=== PATIENT | male | born 1945 | race Caucasian/White ===

== ENCOUNTER → 2018-06-27 08:41 | Outpatient (CLI) | payer MEDICARE, OTHER, SELFPAY ==
--- NOTE | 2018-06-27 | DI.MRI.S_ITS ---
PROCEDURE: MR SHOULDER RT WO CON INDICATIONS: DYSFUNCTION OF RIGHT ROTATOR CUFF TECHNIQUE: Noncontrast oblique coronal T2 fast spin echo with fat saturation, oblique sagittal T1 spin echo and T2 fast spin echo with fat saturation, axial T1 spin echo and T2 fast spin echo with fat saturation through the shoulder. COMPARISON: [facility], MR, SHOULDER WITHOUT CONTRAST, 12/24/2016, 8:39. FINDINGS: Image quality: Excellent. Rotator cuff: There is a full-thickness rupture of the distal supraspinatus at its insertion on greater tuberosity of humeral head with approximately 1.0 cm medial retraction of torn tendon fibers to the level of the acromion. Tendinosis and low to moderate grade articular surface partial thickness tear involving distal infraspinatus is seen. Distal subscapularis tendinosis is also noted. Sagittal images demonstrate moderate supraspinatus muscle atrophy. Bones and bursae: No bone marrow contusions or fractures. 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 Small to moderate amount of glenohumeral joint fluid and subacromial subdeltoid bursal fluid is seen. No gross loose body. Capsule and soft tissues: In the absence of intra-articular contrast, there is suggestion of focal superior anterior labral tear at approximately 1:00 position. Degenerative changes in the inferior labrum is seen with suggestion of anterior inferior labral tear at 4 to 6:00 position. The long head of the biceps tendon demonstrates normal location and morphology. The rotator interval appears normal, without fibrosis. The coracohumeral ligament is normal in thickness. IMPRESSION: 1. Full-thickness rupture of the distal supraspinatus at its insertion on the right head with 1.4 cm medial retraction of torn tendon fibers. Tendinosis and low-grade articular surface partial-thickness tear involving distal infraspinatus. Distal subscapularis tendinosis. Moderate supraspinatus muscle atrophy. 2. Suggestion of focal superior anterior labral tear at 2:00 position an anterior inferior labral tear 4 to 6:00 position. 3. Osteoarthritic changes in glenohumeral joint and acromioclavicular joint. No fracture or dislocation. Small amount of joint fluid. Dictated by: Luis A Cormier M.D. on 06/27/2018 at 12:44 Approved by: Luis A Cormier M.D. on 06/27/2018 at 13:09
== END ==
PROVIDERS: Family Provider Family Medicine; PCP Family Medicine; Visit Provider Orthopaedic Surgery
DX: M75.101 Unspecified rotator cuff tear or rupture of right shoulder, not specified as traumatic (principal); M19.011 Primary osteoarthritis, right shoulder
CPT/HCPCS: 73221

== ENCOUNTER → 2018-07-08 14:00 | Outpatient (CLI) | payer MEDICARE, OTHER, SELFPAY | PROVIDERS: Family Provider Family Medicine; PCP Family Medicine | DX: Z23 Encounter for immunization (principal) | CPT/HCPCS: 90471; 90662 ==

== ENCOUNTER 2019-03-09 09:22 | Emergency (ER) | payer MEDICARE, OTHER, SELFPAY ==
[2019-03-09 09:30] VITALS: BP 145/70; PULSE 59; RESP 16; TEMP 36.4; O2SAT 98; BMI 32.5
--- NOTE | 2019-03-09 09:38 | ED.LOWEXIN ---
HPI - Extremity Injury (Lower) General Chief Complaint: Extremity Injury, Lower Stated Complaint: states possible pulled hamstring left leg Time Seen by Provider: 03/09/19 09:36 Source: patient and family () Mode of arrival: ambulatory Limitations: no limitations History of Present Illness HPI Narrative: This is a 73-year-old male comes to the emergency department with complaint of left thigh pain. Patient states that he thinks he may have torn his hamstring. Patient was walking down [place] when he sort of missed a step and tripped on a rock. He states that he has pain in the posterior thigh. It is worse with ambulation and weight-bearing. Patient states that he does not have any weakness that he appreciates but he does not normally have full range of motion secondary to chronic osteoarthritic changes. Patient states that he has had any numbness or tingling. He does have pain kind of in the hip and knee but he states this is pretty normal for him. Patient denies any bruising. Eyes not noticed any swelling. He states certain motions such as twisting are more painful than others. It felt better if it is elevated a slightly flexed position. Pain sort of radiates from the mid thigh up towards the buttock. Patient has had multiple orthopedic surgeries with his knees and shoulders. He normally sees Dr. Damon. He takes medication for blood pressure and cholesterol. Related Data Home Medications Medication Instructions Recorded Confirmed ASPIRIN (Aspirin EC) 81 mg PO QDAY #0 09/03/11 03/09/19 HYDROCHLOROTHIAZIDE (#HCTZ) 25 mg PO QDAY #0 09/03/11 03/09/19 lisinopril [Zestril] 10 mg PO QDAY #0 09/03/11 03/09/19 simvastatin 20 mg PO HS #0 09/03/11 03/09/19 Allergies Allergy/AdvReac Type Severity Reaction Status Date / Time Sulfa (Sulfonamide Allergy Severe ANAPHYLAXIS Verified 03/09/19 09:30 Antibiotics) [SULFA (SULFONAMIDE ANTIBIOTICS)] Review of Systems Review of Systems ROS Unobtainable: All systems reviewed & are unremarkable except as noted in HPI and below Constitutional Denies weakness Musculoskeletal Reports as per HPI, Reports abnormal gait, Reports myalgias (posterior left thigh), Denies deformity, Reports arthralgias (chronic per patient), Reports limited range of motion, Denies muscle weakness, Denies numbness and Denies tingling Integumentary/Breasts Denies erythema, Denies unusual bruising and Denies wounds Neurologic Reports abnormal gait, Denies focal weakness, Denies numbness, Denies sensory deficit, Denies tingling and Denies weakness [facility] Medical History (Updated 03/09/19 @ 10:00 by Amy Pardo DO) Dyslipidemia (Chronic) Hypertension (Chronic) Social History (Updated 03/09/19 @ 09:54 by Amy Pardo DO) marital status: occupational status: employed additional social history: 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 Exam Narrative Exam Narrative: GENERAL: Alert and oriented x three, well-nourished well-appearing male in no acute distress. HEENT: Head normocephalic, atraumatic, EOMI, face symmetric, moist mucous membranes NECK: Supple, full range of motion CARDIOVASCULAR: Regular rate and rhythm without murmurs, rubs or gallops. RESPIRATORY: Breath sounds equal bilaterally, no wheezes rales or rhonchi. ABDOMEN: Soft, nontender. Normoactive bowel sounds all 4 quadrants. No guarding or rebound, rigidity, no mass EXTREMITIES: Normal range of motion, no clubbing or edema. Neurovascularly intact, 2+ dorsalis pedis and tibialis on the left leg. Patient has full range of motion active and passively. He has no bony tenderness except for very mild at the left trochanter. Patient has some mild tenderness on the posterior thigh with palpation. He does not have any bruising or swelling. Patient's strength is 5/5 in his lower extremity as well as with dorsiflexion and plantar flexion. Gait not tested. NEUROLOGICAL: Cranial nerves II through XII grossly intact. Moving all extremities SKIN: Warm, dry, no petechiae, no rashes or lesions. Initial Vital Signs Initial Vital Signs: Vital Signs Temperature 97.6 F 03/09/19 09:30 Pulse Rate 59 L 03/09/19 09:30 Respiratory Rate 16 03/09/19 09:30 Blood Pressure 145/70 H 03/09/19 09:30 Pulse Oximetry 98 03/09/19 09:30 Course Orders Ordered: ED Orders 03/09/19 09:50 XR hip w pel if done LT 2V Stat Vital Signs - 8 hr 03/09/19 09:30 Temperature 97.6 F Pulse Rate 59 L Respiratory Rate 16 Blood Pressure 145/70 H Pulse Oximetry 98 MDM - Extremity Injury (Lower) Imaging Data L hip xray: Attestation: I personally reviewed and interpreted this imaging study as follows: Radiologist's impression: [address] [address] XRay Report Signed Patient: Leslie Bello VMR#: [id number] : 4Acct:[id number] Age/Sex: 73 / MDate of Service: 03/09/19 Loc: ED Accession Number: [id number] Procedure: XR hip w pel if done LT 2V Ordering Provider: Amy Pardo D.O. PROCEDURE: XR HIP W PEL IF DONE LT 2V INDICATIONS: left hip/thigh pain, posterior thigh, TECHNIQUE: AP pelvis with lateral view(s) of the left hip(s). COMPARISON: None. FINDINGS: Bones: No acute fractures or dislocations. Remote likely avulsion fracture fragments can be seen on the left inferiorly from a presumed ischial tuberosity avulsion. Pelvic ring appears intact. No suspicious bony lesions. There is moderate to severe superior joint space narrowing seen of both hips, with associated remodeling changes with subchondral sclerosis and osteophyte formation. Age-appropriate lower lumbar spine degenerative changes are noted. Soft tissues: The visualized bowel gas pattern is normal. No suspicious soft tissue calcifications. Bilateral pelvic lymph node dissection clips can be seen. 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 If there is point tenderness (or other clinical suspicion for a fracture not seen on these images) then a dedicated CT could be considered for further evaluation, as clinically appropriate. Dictated by: Eduardo Sahni M.D. on 03/09/2019 at 9:03 Approved by: Eduardo Sahni M.D. on 03/09/2019 at 9:05 [facility] Narrative Medical decision making narrative: Patient has very mild tenderness over the left hip but does have some rotational discomfort by history so x-ray was ordered. Patient's x-ray shows avulsion fracture fragments on the left inferiorly from a presumed ischial tuberosity avulsion, likely remote and when I review the myself they do not appear to be acute but more likely remote. Discussed with patient he did have a significant hamstring injury but he could remember if it was the right or left side is was about 30 years ago. We discussed that I suspect that this is his old injury showing on the x-ray but we can't know 100% for sure. Patient states it is not nearly as painful as that time. Suspect patient does have a hamstring tear or strain. Patient well as with Dr. Damon for Ortho and was asked to follow up with him. He has a walker at home which I asked him to continue to use. Plan for RICE, follow up with orthodic surgery and toe touch weightbearing. Geovany wrap placed by nursing Discharge Plan Departure Patient Disposition: Home Clinical Impression: Left hamstring injury Qualifiers: Encounter type: initial encounter Qualified Code(s): S76.302A - Unspecified injury of muscle, fascia and tendon of the posterior muscle group at thigh level, left thigh, initial encounter Discharge Date/Time: 03/09/19 11:00 Interventions: ED Discharge Assessment Last Done: 03/09/19 11:00 Instructions: DI for Hamstring Strain Activity Restrictions/Additional Instructions: Follow-up with Orthopedic surgery in the next 7-10 days. Call for an appointment tomorrow morning. You may continue ibuprofen up to 600 mg every 6 hours as needed and or Tylenol up to a 1000 mg every 8 hours as needed for pain. Wear a compression or Geovany bandage on the area as tolerated. You may use ice and/or heat to the affected area. Continue to use a walker, and toe-touch weight-bearing until cleared by Orthopedic surgery or if your symptoms completely resolved. Avoid activities that may strain or stress your hamstring including running, jumping, ect. Return to the emergency department for new fevers, new weakness in your lower extremity, new swelling, redness, rapidly worsening pain, new bruising or other skin color changes. New chest pain or shortness of breath or other new or concerning symptoms. Prescriptions: No Action simvastatin 20 MG tablet 20 mg PO HS Qty: 0 RF: 0 HYDROCHLOROTHIAZIDE (#HCTZ) 25 mg PO QDAY Qty: 0 RF: 0 ASPIRIN (Aspirin EC) 81 mg PO QDAY Qty: 0 RF: 0 lisinopril [Zestril] 10 MG tablet 10 mg PO QDAY Qty: 0 RF: 0 Referrals: Alex Oneill MD [Primary Care Provider] - Topher Damon MD [Physician] -
--- NOTE | 2019-03-09 09:50 | DI.RAD.S_ITS ---
PROCEDURE: XR HIP W PEL IF DONE LT 2V INDICATIONS: left hip/thigh pain, posterior thigh, TECHNIQUE: AP pelvis with lateral view(s) of the left hip(s). COMPARISON: None. FINDINGS: Bones: No acute fractures or dislocations. Remote likely avulsion fracture fragments can be seen on the left inferiorly from a presumed ischial tuberosity avulsion. Pelvic ring appears intact. No suspicious bony lesions. There is moderate to severe superior joint space narrowing seen of both hips, with associated remodeling changes with subchondral sclerosis and osteophyte formation. Age-appropriate lower lumbar spine degenerative changes are noted. Soft tissues: The visualized bowel gas pattern is normal. No suspicious soft tissue calcifications. Bilateral pelvic lymph node dissection clips can be seen. 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 If there is point tenderness (or other clinical suspicion for a fracture not seen on these images) then a dedicated CT could be considered for further evaluation, as clinically appropriate. Dictated by: Eduardo Sahni M.D. on 03/09/2019 at 9:03 Approved by: Eduardo Sahni M.D. on 03/09/2019 at 9:05
--- NOTE | 2019-03-09 10:00 | ED_ITS ---
HPI - Extremity Injury (Lower) General Chief Complaint: Extremity Injury, Lower Stated Complaint: states possible pulled hamstring left leg Time Seen by Provider: 03/09/19 09:36 Source: patient and family () Mode of arrival: ambulatory Limitations: no limitations History of Present Illness HPI Narrative: This is a 73-year-old male comes to the emergency department with complaint of left thigh pain. Patient states that he thinks he may have torn his hamstring. Patient was walking [place] a [place] when he sort of missed a step and tripped on a rock. He states that he has pain in the posterior thigh. It is worse with ambulation and weight-bearing. Patient states that he does not have any weakness that he appreciates but he does not normally have full range of motion secondary to chronic osteoarthritic changes. Patient states that he has had any numbness or tingling. He does have pain kind of in the hip and knee but he states this is pretty normal for him. Patient denies any bruising. Eyes not noticed any swelling. He states certain motions such as twisting are more painful than others. It felt better if it is elevated a slightly flexed position. Pain sort of radiates from the mid thigh up towards the buttock. Patient has had multiple orthopedic surgeries with his knees and shoulders. He normally sees Dr. Damon. He takes medication for blood pressure and cholesterol. Related Data Home Medications Medication Instructions Recorded Confirmed ASPIRIN (Aspirin EC) 81 mg PO QDAY #0 09/03/11 03/09/19 HYDROCHLOROTHIAZIDE (#HCTZ) 25 mg PO QDAY #0 09/03/11 03/09/19 lisinopril [Zestril] 10 mg PO QDAY #0 09/03/11 03/09/19 simvastatin 20 mg PO HS #0 09/03/11 03/09/19 Allergies Allergy/AdvReac Type Severity Reaction Status Date / Time Sulfa (Sulfonamide Allergy Severe ANAPHYLAXIS Verified 03/09/19 09:30 Antibiotics) [SULFA (SULFONAMIDE ANTIBIOTICS)] Review of Systems Review of Systems ROS Unobtainable: All systems reviewed & are unremarkable except as noted in HPI and below Constitutional Denies weakness Musculoskeletal Reports as per HPI, Reports abnormal gait, Reports myalgias (posterior left thigh), Denies deformity, Reports arthralgias (chronic per patient), Reports limited range of motion, Denies muscle weakness, Denies numbness and Denies tingling Integumentary/Breasts Denies erythema, Denies unusual bruising and Denies wounds Neurologic Reports abnormal gait, Denies focal weakness, Denies numbness, Denies sensory deficit, Denies tingling and Denies weakness [facility] Medical History (Updated 03/09/19 @ 10:00 by Amy Pardo DO) Dyslipidemia (Chronic) Hypertension (Chronic) Social History (Updated 03/09/19 @ 09:54 by Amy Pardo DO) marital status: occupational status: employed additional social history: 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 Exam Narrative Exam Narrative: GENERAL: Alert and oriented x three, well-nourished well- appearing male in no acute distress. HEENT: Head normocephalic, atraumatic, EOMI, face symmetric, moist mucous membranes NECK: Supple, full range of motion CARDIOVASCULAR: Regular rate and rhythm without murmurs, rubs or gallops. RESPIRATORY: Breath sounds equal bilaterally, no wheezes rales or rhonchi. ABDOMEN: Soft, nontender. Normoactive bowel sounds all 4 quadrants. No guarding or rebound, rigidity, no mass EXTREMITIES: Normal range of motion, no clubbing or edema. Neurovascularly intact, 2+ dorsalis pedis and tibialis on the left leg. Patient has full range of motion active and passively. He has no bony tenderness except for very mild at the left trochanter. Patient has some mild tenderness on the posterior thigh with palpation. He does not have any bruising or swelling. Patient's strength is 5/5 in his lower extremity as well as with dorsiflexion and plantar flexion. Gait not tested. NEUROLOGICAL: Cranial nerves II through XII grossly intact. Moving all extremities SKIN: Warm, dry, no petechiae, no rashes or lesions. Initial Vital Signs Initial Vital Signs: Vital Signs Temperature 97.6 F 03/09/19 09:30 Pulse Rate 59 L 03/09/19 09:30 Respiratory Rate 16 03/09/19 09:30 Blood Pressure 145/70 H 03/09/19 09:30 Pulse Oximetry 98 03/09/19 09:30 Course Orders Ordered: ED Orders 03/09/19 09:50 XR hip w pel if done LT 2V Stat Vital Signs - 8 hr 03/09/19 09:30 Temperature 97.6 F Pulse Rate 59 L Respiratory Rate 16 Blood Pressure 145/70 H Pulse Oximetry 98 MDM - Extremity Injury (Lower) Imaging Data L hip xray: Attestation: I personally reviewed and interpreted this imaging study as follows: Radiologist's impression: [address] [address] XRay Report Signed Patient: Leslie Bello VMR#: [id number] : 4Acct:[id number] Age/Sex: 73 / MDate of Service: 03/09/19 Loc: ED Accession Number: [id number] Procedure: XR hip w pel if done LT 2V Ordering Provider: Amy Pardo D.O. PROCEDURE: XR HIP W PEL IF DONE LT 2V INDICATIONS: left hip/thigh pain, posterior thigh, TECHNIQUE: AP pelvis with lateral view(s) of the left hip(s). COMPARISON: None. FINDINGS: Bones: No acute fractures or dislocations. Remote likely avulsion fracture fragments can be seen on the left inferiorly from a presumed ischial tuberosity avulsion. Pelvic ring appears intact. No suspicious bony lesions. There is moderate to severe superior joint space narrowing seen of both hips, with associated remodeling changes with subchondral sclerosis and osteophyte formation. Age-appropriate lower lumbar spine degenerative changes are noted. Soft tissues: The visualized bowel gas pattern is normal. No suspicious soft tissue calcifications. Bilateral pelvic lymph node dissection clips can be seen. 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 If there is point tenderness (or other clinical suspicion for a fracture not seen on these images) then a dedicated CT could be considered for further evaluation, as clinically appropriate. Dictated by: Eduardo Sahni M.D. on 03/09/2019 at 9:03 Approved by: Eduardo Sahni M.D. on 03/09/2019 at 9:05 [facility] Narrative Medical decision making narrative: Patient has very mild tenderness over the left hip but does have some rotational discomfort by history so x-ray was ordered. Patient's x-ray shows avulsion fracture fragments on the left inferiorly from a presumed ischial tuberosity avulsion, likely remote and when I review the myself they do not appear to be acute but more likely remote. Discussed with patient he did have a significant hamstring injury but he could remember if it was the right or left side is was about 30 years ago. We discussed that I suspect that this is his old injury showing on the x-ray but we can't know 100% for sure. Patient states it is not nearly as painful as that time. Suspect patient does have a hamstring tear or strain. Patient well as with Dr. Damon for Ortho and was asked to follow up with him. He has a walker at home which I asked him to continue to use. Plan for RICE, follow up with orthodic surgery and toe touch weightbearing. Geovany wrap placed by nursing Discharge Plan Departure Patient Disposition: Home Clinical Impression: Left hamstring injury Qualifiers: Encounter type: initial encounter Qualified Code(s): S76.302A - Unspecified injury of muscle, fascia and tendon of the posterior muscle group at thigh level, left thigh, initial encounter Discharge Date/Time: 03/09/19 11:00 Interventions: ED Discharge Assessment Last Done: 03/09/19 11:00 Instructions: DI for Hamstring Strain Activity Restrictions/Additional Instructions: Follow-up with Orthopedic surgery in the next 7-10 days. Call for an appointment tomorrow morning. You may continue ibuprofen up to 600 mg every 6 hours as needed and or Tylenol up to a 1000 mg every 8 hours as needed for pain. Wear a compression or Geovany bandage on the area as tolerated. You may use ice and/or heat to the affected area. Continue to use a walker, and toe-touch weight-bearing until cleared by Orthopedic surgery or if your symptoms completely resolved. Avoid activities that may strain or stress your hamstring including running, jumping, ect. Return to the emergency department for new fevers, new weakness in your lower extremity, new swelling, redness, rapidly worsening pain, new bruising or other skin color changes. New chest pain or shortness of breath or other new or concerning symptoms. Prescriptions: No Action simvastatin 20 MG tablet 20 mg PO HS Qty: 0 RF: 0 HYDROCHLOROTHIAZIDE (#HCTZ) 25 mg PO QDAY Qty: 0 RF: 0 ASPIRIN (Aspirin EC) 81 mg PO QDAY Qty: 0 RF: 0 lisinopril [Zestril] 10 MG tablet 10 mg PO QDAY Qty: 0 RF: 0 Referrals: Alex Oneill MD [Primary Care Provider] - Topher Damon MD [Physician] -
[2019-03-09 10:30] VITALS: BP 135/78; PULSE 56; RESP 16; O2SAT 96
== END 2019-03-09 11:00 | disposition home or self-care (01) ==
PROVIDERS: Emergency Provider Emergency Medicine; Family Provider Family Medicine; PCP Family Medicine
DX: S76.302A Unspecified injury of muscle, fascia and tendon of the posterior muscle group at thigh level, left thigh, initial encounter (principal)
CPT/HCPCS: 73502; 99283

== ENCOUNTER 2019-04-22 09:00 | Outpatient (RCR) | payer MEDICARE, OTHER, SELFPAY ==
--- NOTE | 2019-03-19 11:23 | PT.OIE ---
Current Diagnoses Strain of muscle, fascia and tendon of the posterior muscle group at thigh level, left thigh, initial encounter (03/19/19) Past Medical History (Last Updated 03/09/19 @ 09:53 by Amy Pardo DO) Dyslipidemia (Chronic) Hypertension (Chronic) Provider Visit Care Team Role Provider Type Alex Oneill MD Family Provider Physician Primary Care Provider Specialty: Family Practice Address: [address] [place] [address], [id number] Email: Alyson King MD Attending Provider Physician Specialty: Orthopedic Surgery Address: [address] [place] [address], [id number] Email: [email or web address] [facility] Initial Evaluation PT-OP-A Visit Information Start: 03/19/19 09:55 Freq: Status: Active Protocol: Document 03/19/19 10:30 AMB (Rec: 03/19/19 10:33 AMB [id number]) Out-Patient Physical Therapy Visit Information Visit Information Visit Type Initial Evaluation Visit Start Time 10:30 Visit Stop Time 11:15 Total Visit Minutes 45 Visit Number 1 PT-OP-B Current Condition Start: 03/19/19 09:55 Freq: Status: Active Protocol: Document 03/19/19 10:30 AMB (Rec: 03/20/19 09:26 AMB [email or web address]) Current Condition History of Current Condition Onset Date 03/08/19 Current Complaints L hamstring strain History of Current Condition Berry reports he was doing yardwork on a hill and fell. 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 At the time at the ER the bruising had not come up to the surface yet, but now it has. Pt reports bruising at posterior thigh and groin. He is ambulating with crutches in the community and a walker at night. He notes that he has pain with any turning or twisting motions. Pt lives in a home with stairs, he lives on the main level and has been using two rails and step to gait. Prior Treatments and Tests X-ray, noel wrap and ice at ER Treatment Goals Patient/Caregiver Goals Get back to walking without an AD or pain over uneven terrain for 2 miles as he was doing previously Personal Factors Other Personal Factors That May Effect Prior meniscal debridement Therapy/Recovery bilaterally x2, TIA 30 years ago, hypertension, prior prostate cancer PT-OP-C Subjective Start: 03/19/19 09:55 Freq: Status: Active Protocol: Document 03/19/19 10:30 AMB (Rec: 03/20/19 09:26 AMB [email or web address]) OP-PT Pain Assessment Location Left Thigh Pain Location Details groin/ posterior thigh Intensity 7 Scale Used Numeric (1 - 10) PT-OP-G Mobility & Gait Start: 03/19/19 09:55 Freq: Status: Active Protocol: Document 03/19/19 10:30 AMB (Rec: 03/20/19 09:26 AMB [email or web address]) OP Gait Assessment Comments Gait Comments Ambulates with a stiff leg with crutches. Tries to avoid twising/ turning motions due to pain. PT-OP-J Posture/Palpation/Skin Start: 03/19/19 09:55 Freq: Status: Active Protocol: Document 03/19/19 10:30 AMB (Rec: 03/20/19 09:26 AMB [email or web address]) Posture Evaluation Comments Posture Comments Flat lumbar spine, forward head Palpation Assessment Location One Palpation Location L thigh Palpation Details Edema and bruising present at posterior thigh and groin. Edema at L ankle/foot, tender to palpation but no pain with ROM with OP. Most tenderness just distal to ischial tuberosity and at adductors. PT-OP-K Range of Motion Start: 03/19/19 09:55 Freq: Status: Active Protocol: Document 03/19/19 10:30 AMB (Rec: 03/20/19 09:26 AMB [email or web address]) Hip Goniometric Range of Motion Hip Measured in Degrees Right Passive Straight Leg Raise 90 Internal Rotation 10 Left Passive Straight Leg Raise 65 Internal Rotation 10 Knee Goniometric Range of Motion Knee Measured in Degrees Right Flexion Passive (degrees) 115 Left Flexion Passive (degrees) 110 PT-OP-M Strength Start: 03/19/19 09:55 Freq: Status: Active Protocol: Document 03/19/19 10:30 AMB (Rec: 03/20/19 09:26 AMB [email or web address]) Hip Strength Hip Manual Muscle Testing Right Flexion (L2) 5 Normal Extension (S1) 4+ Good+ Abduction 4+ Good+ Adduction 4+ Good+ Left Flexion (L2) 4+ Good+ Extension (S1) 4- Good- Abduction 4+ Good+ Adduction 3+ Fair+ Knee Strength Knee Manual Muscle Testing Right Flexion (S2) 4+ Good+ Extension (L3) 5 Normal Left Flexion (S2) 2 Poor Extension (L3) 5 Normal PT-OP-Q Treatments Start: 03/21/19 11:01 Freq: Status: Active Protocol: Document 03/19/19 10:30 AMB (Rec: 03/21/19 11:21 AMB [email or web address]) Therapeutic Exercises Supine Exercises 1 Supine Exercise Name hamstring stretch Reps/Minutes 20x2 Comments gentle Sitting Exercises 1 Sitting Exercise Name ball squeeze Reps/Minutes 5x5 Standing Exercises 2 Standing Exercise Name heel raises Comments double leg 1 Standing Exercise Name hamstring curls Reps/Minutes 10 PT-OP-T Assessment and Plan Start: 03/19/19 09:55 Freq: Status: Active Protocol: Document 03/19/19 10:30 AMB (Rec: 03/21/19 11:21 AMB [email or web address]) Physical Therapy Assessment Rehab Potential Rehabilitation Potential Excellent Evaluation Complexity Number of Personal Factors/Comorbidities 1-2 Number of Body Systems Impaired 4 or More Clinical Presentation at Evaluation Stable Impairments Impairments Balance Functional Mobility Gait Pain ROM Strength Goals Three Impairment gait Short Term Goal (STG) Berry will ambulate without an assistive device over smooth surfaces without antalgic gait for 5 minutes. STG Duration 4 weeks Cotton Opener Goal (LTG) Berry will walk without an assistive device over uneven terrain for 5 minutes with 3/ 10 pain or less. LTG Duration 8 weeks Two Impairment strength Short Term Goal (STG) Berry will be independent with a HEP for LE strengthening. STG Duration 4 weeks Half-Way Goal (LTG) Luke will show improved LE strength by performing a partial squat to lift 10# from the floor without an increase in pain. LTG Duration 8 weeks One Impairment ROM Short Term Goal (STG) Berry will improve his straight leg raise to 90 degrees bilaterally. STG Duration 4 weeks Assessment Summary Assessment Berry attends physical therapy with significant bruising and swelling s/p hamstring and likely adductor strain during a fall down a hill. He will benefit from PT to at first help him manage his swelling and pain, and then progress his strength, balance, and ability to tolerate multiplanar movements to return to his prior level of function of walking over uneven terrain for multiple miles without pain. Physical Therapy Plan Frequency and Duration Frequency of Treatment 2x/Week Duration of Treatment 8 weeks Plan of Care Start Date 03/19/19 Plan of Care End Date 05/14/19 Therapeutic Interventions Therapeutic Interventions Aquatic Therapy Balance Training Gait Training Home Exercise Program Manual Therapy Neuromuscular Re-education Self-Care/Home Management Soft Tissue Mobilization Therapeutic Activities Therapeutic Exercises Modalities Cold Pack/Ice Massage Electric Stimulation Hot Packs Ultrasound Next Visit Focus/Plan Next Note Type Treatment Note Next Visit Plan Manage swelling/ pain. Advance LE strengthening HEP as tolerated, avoiding lateral / twisting movements until pt can better tolerate.
--- NOTE | 2019-03-19 11:24 | PT.OPPOC ---
Current Diagnoses Strain of muscle, fascia and tendon of the posterior muscle group at thigh level, left thigh, initial encounter (03/19/19) Provider Visit Care Team Role Provider Type Alex Oneill MD Family Provider Physician Primary Care Provider Specialty: Family Practice Address: [address] [place] [address], [id number] Email: Alyson King MD Attending Provider Physician Specialty: Orthopedic Surgery Address: [address] [place] [address], [phone] Email: [email or web address] Plan Of Care PT-OP-T Assessment and Plan Start: 03/19/19 09:55 Freq: Status: Active Protocol: Document 03/19/19 10:30 AMB (Rec: 03/21/19 11:21 AMB [email or web address]) Physical Therapy Assessment Rehab Potential Rehabilitation Potential Excellent Evaluation Complexity Number of Personal Factors/Comorbidities 1-2 Number of Body Systems Impaired 4 or More Clinical Presentation at Evaluation Stable Impairments Impairments Balance Functional Mobility Gait Pain ROM Strength Goals Three Impairment gait Short Term Goal (STG) Berry will ambulate without an assistive device over smooth surfaces without antalgic gait for 5 minutes. STG Duration 4 weeks Concrete Sculptor Goal (LTG) Berry will walk without an assistive device over uneven terrain for 5 minutes with 3/ 10 pain or less. LTG Duration 8 weeks Two Impairment strength Short Term Goal (STG) Berry will be independent with a HEP for LE strengthening. STG Duration 4 weeks Concrete Sculptor Goal (LTG) Luke will show improved LE strength by performing a partial squat to lift 10# from the floor without an increase in pain. LTG Duration 8 weeks One Impairment ROM Short Term Goal (STG) Berry will improve his straight leg raise to 90 degrees bilaterally. STG Duration 4 weeks Assessment Summary Assessment Berry attends physical therapy with significant bruising and swelling s/p hamstring and likely adductor strain during a fall down a hill. He will benefit from PT to at first help him manage his swelling and pain, and then progress his strength, balance, and ability to tolerate multiplanar movements to return to his prior level of function of walking over uneven terrain for multiple miles without pain. Physical Therapy Plan Frequency and Duration Frequency of Treatment 2x/Week Duration of Treatment 8 weeks Plan of Care Start Date 03/19/19 Plan of Care End Date 05/14/19 Therapeutic Interventions Therapeutic Interventions Aquatic Therapy Balance Training Gait Training Home Exercise Program Manual Therapy Neuromuscular Re-education Self-Care/Home Management Soft Tissue Mobilization Therapeutic Activities Therapeutic Exercises Modalities Cold Pack/Ice Massage Electric Stimulation Hot Packs Ultrasound Next Visit Focus/Plan Next Note Type Treatment Note Next Visit Plan Manage swelling/ pain. Advance LE strengthening HEP as tolerated, avoiding lateral / twisting movements until pt can better tolerate. Plan of Care Dates Plan of Care Start Date 03/19/19 Plan of Care End Date 05/14/19 Please Sign and Return: I have reviewed this Plan of Care and certify that the skilled therapy services above are required to meet the patient?s needs. Physician Signature Date Printed Name and Credentials Clinical Instructor Signature Printed Name and Credentials
--- NOTE | 2019-03-24 11:48 | PT.OTN ---
Current Diagnoses Strain of muscle, fascia and tendon of the posterior muscle group at thigh level, left thigh, initial encounter (03/24/19) Physical Therapy Treatment Note PT-OP-A Visit Information Start: 03/19/19 09:55 Freq: Status: Active Protocol: Document 03/24/19 07:30 AMB (Rec: 03/24/19 07:41 AMB [id number]) Out-Patient Physical Therapy Visit Information Visit Information Visit Type Treatment Note Visit Start Time 07:30 Visit Stop Time 08:15 Total Visit Minutes 45 Visit Number 2 PT-OP-B Current Condition Start: 03/19/19 09:55 Freq: Status: Active Protocol: Document 03/19/19 10:30 AMB (Rec: 03/20/19 09:26 AMB [email or web address]) Current Condition History of Current Condition Onset Date 03/08/19 Current Complaints L hamstring strain History of Current Condition Berry reports he was doing yardwork on a hill and fell. 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 At the time at the ER the bruising had not come up to the surface yet, but now it has. Pt reports bruising at posterior thigh and groin. He is ambulating with crutches in the community and a walker at night. He notes that he has pain with any turning or twisting motions. Pt lives in a home with stairs, he lives on the main level and has been using two rails and step to gait. Prior Treatments and Tests X-ray, noel wrap and ice at ER Treatment Goals Patient/Caregiver Goals Get back to walking without an AD or pain over uneven terrain for 2 miles as he was doing previously Personal Factors Other Personal Factors That May Effect Prior meniscal debridement Therapy/Recovery bilaterally x2, TIA 30 years ago, hypertension, prior prostate cancer PT-OP-C Subjective Start: 03/19/19 09:55 Freq: Status: Active Protocol: Document 03/24/19 07:30 AMB (Rec: 03/24/19 07:41 AMB [id number]) OP-PT Subjective Patient Comments Patient Comments Pt is doing better, still has difficulty with turning direction, using the cane now. PT-OP-G Mobility & Gait Start: 03/19/19 09:55 Freq: Status: Active Protocol: Document 03/19/19 10:30 AMB (Rec: 03/20/19 09:26 AMB [email or web address]) OP Gait Assessment Comments Gait Comments Ambulates with a stiff leg with crutches. Tries to avoid twising/ turning motions due to pain. PT-OP-J Posture/Palpation/Skin Start: 03/19/19 09:55 Freq: Status: Active Protocol: Document 03/19/19 10:30 AMB (Rec: 03/20/19 09:26 AMB [email or web address]) Posture Evaluation Comments Posture Comments Flat lumbar spine, forward head Palpation Assessment Location One Palpation Location L thigh Palpation Details Edema and bruising present at posterior thigh and groin. Edema at L ankle/foot, tender to palpation but no pain with ROM with OP. Most tenderness just distal to ischial tuberosity and at adductors. PT-OP-K Range of Motion Start: 03/19/19 09:55 Freq: Status: Active Protocol: Document 03/19/19 10:30 AMB (Rec: 03/20/19 09:26 AMB [email or web address]) Hip Goniometric Range of Motion Hip Measured in Degrees Right Passive Straight Leg Raise 90 Internal Rotation 10 Left Passive Straight Leg Raise 65 Internal Rotation 10 Knee Goniometric Range of Motion Knee Measured in Degrees Right Flexion Passive (degrees) 115 Left Flexion Passive (degrees) 110 PT-OP-M Strength Start: 03/19/19 09:55 Freq: Status: Active Protocol: Document 03/19/19 10:30 AMB (Rec: 03/20/19 09:26 AMB [email or web address]) Hip Strength Hip Manual Muscle Testing Right Flexion (L2) 5 Normal Extension (S1) 4+ Good+ Abduction 4+ Good+ Adduction 4+ Good+ Left Flexion (L2) 4+ Good+ Extension (S1) 4- Good- Abduction 4+ Good+ Adduction 3+ Fair+ Knee Strength Knee Manual Muscle Testing Right Flexion (S2) 4+ Good+ Extension (L3) 5 Normal Left Flexion (S2) 2 Poor Extension (L3) 5 Normal PT-OP-Q Treatments Start: 03/21/19 11:01 Freq: Status: Active Protocol: Document 03/24/19 11:40 AMB (Rec: 03/24/19 11:46 AMB [email or web address]) Cardio Equipment Recumbent Elliptical (Biodex) Duration (Minutes) 5 Resistance 4 Therapeutic Exercises Supine Exercises 2 Supine Exercise Name SLR Reps/Minutes 10 Comments abduction and flexion 3 Supine Exercise Name bridges Reps/Minutes 2x10 Comments with ball between knees 1 Supine Exercise Name hamstring stretch Reps/Minutes 20x2 Comments gentle Standing Exercises 6 Standing Exercise Name monster walk Resistance none Comments next to rail 5 Standing Exercise Name mini squat Reps/Minutes 10 4 Standing Exercise Name calf stretch Reps/Minutes 30x2 Comments on PEPE 3 Standing Exercise Name mini single leg lift Reps/Minutes 5 Manual Therapy Treatment Soft Tissue Mobilization 1 Body Location hamstring/ groin Mobilization Type Instrument Assisted Comments with roller Neuro Re-Education Treatment Balance Activities 1 Details blue foam Comments NBOS EO/EC PT-OP-R Modalities Start: 03/24/19 11:39 Freq: Status: Active Protocol: Document 03/24/19 11:40 AMB (Rec: 03/24/19 11:46 AMB [email or web address]) Hot Pack/Cold Pack Treatment Cold Pack Location Posterior thigh/ groin Patient Position Hooklying Treatment Duration (minutes) 10 PT-OP-T Assessment and Plan Start: 03/19/19 09:55 Freq: Status: Active Protocol: Document 03/24/19 07:30 AMB (Rec: 03/24/19 09:52 AMB [id number]) Physical Therapy Assessment Assessment Summary Assessment Berry tolerated progression of exercises well, can progress HEP next visit if doing well. Physical Therapy Plan Next Visit Focus/Plan Next Note Type Treatment Note Next Visit Plan Manage swelling/ pain. Advance LE strengthening HEP as tolerated, avoiding lateral / twisting movements until pt can better tolerate.
--- NOTE | 2019-03-26 13:38 | PT.OTN ---
Current Diagnoses Strain of muscle, fascia and tendon of the posterior muscle group at thigh level, left thigh, initial encounter (03/26/19) Physical Therapy Treatment Note PT-OP-A Visit Information Start: 03/19/19 09:55 Freq: Status: Active Protocol: Document 03/26/19 10:30 AMB (Rec: 03/26/19 13:37 AMB [email or web address]) Out-Patient Physical Therapy Visit Information Visit Information Visit Type Treatment Note Visit Start Time 10:30 Visit Stop Time 11:15 Total Visit Minutes 45 Visit Number 3 PT-OP-B Current Condition Start: 03/19/19 09:55 Freq: Status: Active Protocol: Document 03/19/19 10:30 AMB (Rec: 03/20/19 09:26 AMB [email or web address]) Current Condition History of Current Condition Onset Date 03/08/19 Current Complaints L hamstring strain History of Current Condition Berry reports he was doing yardwork on a hill and fell. 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 At the time at the ER the bruising had not come up to the surface yet, but now it has. Pt reports bruising at posterior thigh and groin. He is ambulating with crutches in the community and a walker at night. He notes that he has pain with any turning or twisting motions. Pt lives in a home with stairs, he lives on the main level and has been using two rails and step to gait. Prior Treatments and Tests X-ray, noel wrap and ice at ER Treatment Goals Patient/Caregiver Goals Get back to walking without an AD or pain over uneven terrain for 2 miles as he was doing previously Personal Factors Other Personal Factors That May Effect Prior meniscal debridement Therapy/Recovery bilaterally x2, TIA 30 years ago, hypertension, prior prostate cancer PT-OP-C Subjective Start: 03/19/19 09:55 Freq: Status: Active Protocol: Document 03/26/19 10:30 AMB (Rec: 03/26/19 13:37 AMB [email or web address]) OP-PT Subjective Patient Comments Patient Comments Pt arrives without SPC, but states it is in his car, because he cannot walk quickly yet. PT-OP-G Mobility & Gait Start: 03/19/19 09:55 Freq: Status: Active Protocol: Document 03/19/19 10:30 AMB (Rec: 03/20/19 09:26 AMB [email or web address]) OP Gait Assessment Comments Gait Comments Ambulates with a stiff leg with crutches. Tries to avoid twising/ turning motions due to pain. PT-OP-J Posture/Palpation/Skin Start: 03/19/19 09:55 Freq: Status: Active Protocol: Document 03/19/19 10:30 AMB (Rec: 03/20/19 09:26 AMB [email or web address]) Posture Evaluation Comments Posture Comments Flat lumbar spine, forward head Palpation Assessment Location One Palpation Location L thigh Palpation Details Edema and bruising present at posterior thigh and groin. Edema at L ankle/foot, tender to palpation but no pain with ROM with OP. Most tenderness just distal to ischial tuberosity and at adductors. PT-OP-K Range of Motion Start: 03/19/19 09:55 Freq: Status: Active Protocol: Document 03/19/19 10:30 AMB (Rec: 03/20/19 09:26 AMB [email or web address]) Hip Goniometric Range of Motion Hip Measured in Degrees Right Passive Straight Leg Raise 90 Internal Rotation 10 Left Passive Straight Leg Raise 65 Internal Rotation 10 Knee Goniometric Range of Motion Knee Measured in Degrees Right Flexion Passive (degrees) 115 Left Flexion Passive (degrees) 110 PT-OP-M Strength Start: 03/19/19 09:55 Freq: Status: Active Protocol: Document 03/19/19 10:30 AMB (Rec: 03/20/19 09:26 AMB [email or web address]) Hip Strength Hip Manual Muscle Testing Right Flexion (L2) 5 Normal Extension (S1) 4+ Good+ Abduction 4+ Good+ Adduction 4+ Good+ Left Flexion (L2) 4+ Good+ Extension (S1) 4- Good- Abduction 4+ Good+ Adduction 3+ Fair+ Knee Strength Knee Manual Muscle Testing Right Flexion (S2) 4+ Good+ Extension (L3) 5 Normal Left Flexion (S2) 2 Poor Extension (L3) 5 Normal PT-OP-Q Treatments Start: 03/21/19 11:01 Freq: Status: Active Protocol: Document 03/26/19 10:30 AMB (Rec: 03/26/19 13:37 AMB [email or web address]) Therapeutic Exercises Supine Exercises 3 Supine Exercise Name bridges Reps/Minutes 2x10 Comments vc lift vertebrae one at a time begin with tailbone 1 Supine Exercise Name hamstring stretch Reps/Minutes 20x2 Comments gentle Standing Exercises 8 Standing Exercise Name lateral stepping Resistance teal t band Reps/Minutes 10x4 7 Standing Exercise Name mini lunges- forward and lateral Reps/Minutes 10 ea 5 Standing Exercise Name mini squat Reps/Minutes 10 4 Standing Exercise Name calf stretch Reps/Minutes 30x2 Comments on PEPE 3 Standing Exercise Name mini single leg lift Reps/Minutes 5 Comments with UE support Neuro Re-Education Treatment Balance Activities 2 Details single leg stance star tap Reps/Duration 10 Comments anterior, diagonal medial, needed UE support PT-OP-R Modalities Start: 03/24/19 11:39 Freq: Status: Active Protocol: Document 03/26/19 10:30 AMB (Rec: 03/26/19 13:37 AMB [email or web address]) Hot Pack/Cold Pack Treatment Cold Pack Location Posterior thigh/ groin Patient Position Hooklying Treatment Duration (minutes) 10 PT-OP-T Assessment and Plan Start: 03/19/19 09:55 Freq: Status: Active Protocol: Document 03/26/19 10:30 AMB (Rec: 03/26/19 13:37 AMB [email or web address]) Physical Therapy Assessment Assessment Summary Assessment Provided written HEP today, as original HEP is too easy now. Encouraged to progress as tolerated without pushing into a lot of pain over the next 2 weeks. Offered waitlist, but pt feels HEP will be ok. Physical Therapy Plan Next Visit Focus/Plan Next Note Type Treatment Note Next Visit Plan Advance HEP with LE strengthening, balance, working on lateral movements, hamstring as tolerated.
--- NOTE | 2019-04-13 09:45 | PT.OTN ---
Current Diagnoses Strain of muscle, fascia and tendon of the posterior muscle group at thigh level, left thigh, initial encounter (04/13/19) Physical Therapy Treatment Note PT-OP-A Visit Information Start: 03/19/19 09:55 Freq: Status: Active Protocol: Document 04/13/19 08:50 SAK (Rec: 04/13/19 09:45 SAK [id number]) Out-Patient Physical Therapy Visit Information Visit Information Visit Type Treatment Note Visit Start Time 08:50 Visit Stop Time 09:40 Total Visit Minutes 50 Visit Number 3 PT-OP-B Current Condition Start: 03/19/19 09:55 Freq: Status: Active Protocol: Document 03/19/19 10:30 AMB (Rec: 03/20/19 09:26 AMB [email or web address]) Current Condition History of Current Condition Onset Date 03/08/19 Current Complaints L hamstring strain History of Current Condition Berry reports he was doing yardwork on a hill and fell. 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 At the time at the ER the bruising had not come up to the surface yet, but now it has. Pt reports bruising at posterior thigh and groin. He is ambulating with crutches in the community and a walker at night. He notes that he has pain with any turning or twisting motions. Pt lives in a home with stairs, he lives on the main level and has been using two rails and step to gait. Prior Treatments and Tests X-ray, noel wrap and ice at ER Treatment Goals Patient/Caregiver Goals Get back to walking without an AD or pain over uneven terrain for 2 miles as he was doing previously Personal Factors Other Personal Factors That May Effect Prior meniscal debridement Therapy/Recovery bilaterally x2, TIA 30 years ago, hypertension, prior prostate cancer PT-OP-C Subjective Start: 03/19/19 09:55 Freq: Status: Active Protocol: Document 04/13/19 08:50 SAK (Rec: 04/13/19 09:45 SAK [id number]) OP-PT Subjective Patient Comments Patient Comments improving hamstring pain, still painful with any twisting or faster walking. PT-OP-G Mobility & Gait Start: 03/19/19 09:55 Freq: Status: Active Protocol: Document 03/19/19 10:30 AMB (Rec: 03/20/19 09:26 AMB [email or web address]) OP Gait Assessment Comments Gait Comments Ambulates with a stiff leg with crutches. Tries to avoid twising/ turning motions due to pain. PT-OP-J Posture/Palpation/Skin Start: 03/19/19 09:55 Freq: Status: Active Protocol: Document 03/19/19 10:30 AMB (Rec: 03/20/19 09:26 AMB [email or web address]) Posture Evaluation Comments Posture Comments Flat lumbar spine, forward head Palpation Assessment Location One Palpation Location L thigh Palpation Details Edema and bruising present at posterior thigh and groin. Edema at L ankle/foot, tender to palpation but no pain with ROM with OP. Most tenderness just distal to ischial tuberosity and at adductors. PT-OP-K Range of Motion Start: 03/19/19 09:55 Freq: Status: Active Protocol: Document 03/19/19 10:30 AMB (Rec: 03/20/19 09:26 AMB [email or web address]) Hip Goniometric Range of Motion Hip Right Passive Straight Leg Raise 90 Internal Rotation 10 Left Passive Straight Leg Raise 65 Internal Rotation 10 Knee Goniometric Range of Motion Knee Right Flexion Passive (degrees) 115 Left Flexion Passive (degrees) 110 PT-OP-M Strength Start: 03/19/19 09:55 Freq: Status: Active Protocol: Document 03/19/19 10:30 AMB (Rec: 03/20/19 09:26 AMB [email or web address]) Hip Strength Hip Manual Muscle Testing Right Flexion (L2) 5 Normal Extension (S1) 4+ Good+ Abduction 4+ Good+ Adduction 4+ Good+ Left Flexion (L2) 4+ Good+ Extension (S1) 4- Good- Abduction 4+ Good+ Adduction 3+ Fair+ Knee Strength Knee Manual Muscle Testing Right Flexion (S2) 4+ Good+ Extension (L3) 5 Normal Left Flexion (S2) 2 Poor Extension (L3) 5 Normal PT-OP-Q Treatments Start: 03/21/19 11:01 Freq: Status: Active Protocol: Document 04/13/19 08:50 SAK (Rec: 04/13/19 09:45 SAK [id number]) Cardio Equipment Recumbent Bicycle Duration (Minutes) 8 Resistance 4 Seat Position 10 Gym Equipment Shuttle Balance chains red Details balance and wt shift Reps/Duration 10 min Comments WBOS, staggered, side/side Therapeutic Exercises Supine Exercises 1 Supine Exercise Name hamstring stretch Reps/Minutes 20x2 Comments gentle Standing Exercises Hamstring stretch Reps/Minutes 2x30 4 Standing Exercise Name calf stretch Reps/Minutes 30x2 Comments on PEPE 1 Standing Exercise Name hamstring curls Resistance 2# left, 4# right Reps/Minutes 10 Neuro Re-Education Treatment Balance Activities 2 Details single leg stance star tap Reps/Duration 10 Comments anterior, diagonal medial, needed UE support Self-Care/Home Management Treatment Education Other Education updated HEP, instructed in use of tennis ball for self- massage PT-OP-R Modalities Start: 03/24/19 11:39 Freq: Status: Active Protocol: Document 04/13/19 08:50 SAK (Rec: 04/13/19 09:45 SAK [id number]) Hot Pack/Cold Pack Treatment Cold Pack Location Posterior thigh/ groin Patient Position Hooklying Treatment Duration (minutes) 10 PT-OP-T Assessment and Plan Start: 03/19/19 09:55 Freq: Status: Active Protocol: Document 04/13/19 08:50 SAK (Rec: 04/13/19 09:45 SAK [id number]) Physical Therapy Assessment Goals Three Impairment gait Short Term Goal (STG) Berry will ambulate without an assistive device over smooth surfaces without antalgic gait for 5 minutes. STG Duration 4 weeks Senior Designer/Art Director Goal (LTG) Berry will walk without an assistive device over uneven terrain for 5 minutes with 3/ 10 pain or less. LTG Duration 8 weeks Two Impairment strength Short Term Goal (STG) Berry will be independent with a HEP for LE strengthening. STG Duration 4 weeks Senior Care Goal (LTG) Luke will show improved LE strength by performing a partial squat to lift 10# from the floor without an increase in pain. LTG Duration 8 weeks One Impairment ROM Short Term Goal (STG) Berry will improve his straight leg raise to 90 degrees bilaterally. STG Duration 4 weeks Assessment Summary Assessment Tolerated progression of exercises well. Less weight for hamstring curl left to attain full ROM vs right. Has ankle weights at home. Physical Therapy Plan Frequency and Duration Frequency of Treatment 2x/Week Duration of Treatment 8 weeks Plan of Care Start Date 03/19/19 Plan of Care End Date 05/14/19 Therapeutic Interventions Therapeutic Interventions Aquatic Therapy Balance Training Gait Training Home Exercise Program Manual Therapy Neuromuscular Re-education Self-Care/Home Management Soft Tissue Mobilization Therapeutic Activities Therapeutic Exercises Modalities Cold Pack/Ice Massage Electric Stimulation Hot Packs Ultrasound Next Visit Focus/Plan Next Note Type Treatment Note Next Visit Plan Further advancement of HEP as tolerated with dynamic, functional movements. Add KEHINDE grace.
--- NOTE | 2019-04-15 15:46 | PT.OTN ---
Current Diagnoses Strain of muscle, fascia and tendon of the posterior muscle group at thigh level, left thigh, initial encounter (04/15/19) Physical Therapy Treatment Note PT-OP-A Visit Information Start: 03/19/19 09:55 Freq: Status: Active Protocol: Document 04/15/19 13:45 AMB (Rec: 04/15/19 13:52 AMB [id number]) Out-Patient Physical Therapy Visit Information Visit Information Visit Type Treatment Note Visit Start Time 08:50 Visit Stop Time 09:40 Total Visit Minutes 50 Visit Number 5 PT-OP-B Current Condition Start: 03/19/19 09:55 Freq: Status: Active Protocol: Document 03/19/19 10:30 AMB (Rec: 03/20/19 09:26 AMB [email or web address]) Current Condition History of Current Condition Onset Date 03/08/19 Current Complaints L hamstring strain History of Current Condition Berry reports he was doing yardwork on a hill and fell. 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 At the time at the ER the bruising had not come up to the surface yet, but now it has. Pt reports bruising at posterior thigh and groin. He is ambulating with crutches in the community and a walker at night. He notes that he has pain with any turning or twisting motions. Pt lives in a home with stairs, he lives on the main level and has been using two rails and step to gait. Prior Treatments and Tests X-ray, noel wrap and ice at ER Treatment Goals Patient/Caregiver Goals Get back to walking without an AD or pain over uneven terrain for 2 miles as he was doing previously Personal Factors Other Personal Factors That May Effect Prior meniscal debridement Therapy/Recovery bilaterally x2, TIA 30 years ago, hypertension, prior prostate cancer PT-OP-C Subjective Start: 03/19/19 09:55 Freq: Status: Active Protocol: Document 04/15/19 13:45 AMB (Rec: 04/15/19 13:52 AMB [id number]) OP-PT Subjective Patient Comments Patient Comments Pt is doing well, although notices his leg tightens up when he walks for awhile. PT-OP-G Mobility & Gait Start: 03/19/19 09:55 Freq: Status: Active Protocol: Document 03/19/19 10:30 AMB (Rec: 03/20/19 09:26 AMB [email or web address]) OP Gait Assessment Comments Gait Comments Ambulates with a stiff leg with crutches. Tries to avoid twising/ turning motions due to pain. PT-OP-J Posture/Palpation/Skin Start: 03/19/19 09:55 Freq: Status: Active Protocol: Document 03/19/19 10:30 AMB (Rec: 03/20/19 09:26 AMB [email or web address]) Posture Evaluation Comments Posture Comments Flat lumbar spine, forward head Palpation Assessment Location One Palpation Location L thigh Palpation Details Edema and bruising present at posterior thigh and groin. Edema at L ankle/foot, tender to palpation but no pain with ROM with OP. Most tenderness just distal to ischial tuberosity and at adductors. PT-OP-K Range of Motion Start: 03/19/19 09:55 Freq: Status: Active Protocol: Document 03/19/19 10:30 AMB (Rec: 03/20/19 09:26 AMB [email or web address]) Hip Goniometric Range of Motion Hip Right Passive Straight Leg Raise 90 Internal Rotation 10 Left Passive Straight Leg Raise 65 Internal Rotation 10 Knee Goniometric Range of Motion Knee Right Flexion Passive (degrees) 115 Left Flexion Passive (degrees) 110 PT-OP-M Strength Start: 03/19/19 09:55 Freq: Status: Active Protocol: Document 03/19/19 10:30 AMB (Rec: 03/20/19 09:26 AMB [email or web address]) Hip Strength Hip Manual Muscle Testing Right Flexion (L2) 5 Normal Extension (S1) 4+ Good+ Abduction 4+ Good+ Adduction 4+ Good+ Left Flexion (L2) 4+ Good+ Extension (S1) 4- Good- Abduction 4+ Good+ Adduction 3+ Fair+ Knee Strength Knee Manual Muscle Testing Right Flexion (S2) 4+ Good+ Extension (L3) 5 Normal Left Flexion (S2) 2 Poor Extension (L3) 5 Normal PT-OP-Q Treatments Start: 03/21/19 11:01 Freq: Status: Active Protocol: Document 04/15/19 13:45 AMB (Rec: 04/15/19 13:55 AMB [id number]) Cardio Equipment Recumbent Elliptical (Biodex) Duration (Minutes) 5 Resistance 4 Recumbent Bicycle Duration (Minutes) 8 Resistance 4 Seat Position 10 Gym Equipment Shuttle Balance chains red Details balance and wt shift Reps/Duration 10 min Comments WBOS, staggered, side/side Therapeutic Exercises Supine Exercises 1 Supine Exercise Name hamstring stretch Reps/Minutes 20x2 Comments gentle Standing Exercises 8 Standing Exercise Name lateral stepping Resistance teal t band Reps/Minutes 10x4 7 Standing Exercise Name mini lunges- forward and lateral Reps/Minutes 10 ea 5 Standing Exercise Name mini squat Reps/Minutes 10 4 Standing Exercise Name calf stretch Reps/Minutes 30x2 Comments on PEPE 3 Standing Exercise Name mini single leg lift Reps/Minutes 10 Comments with UE support 2 Standing Exercise Name heel raises Comments double leg 1 Standing Exercise Name hamstring curls Resistance 2# left, 4# right Reps/Minutes 10 Manual Therapy Treatment Other Other Manual Treatments contract relax hamstring Neuro Re-Education Treatment Balance Activities 2 Details single leg stance star tap Reps/Duration 10 Comments anterior, diagonal medial, needed UE support PT-OP-R Modalities Start: 03/24/19 11:39 Freq: Status: Active Protocol: Document 04/15/19 13:45 AMB (Rec: 04/15/19 15:41 AMB [email or web address]) Hot Pack/Cold Pack Treatment Cold Pack Location posterior thigh Patient Position Hooklying Treatment Duration (minutes) 5 PT-OP-T Assessment and Plan Start: 03/19/19 09:55 Freq: Status: Active Protocol: Document 04/15/19 13:45 AMB (Rec: 04/15/19 15:41 AMB [email or web address]) Physical Therapy Assessment Assessment Summary Assessment Berry tolerated single leg lifts with UE support well, continues to fatigue with multiple reps and then get tighter. Physical Therapy Plan Next Visit Focus/Plan Next Note Type Treatment Note Next Visit Plan Further advancement of HEP as tolerated with dynamic, functional movements. Add KEHINDE grace.
--- NOTE | 2019-04-20 11:59 | PT.OTN ---
Current Diagnoses Strain of muscle, fascia and tendon of the posterior muscle group at thigh level, left thigh, initial encounter (04/20/19) Physical Therapy Treatment Note PT-OP-A Visit Information Start: 03/19/19 09:55 Freq: Status: Active Protocol: Document 04/20/19 09:00 AMB (Rec: 04/20/19 11:59 AMB [email or web address]) Out-Patient Physical Therapy Visit Information Visit Information Visit Type Treatment Note Visit Start Time 08:50 Visit Stop Time 09:40 Total Visit Minutes 50 Visit Number 6 PT-OP-B Current Condition Start: 03/19/19 09:55 Freq: Status: Active Protocol: Document 03/19/19 10:30 AMB (Rec: 03/20/19 09:26 AMB [email or web address]) Current Condition History of Current Condition Onset Date 03/08/19 Current Complaints L hamstring strain History of Current Condition Berry reports he was doing yardwork on a hill and fell. 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 At the time at the ER the bruising had not come up to the surface yet, but now it has. Pt reports bruising at posterior thigh and groin. He is ambulating with crutches in the community and a walker at night. He notes that he has pain with any turning or twisting motions. Pt lives in a home with stairs, he lives on the main level and has been using two rails and step to gait. Prior Treatments and Tests X-ray, noel wrap and ice at ER Treatment Goals Patient/Caregiver Goals Get back to walking without an AD or pain over uneven terrain for 2 miles as he was doing previously Personal Factors Other Personal Factors That May Effect Prior meniscal debridement Therapy/Recovery bilaterally x2, TIA 30 years ago, hypertension, prior prostate cancer PT-OP-C Subjective Start: 03/19/19 09:55 Freq: Status: Active Protocol: Document 04/20/19 09:00 AMB (Rec: 04/20/19 11:59 AMB [email or web address]) OP-PT Subjective Patient Comments Patient Comments Pt tried to walk on [employer] yesterday, it went well until the end when his L calf really bothered him. PT-OP-G Mobility & Gait Start: 03/19/19 09:55 Freq: Status: Active Protocol: Document 03/19/19 10:30 AMB (Rec: 03/20/19 09:26 AMB [email or web address]) OP Gait Assessment Comments Gait Comments Ambulates with a stiff leg with crutches. Tries to avoid twising/ turning motions due to pain. PT-OP-J Posture/Palpation/Skin Start: 03/19/19 09:55 Freq: Status: Active Protocol: Document 03/19/19 10:30 AMB (Rec: 03/20/19 09:26 AMB [email or web address]) Posture Evaluation Comments Posture Comments Flat lumbar spine, forward head Palpation Assessment Location One Palpation Location L thigh Palpation Details Edema and bruising present at posterior thigh and groin. Edema at L ankle/foot, tender to palpation but no pain with ROM with OP. Most tenderness just distal to ischial tuberosity and at adductors. PT-OP-K Range of Motion Start: 03/19/19 09:55 Freq: Status: Active Protocol: Document 03/19/19 10:30 AMB (Rec: 03/20/19 09:26 AMB [email or web address]) Hip Goniometric Range of Motion Hip Right Passive Straight Leg Raise 90 Internal Rotation 10 Left Passive Straight Leg Raise 65 Internal Rotation 10 Knee Goniometric Range of Motion Knee Right Flexion Passive (degrees) 115 Left Flexion Passive (degrees) 110 PT-OP-M Strength Start: 03/19/19 09:55 Freq: Status: Active Protocol: Document 03/19/19 10:30 AMB (Rec: 03/20/19 09:26 AMB [email or web address]) Hip Strength Hip Manual Muscle Testing Right Flexion (L2) 5 Normal Extension (S1) 4+ Good+ Abduction 4+ Good+ Adduction 4+ Good+ Left Flexion (L2) 4+ Good+ Extension (S1) 4- Good- Abduction 4+ Good+ Adduction 3+ Fair+ Knee Strength Knee Manual Muscle Testing Right Flexion (S2) 4+ Good+ Extension (L3) 5 Normal Left Flexion (S2) 2 Poor Extension (L3) 5 Normal PT-OP-Q Treatments Start: 03/21/19 11:01 Freq: Status: Active Protocol: Document 04/20/19 09:00 AMB (Rec: 04/20/19 11:59 AMB [email or web address]) Therapeutic Exercises Supine Exercises 4 Supine Exercise Name plantarflexion against manual resistance Reps/Minutes 2x10 1 Supine Exercise Name hamstring stretch Reps/Minutes 20x2 Comments gentle Standing Exercises 4 Standing Exercise Name calf stretch Reps/Minutes 30x2 Comments on PEPE Manual Therapy Treatment Manual Techniques 1 Type soft tissue posterior chain L LE Body Position Supine PT-OP-R Modalities Start: 03/24/19 11:39 Freq: Status: Active Protocol: Document 04/20/19 09:00 AMB (Rec: 04/20/19 11:59 AMB [email or web address]) Ultrasound Therapy Treatment Left Ankle Treatment Duration (minutes) 5 Patient Position Supine Coupling Medium Ultrasound Gel Frequency Setting (mHz) 1 Intensity Setting (w/cm2) 1.5 Comments achilles PT-OP-T Assessment and Plan Start: 03/19/19 09:55 Freq: Status: Active Protocol: Document 04/20/19 09:00 AMB (Rec: 04/20/19 11:59 AMB [email or web address]) Physical Therapy Assessment Assessment Summary Assessment Pt was walking better after manual and exercise today, was limping at beginning of session. Physical Therapy Plan Next Visit Focus/Plan Next Note Type Treatment Note Next Visit Plan Further advancement of HEP as tolerated with dynamic, functional movements. Add KEHINDE grace.
--- NOTE | 2019-04-22 12:00 | PT.OTN ---
Current Diagnoses Strain of muscle, fascia and tendon of the posterior muscle group at thigh level, left thigh, initial encounter (04/22/19) Physical Therapy Treatment Note PT-OP-A Visit Information Start: 03/19/19 09:55 Freq: Status: Active Protocol: Document 04/22/19 09:00 AMB (Rec: 04/22/19 09:06 AMB [id number]) Out-Patient Physical Therapy Visit Information Visit Information Visit Type Treatment Note Visit Start Time 09:00 Visit Stop Time 09:45 Total Visit Minutes 50 Visit Number 7 PT-OP-B Current Condition Start: 03/19/19 09:55 Freq: Status: Active Protocol: Document 03/19/19 10:30 AMB (Rec: 03/20/19 09:26 AMB [email or web address]) Current Condition History of Current Condition Onset Date 03/08/19 Current Complaints L hamstring strain History of Current Condition Berry reports he was doing yardwork on a hill and fell. 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 At the time at the ER the bruising had not come up to the surface yet, but now it has. Pt reports bruising at posterior thigh and groin. He is ambulating with crutches in the community and a walker at night. He notes that he has pain with any turning or twisting motions. Pt lives in a home with stairs, he lives on the main level and has been using two rails and step to gait. Prior Treatments and Tests X-ray, noel wrap and ice at ER Treatment Goals Patient/Caregiver Goals Get back to walking without an AD or pain over uneven terrain for 2 miles as he was doing previously Personal Factors Other Personal Factors That May Effect Prior meniscal debridement Therapy/Recovery bilaterally x2, TIA 30 years ago, hypertension, prior prostate cancer PT-OP-C Subjective Start: 03/19/19 09:55 Freq: Status: Active Protocol: Document 04/22/19 09:00 AMB (Rec: 04/22/19 09:06 AMB [id number]) OP-PT Subjective Patient Comments Patient Comments No more limping, but is getting an MRI of the achilles next week. PT-OP-G Mobility & Gait Start: 03/19/19 09:55 Freq: Status: Active Protocol: Document 03/19/19 10:30 AMB (Rec: 03/20/19 09:26 AMB [email or web address]) OP Gait Assessment Comments Gait Comments Ambulates with a stiff leg with crutches. Tries to avoid twising/ turning motions due to pain. PT-OP-J Posture/Palpation/Skin Start: 03/19/19 09:55 Freq: Status: Active Protocol: Document 03/19/19 10:30 AMB (Rec: 03/20/19 09:26 AMB [email or web address]) Posture Evaluation Comments Posture Comments Flat lumbar spine, forward head Palpation Assessment Location One Palpation Location L thigh Palpation Details Edema and bruising present at posterior thigh and groin. Edema at L ankle/foot, tender to palpation but no pain with ROM with OP. Most tenderness just distal to ischial tuberosity and at adductors. PT-OP-K Range of Motion Start: 03/19/19 09:55 Freq: Status: Active Protocol: Document 03/19/19 10:30 AMB (Rec: 03/20/19 09:26 AMB [email or web address]) Hip Goniometric Range of Motion Hip Right Passive Straight Leg Raise 90 Internal Rotation 10 Left Passive Straight Leg Raise 65 Internal Rotation 10 Knee Goniometric Range of Motion Knee Right Flexion Passive (degrees) 115 Left Flexion Passive (degrees) 110 PT-OP-M Strength Start: 03/19/19 09:55 Freq: Status: Active Protocol: Document 03/19/19 10:30 AMB (Rec: 03/20/19 09:26 AMB [email or web address]) Hip Strength Hip Manual Muscle Testing Right Flexion (L2) 5 Normal Extension (S1) 4+ Good+ Abduction 4+ Good+ Adduction 4+ Good+ Left Flexion (L2) 4+ Good+ Extension (S1) 4- Good- Abduction 4+ Good+ Adduction 3+ Fair+ Knee Strength Knee Manual Muscle Testing Right Flexion (S2) 4+ Good+ Extension (L3) 5 Normal Left Flexion (S2) 2 Poor Extension (L3) 5 Normal PT-OP-Q Treatments Start: 03/21/19 11:01 Freq: Status: Active Protocol: Document 04/22/19 09:00 AMB (Rec: 04/28/19 07:53 AMB [email or web address]) Cardio Equipment Recumbent Elliptical (Biodex) Duration (Minutes) 5 Resistance 4 Therapeutic Exercises Supine Exercises 4 Supine Exercise Name plantarflexion against manual resistance Reps/Minutes 2x10 1 Supine Exercise Name hamstring stretch Reps/Minutes 20x2 Comments gentle Standing Exercises 7 Standing Exercise Name mini lunges- forward and lateral Reps/Minutes 10 ea 4 Standing Exercise Name calf stretch Reps/Minutes 30x2 Comments on PEPE 3 Standing Exercise Name mini single leg lift Reps/Minutes 10 Comments with UE support Neuro Re-Education Treatment Balance Activities 2 Details single leg stance star tap Reps/Duration 10 Comments anterior, diagonal medial, needed UE support PT-OP-R Modalities Start: 03/24/19 11:39 Freq: Status: Active Protocol: Document 04/20/19 09:00 AMB (Rec: 04/20/19 11:59 AMB [email or web address]) Ultrasound Therapy Treatment Left Ankle Treatment Duration (minutes) 5 Patient Position Supine Coupling Medium Ultrasound Gel Frequency Setting (mHz) 1 Intensity Setting (w/cm2) 1.5 Comments achilles PT-OP-T Assessment and Plan Start: 03/19/19 09:55 Freq: Status: Active Protocol: Document 04/22/19 09:00 AMB (Rec: 04/28/19 07:51 AMB [email or web address]) Physical Therapy Assessment Goals Three Impairment gait Short Term Goal (STG) Berry will ambulate without an assistive device over smooth surfaces without antalgic gait for 5 minutes. STG Duration MET Advertising Production Manager Goal (LTG) Berry will walk without an assistive device over uneven terrain for 5 minutes with 3/ 10 pain or less. LTG Duration PROGRESS MADE Two Impairment strength Short Term Goal (STG) Berry will be independent with a HEP for LE strengthening. STG Duration MET Advertising Production Manager Goal (LTG) Berry will show improved LE strength by performing a partial squat to lift 10# from the floor without an increase in pain. LTG Duration MET One Impairment ROM Short Term Goal (STG) Berry will improve his straight leg raise to 90 degrees bilaterally. STG Duration MET Assessment Summary Assessment Berry no longer feels that his hamstring is restricting his walking, but does feel restricted by his achilles. He is able to tolerate his HEP and should be able to continue independently at this time. Physical Therapy Plan Discharge Physical Therapy Discharge Reasons Goals Met Discharge Comments pt feels that his hamstring is well rehabed and is following up with his physician regarding his achilles
== END 2019-05-08 14:27 | disposition home or self-care (01) ==
LOC: PHYS 09:00
PROVIDERS: Family Provider Family Medicine; PCP Family Medicine; Visit Provider Orthopaedic Surgery
DX: S76.312A Strain of muscle, fascia and tendon of the posterior muscle group at thigh level, left thigh, initial encounter (principal)
CPT/HCPCS: 97010; 97035; 97110; 97112; 97140; 97161; 97535

== ENCOUNTER → 2019-04-25 13:36 | Outpatient (CLI) | payer MEDICARE, OTHER, SELFPAY ==
--- NOTE | 2019-04-25 | DI.MRI.S_ITS ---
PROCEDURE: MR ANKLE LT WO CON INDICATIONS: Strain of left Achilles tendon, initial encounter TECHNIQUE: Noncontrast sagittal T1 spin echo and T2 fast spin echo with fat saturation, axial proton density fast spin echo and T2 fast spin echo with fat saturation, coronal T1 spin echo and T2 fast spin echo with fat saturation through the ankle/hindfoot. COMPARISON: None. FINDINGS: Image quality: Excellent. Bones and joints: Mild soft tissue swelling around ankle joint is seen. No bone marrow contusions or fractures. Mild osteoarthritic changes throughout mid foot and hindfoot joints are seen with joint space narrowing and subchondral sclerosis. No hindfoot coalitions. No osteochondral injuries of the talar dome. Small amount of fluid is seen within subtalar joint space. No gross intra-articular loose body. Medial structures: The posterior tibialis, flexor digitorum longus, and flexor hallucis longus tendons are intact. The posterior tibial neurovascular bundle appears normal within the tarsal tunnel, without extrinsic mass effect. The deep layer (anterior and posterior tibiotalar ligaments) and superficial layer (tibionavicular, tibiospring, and tibiocalcaneal ligaments) of the deltoid ligament appear normal. The spring ligament components (superomedial calcaneonavicular, medioplantar oblique calcaneonavicular, and inferoplantar longitudinal ligaments) are intact. Lateral structures: The anterior talofibular, calcaneofibular, and posterior talofibular ligaments appear intact. More superiorly, the anterior and posterior tibiofibular ligaments appear intact, as is the intermalleolar ligament. The tibiofibular syndesmosis is normal in width at 2 mm or less. The peroneus longus and brevis tendons demonstrate normal location and morphology. Adjacent bony peroneal tubercle and retrotrochlear prominence are normal in size. The sinus tarsi demonstrates normal fatty signal, without edema, fibrosis, or cyst formation. Visualized sinus tarsi components (cervical ligament, interosseous talocalcaneal ligament, roots of the inferior extensor retinaculum) appear normal. The calcaneonavicular and calcaneocuboid components of the bifurcate ligament appear intact. The dorsal calcaneocuboid ligament appears intact. Anterior structures: The tibialis anterior, extensor hallucis longus, and extensor digitorum longus tendons appear intact. The dorsal talonavicular ligament appears intact. Posterior and plantar structures: Markedly thickened Achilles tendon approximately 8.5 cm from its insertion on the posterior calcaneus with internal heterogeneous fluid signal and surrounding soft tissue edema concerning for moderate grade intrasubstance partial thickness tear. No full-thickness Achilles tendon rupture. Medial and lateral bands of the plantar fascia are of normal thickness. No abductor digiti quinti muscle atrophy to suggest Love neuropathy. IMPRESSION: 1. Tendinosis and moderate intrasubstance partial-thickness tear involving mid to distal Achilles tendon as above. No full thickness Achilles tendon rupture. 2. Rest of the ankle tendons and ligaments are grossly intact. 3. No ankle fracture or dislocation. Mild ankle soft tissue swelling. Mild midfoot and hindfoot joint osteoarthritis. Dictated by: Luis A Cormier M.D. on 04/27/2019 at 10:23 Approved by: Luis A Cormier M.D. on 04/27/2019 at 10:31
== END ==
PROVIDERS: Family Provider Family Medicine; PCP Family Medicine; Visit Provider Orthopaedic Surgery
DX: S86.012A Strain of left Achilles tendon, initial encounter (principal); M19.072 Primary osteoarthritis, left ankle and foot; M79.89 Other specified soft tissue disorders
CPT/HCPCS: 73721

== ENCOUNTER → 2019-07-16 10:50 | Outpatient (CLI) | payer MEDICARE, OTHER, SELFPAY | PROVIDERS: PCP Family Medicine | DX: Z23 Encounter for immunization (principal) | CPT/HCPCS: 90471; 90662 ==

== ENCOUNTER → 2019-09-15 09:08 | Outpatient (CLI) | payer MEDICARE, OTHER, SELFPAY ==
[2019-09-15 10:40] LABS: Prostate Specific Antigen < 0.064 ng/mL (0.10-4.00)
== END ==
PROVIDERS: Family Provider Family Medicine; PCP Family Medicine; Visit Provider Urology
DX: C61 Malignant neoplasm of prostate (principal)
CPT/HCPCS: 36415; 84153

== ENCOUNTER → 2020-04-30 08:10 | Outpatient (CLI) | payer MEDICARE, OTHER, SELFPAY ==
--- NOTE | 2020-04-30 | DI.MRI.S_ITS ---
PROCEDURE: MR PELVIS WO CON INDICATIONS: LOW BACK PAIN TECHNIQUE: Noncontrast axial and coronal T1 spin echo and STIR through the lumbosacral plexus region. Optional contrast may be given, followed by axial and coronal T1 spin echo with fat saturation through the sacral plexus. COMPARISON: None. FINDINGS: Image quality: Excellent. Lumbosacral plexus: Superior to the piriformis muscles, the pre-plexal structures appear normal, including the lumbosacral trunk and S1 root. Just anterior to the piriformis muscles, the sacral plexus proper demonstrates normal morphology (lumbosacral trunk, S1 to S3 nerve roots). Inferior to the piriformis muscles, the sciatic nerves appear normal. Soft tissues: The piriformis muscles appear symmetric in size. No presacral masses. Rectum appears normal in caliber and wall thickness. No pathologic free pelvic fluid. No visualized adenopathy by size criteria. Note is made of asymmetric right greater than left synovial inflammation and adjacent edema involving the upper-outer acetabular margin, consistent with asymmetric mild osteoarthritis or focal synovitis in of those areas. Bones: Marrow is normal in overall signal. IMPRESSION: No trauma is found, there is no mass or inflammation impinging on the course of the lumbosacral plexus bilaterally. Note is made of asymmetric focal edema at the upper-outer capsular border of each hip, right greater than left, consistent with focal asymmetric osteoarthritis or synovitis as the underlying cause. No joint effusion or intra-articular loose body is found. No sign of avascular necrosis is present. Dictated by: Des Funes M.D. on 05/02/2020 at 10:15 Approved by: Des Funes M.D. on 05/02/2020 at 10:20
--- NOTE | 2020-04-30 | DI.MRI.S_ITS ---
PROCEDURE: MR LUMBAR SPINE WO CON INDICATIONS: LOW BACK PAIN TECHNIQUE: Noncontrast sagittal T1 spin echo and T2 fast echo, sagittal STIR, axial T1 and T2 fast spin echo through the lumbar spine. In cases with scoliosis, additional coronal T2 fast spin echo may be performed. COMPARISON: None. FINDINGS: Image quality: Excellent. Alignment and Curvature: There is normal bony alignment. Bone Marrow: Marrow is of normal overall signal. No acute vertebral body compression fractures. Spinal Cord: Conus medullaris terminates at the L1 level. Visualized cord demonstrates normal signal and size. Paraspinous Soft Tissues: No paravertebral masses. L1-L2: Mild degenerative disc height reduction and a slight posterior disc bulge is present with no significant spinal or foraminal stenosis and with only mild right slightly greater than left facet osteoarthritis. L2-L3: Mild degenerative disc height reduction and desiccation, mild bilateral facet osteoarthritis without significant spinal or foraminal stenosis. There is a slight posterior disc bulge. L3-L4: Moderate degenerative disc disease with disc height reduction, disc desiccation, a mild broad-based transverse disc bulge, and bilateral moderate facet osteoarthritis greater on the right than the left with resultant moderately severe right and [id number] left foraminal stenosis with potential for asymmetric impingement on the course of the L3 nerve roots, right greater than left. L4-L5: The degenerative disc disease at this level is moderate in severity without a significant posterior disc bulge but facet osteoarthritis is severe in this allows anterolisthesis of L4 on L5, grade 1, to combine with facet hyperostosis and ligamentum flavum hypertrophy to produce concentric moderately severe spinal stenosis, left greater than right, with foraminal stenosis also greater on the left than the right. Nerve roots are crowded within the thecal sac at this level significantly. L5-S1: Mild degenerative disc disease, mild to moderate facet osteoarthritis without spinal or foraminal stenosis. IMPRESSION: Moderately severe to severe degenerative disc disease and facet osteoarthritis over the lower half of the LS spine, and relatively mild degenerative changes more superiorly. As discussed there is both symmetric and asymmetric impingement on the spinal canal and neural foramen, with maximal impingement noted at the L4-L5 level. A disc herniation is not found, no definite acute disease identified. No compression fracture found. Dictated by: Des Funes M.D. on 05/02/2020 at 11:46 Approved by: Des Funes M.D. on 05/02/2020 at 11:52
== END ==
PROVIDERS: Family Provider Family Medicine; PCP Family Medicine; Referring Provider Family Medicine; Visit Provider Family Medicine
DX: M54.5 Low back pain (principal); M25.551 Pain in right hip; M25.552 Pain in left hip; M51.36 Other intervertebral disc degeneration, lumbar region; M51.37 Other intervertebral disc degeneration, lumbosacral region; M47.816 Spondylosis without myelopathy or radiculopathy, lumbar region; M47.817 Spondylosis without myelopathy or radiculopathy, lumbosacral region
CPT/HCPCS: 72148; 72195

== ENCOUNTER → 2020-07-26 07:43 | Outpatient (CLI) | payer MEDICARE, OTHER, SELFPAY | PROVIDERS: Family Provider Family Medicine; PCP Family Medicine; Referring Provider Internal Medicine; Visit Provider Internal Medicine | DX: Z23 Encounter for immunization (principal) | CPT/HCPCS: 90471; 90662 ==

== ENCOUNTER → 2020-10-10 09:40 | Outpatient (CLI) | payer MEDICARE, OTHER, SELFPAY ==
[2020-10-10 11:30] LABS: Prostate Specific Antigen < 0.064 ng/mL (0.10-4.00)
== END ==
PROVIDERS: Referring Provider Specialist; Visit Provider Specialist
DX: R97.20 Elevated prostate specific antigen [PSA] (principal); N39.3 Stress incontinence (female) (male); Z85.46 Personal history of malignant neoplasm of prostate; Z80.42 Family history of malignant neoplasm of prostate
CPT/HCPCS: 36415; 81002; 84153; 99214

== ENCOUNTER → 2021-07-27 16:18 | Outpatient (CLI) | payer MEDICARE, OTHER, SELFPAY | PROVIDERS: Referring Provider Internal Medicine; Visit Provider Internal Medicine | DX: Z23 Encounter for immunization (principal) | CPT/HCPCS: 90471; 90662 ==

== ENCOUNTER → 2021-10-17 12:31 | Outpatient (CLI) | payer MEDICARE, OTHER, SELFPAY ==
[2021-10-17 13:59] LABS: Prostate Specific Antigen Scrn < 0.064 ng/mL (0.1-4.0)
== END ==
PROVIDERS: PCP Family Medicine; Referring Provider Specialist; Visit Provider Specialist
DX: R97.20 Elevated prostate specific antigen [PSA] (principal)
CPT/HCPCS: 36415; 84153; G0103

== ENCOUNTER → 2022-03-16 09:40 | Outpatient (CLI) | payer MEDICARE, OTHER, SELFPAY | PROVIDERS: PCP Family Medicine; Referring Provider Orthopaedic Surgery Orthopaedic Surgery of the Spine; Visit Provider Orthopaedic Surgery Orthopaedic Surgery of the Spine | DX: Z01.818 Encounter for other preprocedural examination (principal) | CPT/HCPCS: 93005 ==

== ENCOUNTER → 2022-03-20 10:11 | Outpatient (CLI) | payer MEDICARE, OTHER, SELFPAY ==
[2022-03-20 12:25] LABS: COVID19 -Nasal RAPID Negative (Negative)
== END ==
PROVIDERS: PCP Family Medicine; Referring Provider Orthopaedic Surgery Orthopaedic Surgery of the Spine; Visit Provider Orthopaedic Surgery Orthopaedic Surgery of the Spine
DX: Z20.822 Contact with and (suspected) exposure to COVID-19 (principal); Z20.828 Contact with and (suspected) exposure to other viral communicable diseases
CPT/HCPCS: 87635; C9803

== ENCOUNTER 2022-03-21 06:09 | Inpatient (IN) | payer MEDICARE, OTHER, SELFPAY ==
[2022-03-20 09:24] VITALS: BMI 33.7
[2022-03-21] VITALS (14 sets, daily range): BP systolic 119–174; BP diastolic 59–89; PULSE 59–681; RESP 10–19; TEMP 35.7–36.9; O2SAT 94–99; BMI 33.7
--- NOTE | 2022-03-21 | DI.RAD.S_ITS ---
PROCEDURE: XR LUMBAR SPINE 2-3V INDICATIONS: L4-5 TLIF TECHNIQUE: 2 intraoperative views of the lumbar spine were acquired. COMPARISON: [facility], [place], XR LUMBAR SPINE 2 OR 3 VIEWS, 03/06/2022, 8:48. FINDINGS: Pedicle screw fixation with intervertebral body spacer at L4-L5. Screws project in the expected location. IMPRESSION: Intraoperative guidance provided. Dictated by: Shiv Osborn M.D. on 03/21/2022 at 11:04 Approved by: Shiv Osborn M.D. on 03/21/2022 at 11:05
[2022-03-21] MEDS: LACTATED RINGERS 1,000 ML 42 ML IV ×2 (07:08→11:00)
--- NOTE | 2022-03-21 07:41 | PM.PREOP ---
Pre-operative Note COVID-19 COVID-19 status: Negative Result date/Date tested (Pos, Neg/Pending): 03/20/22 Criteria for continued procedure: Expected advancement of disease process, Possibility delay results in more complex future surgery or treatment, Increased loss of function, Continuing or worsening of significant or severe pain, Deterioration of the patient's condition or overall health and Delay expected to result in less-positive ultimate med/surg outcome Interval Note History & Physical reviewed/Exam performed by Physician: Yes Changes to H&P: No
[2022-03-21] MEDS: CEFAZOLIN 2 GM/20 ML SYRINGE IV ×3 (07:59→23:18)
--- NOTE | 2022-03-21 08:37 | SUR.OPER ---
Prone on padded OR bed, head in foam head support, gel chest rolls, gel pad under knees, pillow under lower legs, toes free of pressure, arms secured on padded arm boards at <90 degrees abduction. Safety belt/tape at thigh.
[2022-03-21] MEDS: BUPIVACAINE 0.25% (PF) 30 ML, EPINEPHrine 0.3 MG INJ (09:08)
[2022-03-21] MEDS: BUPIVACAINE LIPOSOME 266 MG/20 ML VIAL INJ (10:43)
--- NOTE | 2022-03-21 10:57 | PM.OP.1 ---
Operative Date/Time/Diagnoses Date of procedure: 03/21/22 Time of procedure: 07:45 Pre-op diagnosis: 1. L4-5 spinal stenosis with neurogenic claudication 2. L4-5 spondylolisthesis Post-op diagnosis: same Procedure & Clinicians Procedure: 1. L4-5 Postero-lateral and posterior interbody fusion 2. L4-5 interbody cage placement. 3. L4-5 decompressive laminectomy with bilateral facetecomies 4. L4-5 Posterior non-segmental instrumentation 5. [place] of bone marrow from iliac crest 6. Utilization of microsurgical technique and operating microscope Same procedure as scheduled: Yes Indications: Patient has been having chronic back pain and worsening lumbar radiculopathy. Patient failed multiple conservative management with worsening pain weakness and numbness in her lower extremity. Patient has been having difficulty performing activity of daily living. After discussing risks benefits of treatment options, patient elected proceed with surgery. Surgeon: Mickie Quiles Residential Door Unit Installer: Ming Berry Click Yes if Unassisted: No Anesthesia Type: General Operative Notes Closure Type: primary Specimen(s): none sent Prosthetic devices, grafts, tissues, transplants, or devices: Globus Revolve screws, Rise cage Estimated Blood Loss (mL): 100 Blood products transfused: none Procedure in detail: Patient was seen in the preoperative area. Risks and benefits of the surgery was discussed with the patient. Informed consent was obtained from the patient and placed in the chart. Surgical site was marked. Patient was taken to the operative room. General anesthesia was administered. Prophylactic antibiotic was given to the patient less than 30 min before the incision was made. Patient was placed into a prone position on the Marco table. Patient's back was then prepped and draped in the sterile fashion. Time-out was performed at this time. Using AP and lateral C-arm imaging the interval between L4-5 was identified and marked on patient's back. A 2 inch incision 2 in from midline was made on the left side first. The fascia was incised in line with skin incision. Globus MARS retractors was placed inside the incision and docked onto the L4 lamina. Using microsurgical technique and operating microscope, a L4 laminectomy and L4-5 facetectomy was performed using a Kerrison rongeur. Patient was found to have skin the skin amount of ligamentum flavum hypertrophy which contributed to the severe central stenosis as well as lateral recess stenosis which was fully resected and decompressed after the laminectomy and facetectomy was completed. The decompression rendered L4-5 level grossly unstable and requires a fusion procedure at the same time. The disc space at L4-5 was identified. And a total diskectomy was performed at L4-5 level. The endplates were decorticated using a rasp and shaver. The total diskectomy and decortication was performed at L4-5 level in order to to accomplish a L4-5 fusion. The local bone from the laminectomy and facetectomy was saved for local bone grafting. After the total diskectomy and decortication was completed, Trifecta bone graft material was combined with local bone that was harvested earlier. At this time, a separate skin is incision was made over the iliac crest. A Jamshidi needle was inserted into the iliac crest through a separate skin incision. 5 cc of bone marrow aspiration was obtained through the separate skin incision using a Jamshidi needle from the iliac crest. The bone marrow aspiration was combined with local bone and the Trifecta bone grafting material. The bone grafting material was placed into the L4-5 interbody space along with a expandable cage. The cage was expanded to its maximum height using the torque limiting screwdriver. At this time a mirror image incision was made on the right side. The fascia was incised in line with the skin incision. Globus MARS retractor was inserted and docked onto the L4-5 posterolateral gutter. Using the power drill, posterior-lateral decortication was performed at L4-5 level until bleeding cortical bone was identified. The remaining bone grafting material was placed into the L4-5 posterior lateral gutter he order to accomplish posterolateral fusion at the L4-5 level. Using the double C-arm technique, pedicle screws were placed into the L4-5 pedicles bilaterally. This was done by placing the Jamshidi needle into the pedicles, then placing the guidewires over the Jamshidi needle, and finally placing the cannulated screws over the guidewires bilaterally. After the pedicle screws were placed, 2 titanium rods was locked into the heads of the pedicle screws using locking caps and torque limiting screwdriver. After all the hardware was placed, and confirmed with AP and lateral C-arm imaging, the wound was then irrigated with sterile normal saline and packed with Ray-Robert gauze for 3 min to accomplish hemostasis. After the gauze was removed the deep fascia was closed with #1 Vicryl suture. The subcutaneous layer was closed with 2-0 Vicryl. The skin was closed with skin shawn. Patient tolerated the procedure well. There were no complications. Complications: none Post-operative Condition: stable Disposition: PACU Plan for aftercare: admit to inpatient hospital
--- NOTE | 2022-03-21 11:11 | SUR.PHASEI ---
Acetaminophen IV ordered entered per Dr Diaz
[2022-03-21] MEDS: ACETAMINOPHEN IV 1,000 MG/100 ML VIAL 400 MG IV (11:18)
[2022-03-21] MEDS: OXYCODONE IR 5 MG TABLET PO (11:39)
--- NOTE | 2022-03-21 12:10 | SUR.PHASEI ---
Patient transferred to room 220 in bed by this Rn with 1 belongings bag and CPAP mask in bag. Pt awake alert. SBAR report to Karlie RN at bedside. VSS. Dressing CDI. Bed locked in low position. Call light in reach.
--- NOTE | 2022-03-21 12:19 | PC.NURSE ---
Addendum entered by Karlie Browne R.N. 03/21/22 14:11: Patient requested one oxycodone at pain 5/10. He is visiting with his at rest his pain level is 5 but if he moves around pain level is a 9. He is supine and resting comfortably. Original Note: Assess- Patient arrived to room around 1205. He has a dressing to his L4-L5 area that is cdi. Patient is alert and oriented x3. He was medicated with an oxycodone and iv tylenol down in recovery. He states that his pain is around a 5/6. Patient is sensitive to some narcotics but states that he takes oxycodone well. He has feeling to both of his feet and cms wnl. He denies any numbness or tingling at this time. Resting comfortably. IVF will be Normal Saline at 100cc/hr.
[2022-03-21] MEDS: SODIUM CHLORIDE 0.9% 1,000 ML 100 ML IV ×2 (13:03→22:16)
--- NOTE | 2022-03-21 14:00 | PT.IPTN ---
Current Diagnoses Spondylolisthesis, lumbar region (03/21/22) Spinal stenosis, lumbar region with neurogenic claudication (03/21/22) Surgery Performed Operation Date: 03/21/22 07:45 Actual Procedures p L4-5 TLIF - Mickie Quiles MD Physical Therapy Treatment Note M3 PT-IP Subjective Start: 03/21/22 14:54 Freq: NEEDED Status: Active Protocol: Document 03/21/22 14:00 AB (Rec: 03/21/22 14:57 AB [id number]) Subjective Physical Therapy Visit Type Type Administrative Note Notes Reviewed EMR and checked on pt . pt refused PT. stated that he cannot move due to the pain . pt provided home set up and PLOF info. will checked on pt tomorrow.
[2022-03-21] MEDS: OXYCODONE IR 5 MG TABLET 10 MG PO ×2 (14:18→20:56)
[2022-03-21] MEDS: ACETAMINOPHEN 325 MG TABLET 650 MG PO (15:41)
[2022-03-21] MEDS: DOCUSATE 100 MG CAPSULE PO (20:55)
[2022-03-21] MEDS: ATORVASTATIN 20 MG TABLET 10 MG PO (20:55)
[2022-03-21] MEDS: SENNOSIDES 8.6 MG TABLET 17.2 MG PO (20:55)
[2022-03-22 00:02] VITALS: BP 97/47; PULSE 73; RESP 16; TEMP 36.8; O2SAT 96
--- NOTE | 2022-03-22 03:39 | PC.NURSE ---
Shift Note: Patient was alert and orientedx4, with post op dressing at the lower back, clean, dry and intact. CMS intact. Lower extremities pulses are palpable with good capillary refill. Patient complained of low back pain, due pain meds given. Vital signs are stable and within acceptable limits. Patient was able to turn on sides with minimal assistance. Safety precautions maintained, call del cid within reach.
[2022-03-22 03:44] VITALS: BP 120/61; PULSE 63; RESP 16; TEMP 36.8; O2SAT 94
[2022-03-22 05:41] LABS: Hematocrit 37.9 % (41-53); Hemoglobin 12.8 g/dL (13.5-17.5)
[2022-03-22 08:25] VITALS: BP 123/65; PULSE 63; RESP 18; TEMP 37.1; O2SAT 95
[2022-03-22] MEDS: ACETAMINOPHEN 325 MG TABLET 650 MG PO (08:53)
[2022-03-22 08:54] VITALS: BP 120/61
[2022-03-22] MEDS: lisinopriL 10 MG TABLET PO (08:54)
[2022-03-22] MEDS: DOCUSATE 100 MG CAPSULE PO (08:55)
[2022-03-22] MEDS: hydroCHLOROthiazide 25 MG TABLET PO (08:55)
--- NOTE | 2022-03-22 09:05 | OT.IP.EVAL ---
Current Diagnoses Spondylolisthesis, lumbar region (03/21/22) Spinal stenosis, lumbar region with neurogenic claudication (03/21/22) Surgery Performed Operation Date: 03/21/22 07:45 Actual Procedures p L4-5 TLIF - Mickie Quiles MD Past Medical History (Last Reviewed 03/22/22 @ 10:56 by Marlene Martin PA-C) Arthritis BCC (basal cell carcinoma) Diverticular disease Dyslipidemia Eczema Hearing impaired History of migraine headaches Hypercholesterolemia Hypertension Kidney stones FRANCISCO on CPAP Pre-diabetes Prostate cancer (2009) Pyelonephritis SCC (squamous cell carcinoma) Skin cancer Spinal stenosis of lumbar region ELIANA (stress urinary incontinence), male TGA (transient global amnesia) (1999) TIA (transient ischemic attack) (1990) TMJ (temporomandibular joint disorder) Surgical History (Last Reviewed 03/22/22 @ 10:56 by Marlene Martin PA-C) History of surgical removal of pilonidal cyst Hx of arthroscopy of left knee Hx of arthroscopy of right knee Hx of bilateral cataract extraction Hx of prostatectomy (~2009) Hx of repair of left rotator cuff Hx of tonsillectomy Occupational Therapy Inpatient Evaluation/Re-Eval M1 PT/OT-IP Prior Functional Status Start: 03/21/22 14:54 Freq: NEEDED Status: Active Protocol: Document 03/22/22 12:02 [facility] (Rec: 03/22/22 12:20 [facility] [id number]) Medical Review Prior Functional Status Medical History Reviewed Yes Communication able to make needs known Mobility and Gait pt stated that he is modified independent with all mobilities and ambulation without AD but occasionally uses a SPC depending on pain; uses a SPC for outdoor mobility but ~ 3 weeks due to back pain but prior to that, no AD Activities of Daily Living and IADL's Pt states had increased back pain during ADl needs. Social History Household Members spouse Living Arrangements House Number of Floors (Floors) Two Floors Number of Stairs To Enter/Railing? pt can stay on main level of the house 14 steps B rails down to office level Home Environment High Toilet,Walk in Shower Home Equipment Front Wheel Walker,Straight Cane,Shower Seat without Backrest,Hand Held Shower M2 OT-IP Current Condition Start: 03/22/22 12:02 Freq: Status: Active Protocol: Document 03/22/22 12:02 [facility] (Rec: 03/22/22 12:20 [facility] [id number]) Occupational Therapy Current Condition Current Condition Evaluation Date 03/22/22 Treatment Diagnosis S/P L4-5 TLIF Diagnosis Onset Date 03/21/22 Post Operative Precautions Lumbar Precautions Log Roll,No Twisting,Limit Bending,Lifting Restriction of 10 lbs,Gait Belt above Incisional Area M3 OT- IP Subjective and Pain Start: 03/22/22 12:02 Freq: Status: Active Protocol: Document 03/22/22 12:02 [facility] (Rec: 03/22/22 12:20 [facility] [id number]) OT- Subjective Occupational Therapy Visit Type Type Initial Evaluation Visit Start Time 09:05 Visit Stop Time 09:48 Total Visit Minutes 43 Occupational Therapy Visit Comments Patient Comments Pt agreed to get up. Pt's present at the end of the session. Patient/Caregiver Goals TO go home. OT Pain Assessment Pain When Pain Assessed At Rest Pain Present Pain Present Pain Reported Location Lower Back Intensity 1 Scale Used Numeric (0 - 10) M4 OT- IP ADL's Start: 03/22/22 12:02 Freq: Status: Active Protocol: Document 03/22/22 12:02 [facility] (Rec: 03/22/22 12:20 [facility] [id number]) OT [id number] General Evaluation Self-Feeding Ability Independent OT ADL-Grooming General Evaluation Grooming Ability Standby Assistance Areas Needing Assistance Retrieving/Set-up of Grooming Items Comments OT Grooming Comments Set-up while standing at the sink with FWW. OT ADL-Oral Care General Eval Oral Care Ability Independent Comments Oral Care Comments Initial vc to hinge at his hips to spit or spit in to cup to best follow his back precautions. OT ADL-Dressing Comments OT Dressing Comments Able to show pt LB dressing equipment and able to try , but states that his will just assist him for his needs. OT ADL-Toileting General Evaluation Toileting Ability Standby Assistance Comments OT Toileting Comments Pt able to use the toilet with SBA, pt has a bidet at home. OT ADL-Bathing Comments OT Bathing Comments Pt may benefit from a higher shower chair at home. M5 OT- IP IADL's Start: 03/22/22 12:02 Freq: Status: Active Protocol: Document 03/22/22 12:02 [facility] (Rec: 03/22/22 12:20 [facility] [id number]) OT-Instrumental Activities of Daily Living Home Safety Awareness Ability to Problem Solve Emergency Able to Problem Solve Situations Home Safety Comments Pt needing safety cues for hand placement and FWW use. M6 OT- IP Functional Cognition Start: 03/22/22 12:02 Freq: Status: Active Protocol: Document 03/22/22 12:02 [facility] (Rec: 03/22/22 12:20 [facility] [id number]) Cognitive Factors Limiting Selfcare Function Cognitive Ability Level of Alertness Alert Patient Orientation Name,Age,Birthday,Month,Date, Year,Day of Week,Place, Situation Attention Span Ability Capable of Focused Attention, Capable of Sustained Attention Ability to Follow Commands Able to Follow One Step Commands Safety Awareness Underestimates Need for Assistance Cognitive Comments Cognitive Assessment Comments Pt needing cues to keep the FWW close to him and to follow his back precautions for his needs. OT- Vision and Hearing OT- Hearing Assessment OT- Hearing Assessment WFL M7 OT- IP Mobility and Balance Start: 03/22/22 12:02 Freq: Status: Active Protocol: Document 03/22/22 12:02 [facility] (Rec: 03/22/22 12:20 [facility] [id number]) OT- Bed Mobility Assessment Supine to Sit Supine to Sit Assist Standby Assistance OT-Transfer Assessment Sit to and From Stand Sit to and from Stand Contact Guard Assistance Transfers Transfer Ability Standby Assistance,Contact Guard Assistance Technique Transfer Destination Bed,Chair,Toilet Transfer Technique Stand Step Pivot Devices Transfer Assistive Devices Gait Belt,Front Wheeled Walker Comments Mobility Comments CGA to stand and able to use the FWW in the room with CGA/ SBA. BP supine 121/60, sitting 113/56, 110/56, and standing 89/52 and back to sitting 111/ 58. Pt states felt a little woozy while standing, nursing notified. OT- Balance Assessment Sitting Balance and Reactions Static Sitting Balance Ability Good Dynamic Sitting Balance Ability Good Standing Balance and Reactions Static Standing Balance Ability Fair M8 OT- IP Objective Assessments Start: 03/22/22 12:02 Freq: Status: Active Protocol: Document 03/22/22 12:02 [facility] (Rec: 03/22/22 12:20 [facility] [id number]) OT-Muscle Tone Assessment Muscle Tone WNL Yes M9 OT- IP Assessment and Plan Start: 03/22/22 12:02 Freq: Status: Active Protocol: Document 03/22/22 12:02 [facility] (Rec: 03/22/22 12:20 [facility] [id number]) OT Summary Assessment and Plan Potential Rehabilitation Potential Good Analytic Complexity at Evaluation Low Summary OT Impairments Pain,Balance,Functional Mobility,Dressing,Toileting, Bathing,Toilet Transfers, Shower Transfers Progress Towards Goals Progressing Toward Goals Assessment Summary Pt low complexity and main barriers are pt to slow down and incorporate his back precautions . Pt has a supportive to be able to assist him when here goes home . Pt would benefit from a BSC , and LB dressing equipment for home use. Goals Grooming Goal Independent Dressing Goal Independent Toileting Goal Independent Bathing Goal Independent Toilet Transfer Goal Independent Shower Transfer Goal Independent Days to Meet Goals 7 Frequency of Treatment Frequency Of Treatment Once a Day Treatment Plan OT Treatment Plan ADL Training,Functional Mobility,Patient/Family Education,Discharge Planning Other Treatment Recommendations and Next shower if still here Treatment Focus Discharge Recommendations OT Discharge Recommendations Home with 06/05 Assist Available Transportation Needs at Discharge Private Vehicle
--- NOTE | 2022-03-22 10:30 | PT.IIE ---
Current Diagnoses Spondylolisthesis, lumbar region (03/21/22) Spinal stenosis, lumbar region with neurogenic claudication (03/21/22) Surgery Performed Operation Date: 03/21/22 07:45 Actual Procedures p L4-5 TLIF - Mickie Quiles MD Surgical History (Last Reviewed 03/22/22 @ 10:56 by Marlene Martin PA-C) History of surgical removal of pilonidal cyst Hx of arthroscopy of left knee Hx of arthroscopy of right knee Hx of bilateral cataract extraction Hx of prostatectomy (~2009) Hx of repair of left rotator cuff Hx of tonsillectomy Medical History (Last Reviewed 03/22/22 @ 10:56 by Marlene Martin PA-C) Arthritis BCC (basal cell carcinoma) Diverticular disease Dyslipidemia Eczema Hearing impaired History of migraine headaches Hypercholesterolemia Hypertension Kidney stones FRANCISCO on CPAP Pre-diabetes Prostate cancer (2009) Pyelonephritis SCC (squamous cell carcinoma) Skin cancer Spinal stenosis of lumbar region ELIANA (stress urinary incontinence), male TGA (transient global amnesia) (1999) TIA (transient ischemic attack) (1990) TMJ (temporomandibular joint disorder) Physical Therapy Inpatient Evaluation/Re-Eval M1 PT/OT-IP Prior Functional Status Start: 03/21/22 14:54 Freq: NEEDED Status: Discharge Protocol: Document 03/22/22 12:02 [facility] (Rec: 03/22/22 12:20 [facility] [id number]) Medical Review Prior Functional Status Medical History Reviewed Yes Communication able to make needs known Mobility and Gait pt stated that he is modified independent with all mobilities and ambulation without AD but occasionally uses a SPC depending on pain; uses a SPC for outdoor mobility but ~ 3 weeks due to back pain but prior to that, no AD Activities of Daily Living and IADL's Pt states had increased back pain during ADl needs. Social History Household Members spouse Living Arrangements House Number of Floors (Floors) Two Floors Number of Stairs To Enter/Railing? pt can stay on main level of the house 14 steps B rails down to office level Home Environment High Toilet,Walk in Shower Home Equipment Front Wheel Walker,Straight Cane,Shower Seat without Backrest,Hand Held Shower M2 PT-IP Current Condition Start: 03/21/22 14:54 Freq: NEEDED Status: Discharge Protocol: Document 03/22/22 10:30 [facility] (Rec: 03/22/22 13:56 [facility] [id number]) Physical Therapy Current Condition Current Condition Evaluation Date 03/22/22 Treatment Diagnosis s/p L4-5 TLIF; difficulty in walking Onset Date 03/21/22 M3 PT-IP Subjective Start: 03/21/22 14:54 Freq: NEEDED Status: Discharge Protocol: Document 03/22/22 10:30 [facility] (Rec: 03/22/22 13:56 AB [id number]) Subjective Physical Therapy Visit Type Type Initial Evaluation Visit Start Time 10:30 Visit Stop Time 11:20 Total Visit Minutes 50 Number of [place] FORMER Visits 0 Physical Therapy Visit Comments Patient Comments agreed to do PT Therapy Pain Assessment Pain When Pain Assessed At Rest Pain Present Pain Present Pain Reported Location Lower Back Intensity 3 Scale Used Numeric (0 - 10) Pain Management Techniques Apply Cold,Distraction, Modification of Treatment,Re- positioning,Timing of Activity with Medications M4 PT-IP Mobility and Gait Start: 03/21/22 14:54 Freq: NEEDED Status: Discharge Protocol: Document 03/22/22 10:30 [facility] (Rec: 03/22/22 13:56 AB [id number]) PT-Bed Mobility Assessment Rolling Level of Assist Standby Assistance Supine to Sit Supine to Sit Standby Assistance Sit to Supine Sit to Supine Standby Assistance PT-Transfer Assessment Sit to and From Stand Sit to and from Stand Standby Assistance,1 Person Assistance Equipment Transfer Assistive Device Gait Belt,Front Wheeled Walker Orthotic/Prosthetic Devices or Brace: No Transfers Transfer Destination Bed,Chair Transfer Technique ambualted Transfer Ability Level of Assist Standby Assistance,Contact Guard Assistance,1 Person Assistance,Use of Upper Extremities Comments Mobility Comments pt sitting on the chair and agreeable to do PT. reviewed back precautions with pt. completed sit to stand SBA. ambulated in room using FWW ~ 30 ft. sat on EOB and completed log roll bed mobility SBA. caregiver training conducted. educated spouse on how to use safety belt and how to assist pt. spouse was able to put safety belt on . assisted pt with sit to stand and ambulation towards the stair using fWW CGA. completed up/down steps using B rail and spouse assist pt. educated pt on techniques and on how spouse will assist pt. spouse was able to assist pt safely. pt ambulated back to his room using FWW ~ 200 ft SBA to CGA. sat back on chair. positioned on chair. call light and table placed within reach. Gait Assessment Gait Gait Assistance Required: Standby Assistance,Contact Guard Assist Distance (Feet) 200 Able to Maintain Weight Bearing Status Yes During Gait Assistive Devices Assistive Device Gait Belt,Front Wheeled Walker Orthotic/Prosthetic Devices or Brace: No Gait Deviations General Gait Pattern Decreased Stride Length, Decreased Feet Clearance Factors Limiting Gait Function Factors Limiting Gait Function Decreased Activity Tolerance, Decreased Sensation,Decreased Strength,Limited Range of Motion,Pain,Poor Balance,Poor Safety Awareness Stair Climbing Assessment Evaluation Level of Assist On Stairs Contact Guard Assistance,1 Person Assistance Devices Stair Climbing Assistive Devices Left Railing,Right Railing Technique/Endurance Stair Climbing Direction Ascend and Descend Stair Climbing Technique Step to Step Number of Steps Climbed 3 Query Text: Stair Climbing Set # Repetitions (reps) 2 PT-Balance Assessment Sitting Balance and Reactions Static Sitting Balance Ability Good Dynamic Sitting Balance Ability Good Standing Balance and Reactions Static Standing Balance Ability Fair Dynamic Standing Balance Ability Fair Device Used FWW M5 PT-IP Objective Assessments Start: 03/21/22 14:54 Freq: NEEDED Status: Discharge Protocol: Document 03/22/22 10:30 [facility] (Rec: 03/22/22 13:56 AB [id number]) Orientation Orientation/Cognition Level of Alertness Alert Orientation Name,Place,Situation Language Function Ability No Deficits Noted Safety Awareness Decreased Safety Awareness Memory Description No Deficits Noted Gross Range of Motion Lower Extremity ROM Assessment Within Functional Limits Strength Lower Extremity Strength Assessment Right Impaired Hip 4/5 Knee 4-/5 Coordination Assessment Gross Coordination Gross Coordination WNL Sensation Assessment Sensation Gross Sensation Left LE Impaired Sensation Description Numbness Comments Sensation Comments chronic L big toe numbness Muscle Tone Muscle Tone WNL Yes M6 PT-IP Treatment Start: 03/21/22 14:54 Freq: NEEDED Status: Discharge Protocol: Document 03/22/22 10:30 [facility] (Rec: 03/22/22 13:56 AB [id number]) Physical Therapy Treatment Education Education Provided Precautions,Weight Bearing Status,Post-Op Packet,Safety M7 PT-IP Assessment and Plan Start: 03/21/22 14:54 Freq: NEEDED Status: Discharge Protocol: Document 03/22/22 10:30 [facility] (Rec: 03/22/22 13:56 AB [id number]) PT Summary Assessment and Plan Potential Rehabilitation Potential Good Status of Condition at Evaluation Stable Summary Impairments Pain,ROM,Strength,Balance, Coordination,Sensation,Tone, Cognition,Bed Mobility, Transfers,Gait,Activity Tolerance Assessment Summary pt requiring SBA to CGA with mobility using fWW. caregiver training conducted and spouse was able to assist pt safely. pt may go home when medically stable. Goals Bed Mobility Goal Independent Transfer Goal Independent,Front Wheeled Walker Gait Goal Independent,Front Wheel Walker Gait Distance 300 Other Goals up/down 14 steps B rail mod I Days to Meet Goals 5 Frequency of Treatment Frequency Of Treatment Twice a Day Treatment Plan Physical Therapy Treatment Plan Bed Mobility Training,Transfer Training,Gait Training, Therapeutic Exercise,Balance Retraining,Post Op Education, Discharge Planning,Hot or Cold Pack,Neuromuscular Re-ed, Coordination Retraining,Manual Therapy Precautions Lumbar Precautions Log Roll,No Twisting,Limit Bending,Lifting Restriction of 10 lbs,Gait Belt above Incisional Area Recommendations To Nursing Amount of Assist Needed 1 Person Assist Discharge Recommendations PT Discharge Recommendations Home with Assistance Transportation Needs at Discharge Private Vehicle
--- NOTE | 2022-03-22 10:53 | P.DS_ITS ---
History of Present Illness History of Present Illness Date Patient Seen: 03/22/22 Time Patient Seen: 10:54 Chief complaint: OPB Narrative: Patient is complaining of [id number] low back pain this morning. He has taken Tylenol and just a few oxycodone. He has not worked with physical therapy yet. He notes he has left foot numbness at baseline. Overall he is feeling well like to be discharged home. Discharge Providers Provider Date of admission: 03/21/22 06:09 Discharge Date: 03/22/22 Primary care physician: Chon Albrecht MD Consults: 03/21/22 07:17 Consult to Respiratory Therapy Evaluate & Treat Comment: Physician Instructions: Evaluate and treat 03/21/22 11:52 Consult to Occupational Therapy Evaluate & Treat Comment: Physician Instructions: Evaluate and treat Consult to Physical Therapy Evaluate & Treat Comment: Physician Instructions: Evaluate and Treat Discharge provider: Marlene Martin PA-C Summary Hospital Course Discharge Diagnosis: 1. L4-5 spinal stenosis with neurogenic claudication 2. L4-5 spondylolisthesis Hospital Course: Operative Date/Time/Diagnoses Date of procedure: 03/21/22 Time of procedure: 07:45 Procedure & Clinicians Procedure: 1. L4-5 Postero-lateral and posterior interbody fusion 2. L4-5 interbody cage placement. 3. L4-5 decompressive laminectomy with bilateral facetecomies 4. L4-5 Posterior non-segmental instrumentation 5. [place] of bone marrow from iliac crest 6. Utilization of microsurgical technique and operating microscope Same procedure as scheduled: Yes Indications: Patient has been having chronic back pain and worsening lumbar radiculopathy. Patient failed multiple conservative management with worsening pain weakness and numbness in her lower extremity.? Patient has been having difficulty performing activity of daily living.? After discussing risks benefits of treatment options, patient elected proceed with surgery. Surgeon: Mickie Quiles Contact Center Associate: Ming Berry Click Yes if Unassisted: No Anesthesia Type: General Operative Notes Closure Type: primary Specimen(s): none sent Prosthetic devices, grafts, tissues, transplants, or devices: Globus Revolve screws, Rise cage Estimated Blood Loss (mL): 100 Blood products transfused: none Status at Discharge Cognitive/behavioral status at discharge: at baseline, oriented Functional status at discharge: uses cane/walker Overall status at discharge: patient is progressing back to baseline Exam Vital Signs (past 8 hours): - 03/22/22 03:44 03/22/22 08:54 03/22/22 08:25 Temperature 98.3 F 98.7 F Pulse Rate 63 63 Respiratory Rate 16 18 Blood Pressure 120/61 120/61 123/65 Pulse Oximetry 94 95 Oxygen Flow Rate 0 0 Oxygen Delivery Method Room Air Oxygen Flow Rate 0 Narrative Exam Narrative: Pleasant 76-year-old male, resting comfortably in bed, no acute distress. Dressing demonstrates serosanguineous drainage on the right lateral incision, no surrounding erythema or induration. Bilateral lower extremity: Motor functions are grossly intact, sensation is grossly intact to light touch, calves are soft and nontender to palpation. Objective Labs Result Diagrams: 03/22/22 04:45 Labs: Laboratory Results - last 24 hr 03/22/22 04:45 Hgb 12.8 L Hct 37.9 L PFSH Medical History Arthritis BCC (basal cell carcinoma) Diverticular disease Dyslipidemia Eczema Hearing impaired History of migraine headaches Hypercholesterolemia Hypertension Kidney stones FRANCISCO on CPAP Pre-diabetes Prostate cancer (2009) Pyelonephritis SCC (squamous cell carcinoma) Skin cancer Spinal stenosis of lumbar region ELIANA (stress urinary incontinence), male TGA (transient global amnesia) (1999) TIA (transient ischemic attack) (1990) TMJ (temporomandibular joint disorder) Surgical History History of surgical removal of pilonidal cyst Hx of arthroscopy of left knee Hx of arthroscopy of right knee Hx of bilateral cataract extraction Hx of prostatectomy (~2009) Hx of repair of left rotator cuff Hx of tonsillectomy Family History Father Cancer Hyperlipidemia Kidney stones Hearing impaired Brother Cancer Migraines Mother Aneurysm Hypertension Social History marital status: number of children: 6 household members: spouse occupational status: previously employed Smoking Status: Former smoker alcohol intake: current caffeine: No additional social history: 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 Discharge Assessment & Plan Assessment and Plan Assessment: -stable status post L4-5 TLIF Plan of Treatment: -mobilize with PT. Weightbearing as tolerated with front wheel walker. Limit bending, lifting, twisting x6 weeks -continue with multimodal pain management. The patient is adverse to narcotics because his brother from a narcotic overdose. He will try Tylenol and ice and occasional oxycodone as needed. -dressing change prior to discharge -DC home once cleared by PT Discharge Plan Discharge Plan Patient Disposition: Home Discharge orders & Medications Prescriptions: New acetaminophen 500 mg capsule 500 mg PO Q4H MDD Max 3000 mg per day PRN (Reason: Pain, Mild (1-3)) Qty: 90 0RF docusate sodium 100 mg Capsule 100 mg PO BID PRN (Reason: Constipation from narcotic pain meds) Qty: 14 0RF oxycodone 5 mg Tablet See Rx Instructions .ROUTE .COMPLEX PRN (Reason: Pain, Severe (7-10)) Qty: 10 0RF Rx Instructions: Take 1-2 tablets by mouth every 4 hours as needed for moderate to severe postop pain Continued simvastatin 20 MG tablet 20 mg PO HS Qty: 0 hydrochlorothiazide 25 mg Tablet 25 mg PO DAILY Qty: 0 aspirin [Aspirin Low Dose] 81 mg Tablet,Delayed Release (Dr/Ec) 81 mg PO DAILY Qty: 0 lisinopril [Zestril] 10 MG tablet 10 mg PO QDAY Qty: 0 One-A-Day Men's 50 Plus 400-20-370 mcg tablet 1 tab PO DAILY Rx Instructions: give with meal/snack cholecalciferol (vitamin D3) 25 mcg (1,000 unit) capsule 25 mcg PO DAILY omega-3 fatty acids [Fish Oil Concentrate] 1,000 mg capsule 2,000 mg PO DAILY Follow up/Referrals: Chon Albrecht MD [Primary Care Provider] - Mickie Quiles MD [Physician] - (10-14 days for a postop visit) Diet/Activity/Treatments Diet: Diet as Tolerated Other treatments: Medications: -OTC Tylenol 500 mg 1 tablet every 4 hours as needed for pain/fever. Max 6 tablets per day. -Oxycodone 5 mg take 1-2 tablets every 4 hours as needed for moderate-severe pain (narcotic pain medication). -As needed medications: -Ducolax and /or MiraLax as needed for constipation from narcotic pain medications. -Pepcid AC as needed for stomach upset. Dressing/Wound care: -Keep dressing in place until postoperative follow-up office visit. -Okay to shower. Keep wound out of direct water stream. Can use PressNSeal plastic wrap to protect from shower stream. No soaking or submerging until all the scabs fall off (approximately 6 weeks). -Please call the office if dressing becomes wet, soiled, or saturated. Activities: -Limit bending, lifting, twisting x6 weeks. No deep bending (more than 90 degrees) or twisting at the waist. No lifting > 20 pounds. -Walk frequently. -Weight-bearing as tolerated. Use front wheeled walker, and progress to cane when safe. -Continue with home exercises as directed by your physical therapist. -Ice your incision as needed for pain/inflammation/swelling. Protect your skin with a folded pillowcase. -Incentive Spirometer (breathing device from hospital): 5-10xs every hour while awake for the first 1-2 weeks. Follow-up: -Follow-up with your surgeon or PA in the office in 10-14 days after surgery. -Follow-up with your surgeon 6 weeks postoperatively. Call the office if you have chest pain, shortness of breath, significant swelling that will not resolve with elevating, fever over 101?, significantly w orsening pain. [facility]: [phone] Skin/Wound/Dressing Care Report to your healthcare provider any signs of infection, such as:: chills, fever, night sweats, unusual drainage and unusual redness Visit Report/Discharge Packet Instructions: DI for Prescription Opioid Use, DI for Transforaminal Lumbar Interbody Fusion Stand Alone Forms: Surgery Discharge Discharge Data Primary Care Provider: Chon Albrecht VTE Deep Vein Thrombosis/Pulmonary Embolism Present on Admission: No
--- NOTE | 2022-03-22 12:02 | PC.NURSE ---
Addendum entered by Beatrice Colon R.N. 03/22/22 13:28: Escorted by staff via w/c to waiting vehicle D/C in stable post op course, Original Note: Pt cleared by PT Discharge orders received from provider. HL D/C intact. Home instructions given w/ understanding. Pt ready nfor D/C after lunch. Call light w/in reach.
--- NOTE | 2022-03-22 15:52 | CM.IDA ---
Initial DCP Assessment Note Pt is a 76 yo male, resident of [place], now POD#1 from L4-[address] Quiles PCP: Dr Albrecht Payer: [facility] Reviewed chart, pt discussed in multidisciplinary rounds this morning. Therapy has cleared pt for return home w/family to assist and pt has planned for home, DC order from Ortho has already been initiated this morning. No needs identified today from DC planning team before patient discharged to the care of his . SAIGE Serrano
== END 2022-03-22 13:29 | disposition home or self-care (01) | DRG 455 ==
LOC: OR 06:11 → AC 06:11
PROVIDERS: Admitting Provider Orthopaedic Surgery Orthopaedic Surgery of the Spine; PCP Family Medicine; Referring Provider Orthopaedic Surgery Orthopaedic Surgery of the Spine; Visit Provider Orthopaedic Surgery Orthopaedic Surgery of the Spine
PROC: 0SG00AJ Fusion of Lumbar Vertebral Joint with Interbody Fusion Device, Posterior Approach, Anterior Column, Open Approach (ICD-10-PCS; principal; 2022-03-21 07:45)
DX: M48.062 Spinal stenosis, lumbar region with neurogenic claudication (principal); M43.16 Spondylolisthesis, lumbar region; M46.06 Spinal enthesopathy, lumbar region; E78.00 Pure hypercholesterolemia, unspecified; I10 Essential (primary) hypertension; Z20.822 Contact with and (suspected) exposure to COVID-19; Z87.891 Personal history of nicotine dependence
CPT/HCPCS: 36415; 72100; 76000; 85014; 85018; 87635; 97161; 97165; 97530; 97535; C9803; C1713; C1831; C9290; J0131; J0171; J0690; J1170; J2250; J2704; J3010

== ENCOUNTER 2022-05-14 10:34 | Emergency (ER) | payer MEDICARE, OTHER, SELFPAY ==
[2022-03-21 11:48] VITALS: BMI 33.7
[2022-05-14] VITALS (10 sets, daily range): BP systolic 146–167; BP diastolic 68–74; PULSE 60–66; RESP 12–29; TEMP 36.7; O2SAT 96–99; BMI 35.1
--- NOTE | 2022-05-14 13:31 | ED_ITS ---
HPI - Dizziness General Chief Complaint: Dizziness Stated Complaint: Vertigo x7 days, vomiting today Time Seen by Provider: 05/14/22 13:25 Mode of arrival: Family Vehicle History of Present Illness HPI Narrative: Patient is a 76-year-old male with chronic back pain post L4-L5 spinal stenosis and spondylolisthesis on 03/21/2022, hypertension presenting today with ongoing dizziness. He states that ever since he had surgery he has had more dizziness. It is worse with movement. He has been able to function throughout the day he has been participating in physical therapy. However today he got really dizzy and threw up prompting his ED visit. He denies any chest pain or shortness of breath. He has no numbness tingling or weakness in fact he says there has been improvement of numbness since the surgery. He took some of his 's vertigo medicine. He has a very remote history of vertigo. Was exacerbated with scuba diving so he no longer to scuba dives. Related Data Home Medications Medication Instructions Recorded Confirmed aspirin 81 mg tablet,delayed 81 mg PO DAILY ##0 09/03/11 03/21/22 release (Sadia Low Dose Aspirin) hydrochlorothiazide 25 mg tablet 25 mg PO DAILY ##0 09/03/11 03/21/22 lisinopril 10 mg tablet (Zestril) 10 mg PO QDAY ##0 09/03/11 03/21/22 simvastatin 20 mg tablet 20 mg PO HS ##0 09/03/11 03/21/22 cholecalciferol (vitamin D3) 25 25 mcg PO DAILY 10/06/20 03/21/22 mcg (1,000 unit) capsule arfrtuhgfort-tct-mhrmk acid-vit 1 tab PO DAILY 10/06/20 03/21/22 K-lycop 400 mcg-20 mcg-370 mcg tablet (One-A-Day Men's 50 Plus) omega-3 fatty acids 1,000 mg 2,000 mg PO DAILY 10/06/20 03/21/22 capsule (Fish Oil Concentrate) Previous Rx's Medication Instructions Recorded acetaminophen 500 mg capsule 500 mg PO Q4H PRN Pain, Mild (1-3) 03/22/22 #90 caps docusate sodium 100 mg capsule 100 mg PO BID PRN Constipation 03/22/22 from narcotic pain meds #14 caps oxycodone 5 mg tablet See Rx Instructions .Route 03/22/22 .COMPLEX PRN Pain, Severe (7-10) #10 tabs meclizine 25 mg tablet 25 mg PO TID PRN dizziness #10 tabs 05/14/22 ondansetron 4 mg disintegrating 4 mg PO Q8H PRN nausea and 05/14/22 tablet vomiting #10 tabs Allergies Allergy/AdvReac Type Severity Reaction Status Date / Time Sulfa (Sulfonamide Allergy Severe ANAPHYLAXIS Verified 03/21/22 07:17 Antibiotics) [SULFA (SULFONAMIDE ANTIBIOTICS)] latex Allergy Mild Rash Verified 03/21/22 07:17 Review of Systems Review of Systems Narrative: GENERAL: Denies chills, fatigue, malaise, fever, sweats, travel HEENT: Denies sinus pain, ear pain, sore throat, difficulty swallowing, neck pain RESPIRATORY: Denies dyspnea, cough, wheezing, hemoptysis, sputum. CARDIOVASCULAR: Denies chest pain, palpitations, orthopnea, edema GASTROINTESTINAL: Denies nausea, vomiting, abdominal pain, diarrhea, constipation, melena. : Denies dysuria, frequency, incontinence, hematuria, urinary retention, flank pain. MUSCULOSKELETAL: Denies weakness, joint pain, or bony pain SKIN: No rash, no erythema, no pruritus NEUROLOGIC: See HPI PSYCHIATRIC: No concerning psychosocial issues. 12 point review of systems is negative except for those stated above and HPI Patient History Medical History Arthritis BCC (basal cell carcinoma) Diverticular disease Dyslipidemia Eczema Hearing impaired History of migraine headaches Hypercholesterolemia Hypertension Kidney stones FRANCISCO on CPAP Pre-diabetes Prostate cancer (2009) Pyelonephritis SCC (squamous cell carcinoma) Skin cancer Spinal stenosis of lumbar region ELIANA (stress urinary incontinence), male TGA (transient global amnesia) (1999) TIA (transient ischemic attack) (1990) TMJ (temporomandibular joint disorder) Surgical History History of surgical removal of pilonidal cyst Hx of arthroscopy of left knee Hx of arthroscopy of right knee Hx of bilateral cataract extraction Hx of prostatectomy (~2009) Hx of repair of left rotator cuff Hx of tonsillectomy Family History Father Cancer Hyperlipidemia Kidney stones Hearing impaired Brother Cancer Migraines Mother Aneurysm Hypertension Social History marital status: number of children: 6 household members: spouse occupational status: previously employed Smoking Status: Former smoker alcohol intake: current caffeine: No additional social history: 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 Smoking Status: Former smoker alcohol intake frequency: a few times a month Substance Use Type: does not use Exam Initial Vital Signs Initial Vital Signs: Vital Signs Temperature 98.0 F 05/14/22 10:50 Pulse Rate 60 05/14/22 10:50 Respiratory Rate 12 05/14/22 10:50 Blood Pressure 153/72 H 05/14/22 10:50 Pulse Oximetry 96 05/14/22 10:50 Oxygen Delivery Method 05/14/22 10:50 GENERAL: Alert pleasant 76-year-old male and in no acute distress. HEENT: Head atraumatic,EOMI, pupils reactive, face symmetric, moist mucous membranes CARDIOVASCULAR: Regular rate and rhythm without murmurs, rubs or gallops. RESPIRATORY: Breath sounds equal bilaterally, no wheezes rales or rhonchi. ABDOMEN: Soft, nontender. Normoactive bowel sounds all 4 quadrants. No guarding or rebound. EXTREMITIES: Normal range of motion, no clubbing or edema. Neurovascularly intact NEUROLOGICAL: Alert and oriented x4.Normal gait and speech. Cranial nerves II through XII grossly intact. Good qmpsdb-ex-mals, good hxhx-ah-vtbj, strength equal bilaterally, no dysarthria or aphasia, sensation in tact to soft touch bilaterally, no visual changes, no facial droop SKIN: Warm, dry, no laceration, no petechiae, no rashes or lesions. Scores NIH Stroke Scale Level of Conciousness: Alert, keenly responsive Ask month/age: Answers both questions correctly. Open/close eyes, close hand: Performs both tasks correctly Best gaze horizontal: Normal Visual crespo: No visual loss Facial palsy: Normal symetrical movement Left arm drift: No drift for full 10 sec Right arm drift: No drift for full 10 sec Left leg drift: No drift for full 5 sec Right leg drift: No drift for full 5 sec Limb ataxia: Absent Sensory on face/arms/legs: Normal, no sensory loss Best language: No aphasia, normal Dysarthria: Normal Extinction or inattention: No abnormality Total NIH Stroke scale score: 0 Course Orders Ordered: ED Orders 05/14/22 13:32 CT angio head and neck Stat EKG-12 Lead Stat 05/14/22 13:50 Complete Blood Count AUTO DIFF Stat Comprehensive Metabolic Panel Stat Lipase Stat Troponin & CK Cardiac Panel Stat Discontinued Medications Meclizine HCl (Meclizine Hcl 12.5 Mg Tablet) 25 mg PO NOW ONE Stop: 05/14/22 13:35 Last Admin: 05/14/22 13:59 Dose: 25 mg Documented By: MERRY Vital Signs Vital signs: Vital Signs - 8 hr 05/14/22 10:50 05/14/22 12:20 05/14/22 11:56 Temperature 98.0 F Pulse Rate 60 61 62 Respiratory Rate 12 18 13 Blood Pressure 153/72 H 149/72 H Pulse Oximetry 96 99 97 Oxygen Delivery Method Room Air Room Air 05/14/22 12:00 05/14/22 12:30 05/14/22 13:00 Temperature Pulse Rate 61 61 62 Respiratory Rate 14 16 Blood Pressure Pulse Oximetry 96 97 98 Oxygen Delivery Method 05/14/22 13:30 05/14/22 14:00 05/14/22 14:03 Temperature Pulse Rate 65 66 Respiratory Rate 29 H 24 Blood Pressure 146/68 H Pulse Oximetry Oxygen Delivery Method 05/14/22 14:03 05/14/22 15:51 Temperature Pulse Rate 64 64 Respiratory Rate 29 H Blood Pressure 167/74 H Pulse Oximetry 97 97 Oxygen Delivery Method Room Air MDM - Dizziness Lab Data Result diagrams: 05/14/22 13:50 05/14/22 13:50 Labs: Lab Results 05/14/22 05/14/22 Range/Units 13:50 13:50 WBC 6.3 (4.5-11.0) X10^3/uL RBC 4.61 (4.5-5.9) X10^6/uL Hgb 14.7 (13.5-17.5) g/dL Hct 42.3 (41-53) % MCV 91.8 (80-100) fL MCH 31.8 (26-34) PG MCHC 34.6 (30-36) % RDW 13.6 (11.6-14.8) % Plt Count 162 (150-400) X10^3/uL Neut % (Auto) 82.1 H (50-75) % Lymph % (Auto) 11.5 L (25-40) % [place] % (Auto) 5.2 (3-14) % Eos % (Auto) 0.5 L (2-4) % Baso % (Auto) 0.7 (0-2) % Neut # (Auto) 5100 (7383-7966) /uL Lymph # (Auto) 700 L (9908-7746) /uL [place] # (Auto) 300 (0-900) /uL Eos # (Auto) 0 (0-450) /uL Baso # (Auto) 0 (0-100) /uL Sodium 138 (137-145) mmol/L Potassium 4.0 (3.4-5.1) mmol/L Chloride 102 (98-107) mmol/L Carbon Dioxide 30 (22-32) mmol/L BUN 14 (9-20) mg/dL Creatinine 0.78 (0.66-1.25) mg/dL Estimated GFR > 60 (>60) mL/min BUN/Creatinine Ratio 17.9 (6-22) Glucose 114 H (80-110) mg/dL Calcium 9.2 (8.4-10.2) mg/dL Total Bilirubin 0.4 (0.2-1.3) mg/dL AST 31 (17-59) IU/L ALT 27 (<50) IU/L Alkaline Phosphatase 82 (38-126) U/L Total Creatine Kinase 57 (55-170) U/L CK-MB (CK-2) TNP CK-MB (CK-2) Rel Index TNP Troponin I < 0.012 (0.01-0.034) ng/mL Total Protein 7.6 (6.3-8.2) g/dL Albumin 4.5 (3.5-5.0) g/dL Globulin 3.1 (1.7-4.1) g/dL Albumin/Globulin Ratio 1.5 (1.0-2.8) Lipase 63 (23-300) U/L Imaging Data CTA - brain/neck: Radiologist's Impression: [address] [address] [address] Scan Report Signed Patient: Leslie Bello V MR#: [id number] : 1945 Acct:[id number] Age/Sex: 76 / M Date of Service: 05/14/22 Loc: ED Accession Number: [id number] ?? Procedure: CT angio head and neck Ordering Provider: January Hollingsworth D.O. PROCEDURE:? CT ANGIO HEAD AND NECK ? INDICATIONS:? dizzy for weeks ? TECHNIQUE:? Pre-contrast 4.5 mm thick sections acquired from the foramen magnum to the vertex.? After the administration of intravenous contrast, 1 mm thick sections acquired from the aortic arch through the [place] of [place].? Post-contrast 4.5 mm thick sections then re- acquired from the foramen magnum to the vertex.? 3-dimensional rdcmvbg-zghoncdrw-iufvghfijv (MIP) and/or volume rendering reformats were acquired of the central intracranial vasculature and neck separately. For radiation dose reduction, the following was used:? automated exposure control, adjustment of mA and/or kV according to patient size.? ? COMPARISON:? None. ? FINDINGS:? Image quality:? Excellent.? ? BRAIN:? CSF spaces:? Ventricles are normal in size and shape.? Basal cisterns are patent.? No extra-axial fluid collections.? ? Brain:? No midline shift.? No intracranial bleeds or masses.? Roy-white matter interface appears intact.? ? Skull and face:? Calvarium and facial bones appear intact, without suspicious lesions.? Orbits appear normal.? ? Sinuses:? Sinuses and mastoids are clear.? ? HEAD CT ANGIOGRAPHY:? Anterior circulation:? Intracranial internal carotid arteries are normal in size and flow.? The flow within the paired anterior cerebral arteries is normal and symmetric.? The flow within the middle cerebral arteries is normal and symmetric.? The anterior communicating artery is seen.? No aneurysms are seen.? ? Posterior circulation:? Visualized portions of the vertebral arteries demon strate normal caliber, and join to form a normal appearing basilar artery.? Flow within the posterior cerebral arteries is normal and symmetric.? No aneurysms are seen.? ? NECK CT ANGIOGRAPHY:? Carotid system:? The great vessels demonstrate a conventional anatomy as they arise from the aortic arch.? The origins of the common carotid arteries appear patent.? The common carotid arteries demonstrate normal caliber and courses.? The bifurcation regions are both widely patent.? The internal carotid arteries demonstrate normal calibers and courses.? ? Posterior circulation:? The origins of the vertebral arteries both appear widely patent.? The more superior extracranial portions of both vertebral arteries also demonstrate normal courses and calibers.? They join to form a normal appearing basilar artery.? ? Soft tissues:? Visualized neck soft tissues demonstrate no suspicious abnormalities.? ? Bones:? No suspicious bony lesions.? Visualized cervical spine appears normally aligned.? Cervical spine degenerative changes are seen, which are worst inferiorly. ? ? IMPRESSION:? No significant intracranial arterial abnormality is seen.? ? Within the arteries of the neck, no hemodynamically significant stenosis can be seen. ? ? No acute intracranial hemorrhage is seen.? ? No acute intracranial process is seen.? ? Cervical spine degenerative changes noted. ? ? ? Any quantitative measurements of stenosis were performed using NASCET criteria.? ? ? Dictated by: Eduardo Sahni M.D. on 05/14/2022 at 15:05 ? ? ECG Data Interpretation: Normal sinus rhythm rate 66 computer reads accelerated junctional rhythm however once artifact is removed does appear to be sinus similar to previous EKG MDM Narrative Medical decision making narrative: Patient has no focal deficits he has remote history of vertigo. Symptoms are definitely position all. CT angio and blood work were overall negative. I suspect that this is again vertigo for him I do not suspect posterior stroke at this time. Patient received meclizine here in the ED and overall feels a little bit better. Will give him a new prescription of meclizine and close outpatient follow-up. Discharge Plan Departure Patient Disposition: Home Clinical Impression: Vertigo Instructions: DI for Vertigo Activity Restrictions/Additional Instructions: *You have been diagnosed with vertigo *What to do: At this time blood work and scan are overall reassuring. Likely vertigo. May need to see ENT if symptoms are worsening or persistent *Continue to take medications as directed Meclizine 25 mg every 8 hours if needed for vertigo Zofran 4 mg every 8 hours if needed for nausea vomiting *Follow up with your primary care provider in 2-3 days or call [phone] *Return to ER if you should have persistent dizziness persistent vomiting numbness tingling weakness inability to walk or any new, worsening or concerning symptoms Prescriptions: New meclizine 25 mg tablet 25 mg PO TID PRN (Reason: dizziness) Qty: 10 0RF ondansetron 4 mg tablet,disintegrating 4 mg PO Q8H PRN (Reason: nausea and vomiting) Qty: 10 0RF No Action simvastatin 20 MG tablet 20 mg PO HS Qty: 0 hydrochlorothiazide 25 mg Tablet 25 mg PO DAILY Qty: 0 aspirin [Sadia Low Dose Aspirin] 81 mg Tablet,Delayed Release (Dr/Ec) 81 mg PO DAILY Qty: 0 lisinopril [Zestril] 10 MG tablet 10 mg PO QDAY Qty: 0 One-A-Day Men's 50 Plus 400-20-370 mcg tablet 1 tab PO DAILY Rx Instructions: give with meal/snack cholecalciferol (vitamin D3) 25 mcg (1,000 unit) capsule 25 mcg PO DAILY omega-3 fatty acids [Fish Oil Concentrate] 1,000 mg capsule 2,000 mg PO DAILY acetaminophen 500 mg capsule 500 mg PO Q4H MDD Max 3000 mg per day PRN (Reason: Pain, Mild (1-3)) Qty: 90 0RF docusate sodium 100 mg Capsule 100 mg PO BID PRN (Reason: Constipation from narcotic pain meds) Qty: 14 0RF oxycodone 5 mg Tablet See Rx Instructions .ROUTE .COMPLEX PRN (Reason: Pain, Severe (7-10)) Qty: 10 0RF Rx Instructions: Take 1-2 tablets by mouth every 4 hours as needed for moderate to severe postop pain Referrals: Chon Albrecht MD [Primary Care Provider] - Visit Report Forms: Patient Portal/API
--- NOTE | 2022-05-14 13:32 | DI.CT.S_ITS ---
PROCEDURE: CT ANGIO HEAD AND NECK INDICATIONS: dizzy for weeks TECHNIQUE: Pre-contrast 4.5 mm thick sections acquired from the foramen magnum to the vertex. After the administration of intravenous contrast, 1 mm thick sections acquired from the aortic arch through the [place] of [place]. Post-contrast 4.5 mm thick sections then re-acquired from the foramen magnum to the vertex. 3-dimensional gtaiqma-mxcsfoqnf-bbqfkpyfuo (MIP) and/or volume rendering reformats were acquired of the central intracranial vasculature and neck separately. For radiation dose reduction, the following was used: automated exposure control, adjustment of mA and/or kV according to patient size. COMPARISON: None. FINDINGS: Image quality: Excellent. BRAIN: CSF spaces: Ventricles are normal in size and shape. Basal cisterns are patent. No extra-axial fluid collections. Brain: No midline shift. No intracranial bleeds or masses. Roy-white matter interface appears intact. Skull and face: Calvarium and facial bones appear intact, without suspicious lesions. Orbits appear normal. Sinuses: Sinuses and mastoids are clear. HEAD CT ANGIOGRAPHY: Anterior circulation: Intracranial internal carotid arteries are normal in size and flow. The flow within the paired anterior cerebral arteries is normal and symmetric. The flow within the middle cerebral arteries is normal and symmetric. The anterior communicating artery is seen. No aneurysms are seen. Posterior circulation: Visualized portions of the vertebral arteries demonstrate normal caliber, and join to form a normal appearing basilar artery. Flow within the posterior cerebral arteries is normal and symmetric. No aneurysms are seen. NECK CT ANGIOGRAPHY: Carotid system: The great vessels demonstrate a conventional anatomy as they arise from the aortic arch. The origins of the common carotid arteries appear patent. The common carotid arteries demonstrate normal caliber and courses. The bifurcation regions are both widely patent. The internal carotid arteries demonstrate normal calibers and courses. Posterior circulation: The origins of the vertebral arteries both appear widely patent. The more superior extracranial portions of both vertebral arteries also demonstrate normal courses and calibers. They join to form a normal appearing basilar artery. Soft tissues: Visualized neck soft tissues demonstrate no suspicious abnormalities. Bones: No suspicious bony lesions. Visualized cervical spine appears normally aligned. Cervical spine degenerative changes are seen, which are worst inferiorly. IMPRESSION: No significant intracranial arterial abnormality is seen. Within the arteries of the neck, no hemodynamically significant stenosis can be seen. No acute intracranial hemorrhage is seen. No acute intracranial process is seen. Cervical spine degenerative changes noted. Any quantitative measurements of stenosis were performed using NASCET criteria. Dictated by: Eduardo Sahni M.D. on 05/14/2022 at 15:05 Approved by: Eduardo Sahni M.D. on 05/14/2022 at 15:06
[2022-05-14] MEDS: MECLIZINE HCL 12.5 MG TABLET 25 MG PO (13:59)
[2022-05-14 14:04] LABS: Add Manual Diff / Slide Review NO; Basophils Absolute Auto 0 /uL (0-100); Basophils Percent Auto 0.7 % (0-2); Eosinophils Absolute Auto 0 /uL (0-450); Eosinophils Percent Auto 0.5 % (2-4); Hematocrit 42.3 % (41-53); Hemoglobin 14.7 g/dL (13.5-17.5); Lymphocytes Absolute Auto 700 /uL (1100-4500); Lymphocytes Percent Auto 11.5 % (25-40); Mean Corpuscular HGB Conc 34.6 % (30-36); Mean Corpuscular Hemoglobin 31.8 PG (26-34); Mean Corpuscular Volume 91.8 fL (80-100); Monocytes Absolute Auto 300 /uL (0-900); Monocytes Percent Auto 5.2 % (3-14); Neutrophils Absolute Auto 5100 /uL (1500-7000); Neutrophils Percent Auto 82.1 % (50-75); Platelet Count 162 X10^3/uL (150-400); Red Blood Cell Count 4.61 X10^6/uL (4.5-5.9); Red Cell Distribution Width 13.6 % (11.6-14.8); White Blood Cell Count 6.3 X10^3/uL (4.5-11.0)
[2022-05-14 14:27] LABS: Alanine Aminotransferase 27 IU/L (<50); Albumin 4.5 g/dL (3.5-5.0); Albumin Globulin Ratio 1.5 (1.0-2.8); Alkaline Phosphatase 82 U/L (38-126); Aspartate Aminotransferase 31 IU/L (17-59); BUN Creatinine Ratio 17.9 (6-22); Bilirubin Total 0.4 mg/dL (0.2-1.3); Blood Urea Nitrogen 14 mg/dL (9-20); Calcium 9.2 mg/dL (8.4-10.2); Carbon Dioxide 30 mmol/L (22-32); Chloride 102 mmol/L (98-107); Creatine Kinase 57 U/L (55-170); Estimated Glomerular Filt Rate > 60 mL/min (>60); Globulin 3.1 g/dL (1.7-4.1); Glucose 114 mg/dL (80-110); HEMOLYSIS < 15 (0-50); Lipase 63 U/L (23-300); Sodium 138 mmol/L (137-145); Total Protein 7.6 g/dL (6.3-8.2)
[2022-05-14 14:38] LABS: Troponin I < 0.012 ng/mL (0.01-0.034)
== END 2022-05-14 15:53 | disposition home or self-care (01) ==
PROVIDERS: Emergency Provider Emergency Medicine; Family Provider Family Medicine; PCP Family Medicine
DX: R42 Dizziness and giddiness (principal)
CPT/HCPCS: 36415; 70496; 70498; 80053; 82550; 83690; 84484; 85025; 93005; 99284; Q9967

== ENCOUNTER 2022-05-22 14:30 | Outpatient (RCR) | payer MEDICARE, OTHER, SELFPAY ==
[2022-03-21 11:48] VITALS: BMI 33.7
--- NOTE | 2022-04-19 16:10 | PT.OIE ---
Current Diagnoses Spondylolisthesis, lumbar region (04/19/22) Spinal stenosis, lumbar region with neurogenic claudication (04/19/22) Past Medical History (Last Reviewed 03/22/22 @ 10:56 by Marlene Martin PA-C) Arthritis BCC (basal cell carcinoma) Diverticular disease Dyslipidemia Eczema Hearing impaired History of migraine headaches Hypercholesterolemia Hypertension Kidney stones FRANCISCO on CPAP Pre-diabetes Prostate cancer (2009) Pyelonephritis SCC (squamous cell carcinoma) Skin cancer Spinal stenosis of lumbar region ELIANA (stress urinary incontinence), male TGA (transient global amnesia) (1999) TIA (transient ischemic attack) (1990) TMJ (temporomandibular joint disorder) Past Surgical History (Last Reviewed 03/22/22 @ 10:56 by Marlene Martin PA-C) History of surgical removal of pilonidal cyst Hx of arthroscopy of left knee Hx of arthroscopy of right knee Hx of bilateral cataract extraction Hx of prostatectomy (~2009) Hx of repair of left rotator cuff Hx of tonsillectomy Visit Care Team Role Provider Type Chon Albrecht MD Family Provider Physician Primary Care Provider Specialty: [facility] Address: [address] [place] [address], [id number] Email: [email or web address] Mickie Quiles MD Attending Provider Physician Referring Provider Specialty: Orthopedics Orthopedic Surgery Address: [address] [place] [address], [address] Email: [email or web address] Physical Therapy Initial Evaluation PT-OP-A Visit Information Start: 04/18/22 14:53 Freq: Status: Active Protocol: Document 04/19/22 12:59 AMB (Rec: 04/19/22 13:29 AMB [id number]) Out-Patient Physical Therapy Visit Information Visit Information Visit Type Initial Evaluation Visit Start Time 13:00 Visit Stop Time 13:45 Total Visit Minutes 45 Visit Number 1 PT-OP-B Current Condition Start: 04/18/22 14:53 Freq: Status: Active Protocol: Document 04/19/22 12:59 AMB (Rec: 04/19/22 13:29 AMB [id number]) Current Condition History of Current Condition Onset Date 03/21/22 Current Complaints recovering from L4-L5 fusion History of Current Condition Uses cane when walking outside the home. self d/sophia the walker 3 days ago, no more numbness in the left hip since surgery. Even 6 months ago would be walking 2 miles in the [place], but that progressively worsened so right before surgery was not walking much more than through the house. Now has returned to walking at the grocery store with a cart, but has not returned to [place] walks yet. Pain limits gait if not using SPC, but had been using cane for years in the community. Hasn't been able to get socks on by himself yet . Some muscle soreness over incisions. Is aware of bending, lifting twisting precautions. Lives in a single family home with his . Treatment Goals Patient/Caregiver Goals Increase walking Prior Functional Status Baseline Function- ADL's Independent Baseline Function- Mobility Independent Current Functional Impairments (Reported) Functional Limitations- ADL's Limited in putting on socks, limited gait distance. Personal Factors Other Personal Factors That May Effect Bilateral knee pain 5/10- Therapy/Recovery chronic knee pain with two arthroscopic surgeries each. PT-OP-C Subjective Start: 04/18/22 14:53 Freq: Status: Active Protocol: Document 04/19/22 13:00 AMB (Rec: 04/20/22 07:26 AMB [id number]) Patient Questionnaires Oswestry Low Back Index Oswestry Score 42 Oswestry Impairment 40 to 59% Impaired (Score 40- 59) OP-PT Pain Assessment Comments Pain Comments low back 5/10; bilateral knees 5/10 PT-OP-E Functional Tests Start: 04/18/22 14:53 Freq: Status: Active Protocol: Document 04/19/22 13:00 AMB (Rec: 04/20/22 07:26 AMB [id number]) Functional Tests 10 Meter Walk Test Distance 9 Device Used SPC Comments 7 sec at fast pace PT-OP-G Mobility & Gait Start: 04/18/22 14:53 Freq: Status: Active Protocol: Document 04/19/22 13:00 AMB (Rec: 04/20/22 07:26 AMB [id number]) OP Mobility Evaluation Bed Mobility Rolling rolls and moves from supine to sit with good log roll technique, no increase in pain OP Gait Assessment Comments Gait Comments mild trendelenburg gait without SPC, better with SPC PT-OP-J Posture/Palpation/Skin Start: 04/18/22 14:53 Freq: Status: Active Protocol: Document 04/19/22 13:00 AMB (Rec: 04/20/22 07:26 AMB [id number]) Posture Evaluation Comments Posture Comments Flat lumbar spine PT-OP-M Strength Start: 04/18/22 14:53 Freq: Status: Active Protocol: Document 04/19/22 13:00 AMB (Rec: 04/20/22 07:26 AMB [id number]) Hip Strength Hip Manual Muscle Testing Right Flexion (L2) 4 Good Extension (S1) 4 Good Abduction 4 Good Left Flexion (L2) 4 Good Extension (S1) 4 Good Abduction 4- Good- Knee Strength Knee Manual Muscle Testing Right Flexion (S2) 4+ Good+ Extension (L3) 4+ Good+ Left Flexion (S2) 4+ Good+ Extension (L3) 4+ Good+ PT-OP-T Assessment and Plan Start: 04/18/22 14:53 Freq: Status: Active Protocol: Document 04/19/22 13:00 AMB (Rec: 04/19/22 20:49 AMB [id number]) Physical Therapy Assessment Rehab Potential Rehabilitation Potential Excellent Evaluation Complexity Number of Personal Factors/Comorbidities 1-2 Number of Body Systems Impaired 4 or More Clinical Presentation at Evaluation Stable Impairments Impairments Functional Activities,Gait, Pain,Posture,Strength Goals 3 Impairment Strength Short Term Goal (STG) Lselie will be independent and consistent with a HEP for core and lower extremity strengthening. STG Duration 4 weeks 2 Impairment ADLs Short Term Goal (STG) Leslie will don/doff his socks and shoes independently without pain. STG Duration 4 weeks 1 Impairment Gait Short Term Goal (STG) Leslie will ambulate for 6 minutes over smooth surfaces with his SPC without increasing back pain. STG Duration 4 weeks Stock Sorter Goal (LTG) Leslie will ambulate for 1 minute without trendelenburg gait pattern without AD, as he does ambulate in his home without AD. LTG Duration 8 weeks Assessment Summary Assessment Leslie attends physical therapy almost 1 month s/p L4- L5 fusion surgery. So far he has had good resolution of his radicular symptoms that were previously present on the left, but continues to need SPC use due to mild trendelenburg gait and left hip abduction weakness. His bilateral chronic knee pain also contributes to his gait deviations. He will benefit from core stability training in addition to hip strengthening as he recovers from his recent surgery so that he can return to independent gait and mobility in the community. Physical Therapy Plan Frequency and Duration Frequency of Treatment 2x/Week Duration of Treatment 8 weeks Plan of Care Start Date 04/19/22 Plan of Care End Date 06/18/22 Therapeutic Interventions Therapeutic Interventions Gait Training,Home Exercise Program,Manual Therapy, Neuromuscular Re-education, Self-Care/Home Management, Therapeutic Activities, Therapeutic Exercises Modalities Cold Pack/Ice Massage,Electric Stimulation,Hot Packs Next Visit Focus/Plan Next Note Type Treatment Note Next Visit Plan Recumbent bike vs treadmill, lateral hip strengthening, review body mechanics
--- NOTE | 2022-04-19 16:10 | PT.OPPOC ---
Physical, Occupational & Speech Therapy At [facility] Current Diagnoses Spondylolisthesis, lumbar region (04/19/22) Spinal stenosis, lumbar region with neurogenic claudication (04/19/22) Visit Care Team Role Provider Type Chon Albrecht MD Family Provider Physician Primary Care Provider Specialty: Family Practice Address: [facility] [place], [address] Email: [email or web address] Mickie Quiles MD Attending Provider Physician Referring Provider Specialty: Orthopedics Orthopedic Surgery Address: [address] [place] [address], [address] Email: [email or web address] Plan Of Care PT-OP-T Assessment and Plan Start: 04/18/22 14:53 Freq: Status: Active Protocol: Document 04/19/22 13:00 AMB (Rec: 04/19/22 20:49 AMB [id number]) Physical Therapy Assessment Rehab Potential Rehabilitation Potential Excellent Evaluation Complexity Number of Personal Factors/Comorbidities 1-2 Number of Body Systems Impaired 4 or More Clinical Presentation at Evaluation Stable Impairments Impairments Functional Activities,Gait, Pain,Posture,Strength Goals 3 Impairment Strength Short Term Goal (STG) Leslie will be independent and consistent with a HEP for core and lower extremity strengthening. STG Duration 4 weeks 2 Impairment ADLs Short Term Goal (STG) Leslie will don/doff his socks and shoes independently without pain. STG Duration 4 weeks 1 Impairment Gait Short Term Goal (STG) Leslie will ambulate for 6 minutes over smooth surfaces with his SPC without increasing back pain. STG Duration 4 weeks Shelter Goal (LTG) Leslie will ambulate for 1 minute without trendelenburg gait pattern without AD, as he does ambulate in his home without AD. LTG Duration 8 weeks Assessment Summary Assessment Leslie attends physical therapy almost 1 month s/p L4- L5 fusion surgery. So far he has had good resolution of his radicular symptoms that were previously present on the left, but continues to need SPC use due to mild trendelenburg gait and left hip abduction weakness. His bilateral chronic knee pain also contributes to his gait deviations. He will benefit from core stability training in addition to hip strengthening as he recovers from his recent surgery so that he can return to independent gait and mobility in the community. Physical Therapy Plan Frequency and Duration Frequency of Treatment 2x/Week Duration of Treatment 8 weeks Plan of Care Start Date 04/19/22 Plan of Care End Date 06/18/22 Therapeutic Interventions Therapeutic Interventions Gait Training,Home Exercise Program,Manual Therapy, Neuromuscular Re-education, Self-Care/Home Management, Therapeutic Activities, Therapeutic Exercises Modalities Cold Pack/Ice Massage,Electric Stimulation,Hot Packs Next Visit Focus/Plan Next Note Type Treatment Note Next Visit Plan Recumbent bike vs treadmill, lateral hip strengthening, review body mechanics Plan of Care Dates Plan of Care Start Date 04/19/22 Plan of Care End Date 06/18/22 Electronically Signed by: Daija Dockery, PT 04/20/22 7820 If you are in agreement with this Plan of Care, please return a signed and dated copy. I have reviewed this Plan of Care and certify that the skilled therapy services above are required to meet the patient?s needs. Physician Signature Date Printed Name and Credentials Clinical Instructor Signature Printed Name and Credentials
--- NOTE | 2022-04-24 21:55 | PT.OTN ---
Current Diagnoses Spondylolisthesis, lumbar region (04/24/22) Spinal stenosis, lumbar region with neurogenic claudication (04/24/22) Physical Therapy Treatment Note PT-OP-A Visit Information Start: 04/18/22 14:53 Freq: Status: Active Protocol: Document 04/24/22 13:47 AMB (Rec: 04/24/22 14:34 AMB [id number]) Out-Patient Physical Therapy Visit Information Visit Information Visit Type Treatment Note Visit Start Time 13:45 Visit Stop Time 14:30 Total Visit Minutes 45 Visit Number 2 PT-OP-B Current Condition Start: 04/18/22 14:53 Freq: Status: Active Protocol: Document 04/19/22 12:59 AMB (Rec: 04/19/22 13:29 AMB [id number]) Current Condition History of Current Condition Onset Date 03/21/22 Current Complaints recovering from L4-L5 fusion History of Current Condition Uses cane when walking outside the home. self d/sophia the walker 3 days ago, no more numbness in the left hip since surgery. Even 6 months ago would be walking 2 miles [place], but that progressively worsened so right before surgery was not walking much more than through the house. Now has returned to walking at the grocery store with a cart, but has not returned to forest land walks yet. Pain limits gait if not using SPC, but had been using cane for years in the community. Hasn't been able to get socks on by himself yet . Some muscle soreness over incisions. Is aware of bending, lifting twisting precautions. Lives in a single family home with his . Treatment Goals Patient/Caregiver Goals Increase walking Prior Functional Status Baseline Function- ADL's Independent Baseline Function- Mobility Independent Current Functional Impairments (Reported) Functional Limitations- ADL's Limited in putting on socks, limited gait distance. Personal Factors Other Personal Factors That May Effect Bilateral knee pain 02/20- Therapy/Recovery chronic knee pain with two arthroscopic surgeries each. PT-OP-C Subjective Start: 04/18/22 14:53 Freq: Status: Active Protocol: Document 04/24/22 13:47 AMB (Rec: 04/24/22 14:34 AMB [id number]) OP-PT Subjective Patient Comments Patient Comments Pt reports his back is going ok, he is still challenged by walking without the cane, has been trying to do his HEP. PT-OP-E Functional Tests Start: 04/18/22 14:53 Freq: Status: Active Protocol: Document 04/19/22 13:00 AMB (Rec: 04/20/22 07:26 AMB [id number]) Functional Tests 10 Meter Walk Test Distance 9 Device Used SPC Comments 7 sec at fast pace PT-OP-G Mobility & Gait Start: 04/18/22 14:53 Freq: Status: Active Protocol: Document 04/19/22 13:00 AMB (Rec: 04/20/22 07:26 AMB [id number]) OP Mobility Evaluation Bed Mobility Rolling rolls and moves from supine to sit with good log roll technique, no increase in pain OP Gait Assessment Comments Gait Comments mild trendelenburg gait without SPC, better with SPC PT-OP-J Posture/Palpation/Skin Start: 04/18/22 14:53 Freq: Status: Active Protocol: Document 04/19/22 13:00 AMB (Rec: 04/20/22 07:26 AMB [id number]) Posture Evaluation Comments Posture Comments Flat lumbar spine PT-OP-M Strength Start: 04/18/22 14:53 Freq: Status: Active Protocol: Document 04/19/22 13:00 AMB (Rec: 04/20/22 07:26 AMB [id number]) Hip Strength Hip Manual Muscle Testing Right Flexion (L2) 4 Good Extension (S1) 4 Good Abduction 4 Good Left Flexion (L2) 4 Good Extension (S1) 4 Good Abduction 4- Good- Knee Strength Knee Manual Muscle Testing Right Flexion (S2) 4+ Good+ Extension (L3) 4+ Good+ Left Flexion (S2) 4+ Good+ Extension (L3) 4+ Good+ PT-OP-Q Treatments Start: 04/18/22 14:53 Freq: Status: Active Protocol: Document 04/24/22 13:47 AMB (Rec: 04/24/22 14:34 AMB [id number]) Cardio Equipment Recumbent Stepper (Sci-Fit) Duration (Minutes) 5 Resistance 2 Therapeutic Exercises Supine Exercises PPT Reps/Minutes 10 Comments cues for breath bent leg fall out Side left Resistance #2 t band Reps/Minutes 2x10 LTR Reps/Minutes 10 Comments painfree Sidelying Exercises hip abduction Side left Reps/Minutes 10 Comments cues for form Sitting Exercises forward flexion stretch Sitting Exercise Name arms on table Side bilateral Reps/Minutes 30x2 Comments gentle PT-OP-T Assessment and Plan Start: 04/18/22 14:53 Freq: Status: Active Protocol: Document 04/24/22 13:45 AMB (Rec: 04/24/22 21:55 AMB [id number]) Physical Therapy Assessment Goals 3 Impairment Strength Short Term Goal (STG) Leslie will be independent and consistent with a HEP for core and lower extremity strengthening. STG Duration 4 weeks 2 Impairment ADLs Short Term Goal (STG) Leslie will don/doff his socks and shoes independently without pain. STG Duration 4 weeks 1 Impairment Gait Short Term Goal (STG) Leslie will ambulate for 6 minutes over smooth surfaces with his SPC without increasing back pain. STG Duration 4 weeks Assisted Goal (LTG) Leslie will ambulate for 1 minute without trendelenburg gait pattern without AD, as he does ambulate in his home without AD. LTG Duration 8 weeks Assessment Summary Assessment Berry is doing well, back continues to fatigue. Will benefit from more standing exercises, but bilateral knee pain is limiting in this regard. Continues to verbalize understanding of avoiding lifting/twisting activities. Physical Therapy Plan Next Visit Focus/Plan Next Note Type Treatment Note Next Visit Plan Recumbent bike vs treadmill, lateral hip strengthening, review body mechanics ( bilateral knee pain a limiting factor)
--- NOTE | 2022-04-27 16:02 | PT.OTN ---
Current Diagnoses Spondylolisthesis, lumbar region (04/27/22) Spinal stenosis, lumbar region with neurogenic claudication (04/27/22) Physical Therapy Treatment Note PT-OP-A Visit Information Start: 04/18/22 14:53 Freq: Status: Active Protocol: Document 04/27/22 13:47 AMB (Rec: 04/27/22 14:32 AMB [id number]) Out-Patient Physical Therapy Visit Information Visit Information Visit Type Treatment Note Visit Start Time 13:45 Visit Stop Time 14:30 Total Visit Minutes 45 Visit Number 3 PT-OP-B Current Condition Start: 04/18/22 14:53 Freq: Status: Active Protocol: Document 04/19/22 12:59 AMB (Rec: 04/19/22 13:29 AMB [id number]) Current Condition History of Current Condition Onset Date 03/21/22 Current Complaints recovering from L4-L5 fusion History of Current Condition Uses cane when walking outside the home. self d/sophia the walker 3 days ago, no more numbness in the left hip since surgery. Even 6 months ago would be walking 2 miles [place], but that progressively worsened so right before surgery was not walking much more than through the house. Now has returned to walking at the grocery store with a cart, but has not returned to [place] walks yet. Pain limits gait if not using SPC, but had been using cane for years in the community. Hasn't been able to get socks on by himself yet . Some muscle soreness over incisions. Is aware of bending, lifting twisting precautions. Lives in a single family home with his . Treatment Goals Patient/Caregiver Goals Increase walking Prior Functional Status Baseline Function- ADL's Independent Baseline Function- Mobility Independent Current Functional Impairments (Reported) Functional Limitations- ADL's Limited in putting on socks, limited gait distance. Personal Factors Other Personal Factors That May Effect Bilateral knee pain 02/20- Therapy/Recovery chronic knee pain with two arthroscopic surgeries each. PT-OP-C Subjective Start: 04/18/22 14:53 Freq: Status: Active Protocol: Document 04/27/22 13:47 AMB (Rec: 04/27/22 14:32 AMB [id number]) OP-PT Subjective Patient Comments Patient Comments Is able to get shoes and socks on now, but it is stiff to do so. Patient Reported Progress Same PT-OP-E Functional Tests Start: 04/18/22 14:53 Freq: Status: Active Protocol: Document 04/19/22 13:00 AMB (Rec: 04/20/22 07:26 AMB [id number]) Functional Tests 10 Meter Walk Test Distance 9 Device Used SPC Comments 7 sec at fast pace PT-OP-G Mobility & Gait Start: 04/18/22 14:53 Freq: Status: Active Protocol: Document 04/19/22 13:00 AMB (Rec: 04/20/22 07:26 AMB [id number]) OP Mobility Evaluation Bed Mobility Rolling rolls and moves from supine to sit with good log roll technique, no increase in pain OP Gait Assessment Comments Gait Comments mild trendelenburg gait without SPC, better with SPC PT-OP-J Posture/Palpation/Skin Start: 04/18/22 14:53 Freq: Status: Active Protocol: Document 04/19/22 13:00 AMB (Rec: 04/20/22 07:26 AMB [id number]) Posture Evaluation Comments Posture Comments Flat lumbar spine PT-OP-M Strength Start: 04/18/22 14:53 Freq: Status: Active Protocol: Document 04/19/22 13:00 AMB (Rec: 04/20/22 07:26 AMB [id number]) Hip Strength Hip Manual Muscle Testing Right Flexion (L2) 4 Good Extension (S1) 4 Good Abduction 4 Good Left Flexion (L2) 4 Good Extension (S1) 4 Good Abduction 4- Good- Knee Strength Knee Manual Muscle Testing Right Flexion (S2) 4+ Good+ Extension (L3) 4+ Good+ Left Flexion (S2) 4+ Good+ Extension (L3) 4+ Good+ PT-OP-Q Treatments Start: 04/18/22 14:53 Freq: Status: Active Protocol: Document 04/27/22 13:47 AMB (Rec: 04/27/22 14:32 AMB [id number]) Cardio Equipment Recumbent Stepper (Sci-Fit) Duration (Minutes) 5 Resistance 3 Therapeutic Exercises Sidelying Exercises clamshell Reps/Minutes 2x10 hip abduction Side left Reps/Minutes 10 Comments cues for form Sitting Exercises forward flexion stretch Sitting Exercise Name arms on table Side bilateral Reps/Minutes 30x2 Comments gentle Standing Exercises 2 Standing Exercise Name hip extension Resistance #3 t band Reps/Minutes 2x10 1 Standing Exercise Name hip abd Resistance #3 t band Reps/Minutes 2x10 PT-OP-T Assessment and Plan Start: 04/18/22 14:53 Freq: Status: Active Protocol: Document 04/27/22 13:47 AMB (Rec: 04/27/22 14:32 AMB [id number]) Physical Therapy Assessment Goals 3 Impairment Strength Short Term Goal (STG) Leslie will be independent and consistent with a HEP for core and lower extremity strengthening. STG Duration 4 weeks 2 Impairment ADLs Short Term Goal (STG) Leslie will don/doff his socks and shoes independently without pain. STG Duration 4 weeks 1 Impairment Gait Short Term Goal (STG) Leslie will ambulate for 6 minutes over smooth surfaces with his SPC without increasing back pain. STG Duration 4 weeks Sample Box Maker Goal (LTG) Leslie will ambulate for 1 minute without trendelenburg gait pattern without AD, as he does ambulate in his home without AD. LTG Duration 8 weeks Assessment Summary Assessment Berry continues to be a little stiff in his back. Gait is improving, but continues to be weak in left hip abductors. Physical Therapy Plan Next Visit Focus/Plan Next Note Type Treatment Note Next Visit Plan Recumbent bike vs treadmill, lateral hip strengthening, review body mechanics ( bilateral knee pain a limiting factor)
--- NOTE | 2022-04-30 15:41 | PT.OTN ---
Current Diagnoses Spondylolisthesis, lumbar region (04/30/22) Spinal stenosis, lumbar region with neurogenic claudication (04/30/22) Physical Therapy Treatment Note PT-OP-A Visit Information Start: 04/18/22 14:53 Freq: Status: Active Protocol: Document 04/30/22 14:30 AMB (Rec: 04/30/22 15:40 AMB [id number]) Out-Patient Physical Therapy Visit Information Visit Information Visit Type Treatment Note Visit Start Time 13:45 Visit Stop Time 14:30 Total Visit Minutes 45 Visit Number 4 PT-OP-B Current Condition Start: 04/18/22 14:53 Freq: Status: Active Protocol: Document 04/19/22 12:59 AMB (Rec: 04/19/22 13:29 AMB [id number]) Current Condition History of Current Condition Onset Date 03/21/22 Current Complaints recovering from L4-L5 fusion History of Current Condition Uses cane when walking outside the home. self d/sophia the walker 3 days ago, no more numbness in the left hip since surgery. Even 6 months ago would be walking 2 miles [place], but that progressively worsened so right before surgery was not walking much more than through the house. Now has returned to walking at the grocery store with a cart, but has not returned to [place] walks yet. Pain limits gait if not using SPC, but had been using cane for years in the community. Hasn't been able to get socks on by himself yet . Some muscle soreness over incisions. Is aware of bending, lifting twisting precautions. Lives in a single family home with his . Treatment Goals Patient/Caregiver Goals Increase walking Prior Functional Status Baseline Function- ADL's Independent Baseline Function- Mobility Independent Current Functional Impairments (Reported) Functional Limitations- ADL's Limited in putting on socks, limited gait distance. Personal Factors Other Personal Factors That May Effect Bilateral knee pain 10- Therapy/Recovery chronic knee pain with two arthroscopic surgeries each. PT-OP-C Subjective Start: 04/18/22 14:53 Freq: Status: Active Protocol: Document 04/30/22 14:30 AMB (Rec: 04/30/22 15:40 AMB [id number]) OP-PT Subjective Patient Comments Patient Comments Walking 150 steps with the cane the back was getting fatigued. PT-OP-E Functional Tests Start: 04/18/22 14:53 Freq: Status: Active Protocol: Document 04/19/22 13:00 AMB (Rec: 04/20/22 07:26 AMB [id number]) Functional Tests 10 Meter Walk Test Distance 9 Device Used SPC Comments 7 sec at fast pace PT-OP-G Mobility & Gait Start: 04/18/22 14:53 Freq: Status: Active Protocol: Document 04/19/22 13:00 AMB (Rec: 04/20/22 07:26 AMB [id number]) OP Mobility Evaluation Bed Mobility Rolling rolls and moves from supine to sit with good log roll technique, no increase in pain OP Gait Assessment Comments Gait Comments mild trendelenburg gait without SPC, better with SPC PT-OP-J Posture/Palpation/Skin Start: 04/18/22 14:53 Freq: Status: Active Protocol: Document 04/19/22 13:00 AMB (Rec: 04/20/22 07:26 AMB [id number]) Posture Evaluation Comments Posture Comments Flat lumbar spine PT-OP-M Strength Start: 04/18/22 14:53 Freq: Status: Active Protocol: Document 04/19/22 13:00 AMB (Rec: 04/20/22 07:26 AMB [id number]) Hip Strength Hip Manual Muscle Testing Right Flexion (L2) 4 Good Extension (S1) 4 Good Abduction 4 Good Left Flexion (L2) 4 Good Extension (S1) 4 Good Abduction 4- Good- Knee Strength Knee Manual Muscle Testing Right Flexion (S2) 4+ Good+ Extension (L3) 4+ Good+ Left Flexion (S2) 4+ Good+ Extension (L3) 4+ Good+ PT-OP-Q Treatments Start: 04/18/22 14:53 Freq: Status: Active Protocol: Document 04/30/22 14:30 AMB (Rec: 04/30/22 15:40 AMB [id number]) Cardio Equipment Recumbent Stepper (Sci-Fit) Duration (Minutes) 10 Resistance 3 Therapeutic Exercises Sidelying Exercises clamshell Reps/Minutes 2x10 hip abduction Side left Reps/Minutes 10 Comments cues for form Sitting Exercises forward flexion stretch Sitting Exercise Name arms on table Side bilateral Reps/Minutes 30x2 Comments gentle Standing Exercises 2 Standing Exercise Name hip extension Resistance #3 t band Reps/Minutes 2x10 1 Standing Exercise Name hip abd Resistance #3 t band Reps/Minutes 2x10 PT-OP-T Assessment and Plan Start: 04/18/22 14:53 Freq: Status: Active Protocol: Document 04/30/22 14:30 AMB (Rec: 04/30/22 15:40 AMB [id number]) Physical Therapy Assessment Goals 3 Impairment Strength Short Term Goal (STG) Leslie will be independent and consistent with a HEP for core and lower extremity strengthening. STG Duration 4 weeks 2 Impairment ADLs Short Term Goal (STG) Leslie will don/doff his socks and shoes independently without pain. STG Duration 4 weeks 1 Impairment Gait Short Term Goal (STG) Leslie will ambulate for 6 minutes over smooth surfaces with his SPC without increasing back pain. STG Duration 4 weeks Customer Solutions Supervisor Goal (LTG) Leslie will ambulate for 1 minute without trendelenburg gait pattern without AD, as he does ambulate in his home without AD. LTG Duration 8 weeks Assessment Summary Assessment Berry feels like his knees are more problematic than his back at this point. Is going to be doing knee PT but may have to wait until that is available. Physical Therapy Plan Next Visit Focus/Plan Next Note Type Treatment Note Next Visit Plan Recumbent bike vs treadmill, lateral hip strengthening, review body mechanics ( bilateral knee pain a limiting factor)
--- NOTE | 2022-05-04 15:03 | PT.OTN ---
Current Diagnoses Spondylolisthesis, lumbar region (05/04/22) Spinal stenosis, lumbar region with neurogenic claudication (05/04/22) Physical Therapy Treatment Note PT-OP-A Visit Information Start: 04/18/22 14:53 Freq: Status: Active Protocol: Document 05/04/22 13:56 AMB (Rec: 05/04/22 15:03 AMB [id number]) Out-Patient Physical Therapy Visit Information Visit Information Visit Type Treatment Note Visit Start Time 13:45 Visit Stop Time 14:30 Total Visit Minutes 45 Visit Number 5 PT-OP-B Current Condition Start: 04/18/22 14:53 Freq: Status: Active Protocol: Document 04/19/22 12:59 AMB (Rec: 04/19/22 13:29 AMB [id number]) Current Condition History of Current Condition Onset Date 03/21/22 Current Complaints recovering from L4-L5 fusion History of Current Condition Uses cane when walking outside the home. self d/sophia the walker 3 days ago, no more numbness in the left hip since surgery. Even 6 months ago would be walking 2 miles [place], but that progressively worsened so right before surgery was not walking much more than through the house. Now has returned to walking at the grocery store with a cart, but has not returned to [place] walks yet. Pain limits gait if not using SPC, but had been using cane for years in the community. Hasn't been able to get socks on by himself yet . Some muscle soreness over incisions. Is aware of bending, lifting twisting precautions. Lives in a single family home with his . Treatment Goals Patient/Caregiver Goals Increase walking Prior Functional Status Baseline Function- ADL's Independent Baseline Function- Mobility Independent Current Functional Impairments (Reported) Functional Limitations- ADL's Limited in putting on socks, limited gait distance. Personal Factors Other Personal Factors That May Effect Bilateral knee pain 02/20- Therapy/Recovery chronic knee pain with two arthroscopic surgeries each. PT-OP-C Subjective Start: 04/18/22 14:53 Freq: Status: Active Protocol: Document 05/04/22 13:56 AMB (Rec: 05/04/22 15:03 AMB [id number]) OP-PT Subjective Patient Comments Patient Comments Continues to have back pain with walking especially at the end of the day. PT-OP-E Functional Tests Start: 04/18/22 14:53 Freq: Status: Active Protocol: Document 04/19/22 13:00 AMB (Rec: 04/20/22 07:26 AMB [id number]) Functional Tests 10 Meter Walk Test Distance 9 Device Used SPC Comments 7 sec at fast pace PT-OP-G Mobility & Gait Start: 04/18/22 14:53 Freq: Status: Active Protocol: Document 04/19/22 13:00 AMB (Rec: 04/20/22 07:26 AMB [id number]) OP Mobility Evaluation Bed Mobility Rolling rolls and moves from supine to sit with good log roll technique, no increase in pain OP Gait Assessment Comments Gait Comments mild trendelenburg gait without SPC, better with SPC PT-OP-J Posture/Palpation/Skin Start: 04/18/22 14:53 Freq: Status: Active Protocol: Document 04/19/22 13:00 AMB (Rec: 04/20/22 07:26 AMB [id number]) Posture Evaluation Comments Posture Comments Flat lumbar spine PT-OP-M Strength Start: 04/18/22 14:53 Freq: Status: Active Protocol: Document 04/19/22 13:00 AMB (Rec: 04/20/22 07:26 AMB [id number]) Hip Strength Hip Manual Muscle Testing Right Flexion (L2) 4 Good Extension (S1) 4 Good Abduction 4 Good Left Flexion (L2) 4 Good Extension (S1) 4 Good Abduction 4- Good- Knee Strength Knee Manual Muscle Testing Right Flexion (S2) 4+ Good+ Extension (L3) 4+ Good+ Left Flexion (S2) 4+ Good+ Extension (L3) 4+ Good+ PT-OP-Q Treatments Start: 04/18/22 14:53 Freq: Status: Active Protocol: Document 05/04/22 13:56 AMB (Rec: 05/04/22 15:03 AMB [id number]) Cardio Equipment Recumbent Stepper (Sci-Fit) Duration (Minutes) 10 Resistance 3 Therapeutic Exercises Sidelying Exercises hip abduction Side left Reps/Minutes 2x10 Comments cues for form Other Exercises quadruped Other Exercise Name LE ext, hip ER, UE ext Reps/Minutes 2x10 ea Comments cues for form Manual Therapy Treatment Soft Tissue Mobilization 1 Body Location scar tissue mobilization Comments lumbar spine L>R PT-OP-T Assessment and Plan Start: 04/18/22 14:53 Freq: Status: Active Protocol: Document 05/04/22 13:56 AMB (Rec: 05/04/22 15:03 [facility] [id number]) Physical Therapy Assessment Goals 3 Impairment Strength Short Term Goal (STG) Leslie will be independent and consistent with a HEP for core and lower extremity strengthening. STG Duration 4 weeks 2 Impairment ADLs Short Term Goal (STG) Leslie will don/doff his socks and shoes independently without pain. STG Duration 4 weeks 1 Impairment Gait Short Term Goal (STG) Leslie will ambulate for 6 minutes over smooth surfaces with his SPC without increasing back pain. STG Duration 4 weeks Long-Term Goal (LTG) Leslie will ambulate for 1 minute without trendelenburg gait pattern without AD, as he does ambulate in his home without AD. LTG Duration 8 weeks Assessment Summary Assessment Berry is continuing to have low back pain with gait minor at the end of the day, so did more core strengthening today. Lower half of left scar continues to be adhered, so discussed self scar massage. Otherwise continue with glute med strengthening to promote more normalized gait pattern. Physical Therapy Plan Next Visit Focus/Plan Next Note Type Treatment Note Next Visit Plan Recumbent bike vs treadmill, lateral hip strengthening, review body mechanics ( bilateral knee pain a limiting factor)
--- NOTE | 2022-05-08 15:57 | PT.OTN ---
Current Diagnoses Spondylolisthesis, lumbar region (05/08/22) Spinal stenosis, lumbar region with neurogenic claudication (05/08/22) Physical Therapy Treatment Note PT-OP-A Visit Information Start: 04/18/22 14:53 Freq: Status: Active Protocol: Document 05/08/22 13:45 AMB (Rec: 05/08/22 15:50 AMB [id number]) Out-Patient Physical Therapy Visit Information Visit Information Visit Type Treatment Note Visit Start Time 13:45 Visit Stop Time 14:30 Total Visit Minutes 45 PT-OP-B Current Condition Start: 04/18/22 14:53 Freq: Status: Active Protocol: Document 04/19/22 12:59 AMB (Rec: 04/19/22 13:29 AMB [id number]) Current Condition History of Current Condition Onset Date 03/21/22 Current Complaints recovering from L4-L5 fusion History of Current Condition Uses cane when walking outside the home. self d/sophia the walker 3 days ago, no more numbness in the left hip since surgery. Even 6 months ago would be walking 2 miles [place], but that progressively worsened so right before surgery was not walking much more than through the house. Now has returned to walking at the grocery store with a cart, but has not returned to forest land walks yet. Pain limits gait if not using SPC, but had been using cane for years in the community. Hasn't been able to get socks on by himself yet . Some muscle soreness over incisions. Is aware of bending, lifting twisting precautions. Lives in a single family home with his . Treatment Goals Patient/Caregiver Goals Increase walking Prior Functional Status Baseline Function- ADL's Independent Baseline Function- Mobility Independent Current Functional Impairments (Reported) Functional Limitations- ADL's Limited in putting on socks, limited gait distance. Personal Factors Other Personal Factors That May Effect Bilateral knee pain 02/20- Therapy/Recovery chronic knee pain with two arthroscopic surgeries each. PT-OP-C Subjective Start: 04/18/22 14:53 Freq: Status: Active Protocol: Document 05/08/22 13:45 AMB (Rec: 05/08/22 15:50 AMB [id number]) OP-PT Subjective Patient Comments Patient Comments Berry states overall his back is ok, he does feel fatigue with it when he walks without the cane. PT-OP-E Functional Tests Start: 04/18/22 14:53 Freq: Status: Active Protocol: Document 04/19/22 13:00 AMB (Rec: 04/20/22 07:26 AMB [id number]) Functional Tests 10 Meter Walk Test Distance 9 Device Used SPC Comments 7 sec at fast pace PT-OP-G Mobility & Gait Start: 04/18/22 14:53 Freq: Status: Active Protocol: Document 04/19/22 13:00 AMB (Rec: 04/20/22 07:26 AMB [id number]) OP Mobility Evaluation Bed Mobility Rolling rolls and moves from supine to sit with good log roll technique, no increase in pain OP Gait Assessment Comments Gait Comments mild trendelenburg gait without SPC, better with SPC PT-OP-J Posture/Palpation/Skin Start: 04/18/22 14:53 Freq: Status: Active Protocol: Document 04/19/22 13:00 AMB (Rec: 04/20/22 07:26 AMB [id number]) Posture Evaluation Comments Posture Comments Flat lumbar spine PT-OP-M Strength Start: 04/18/22 14:53 Freq: Status: Active Protocol: Document 04/19/22 13:00 AMB (Rec: 04/20/22 07:26 AMB [id number]) Hip Strength Hip Manual Muscle Testing Right Flexion (L2) 4 Good Extension (S1) 4 Good Abduction 4 Good Left Flexion (L2) 4 Good Extension (S1) 4 Good Abduction 4- Good- Knee Strength Knee Manual Muscle Testing Right Flexion (S2) 4+ Good+ Extension (L3) 4+ Good+ Left Flexion (S2) 4+ Good+ Extension (L3) 4+ Good+ PT-OP-Q Treatments Start: 04/18/22 14:53 Freq: Status: Active Protocol: Document 05/08/22 13:53 AMB (Rec: 05/08/22 14:35 AMB [id number]) Therapeutic Exercises Sidelying Exercises hip abduction Side left Reps/Minutes 2x10 Comments cues for form Standing Exercises 2 Standing Exercise Name squat Reps/Minutes 5 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 1 Standing Exercise Name sidestepping Resistance #3 t band Reps/Minutes 2x10 Gait Training Gait Activity 1 Description SPC Level of Assistance Independent Surface firm Distance/Duration 200 Treatment Focus posture, stride length Manual Therapy Treatment Soft Tissue Mobilization 1 Body Location scar tissue mobilization Comments lumbar spine L>R PT-OP-T Assessment and Plan Start: 04/18/22 14:53 Freq: Status: Active Protocol: Document 05/08/22 13:53 AMB (Rec: 05/08/22 14:35 AMB [id number]) Physical Therapy Assessment Goals 3 Impairment Strength Short Term Goal (STG) Leslie will be independent and consistent with a HEP for core and lower extremity strengthening. STG Duration 4 weeks 2 Impairment ADLs Short Term Goal (STG) Leslie will don/doff his socks and shoes independently without pain. STG Duration MET 1 Impairment Gait Short Term Goal (STG) Leslie will ambulate for 6 minutes over smooth surfaces with his SPC without increasing back pain. STG Duration 4 weeks Gum Machine Filler Goal (LTG) Leslie will ambulate for 1 minute without trendelenburg gait pattern without AD, as he does ambulate in his home without AD. LTG Duration By the end of the day or after a few hundred feet feels discomfort Assessment Summary Assessment Back pain continues if not using SPC or grocery cart for gait. Continued to encourage SPC use. Scar is improving, but continued to have mild adhesions. Did understand lifting with squatting, lift bothered knees. Didn't do well with quadruped at home , as bed is too soft and difficulty getting off floor with knee issues. Physical Therapy Plan Next Visit Focus/Plan Next Note Type Treatment Note Next Visit Plan Gait with SPC, scar mobilization, lateral hip strengthening, review body mechanics (bilateral knee pain a limiting factor)
--- NOTE | 2022-05-14 09:45 | PT.OTN ---
Current Diagnoses Spondylolisthesis, lumbar region (05/14/22) Spinal stenosis, lumbar region with neurogenic claudication (05/14/22) Physical Therapy Treatment Note PT-OP-A Visit Information Start: 04/18/22 14:53 Freq: Status: Active Protocol: Document 05/14/22 09:00 NBM (Rec: 05/20/22 23:18 [facility] [id number]) Out-Patient Physical Therapy Visit Information Visit Information Visit Type Treatment Note Visit Start Time 09:00 Visit Stop Time 09:45 Total Visit Minutes 45 Visit Number 7 Number of TRANSCRIPT EVALUATOR Visits 1 PT-OP-B Current Condition Start: 04/18/22 14:53 Freq: Status: Active Protocol: Document 04/19/22 12:59 AMB (Rec: 04/19/22 13:29 AMB [id number]) Current Condition History of Current Condition Onset Date 03/21/22 Current Complaints recovering from L4-L5 fusion History of Current Condition Uses cane when walking outside the home. self d/sophia the walker 3 days ago, no more numbness in the left hip since surgery. Even 6 months ago would be walking 2 miles in the [place], but that progressively worsened so right before surgery was not walking much more than through the house. Now has returned to walking at the grocery store with a cart, but has not returned to forest land walks yet. Pain limits gait if not using SPC, but had been using cane for years in the community. Hasn't been able to get socks on by himself yet . Some muscle soreness over incisions. Is aware of bending, lifting twisting precautions. Lives in a single family home with his . Treatment Goals Patient/Caregiver Goals Increase walking Prior Functional Status Baseline Function- ADL's Independent Baseline Function- Mobility Independent Current Functional Impairments (Reported) Functional Limitations- ADL's Limited in putting on socks, limited gait distance. Personal Factors Other Personal Factors That May Effect Bilateral knee pain 02/20- Therapy/Recovery chronic knee pain with two arthroscopic surgeries each. PT-OP-C Subjective Start: 04/18/22 14:53 Freq: Status: Active Protocol: Document 05/14/22 09:00 NBM (Rec: 05/20/22 23:18 [facility] [id number]) OP-PT Subjective Patient Comments Patient Comments Berry reports his back is sore by the end of the day, especially when he does not use his cane. PT-OP-E Functional Tests Start: 04/18/22 14:53 Freq: Status: Active Protocol: Document 04/19/22 13:00 AMB (Rec: 04/20/22 07:26 AMB [id number]) Functional Tests 10 Meter Walk Test Distance 9 Device Used SPC Comments 7 sec at fast pace PT-OP-G Mobility & Gait Start: 04/18/22 14:53 Freq: Status: Active Protocol: Document 04/19/22 13:00 AMB (Rec: 04/20/22 07:26 AMB [id number]) OP Mobility Evaluation Bed Mobility Rolling rolls and moves from supine to sit with good log roll technique, no increase in pain OP Gait Assessment Comments Gait Comments mild trendelenburg gait without SPC, better with SPC PT-OP-J Posture/Palpation/Skin Start: 04/18/22 14:53 Freq: Status: Active Protocol: Document 04/19/22 13:00 AMB (Rec: 04/20/22 07:26 AMB [id number]) Posture Evaluation Comments Posture Comments Flat lumbar spine PT-OP-M Strength Start: 04/18/22 14:53 Freq: Status: Active Protocol: Document 04/19/22 13:00 AMB (Rec: 04/20/22 07:26 AMB [id number]) Hip Strength Hip Manual Muscle Testing Right Flexion (L2) 4 Good Extension (S1) 4 Good Abduction 4 Good Left Flexion (L2) 4 Good Extension (S1) 4 Good Abduction 4- Good- Knee Strength Knee Manual Muscle Testing Right Flexion (S2) 4+ Good+ Extension (L3) 4+ Good+ Left Flexion (S2) 4+ Good+ Extension (L3) 4+ Good+ PT-OP-Q Treatments Start: 04/18/22 14:53 Freq: Status: Active Protocol: Document 05/14/22 09:00 NBM (Rec: 05/20/22 23:18 NBM [id number]) Cardio Equipment Recumbent Stepper (Sci-Fit) Duration (Minutes) 10 Resistance 3 Therapeutic Exercises Prone Exercises Plank Prone Exercise Name from knees - added to HEP Reps/Minutes 3 x 3-5 SH Comments from feet attempted - too challenging; vc for form, core focus Sitting Exercises HS stretch Sitting Exercise Name added to HEP Side bilateral Equipment Used mesh chair Reps/Minutes x30 ea 4-way ankle Sitting Exercise Name DF/PF, I/E - added to HEP Side bilateral Resistance Lvl 3 Tb Reps/Minutes x10 ea Comments cues for set up, slower pacing Standing Exercises Hip Extension Side bilateral Resistance lvl 3 Tb Equipment Used handrail Reps/Minutes x10 ea Comments cues for straight knee Hip Abduction Side bilateral Resistance Lvl 3 Tb Equipment Used handrail Reps/Minutes x10 ea Comments cues for straight knee, lat lean Other Exercises quadruped Other Exercise Name LE ext, hip ER, UE ext Side bilateral Equipment Used mat table Reps/Minutes 2x10 ea Comments cues for form, core engagement Gait Training Gait Activity 1 Description SPC Level of Assistance Independent Surface firm Distance/Duration 180 Treatment Focus posture, stride length, foot clearance Manual Therapy Treatment Soft Tissue Mobilization 1 Body Location scar tissue mobilization Body Position Sidelying Comments lumbar spine L>R Self-Care/Home Management Treatment Education Patient Education Home Exercise Program Other Education added to HEP: seated HS stretch, Plank from knees, 4- way ankle w/Tb - HO given. PT-OP-T Assessment and Plan Start: 04/18/22 14:53 Freq: Status: Active Protocol: Document 05/14/22 09:00 [facility] (Rec: 05/20/22 23:18 [facility] [id number]) Physical Therapy Assessment Impairments Impairments Functional Activities,Gait, Pain,Posture,Strength Goals 3 Impairment Strength Short Term Goal (STG) Leslie will be independent and consistent with a HEP for core and lower extremity strengthening. STG Duration 4 weeks 2 Impairment ADLs Short Term Goal (STG) Leslie will don/doff his socks and shoes independently without pain. STG Duration MET 1 Impairment Gait Short Term Goal (STG) Leslie will ambulate for 6 minutes over smooth surfaces with his SPC without increasing back pain. STG Duration 4 weeks Machine Heel Builder Goal (LTG) Leslie will ambulate for 1 minute without trendelenburg gait pattern without AD, as he does ambulate in his home without AD. LTG Duration By the end of the day or after a few hundred feet feels discomfort Assessment Summary Assessment Today's treatment focus is gait training w/ SPC, hip and core strengthening. Pt's self- awareness of posture and decreased Trendelenberg w/ SPC improved w/ gait training this session. Pt is challenged to maintain full plank but able to perform a modified plank from knees w / initial cues for core engagement and form. Pt requires moderate cues for core engagement and form in quadruped exercises. Added to HEP: seated HS stretch, Plank from knees, 4-way ankle w/Tb - HO given. Pt will benefit from continued skilled therapeutic intervention. Physical Therapy Plan Frequency and Duration Frequency of Treatment 2x/Week Duration of Treatment 8 weeks Plan of Care Start Date 04/19/22 Plan of Care End Date 06/18/22 Therapeutic Interventions Therapeutic Interventions Gait Training,Home Exercise Program,Manual Therapy, Neuromuscular Re-education, Self-Care/Home Management, Therapeutic Activities, Therapeutic Exercises Modalities Cold Pack/Ice Massage,Electric Stimulation,Hot Packs Next Visit Focus/Plan Next Note Type Treatment Note Next Visit Plan Gait with SPC, scar mobilization, lateral hip strengthening, review body mechanics (bilateral knee pain a limiting factor)
--- NOTE | 2022-05-22 18:24 | PT.OTN ---
Current Diagnoses Spondylolisthesis, lumbar region (05/22/22) Spinal stenosis, lumbar region with neurogenic claudication (05/22/22) Physical Therapy Treatment Note PT-OP-A Visit Information Start: 04/18/22 14:53 Freq: Status: Active Protocol: Document 05/22/22 14:26 NBM (Rec: 05/22/22 15:21 NBM [id number]) Out-Patient Physical Therapy Visit Information Visit Information Visit Type Treatment Note Visit Start Time 14:30 Visit Stop Time 15:15 Total Visit Minutes 45 Visit Number 8 Number of PATIENT REGISTRATION CLERK Visits 2 PT-OP-B Current Condition Start: 04/18/22 14:53 Freq: Status: Active Protocol: Document 04/19/22 12:59 AMB (Rec: 04/19/22 13:29 AMB [id number]) Current Condition History of Current Condition Onset Date 03/21/22 Current Complaints recovering from L4-L5 fusion History of Current Condition Uses cane when walking outside the home. self d/sophia the walker 3 days ago, no more numbness in the left hip since surgery. Even 6 months ago would be walking 2 miles in the [place], but that progressively worsened so right before surgery was not walking much more than through the house. Now has returned to walking at the grocery store with a cart, but has not returned to forest land walks yet. Pain limits gait if not using SPC, but had been using cane for years in the community. Hasn't been able to get socks on by himself yet . Some muscle soreness over incisions. Is aware of bending, lifting twisting precautions. Lives in a single family home with his . Treatment Goals Patient/Caregiver Goals Increase walking Prior Functional Status Baseline Function- ADL's Independent Baseline Function- Mobility Independent Current Functional Impairments (Reported) Functional Limitations- ADL's Limited in putting on socks, limited gait distance. Personal Factors Other Personal Factors That May Effect Bilateral knee pain 10- Therapy/Recovery chronic knee pain with two arthroscopic surgeries each. PT-OP-C Subjective Start: 04/18/22 14:53 Freq: Status: Active Protocol: Document 05/22/22 14:26 NBM (Rec: 05/22/22 15:21 NBM [id number]) OP-PT Subjective Patient Comments Patient Comments Pt states he had vertigo throughout last visit and vomited at home. He went to the ER and was told the vomiting was the vertigo. He has vertigo exercises and medication. Pt has been able to do exercises on knees on a foam pad. He'd like to transition PT to Aquatic only because back just gets tired now, but knee bothers him and he thinks it's due to weight. PT-OP-E Functional Tests Start: 04/18/22 14:53 Freq: Status: Active Protocol: Document 04/19/22 13:00 AMB (Rec: 04/20/22 07:26 AMB [id number]) Functional Tests 10 Meter Walk Test Distance 9 Device Used SPC Comments 7 sec at fast pace PT-OP-G Mobility & Gait Start: 04/18/22 14:53 Freq: Status: Active Protocol: Document 04/19/22 13:00 AMB (Rec: 04/20/22 07:26 AMB [id number]) OP Mobility Evaluation Bed Mobility Rolling rolls and moves from supine to sit with good log roll technique, no increase in pain OP Gait Assessment Comments Gait Comments mild trendelenburg gait without SPC, better with SPC PT-OP-J Posture/Palpation/Skin Start: 04/18/22 14:53 Freq: Status: Active Protocol: Document 04/19/22 13:00 AMB (Rec: 04/20/22 07:26 AMB [id number]) Posture Evaluation Comments Posture Comments Flat lumbar spine PT-OP-M Strength Start: 04/18/22 14:53 Freq: Status: Active Protocol: Document 04/19/22 13:00 AMB (Rec: 04/20/22 07:26 AMB [id number]) Hip Strength Hip Manual Muscle Testing Right Flexion (L2) 4 Good Extension (S1) 4 Good Abduction 4 Good Left Flexion (L2) 4 Good Extension (S1) 4 Good Abduction 4- Good- Knee Strength Knee Manual Muscle Testing Right Flexion (S2) 4+ Good+ Extension (L3) 4+ Good+ Left Flexion (S2) 4+ Good+ Extension (L3) 4+ Good+ PT-OP-Q Treatments Start: 04/18/22 14:53 Freq: Status: Active Protocol: Document 05/22/22 14:26 NBM (Rec: 05/22/22 15:21 NBM [id number]) Cardio Equipment Recumbent Stepper (Sci-Fit) Duration (Minutes) 10 Resistance 3 Therapeutic Exercises Prone Exercises Plank Prone Exercise Name from knees - HEP review Reps/Minutes 3 x 3-5 SH Comments from feet attempted - too challenging; vc for form, core focus Standing Exercises Hip Extension Side bilateral Resistance lvl 3 Tb Equipment Used handrail Reps/Minutes x10 ea Comments cues for straight knee 2 Standing Exercise Name mini squats at rail Equipment Used handrail Reps/Minutes x10 Comments focus on upright posture and form, foot placement, knee alignment 1 Standing Exercise Name sidestepping Resistance #3 t band Reps/Minutes 2x10 Other Exercises quadruped Other Exercise Name HEP review - LE ext, hip ER, UE ext Side bilateral Equipment Used mat table Reps/Minutes 2x10 ea Comments cues for form Gait Training Gait Activity 1 Description 1.SPC 2. trekking poles Level of Assistance Independent Surface firm Distance/Duration 180 ft w/ SPC; 150 ft w/ trekking poles Treatment Focus posture, stride length, foot clearance Comments Pt uses SPC in either R or L UE due to pain in both knees but continues to be challenged w/ Trendelenberg and excessive lateral lean. Trialed perez trekking poles for community ambulation and pt demonstrates a decrease in lateral lean and Trendelenberg . PT-OP-R Modalities Start: 04/18/22 14:53 Freq: Status: Active Protocol: Document 05/22/22 14:26 [facility] (Rec: 05/22/22 15:21 [facility] [id number]) Hot Pack/Cold Pack Treatment Hot Pack Location Lumbar Patient Position Hooklying Treatment Duration (minutes) 10 Patient Tolerance Good PT-OP-T Assessment and Plan Start: 04/18/22 14:53 Freq: Status: Active Protocol: Document 05/22/22 14:26 [facility] (Rec: 05/22/22 15:21 [facility] [id number]) Physical Therapy Assessment Impairments Impairments Functional Activities,Gait, Pain,Posture,Strength Goals 3 Impairment Strength Short Term Goal (STG) Leslie will be independent and consistent with a HEP for core and lower extremity strengthening. STG Duration 4 weeks 2 Impairment ADLs Short Term Goal (STG) Leslie will don/doff his socks and shoes independently without pain. STG Duration MET 1 Impairment Gait Short Term Goal (STG) Leslie will ambulate for 6 minutes over smooth surfaces with his SPC without increasing back pain. STG Duration 4 weeks Group Home Goal (LTG) Leslie will ambulate for 1 minute without trendelenburg gait pattern without AD, as he does ambulate in his home without AD. LTG Duration By the end of the day or after a few hundred feet feels discomfort Assessment Summary Assessment Pt arrives w/ SPC in L hand. Treatment focus on gait training and hip strengthening . Pt ambulates w/ SPC in either R or L UE due to pain in both knees but continues to be challenged w/ Trendelenberg and excessive lateral lean. Pt demonstrates improved gait ambulating w/ trekking poles bilaterally with decreased lateral lean and Trendelenberg gait. Pt will bring his from home. Berry requires frequent cues for neutral foot throughout session. Pt demonstrates improved core stability in quadruped w/ lower extremity extension with contralateral upper extremity shoulder flexion. Physical Therapy Plan Frequency and Duration Frequency of Treatment 2x/Week Duration of Treatment 8 weeks Plan of Care Start Date 04/19/22 Plan of Care End Date 06/18/22 Therapeutic Interventions Therapeutic Interventions Gait Training,Home Exercise Program,Manual Therapy, Neuromuscular Re-education, Self-Care/Home Management, Therapeutic Activities, Therapeutic Exercises Modalities Cold Pack/Ice Massage,Electric Stimulation,Hot Packs Next Visit Focus/Plan Next Note Type Treatment Note Next Visit Plan Check on vertigo. Assess gait w/ SPC vs trekking poles for community ambulation. Gait with SPC, scar mobilization, lateral hip strengthening, review body mechanics (bilateral knee pain a limiting factor)
--- NOTE | 2022-05-23 15:48 | PT.OPDS ---
Current Diagnoses Spondylolisthesis, lumbar region (05/22/22) Spinal stenosis, lumbar region with neurogenic claudication (05/22/22) Visit Care Team Role Provider Type Chon Albrecht MD Family Provider Physician Primary Care Provider Specialty: Family Practice Address: [address] [place], [address] Email: [email or web address] Mickie Quiles MD Attending Provider Physician Referring Provider Specialty: Orthopedics Orthopedic Surgery Address: [address] [place] [address], [id number] Email: [email or web address] Visit Number Visit Number 8 Discharge Summary PT-OP-B Current Condition Start: 04/18/22 14:53 Freq: Status: Active Protocol: Document 04/19/22 12:59 AMB (Rec: 04/19/22 13:29 AMB [id number]) Current Condition History of Current Condition Onset Date 03/21/22 Current Complaints recovering from L4-L5 fusion History of Current Condition Uses cane when walking outside the home. self d/sophia the walker 3 days ago, no more numbness in the left hip since surgery. Even 6 months ago would be walking 2 miles [place], but that progressively worsened so right before surgery was not walking much more than through the house. Now has returned to walking at the grocery store with a cart, but has not returned to [place] walks yet. Pain limits gait if not using SPC, but had been using cane for years in the community. Hasn't been able to get socks on by himself yet . Some muscle soreness over incisions. Is aware of bending, lifting twisting precautions. Lives in a single family home with his . Treatment Goals Patient/Caregiver Goals Increase walking Prior Functional Status Baseline Function- ADL's Independent Baseline Function- Mobility Independent Current Functional Impairments (Reported) Functional Limitations- ADL's Limited in putting on socks, limited gait distance. Personal Factors Other Personal Factors That May Effect Bilateral knee pain 510- Therapy/Recovery chronic knee pain with two arthroscopic surgeries each. PT-OP-C Subjective Start: 04/18/22 14:53 Freq: Status: Active Protocol: Document 05/22/22 14:26 NBM (Rec: 05/22/22 15:21 [facility] [id number]) OP-PT Subjective Patient Comments Patient Comments Pt states he had vertigo throughout last visit and vomited at home. He went to the ER and was told the vomiting was the vertigo. He has vertigo exercises and medication. Pt has been able to do exercises on knees on a foam pad. He'd like to transition PT to Aquatic only because back just gets tired now, but knee bothers him and he thinks it's due to weight. PT-OP-E Functional Tests Start: 04/18/22 14:53 Freq: Status: Active Protocol: Document 04/19/22 13:00 AMB (Rec: 04/20/22 07:26 AMB [id number]) Functional Tests 10 Meter Walk Test Distance 9 Device Used SPC Comments 7 sec at fast pace PT-OP-G Mobility & Gait Start: 04/18/22 14:53 Freq: Status: Active Protocol: Document 04/19/22 13:00 AMB (Rec: 04/20/22 07:26 AMB [id number]) OP Mobility Evaluation Bed Mobility Rolling rolls and moves from supine to sit with good log roll technique, no increase in pain OP Gait Assessment Comments Gait Comments mild trendelenburg gait without SPC, better with SPC PT-OP-J Posture/Palpation/Skin Start: 04/18/22 14:53 Freq: Status: Active Protocol: Document 04/19/22 13:00 AMB (Rec: 04/20/22 07:26 AMB [id number]) Posture Evaluation Comments Posture Comments Flat lumbar spine PT-OP-M Strength Start: 04/18/22 14:53 Freq: Status: Active Protocol: Document 04/19/22 13:00 AMB (Rec: 04/20/22 07:26 AMB [id number]) Hip Strength Hip Manual Muscle Testing Right Flexion (L2) 4 Good Extension (S1) 4 Good Abduction 4 Good Left Flexion (L2) 4 Good Extension (S1) 4 Good Abduction 4- Good- Knee Strength Knee Manual Muscle Testing Right Flexion (S2) 4+ Good+ Extension (L3) 4+ Good+ Left Flexion (S2) 4+ Good+ Extension (L3) 4+ Good+ PT-OP-T Assessment and Plan Start: 04/18/22 14:53 Freq: Status: Active Protocol: Document 05/23/22 15:45 [facility] (Rec: 05/23/22 15:48 [facility] [id number]) Physical Therapy Assessment Goals 3 Impairment Strength Short Term Goal (STG) Leslie will be independent and consistent with a HEP for core and lower extremity strengthening. STG Duration MET 2 Impairment ADLs Short Term Goal (STG) Leslie will don/doff his socks and shoes independently without pain. STG Duration MET 1 Impairment Gait Short Term Goal (STG) Leslie will ambulate for 6 minutes over smooth surfaces with his SPC without increasing back pain. STG Duration MET [facility] Goal (LTG) Leslie will ambulate for 1 minute without trendelenburg gait pattern without AD, as he does ambulate in his home without AD. LTG Duration By the end of the day or after a few hundred feet feels discomfort Assessment Summary Assessment Pt is more concerned about his knees at this point and will be evaluated for this at his next visit. He is therefore discharged from his back PT. HE did continue to have trendelenburg gait with using one SPC. Would continue to benefit from core/hip strengthening. Physical Therapy Plan Discharge Physical Therapy Discharge Reasons Patient Request
== END 2022-05-28 14:22 ==
LOC: PHYS 14:30
PROVIDERS: Family Provider Family Medicine; PCP Family Medicine; Referring Provider Orthopaedic Surgery Orthopaedic Surgery of the Spine; Visit Provider Orthopaedic Surgery Orthopaedic Surgery of the Spine
DX: M48.062 Spinal stenosis, lumbar region with neurogenic claudication (principal); M43.16 Spondylolisthesis, lumbar region
CPT/HCPCS: 97110; 97116; 97140; 97161

== ENCOUNTER → 2022-07-10 09:00 | Outpatient (CLI) | payer MEDICARE, OTHER, SELFPAY ==
[2022-03-21 11:48] VITALS: BMI 33.7
== END ==
PROVIDERS: Family Provider Family Medicine; PCP Family Medicine; Referring Provider Internal Medicine; Visit Provider Internal Medicine
DX: Z23 Encounter for immunization (principal)
CPT/HCPCS: 90471; 90662

== ENCOUNTER 2022-07-30 10:15 | Outpatient (RCR) | payer MEDICARE, OTHER, SELFPAY ==
[2022-03-21 11:48] VITALS: BMI 33.7
--- NOTE | 2022-05-24 11:05 | PT.OIE ---
Current Diagnoses Bilateral primary osteoarthritis of knee (05/24/22) Past Medical History (Last Reviewed 05/14/22 @ 13:37 by January Hollingsworth DO) Arthritis BCC (basal cell carcinoma) Diverticular disease Dyslipidemia Eczema Hearing impaired History of migraine headaches Hypercholesterolemia Hypertension Kidney stones FRANCISCO on CPAP Pre-diabetes Prostate cancer (2009) Pyelonephritis SCC (squamous cell carcinoma) Skin cancer Spinal stenosis of lumbar region ELIANA (stress urinary incontinence), male TGA (transient global amnesia) (1999) TIA (transient ischemic attack) (1990) TMJ (temporomandibular joint disorder) Past Surgical History (Last Reviewed 05/14/22 @ 13:37 by January Hollingsworth DO) History of surgical removal of pilonidal cyst Hx of arthroscopy of left knee Hx of arthroscopy of right knee Hx of bilateral cataract extraction Hx of prostatectomy (~2009) Hx of repair of left rotator cuff Hx of tonsillectomy Visit Care Team Role Provider Type Chon Albrecht MD Family Provider Physician Primary Care Provider Specialty: Family Practice Address: [address] [place] [address], [id number] Email: [email or web address] Alyson King MD Attending Provider Physician Referring Provider Specialty: Orthopedics Orthopedic Surgery Address: [address] [place] [address], [phone] Email: [email or web address] Physical Therapy Initial Evaluation PT-OP-A Visit Information Start: 05/23/22 16:21 Freq: Status: Active Protocol: Document 05/24/22 08:13 SAK (Rec: 05/24/22 08:59 SAK [id number]) Out-Patient Physical Therapy Visit Information Visit Information Visit Type Initial Evaluation Visit Start Time 08:15 Visit Stop Time 09:10 Total Visit Minutes 55 Visit Number 1 Evaluation Information Evaluation Date 05/24/22 PT-OP-B Current Condition Start: 05/23/22 16:21 Freq: Status: Active Protocol: Document 05/24/22 08:13 SAK (Rec: 05/24/22 08:59 SAK [id number]) Current Condition History of Current Condition Onset Date 2009 Current Complaints knee pain perez History of Current Condition progressive worsening bilateral knee pain, back surgery fusion 2 months ago. Sometimes knees give out on him, has fallen. Ability on stairs varies, needs perez UE support to be able to ascend and descend with alternating pattern. Used to walk 2-4 miles, decreased walking, has also gained about 7 pounds since surgery. Compliant to HEP s/p back surgery, doing bird dog and planks on knees Prior Treatments and Tests x-ray March [address] King's office; arthritis, medial compartments bone on bone perez arthroscopic surgeries knees prior PT Treatment Goals Patient/Caregiver Goals decrease pain, avoid surgery, return to walking 2-4 miles per day with minimal to no pain Prior Functional Status Baseline Function- ADL's Modified Independent Baseline Function- Mobility Modified Independent Baseline Function- Gait able to walk 2-4 miles daily Current Functional Impairments (Reported) Functional Limitations- ADL's painful Functional Limitations- Mobility/Gait painful, limited to a couple blocks Functional Limitations- Recreation/ Unable to take walks Hobbies Personal Factors Other Personal Factors That May Effect history TIA, history Therapy/Recovery vestibular PT-OP-G Mobility & Gait Start: 05/23/22 16:21 Freq: Status: Active Protocol: Document 05/24/22 08:13 [facility] (Rec: 05/24/22 08:59 [facility] [id number]) OP Mobility Evaluation Transfers Sit to Stand indep, uses hands OP Gait Assessment Gait Gait Assistance Required: Independent Assistive Devices Assistive Device Straight Cane Gait Deviations General Gait Pattern Antalgic,Decreased Stride Length,Decreased Feet Clearance,Lateral Trunk Lean, Wide Based Gait Factors Limiting Gait Function Factors Limiting Gait Function Decreased Strength,Limited Range of Motion,Pain Stair Climbing Evaluation Devices Stair Climbing Assistive Devices Left Railing,Right Railing Technique/Endurance Stair Climbing Direction Ascend and Descend Stair Climbing Technique Step Over Step Comments Stair Climbing Comments requires perez UE support per patient PT-OP-J Posture/Palpation/Skin Start: 05/23/22 16:21 Freq: Status: Active Protocol: Document 05/24/22 08:13 [facility] (Rec: 05/24/22 08:59 [facility] [id number]) Posture Evaluation Position Standing Patellar Posture (R) Laterally Tilted Ankle/Foot Posture (L) Pronated,(R) Pronated Foot Arch (R) Low Arch,(L) No Arch Palpation Assessment Location bilateral knees Palpation Findings Tenderness Palpation Details bilateral medial joint line left greater than right PT-OP-K Range of Motion Start: 05/23/22 16:21 Freq: Status: Active Protocol: Document 05/24/22 08:13 [facility] (Rec: 05/24/22 08:59 [facility] [id number]) Lumbar Spine Range of Motion Lumbar Spine Active Comments WFL, not formally tested due to recent fusion Hip Goniometric Range of Motion Hip perez Flexion w/Knee Flexed 90 Straight Leg Raise 55 Extension 0 Abduction 35 Internal Rotation 0 External Rotation 35 Knee Goniometric Range of Motion Knee Right Flexion Active (degrees) 118 Extension Active (degrees) 7 Left Flexion Active (degrees) 118 Extension Active (degrees) 9 Knee ROM Limitations Knee ROM Limitations Soft Tissue Tightness,Bony Restriction,Pain Ankle and Foot Goniometric Range of Motion Ankle and Foot perez Dorsiflexion with Knee Flexed 5 Dorsiflexion with Knee Extended 0 Ankle and Foot ROM Limitations ROM Limitations Soft Tissue Tightness PT-OP-M Strength Start: 05/23/22 16:21 Freq: Status: Active Protocol: Document 05/24/22 08:13 [facility] (Rec: 05/24/22 08:59 [facility] [id number]) Hip Strength Hip Manual Muscle Testing perez Comments no MMT due to recent surgery Knee Strength Knee Manual Muscle Testing Right Flexion (S2) 4+ Good+ Extension (L3) 4+ Good+ Left Flexion (S2) 4 Good Ankle/Foot Strength Ankle and Foot Manual Muscle Testing Right Dorsiflexion (L4) 4 Good Plantarflexion (S1) 4 Good Left Dorsiflexion (L4) 4+ Good+ Plantarflexion (S1) 4+ Good+ PT-OP-Q Treatments Start: 05/23/22 16:21 Freq: Status: Active Protocol: Document 05/24/22 08:13 [facility] (Rec: 05/24/22 08:59 [facility] [id number]) Therapeutic Exercises Supine Exercises quad/glut set Side bilateral Reps/Minutes 5x Sitting Exercises HS stretch Side bilateral Reps/Minutes 2x30 Standing Exercises quad stretch Side bilateral Equipment Used chair Comments cues for upright posture HC stretch Reps/Minutes 2x30 Manual Therapy Treatment Taping left knee Treatment Focus pain relief Type of Tape Kinesio Tape Comments 2 Y strips: one base at tibial tuberosity, one base superior to patella, 50% stretch Self-Care/Home Management Treatment Education Patient Education Home Exercise Program,Pain Management PT-OP-T Assessment and Plan Start: 05/23/22 16:21 Freq: Status: Active Protocol: Document 05/24/22 08:13 [facility] (Rec: 05/24/22 08:59 [facility] [id number]) Physical Therapy Assessment Rehab Potential Rehabilitation Potential Good Evaluation Complexity Number of Personal Factors/Comorbidities 1-2 Number of Body Systems Impaired 3 Clinical Presentation at Evaluation Evolving Impairments Impairments Activity Tolerance,Gait,Pain, ROM,Strength Goals ROM and strength impairment bilateral knees Short Term Goal (STG) patient to be instrsucted in progressive HEP for purposes of strengthenenig and flexibility bilateral LE's STG Duration 06/28/22 Halfway Goal (LTG) Patient to be independent and compliant with HEP and demonstrate improved flexibility and strength to 5/ 5 perez LE's LTG Duration 08/22/22 activity tolerance Impairment LEFS score 56% Short Term Goal (STG) Improve LEFS score to at least 66% as measure of improved activity tolerance STG Duration 06/28/22 Halfway Goal (LTG) Improve LEFS score to at least 75% as measure of improved activity tolerance LTG Duration 08/22/22 limited walking Impairment Patient limited to household and very short community ambulation due to perez knee pain left greater than right, uses SPC Short Term Goal (STG) Patient able to walk up to 1 mile with min to no increase in knee pain STG Duration 06/28/22 Halfway Goal (LTG) able to walk 2-4 miles safely without knees giving way with min pain, no assistive device required LTG Duration 08/22/22 Assessment Summary Assessment Patient presents to PT with function-limiting knee pain bilaterally left greater than right. Signs and symptoms are consistent with imaging findings of arthritis bilateral knees, worst in medial compartment. Impairments include decreased flexibility and strength, overpronation bilaterally left greater than right, antalgic gait with need for assistive device. Additionally patient underwent lumbar spine fusion 2 months ago, so will need to emphasize back protection with all ther ex and activities in PT. Discussed POC with patient and he was in agreement. He was issued HEP handout today, kinesiotape was applied to his left knee for trial, and moist heat was applied to both knees. He is highly motivated and feel he will benefit from skilled PT to decrease his pain, improve his strength, flexibility, and gait, and help him return to his prior level of function. Physical Therapy Plan Frequency and Duration Frequency of Treatment 2x/Week Duration of Treatment 12 weeks Plan of Care Start Date 05/24/22 Plan of Care End Date 08/22/22 Therapeutic Interventions Therapeutic Interventions Aquatic Therapy,Gait Training, Home Exercise Program,Manual Therapy,Patient/Caregiver Education,Self-Care/Home Management,Soft Tissue Mobilization,Taping, Therapeutic Activities, Therapeutic Exercises Modalities Cold Pack/Ice Massage,Electric Stimulation,Hot Packs, Ultrasound Next Visit Focus/Plan Next Note Type Treatment Note Next Visit Plan review HEP and response to kinesiotape. Consider upright bicycle or treadmill to start treatment, soft tissue mobilization to bilateral quads and IT bands , progress HEP as tolerated.
--- NOTE | 2022-05-24 11:05 | PT.OPPOC ---
Physical, Occupational & Speech Therapy At [facility] Current Diagnoses Bilateral primary osteoarthritis of knee (05/24/22) Visit Care Team Role Provider Type Chon Albrecht MD Family Provider Physician Primary Care Provider Specialty: Family Practice Address: [address] [place], [address] Email: [email or web address] Alyson King MD Attending Provider Physician Referring Provider Specialty: Orthopedics Orthopedic Surgery Address: [address] [place] [address], [id number] Email: [email or web address] Plan Of Care PT-OP-T Assessment and Plan Start: 05/23/22 16:21 Freq: Status: Active Protocol: Document 05/24/22 08:13 SAK (Rec: 05/24/22 08:59 SAK [id number]) Physical Therapy Assessment Rehab Potential Rehabilitation Potential Good Evaluation Complexity Number of Personal Factors/Comorbidities 1-2 Number of Body Systems Impaired 3 Clinical Presentation at Evaluation Evolving Impairments Impairments Activity Tolerance,Gait,Pain, ROM,Strength Goals ROM and strength impairment bilateral knees Short Term Goal (STG) patient to be instrsucted in progressive HEP for purposes of strengthenenig and flexibility bilateral LE's STG Duration 06/28/22 Block Out Machine Operator Goal (LTG) Patient to be independent and compliant with HEP and demonstrate improved flexibility and strength to 5/ 5 perez LE's LTG Duration 08/22/22 activity tolerance Impairment LEFS score 56% Short Term Goal (STG) Improve LEFS score to at least 66% as measure of improved activity tolerance STG Duration 06/28/22 Long-Term Goal (LTG) Improve LEFS score to at least 75% as measure of improved activity tolerance LTG Duration 08/22/22 limited walking Impairment Patient limited to household and very short community ambulation due to perez knee pain left greater than right, uses SPC Short Term Goal (STG) Patient able to walk up to 1 mile with min to no increase in knee pain STG Duration 06/28/22 Block Out Machine Operator Goal (LTG) able to walk 2-4 miles safely without knees giving way with min pain, no assistive device required LTG Duration 08/22/22 Assessment Summary Assessment Patient presents to PT with function-limiting knee pain bilaterally left greater than right. Signs and symptoms are consistent with imaging findings of arthritis bilateral knees, worst in medial compartment. Impairments include decreased flexibility and strength, overpronation bilaterally left greater than right, antalgic gait with need for assistive device. Additionally patient underwent lumbar spine fusion 2 months ago, so will need to emphasize back protection with all ther ex and activities in PT. Discussed POC with patient and he was in agreement. He was issued HEP handout today, kinesiotape was applied to his left knee for trial, and moist heat was applied to both knees. He is highly motivated and feel he will benefit from skilled PT to decrease his pain, improve his strength, flexibility, and gait, and help him return to his prior level of function. Physical Therapy Plan Frequency and Duration Frequency of Treatment 2x/Week Duration of Treatment 12 weeks Plan of Care Start Date 05/24/22 Plan of Care End Date 08/22/22 Therapeutic Interventions Therapeutic Interventions Aquatic Therapy,Gait Training, Home Exercise Program,Manual Therapy,Patient/Caregiver Education,Self-Care/Home Management,Soft Tissue Mobilization,Taping, Therapeutic Activities, Therapeutic Exercises Modalities Cold Pack/Ice Massage,Electric Stimulation,Hot Packs, Ultrasound Next Visit Focus/Plan Next Note Type Treatment Note Next Visit Plan review HEP and response to kinesiotape. Consider upright bicycle or treadmill to start treatment, soft tissue mobilization to bilateral quads and IT bands , progress HEP as tolerated. Plan of Care Dates Plan of Care Start Date 05/24/22 Plan of Care End Date 08/22/22 Electronically Signed by: Bouchra Mensah, PT 05/24/22 [id number] If you are in agreement with this Plan of Care, please return a signed and dated copy. I have reviewed this Plan of Care and certify that the skilled therapy services above are required to meet the patient?s needs. Physician Signature Date Printed Name and Credentials Clinical Instructor Signature Printed Name and Credentials
--- NOTE | 2022-05-28 16:54 | PT.OTN ---
Current Diagnoses Bilateral primary osteoarthritis of knee (05/28/22) Difficulty in walking, not elsewhere classified (05/28/22) Weakness (05/28/22) Physical Therapy Treatment Note PT-OP-A Visit Information Start: 05/23/22 16:21 Freq: Status: Active Protocol: Document 05/28/22 13:53 [facility] (Rec: 05/28/22 14:32 [facility] [id number]) Out-Patient Physical Therapy Visit Information Visit Information Visit Type Treatment Note Visit Start Time 13:48 Visit Stop Time 14:31 Total Visit Minutes 43 Visit Number 2 Evaluation Information Evaluation Date 05/24/22 Precautions Precautions fibromyalgia; don't overfatigue PT-OP-B Current Condition Start: 05/23/22 16:21 Freq: Status: Active Protocol: Document 05/28/22 13:53 [facility] (Rec: 05/28/22 14:32 [facility] [id number]) Current Condition History of Current Condition Onset Date 2009 Current Complaints knee pain perez History of Current Condition progressive worsening bilateral knee pain, back surgery fusion 2 months ago. Sometimes knees give out on him, has fallen. Ability on stairs varies, needs perez UE support to be able to ascend and descend with alternating pattern. Used to walk 2-4 miles, decreased walking, has also gained about 7 pounds since surgery. Compliant to HEP s/p back surgery, doing bird dog and planks on knees Prior Treatments and Tests x-ray March [address] King's office; arthritis, medial compartments bone on bone perez arthroscopic surgeries knees prior PT Treatment Goals Patient/Caregiver Goals decrease pain, avoid surgery, return to walking 2-4 miles per day with minimal to no pain PT-OP-G Mobility & Gait Start: 05/23/22 16:21 Freq: Status: Active Protocol: Document 05/24/22 08:13 SAK (Rec: 05/24/22 08:59 [facility] [id number]) OP Mobility Evaluation Transfers Sit to Stand indep, uses hands OP Gait Assessment Gait Gait Assistance Required: Independent Assistive Devices Assistive Device Straight Cane Gait Deviations General Gait Pattern Antalgic,Decreased Stride Length,Decreased Feet Clearance,Lateral Trunk Lean, Wide Based Gait Factors Limiting Gait Function Factors Limiting Gait Function Decreased Strength,Limited Range of Motion,Pain Stair Climbing Evaluation Devices Stair Climbing Assistive Devices Left Railing,Right Railing Technique/Endurance Stair Climbing Direction Ascend and Descend Stair Climbing Technique Step Over Step Comments Stair Climbing Comments requires perez UE support per patient PT-OP-J Posture/Palpation/Skin Start: 05/23/22 16:21 Freq: Status: Active Protocol: Document 05/24/22 08:13 [facility] (Rec: 05/24/22 08:59 [facility] [id number]) Posture Evaluation Position Standing Patellar Posture (R) Laterally Tilted Ankle/Foot Posture (L) Pronated,(R) Pronated Foot Arch (R) Low Arch,(L) No Arch Palpation Assessment Location bilateral knees Palpation Findings Tenderness Palpation Details bilateral medial joint line left greater than right PT-OP-K Range of Motion Start: 05/23/22 16:21 Freq: Status: Active Protocol: Document 05/24/22 08:13 [facility] (Rec: 05/24/22 08:59 [facility] [id number]) Lumbar Spine Range of Motion Lumbar Spine Active Comments WFL, not formally tested due to recent fusion Hip Goniometric Range of Motion Hip perez Flexion w/Knee Flexed 90 Straight Leg Raise 55 Extension 0 Abduction 35 Internal Rotation 0 External Rotation 35 Knee Goniometric Range of Motion Knee Right Flexion Active (degrees) 118 Extension Active (degrees) 7 Left Flexion Active (degrees) 118 Extension Active (degrees) 9 Knee ROM Limitations Knee ROM Limitations Soft Tissue Tightness,Bony Restriction,Pain Ankle and Foot Goniometric Range of Motion Ankle and Foot perez Dorsiflexion with Knee Flexed 5 Dorsiflexion with Knee Extended 0 Ankle and Foot ROM Limitations ROM Limitations Soft Tissue Tightness PT-OP-M Strength Start: 05/23/22 16:21 Freq: Status: Active Protocol: Document 05/24/22 08:13 [facility] (Rec: 05/24/22 08:59 [facility] [id number]) Hip Strength Hip Manual Muscle Testing perez Comments no MMT due to recent surgery Knee Strength Knee Manual Muscle Testing Right Flexion (S2) 4+ Good+ Extension (L3) 4+ Good+ Left Flexion (S2) 4 Good Ankle/Foot Strength Ankle and Foot Manual Muscle Testing Right Dorsiflexion (L4) 4 Good Plantarflexion (S1) 4 Good Left Dorsiflexion (L4) 4+ Good+ Plantarflexion (S1) 4+ Good+ PT-OP-Q Treatments Start: 05/23/22 16:21 Freq: Status: Active Protocol: Document 05/28/22 13:53 SAK (Rec: 05/28/22 14:32 [facility] [id number]) Cardio Equipment Recumbent Elliptical (Biodex) Duration (Minutes) 6 Resistance 4 Other cues for neutral LE's Gym Equipment Shuttle Recovery Unilateral Squats Reps/Time next session Bilateral Squats Resistance 62 Shuttle Recovery Platform Stable Reps/Time 10x2 Therapeutic Exercises Supine Exercises SLR Reps/Minutes 10x Comments cues for PPT SAQ Reps/Minutes 10x quad/glut set Reps/Minutes 10x Sitting Exercises hamstring curl Equipment Used L2 TB Reps/Minutes 10x HS stretch Side bilateral Reps/Minutes 2x30 Standing Exercises squats Equipment Used ball Reps/Minutes 10x Comments mod cues for hip hinge, patient having difficulty keeping knees behind toes quad stretch Side bilateral Equipment Used chair Comments cues for upright posture HC stretch Equipment Used stair Reps/Minutes 2x30 Manual Therapy Treatment Taping left knee Body Location perez knees Treatment Focus pain relief Type of Tape Kinesio Tape Comments 2 Y strips: one base at tibial tuberosity, one base superior to patella, 50% stretch Self-Care/Home Management Treatment Education Other Education kinesiotape technique PT-OP-T Assessment and Plan Start: 05/23/22 16:21 Freq: Status: Active Protocol: Document 05/28/22 13:53 [facility] (Rec: 05/28/22 14:32 [facility] [id number]) Physical Therapy Assessment Goals ROM and strength impairment bilateral knees Short Term Goal (STG) patient to be instrsucted in progressive HEP for purposes of strengthenenig and flexibility bilateral LE's STG Duration 06/28/22 Community Service Manager Goal (LTG) Patient to be independent and compliant with HEP and demonstrate improved flexibility and strength to 5/ 5 perez LE's LTG Duration 08/22/22 activity tolerance Impairment LEFS score 56% Short Term Goal (STG) Improve LEFS score to at least 66% as measure of improved activity tolerance STG Duration 06/28/22 Retirement Goal (LTG) Improve LEFS score to at least 75% as measure of improved activity tolerance LTG Duration 08/22/22 limited walking Impairment Patient limited to household and very short community ambulation due to perez knee pain left greater than right, uses SPC Short Term Goal (STG) Patient able to walk up to 1 mile with min to no increase in knee pain STG Duration 06/28/22 Retirement Goal (LTG) able to walk 2-4 miles safely without knees giving way with min pain, no assistive device required LTG Duration 08/22/22 Assessment Summary Assessment Patient needs moderate cues for neutral LE alignment; tends to stand with excessive hip ER, and with sit to stand this is exaggerated, difficulty performing with ball between knees from standard height chair and also difficulty with hip hinge; will need further instruction and progress and to progress sit to stand from higher surface. Good response to kinesiotape; patient purchased some on own and taped right knee since he found it so helpful; further instruction in technique today with patient demonstrating fair understanding; Physical Therapy Plan Frequency and Duration Frequency of Treatment 2x/Week Duration of Treatment 12 weeks Plan of Care Start Date 05/24/22 Plan of Care End Date 08/22/22 Therapeutic Interventions Therapeutic Interventions Aquatic Therapy,Gait Training, Home Exercise Program,Manual Therapy,Patient/Caregiver Education,Self-Care/Home Management,Soft Tissue Mobilization,Taping, Therapeutic Activities, Therapeutic Exercises Modalities Cold Pack/Ice Massage,Electric Stimulation,Hot Packs, Ultrasound Next Visit Focus/Plan Next Note Type Treatment Note Next Visit Plan Review SLR, add sidelying hip abduction, clam, bridge. Practice sit to stand from elevated surface with ball between knees. Soft tissue mobilization IT bands.
--- NOTE | 2022-05-31 12:55 | PT.OTN ---
Current Diagnoses Bilateral primary osteoarthritis of knee (05/31/22) Difficulty in walking, not elsewhere classified (05/31/22) Weakness (05/31/22) Physical Therapy Treatment Note PT-OP-A Visit Information Start: 05/23/22 16:21 Freq: Status: Active Protocol: Document 05/31/22 10:35 SAK (Rec: 05/31/22 11:20 [facility] [id number]) Out-Patient Physical Therapy Visit Information Visit Information Visit Type Treatment Note Visit Note Reports knees a little better every day, likes kinesiotape. Right knee gave way, no fall, while walking. Low back doing ok, gradual progression of walking, using cane Visit Start Time 10:35 Visit Stop Time 11:30 Total Visit Minutes 55 Visit Number 0 Evaluation Information Evaluation Date 05/24/22 PT-OP-B Current Condition Start: 05/23/22 16:21 Freq: Status: Active Protocol: Document 05/31/22 10:35 SAK (Rec: 05/31/22 11:20 [facility] [id number]) Current Condition History of Current Condition Onset Date 2009 Current Complaints knee pain perez History of Current Condition progressive worsening bilateral knee pain, back surgery fusion 2 months ago. Sometimes knees give out on him, has fallen. Ability on stairs varies, needs perez UE support to be able to ascend and descend with alternating pattern. Used to walk 2-4 miles, decreased walking, has also gained about 7 pounds since surgery. Compliant to HEP s/p back surgery, doing bird dog and planks on knees Prior Treatments and Tests x-ray March [address] King's office; arthritis, medial compartments bone on bone perez arthroscopic surgeries knees prior PT Treatment Goals Patient/Caregiver Goals decrease pain, avoid surgery, return to walking 2-4 miles per day with minimal to no pain PT-OP-G Mobility & Gait Start: 05/23/22 16:21 Freq: Status: Active Protocol: Document 05/24/22 08:13 SAK (Rec: 05/24/22 08:59 SAK [id number]) OP Mobility Evaluation Transfers Sit to Stand indep, uses hands OP Gait Assessment Gait Gait Assistance Required: Independent Assistive Devices Assistive Device Straight Cane Gait Deviations General Gait Pattern Antalgic,Decreased Stride Length,Decreased Feet Clearance,Lateral Trunk Lean, Wide Based Gait Factors Limiting Gait Function Factors Limiting Gait Function Decreased Strength,Limited Range of Motion,Pain Stair Climbing Evaluation Devices Stair Climbing Assistive Devices Left Railing,Right Railing Technique/Endurance Stair Climbing Direction Ascend and Descend Stair Climbing Technique Step Over Step Comments Stair Climbing Comments requires perez UE support per patient PT-OP-J Posture/Palpation/Skin Start: 05/23/22 16:21 Freq: Status: Active Protocol: Document 05/24/22 08:13 [facility] (Rec: 05/24/22 08:59 [facility] [id number]) Posture Evaluation Position Standing Patellar Posture (R) Laterally Tilted Ankle/Foot Posture (L) Pronated,(R) Pronated Foot Arch (R) Low Arch,(L) No Arch Palpation Assessment Location bilateral knees Palpation Findings Tenderness Palpation Details bilateral medial joint line left greater than right PT-OP-K Range of Motion Start: 05/23/22 16:21 Freq: Status: Active Protocol: Document 05/24/22 08:13 SAK (Rec: 05/24/22 08:59 [facility] [id number]) Lumbar Spine Range of Motion Lumbar Spine Active Comments WFL, not formally tested due to recent fusion Hip Goniometric Range of Motion Hip perez Flexion w/Knee Flexed 90 Straight Leg Raise 55 Extension 0 Abduction 35 Internal Rotation 0 External Rotation 35 Knee Goniometric Range of Motion Knee Right Flexion Active (degrees) 118 Extension Active (degrees) 7 Left Flexion Active (degrees) 118 Extension Active (degrees) 9 Knee ROM Limitations Knee ROM Limitations Soft Tissue Tightness,Bony Restriction,Pain Ankle and Foot Goniometric Range of Motion Ankle and Foot perez Dorsiflexion with Knee Flexed 5 Dorsiflexion with Knee Extended 0 Ankle and Foot ROM Limitations ROM Limitations Soft Tissue Tightness PT-OP-M Strength Start: 05/23/22 16:21 Freq: Status: Active Protocol: Document 05/24/22 08:13 SAK (Rec: 05/24/22 08:59 [facility] [id number]) Hip Strength Hip Manual Muscle Testing perez Comments no MMT due to recent surgery Knee Strength Knee Manual Muscle Testing Right Flexion (S2) 4+ Good+ Extension (L3) 4+ Good+ Left Flexion (S2) 4 Good Ankle/Foot Strength Ankle and Foot Manual Muscle Testing Right Dorsiflexion (L4) 4 Good Plantarflexion (S1) 4 Good Left Dorsiflexion (L4) 4+ Good+ Plantarflexion (S1) 4+ Good+ PT-OP-Q Treatments Start: 05/23/22 16:21 Freq: Status: Active Protocol: Document 05/31/22 10:35 [facility] (Rec: 05/31/22 11:20 [facility] [id number]) Cardio Equipment Recumbent Bicycle Duration (Minutes) 8 Resistance 6 Seat Position 10 Gym Equipment Shuttle Recovery Unilateral Squats Details cues for neutral LE alignment Resistance 50 Shuttle Recovery Platform Stable Reps/Time 10x2 Bilateral Squats Details cues for neutral LE alignment Resistance 75 Shuttle Recovery Platform Stable Reps/Time 10x2 Shuttle Balance chains red Details balance and wt shift fwd/bck Reps/Duration 6 min Comments WBOS, staggered, side/side Therapeutic Exercises Supine Exercises SLR Supine Exercise Name HEP SAQ Supine Exercise Name HEP quad/glut set Supine Exercise Name HEP Sidelying Exercises hip abduction Reps/Minutes 10x Comments cues for LE alignment Sitting Exercises hamstring curl Sitting Exercise Name HEP HS stretch Sitting Exercise Name HEP Standing Exercises squats Standing Exercise Name sit to stand starting high surface, lowering as agustín Equipment Used ball Reps/Minutes 10x Comments cues for neutral LE alignment quad stretch Side bilateral Equipment Used chair Comments cues for upright posture HC stretch Standing Exercise Name HEP Manual Therapy Treatment Soft Tissue Mobilization IT band Body Location perez Mobilization Type Instrument Assisted Comments rolling pin Taping left knee Body Location perez knees Treatment Focus pain relief Type of Tape Kinesio Tape Comments 2 Y strips: one base at tibial tuberosity, one base superior to patella, 50% stretch PT-OP-R Modalities Start: 05/23/22 16:21 Freq: Status: Active Protocol: Document 05/31/22 10:35 [facility] (Rec: 05/31/22 12:54 [facility] [id number]) Hot Pack/Cold Pack Treatment Hot Pack Location perez knees Patient Position Hooklying Treatment Duration (minutes) 15 Patient Tolerance Good PT-OP-T Assessment and Plan Start: 05/23/22 16:21 Freq: Status: Active Protocol: Document 05/31/22 10:35 [facility] (Rec: 05/31/22 11:20 [facility] [id number]) Physical Therapy Assessment Goals ROM and strength impairment bilateral knees Short Term Goal (STG) patient to be instrsucted in progressive HEP for purposes of strengthenenig and flexibility bilateral LE's STG Duration 06/28/22 Peoplesoft Developer Goal (LTG) Patient to be independent and compliant with HEP and demonstrate improved flexibility and strength to 5/ 5 perez LE's LTG Duration 08/22/22 activity tolerance Impairment LEFS score 56% Short Term Goal (STG) Improve LEFS score to at least 66% as measure of improved activity tolerance STG Duration 06/28/22 Peoplesoft Developer Goal (LTG) Improve LEFS score to at least 75% as measure of improved activity tolerance LTG Duration 08/22/22 limited walking Impairment Patient limited to household and very short community ambulation due to perez knee pain left greater than right, uses SPC Short Term Goal (STG) Patient able to walk up to 1 mile with min to no increase in knee pain STG Duration 06/28/22 Mcc Goal (LTG) able to walk 2-4 miles safely without knees giving way with min pain, no assistive device required LTG Duration 08/22/22 Assessment Summary Assessment progressed shuttle leg press resistance, may be able to do further next session. Cues for LE alignment with all ex. Added s/l hip abduction Physical Therapy Plan Frequency and Duration Frequency of Treatment 2x/Week Duration of Treatment 12 weeks Plan of Care Start Date 05/24/22 Plan of Care End Date 08/22/22 Therapeutic Interventions Therapeutic Interventions Aquatic Therapy,Gait Training, Home Exercise Program,Manual Therapy,Patient/Caregiver Education,Self-Care/Home Management,Soft Tissue Mobilization,Taping, Therapeutic Activities, Therapeutic Exercises Modalities Cold Pack/Ice Massage,Electric Stimulation,Hot Packs, Ultrasound Next Visit Focus/Plan Next Note Type Treatment Note Next Visit Plan ASsess response to ther ex progression, assure patient self-taping understanding.
--- NOTE | 2022-06-06 09:45 | PT.OTN ---
Current Diagnoses Bilateral primary osteoarthritis of knee (06/06/22) Difficulty in walking, not elsewhere classified (06/06/22) Weakness (06/06/22) Physical Therapy Treatment Note PT-OP-A Visit Information Start: 05/23/22 16:21 Freq: Status: Active Protocol: Document 06/06/22 09:04 SP (Rec: 06/06/22 09:45 SP [id number]) Out-Patient Physical Therapy Visit Information Visit Information Visit Type Treatment Note Visit Start Time 09:04 Visit Stop Time 09:45 Total Visit Minutes 41 Visit Number 4 Number of B[employer] WARMER Visits 1 Evaluation Information Evaluation Date 05/24/22 Precautions Precautions fibromyalgia; don't overfatigue PT-OP-B Current Condition Start: 05/23/22 16:21 Freq: Status: Active Protocol: Document 05/31/22 10:35 SAK (Rec: 05/31/22 11:20 SAK [id number]) Current Condition History of Current Condition Onset Date 2009 Current Complaints knee pain perez History of Current Condition progressive worsening bilateral knee pain, back surgery fusion 2 months ago. Sometimes knees give out on him, has fallen. Ability on stairs varies, needs perez UE support to be able to ascend and descend with alternating pattern. Used to walk 2-4 miles, decreased walking, has also gained about 7 pounds since surgery. Compliant to HEP s/p back surgery, doing bird dog and planks on knees Prior Treatments and Tests x-ray March [address] King's office; arthritis, medial compartments bone on bone perez arthroscopic surgeries knees prior PT Treatment Goals Patient/Caregiver Goals decrease pain, avoid surgery, return to walking 2-4 miles per day with minimal to no pain PT-OP-C Subjective Start: 05/23/22 16:21 Freq: Status: Active Protocol: Document 06/06/22 09:04 SP (Rec: 06/06/22 09:45 SP [id number]) OP-PT Subjective Patient Comments Patient Comments Pt reports having pain in B knees, compliant with HEP no adverse affects. He is responding well to K taping V distal to superior and superior to inferior stab. He was able to tape L knee with good form/ understanding reports same stabililty provided. PT-OP-G Mobility & Gait Start: 05/23/22 16:21 Freq: Status: Active Protocol: Document 05/24/22 08:13 SAK (Rec: 05/24/22 08:59 [facility] [id number]) OP Mobility Evaluation Transfers Sit to Stand indep, uses hands OP Gait Assessment Gait Gait Assistance Required: Independent Assistive Devices Assistive Device Straight Cane Gait Deviations General Gait Pattern Antalgic,Decreased Stride Length,Decreased Feet Clearance,Lateral Trunk Lean, Wide Based Gait Factors Limiting Gait Function Factors Limiting Gait Function Decreased Strength,Limited Range of Motion,Pain Stair Climbing Evaluation Devices Stair Climbing Assistive Devices Left Railing,Right Railing Technique/Endurance Stair Climbing Direction Ascend and Descend Stair Climbing Technique Step Over Step Comments Stair Climbing Comments requires perez UE support per patient PT-OP-J Posture/Palpation/Skin Start: 05/23/22 16:21 Freq: Status: Active Protocol: Document 05/24/22 08:13 [facility] (Rec: 05/24/22 08:59 [facility] [id number]) Posture Evaluation Position Standing Patellar Posture (R) Laterally Tilted Ankle/Foot Posture (L) Pronated,(R) Pronated Foot Arch (R) Low Arch,(L) No Arch Palpation Assessment Location bilateral knees Palpation Findings Tenderness Palpation Details bilateral medial joint line left greater than right PT-OP-K Range of Motion Start: 05/23/22 16:21 Freq: Status: Active Protocol: Document 05/24/22 08:13 [facility] (Rec: 05/24/22 08:59 [facility] [id number]) Lumbar Spine Range of Motion Lumbar Spine Active Comments WFL, not formally tested due to recent fusion Hip Goniometric Range of Motion Hip perez Flexion w/Knee Flexed 90 Straight Leg Raise 55 Extension 0 Abduction 35 Internal Rotation 0 External Rotation 35 Knee Goniometric Range of Motion Knee Right Flexion Active (degrees) 118 Extension Active (degrees) 7 Left Flexion Active (degrees) 118 Extension Active (degrees) 9 Knee ROM Limitations Knee ROM Limitations Soft Tissue Tightness,Bony Restriction,Pain Ankle and Foot Goniometric Range of Motion Ankle and Foot perez Dorsiflexion with Knee Flexed 5 Dorsiflexion with Knee Extended 0 Ankle and Foot ROM Limitations ROM Limitations Soft Tissue Tightness PT-OP-M Strength Start: 05/23/22 16:21 Freq: Status: Active Protocol: Document 05/24/22 08:13 [facility] (Rec: 05/24/22 08:59 [facility] [id number]) Hip Strength Hip Manual Muscle Testing perez Comments no MMT due to recent surgery Knee Strength Knee Manual Muscle Testing Right Flexion (S2) 4+ Good+ Extension (L3) 4+ Good+ Left Flexion (S2) 4 Good Ankle/Foot Strength Ankle and Foot Manual Muscle Testing Right Dorsiflexion (L4) 4 Good Plantarflexion (S1) 4 Good Left Dorsiflexion (L4) 4+ Good+ Plantarflexion (S1) 4+ Good+ PT-OP-Q Treatments Start: 05/23/22 16:21 Freq: Status: Active Protocol: Document 06/06/22 09:04 SP (Rec: 06/06/22 09:45 SP [id number]) Gym Equipment Shuttle Balance chains red Details balance and wt shift fwd/bck Reps/Duration 2 min Comments WBOS only today 06/06, continue side/stagger next tx Therapeutic Exercises Supine Exercises SLR Supine Exercise Name HEP Side bilateral Reps/Minutes x10 Comments cued knee extension quad/glut set Supine Exercise Name HEP Reps/Minutes x10 10 sec hold Comments good form Sitting Exercises self STMs Sitting Exercise Name quad, HS, ITB, adductor, calf Side bilateral Reps/Minutes feels good releases/ less stiffness Comments post ec, good form- states more sore pressure over adductors Standing Exercises squats Standing Exercise Name sit to stand Resistance 21 black table x5> 21 table w/ 2 blue foam under BLEs x5 reps Equipment Used ball between B knees Reps/Minutes 10x Comments cued hip hinge, hands front for balance HC stretch Standing Exercise Name HEP Manual Therapy Treatment Taping left knee Body Location perez knees Treatment Focus pain relief Type of Tape Kinesio Tape Comments 2 Y strips: one base at tibial tuberosity, one base superior to patella, 50% stretch PT-OP-R Modalities Start: 05/23/22 16:21 Freq: Status: Active Protocol: Document 05/31/22 10:35 SAK (Rec: 05/31/22 12:54 SAK [id number]) Hot Pack/Cold Pack Treatment Hot Pack Location perez knees Patient Position Hooklying Treatment Duration (minutes) 15 Patient Tolerance Good PT-OP-T Assessment and Plan Start: 05/23/22 16:21 Freq: Status: Active Protocol: Document 06/06/22 09:04 SP (Rec: 06/06/22 09:45 SP [id number]) Physical Therapy Assessment Goals ROM and strength impairment bilateral knees Short Term Goal (STG) patient to be instrsucted in progressive HEP for purposes of strengthenenig and flexibility bilateral LE's STG Duration 06/28/22 Intermediate Goal (LTG) Patient to be independent and compliant with HEP and demonstrate improved flexibility and strength to 5/ 5 perez LE's LTG Duration 08/22/22 activity tolerance Impairment LEFS score 56% Short Term Goal (STG) Improve LEFS score to at least 66% as measure of improved activity tolerance STG Duration 06/28/22 Dental Technologist Goal (LTG) Improve LEFS score to at least 75% as measure of improved activity tolerance LTG Duration 08/22/22 limited walking Impairment Patient limited to household and very short community ambulation due to perez knee pain left greater than right, uses SPC Short Term Goal (STG) Patient able to walk up to 1 mile with min to no increase in knee pain STG Duration 06/28/22 Dental Technologist Goal (LTG) able to walk 2-4 miles safely without knees giving way with min pain, no assistive device required LTG Duration 08/22/22 Assessment Summary Assessment Pt's R knee responded well to K taping, he applied to L knee as well, welcoming to retaping today feels looser. Tx focused on HEP review. Initiated STS over uneven surface with ability to complete without UE support from 18 surface height little tension B knees but not painful. He is limited more in L knee extension noted during quad set, showed self STMs for self decrease posterior chain flexibility to assist ROM, good feedback response with rolling pin for home use. Physical Therapy Plan Frequency and Duration Frequency of Treatment 2x/Week Duration of Treatment 12 weeks Plan of Care Start Date 05/24/22 Plan of Care End Date 08/22/22 Therapeutic Interventions Therapeutic Interventions Aquatic Therapy,Gait Training, Home Exercise Program,Manual Therapy,Patient/Caregiver Education,Self-Care/Home Management,Soft Tissue Mobilization,Taping, Therapeutic Activities, Therapeutic Exercises Modalities Cold Pack/Ice Massage,Electric Stimulation,Hot Packs, Ultrasound Next Visit Focus/Plan Next Note Type Treatment Note Next Visit Plan ASsess response to ther ex progression. Initited hurdles, uneven surfaces, L quad and BLE HS strength.
--- NOTE | 2022-06-08 11:18 | PT.OTN ---
Current Diagnoses Bilateral primary osteoarthritis of knee (06/08/22) Difficulty in walking, not elsewhere classified (06/08/22) Weakness (06/08/22) Physical Therapy Treatment Note PT-OP-A Visit Information Start: 05/23/22 16:21 Freq: Status: Active Protocol: Document 06/08/22 10:39 SP (Rec: 06/08/22 11:25 SP [id number]) Out-Patient Physical Therapy Visit Information Visit Information Visit Type Treatment Note Visit Start Time 10:39 Visit Stop Time 11:18 Total Visit Minutes 39 Visit Number 5 Number of NETWORK DEVELOPER Visits 2 Evaluation Information Evaluation Date 05/24/22 Precautions Precautions fibromyalgia; don't overfatigue PT-OP-B Current Condition Start: 05/23/22 16:21 Freq: Status: Active Protocol: Document 05/31/22 10:35 SAK (Rec: 05/31/22 11:20 SAK [id number]) Current Condition History of Current Condition Onset Date 2009 Current Complaints knee pain perez History of Current Condition progressive worsening bilateral knee pain, back surgery fusion 2 months ago. Sometimes knees give out on him, has fallen. Ability on stairs varies, needs perez UE support to be able to ascend and descend with alternating pattern. Used to walk 2-4 miles, decreased walking, has also gained about 7 pounds since surgery. Compliant to HEP s/p back surgery, doing bird dog and planks on knees Prior Treatments and Tests x-ray March [address] King's office; arthritis, medial compartments bone on bone perez arthroscopic surgeries knees prior PT Treatment Goals Patient/Caregiver Goals decrease pain, avoid surgery, return to walking 2-4 miles per day with minimal to no pain PT-OP-C Subjective Start: 05/23/22 16:21 Freq: Status: Active Protocol: Document 06/08/22 10:39 SP (Rec: 06/08/22 11:25 SP [id number]) OP-PT Subjective Patient Comments Patient Comments Pt stated k taping doing well, knees bother some at times. Doing well with HEP. PT-OP-G Mobility & Gait Start: 05/23/22 16:21 Freq: Status: Active Protocol: Document 05/24/22 08:13 SAK (Rec: 05/24/22 08:59 SAK [id number]) OP Mobility Evaluation Transfers Sit to Stand indep, uses hands OP Gait Assessment Gait Gait Assistance Required: Independent Assistive Devices Assistive Device Straight Cane Gait Deviations General Gait Pattern Antalgic,Decreased Stride Length,Decreased Feet Clearance,Lateral Trunk Lean, Wide Based Gait Factors Limiting Gait Function Factors Limiting Gait Function Decreased Strength,Limited Range of Motion,Pain Stair Climbing Evaluation Devices Stair Climbing Assistive Devices Left Railing,Right Railing Technique/Endurance Stair Climbing Direction Ascend and Descend Stair Climbing Technique Step Over Step Comments Stair Climbing Comments requires perez UE support per patient PT-OP-J Posture/Palpation/Skin Start: 05/23/22 16:21 Freq: Status: Active Protocol: Document 05/24/22 08:13 [facility] (Rec: 05/24/22 08:59 [facility] [id number]) Posture Evaluation Position Standing Patellar Posture (R) Laterally Tilted Ankle/Foot Posture (L) Pronated,(R) Pronated Foot Arch (R) Low Arch,(L) No Arch Palpation Assessment Location bilateral knees Palpation Findings Tenderness Palpation Details bilateral medial joint line left greater than right PT-OP-K Range of Motion Start: 05/23/22 16:21 Freq: Status: Active Protocol: Document 05/24/22 08:13 [facility] (Rec: 05/24/22 08:59 [facility] [id number]) Lumbar Spine Range of Motion Lumbar Spine Active Comments WFL, not formally tested due to recent fusion Hip Goniometric Range of Motion Hip perez Flexion w/Knee Flexed 90 Straight Leg Raise 55 Extension 0 Abduction 35 Internal Rotation 0 External Rotation 35 Knee Goniometric Range of Motion Knee Right Flexion Active (degrees) 118 Extension Active (degrees) 7 Left Flexion Active (degrees) 118 Extension Active (degrees) 9 Knee ROM Limitations Knee ROM Limitations Soft Tissue Tightness,Bony Restriction,Pain Ankle and Foot Goniometric Range of Motion Ankle and Foot perez Dorsiflexion with Knee Flexed 5 Dorsiflexion with Knee Extended 0 Ankle and Foot ROM Limitations ROM Limitations Soft Tissue Tightness PT-OP-M Strength Start: 05/23/22 16:21 Freq: Status: Active Protocol: Document 05/24/22 08:13 [facility] (Rec: 05/24/22 08:59 [facility] [id number]) Hip Strength Hip Manual Muscle Testing perez Comments no MMT due to recent surgery Knee Strength Knee Manual Muscle Testing Right Flexion (S2) 4+ Good+ Extension (L3) 4+ Good+ Left Flexion (S2) 4 Good Ankle/Foot Strength Ankle and Foot Manual Muscle Testing Right Dorsiflexion (L4) 4 Good Plantarflexion (S1) 4 Good Left Dorsiflexion (L4) 4+ Good+ Plantarflexion (S1) 4+ Good+ PT-OP-Q Treatments Start: 05/23/22 16:21 Freq: Status: Active Protocol: Document 06/08/22 10:39 SP (Rec: 06/08/22 11:25 SP [id number]) Gym Equipment Shuttle Recovery Unilateral Squats Details cues for neutral LE alignment and quad fac end feel extension pause Resistance 50>75# Shuttle Recovery Platform Stable Reps/Time 2x15 Bilateral Squats Details cues for neutral LE alignment Resistance 75>125# Shuttle Recovery Platform Stable Reps/Time x25 Shuttle Balance chains red Details balance and wt shift fwd/bck/ side Reps/Duration 2 min Comments 1. WBOS w/ HT Min A 2. NBOS Min-Mod A continue side/stagger next tx 3. WBOS side wt shift *Intermittent contact performed, cued for abd and core fac, allow body self corrections. Therapeutic Exercises Standing Exercises HRTR Standing Exercise Name reviewed past HEP Side bilateral Equipment Used rail Reps/Minutes x20 Comments good fac, cued TR no trunk wt shift back band walk Standing Exercise Name added HEP- lateral Resistance R TB (has green home) Reps/Minutes 20 ft x3 laps Comments cued little bigger than normal stride, grind L5 ft went away smaller stride quad stretch Standing Exercise Name HEP reviewed (no sit back on foot yet) Side bilateral Equipment Used foot/toe up on chair, rail support Reps/Minutes 20s x2, therapist assist foot onto chair ( at home) Comments cues for upright posture, flex /ext ankle quad stretch for now Manual Therapy Treatment Taping left knee Body Location perez knees Treatment Focus pain relief Type of Tape Kinesio Tape Comments 2 Y strips: one base at tibial tuberosity, one base superior to patella, 50% stretch 06/08: taping still secure/ added lat to med V on R knee due to clicking sub patella- went away after applied PT-OP-R Modalities Start: 05/23/22 16:21 Freq: Status: Active Protocol: Document 05/31/22 10:35 SAK (Rec: 05/31/22 12:54 SAK [id number]) Hot Pack/Cold Pack Treatment Hot Pack Location perez knees Patient Position Hooklying Treatment Duration (minutes) 15 Patient Tolerance Good PT-OP-T Assessment and Plan Start: 05/23/22 16:21 Freq: Status: Active Protocol: Document 06/08/22 10:39 SP (Rec: 06/08/22 11:25 SP [id number]) Physical Therapy Assessment Goals ROM and strength impairment bilateral knees Short Term Goal (STG) patient to be instrsucted in progressive HEP for purposes of strengthenenig and flexibility bilateral LE's STG Duration 06/28/22 Senior Living Goal (LTG) Patient to be independent and compliant with HEP and demonstrate improved flexibility and strength to 5/ 5 perez LE's LTG Duration 08/22/22 activity tolerance Impairment LEFS score 56% Short Term Goal (STG) Improve LEFS score to at least 66% as measure of improved activity tolerance STG Duration 06/28/22 Senior Living Goal (LTG) Improve LEFS score to at least 75% as measure of improved activity tolerance LTG Duration 08/22/22 limited walking Impairment Patient limited to household and very short community ambulation due to perez knee pain left greater than right, uses SPC Short Term Goal (STG) Patient able to walk up to 1 mile with min to no increase in knee pain STG Duration 06/28/22 Manager Banquet Goal (LTG) able to walk 2-4 miles safely without knees giving way with min pain, no assistive device required LTG Duration 08/22/22 Assessment Summary Assessment Pt good feedback response to HEP review, balance board challenging improved cued alignment, core, hip abd fac and decrease UE contact, able add head turns WBOS less UE support. Reintroduced band walk into HEP, initially grind in L knee but lessened post cues for decrease stride and knee with toes. Physical Therapy Plan Frequency and Duration Frequency of Treatment 2x/Week Duration of Treatment 12 weeks Plan of Care Start Date 05/24/22 Plan of Care End Date 08/22/22 Therapeutic Interventions Therapeutic Interventions Aquatic Therapy,Gait Training, Home Exercise Program,Manual Therapy,Patient/Caregiver Education,Self-Care/Home Management,Soft Tissue Mobilization,Taping, Therapeutic Activities, Therapeutic Exercises Modalities Cold Pack/Ice Massage,Electric Stimulation,Hot Packs, Ultrasound Next Visit Focus/Plan Next Note Type Treatment Note Next Visit Plan ASsess response to ther ex progression. Recheck bank walk . NExt : Initited hurdles, uneven surfaces, L quad and BLE HS strength.
--- NOTE | 2022-06-13 10:30 | PT.OTN ---
Current Diagnoses Bilateral primary osteoarthritis of knee (06/13/22) Difficulty in walking, not elsewhere classified (06/13/22) Weakness (06/13/22) Physical Therapy Treatment Note PT-OP-A Visit Information Start: 05/23/22 16:21 Freq: Status: Active Protocol: Document 06/13/22 09:45 AW (Rec: 06/13/22 10:30 AW [id number]) Out-Patient Physical Therapy Visit Information Visit Information Visit Type Treatment Note Visit Start Time 09:45 Visit Stop Time 10:25 Total Visit Minutes 40 Visit Number 6 Number of TRANSCRIPTION TYPIST Visits 0 Evaluation Information Evaluation Date 05/24/22 Precautions Precautions fibromyalgia; don't overfatigue PT-OP-B Current Condition Start: 05/23/22 16:21 Freq: Status: Active Protocol: Document 05/31/22 10:35 SAK (Rec: 05/31/22 11:20 SAK [id number]) Current Condition History of Current Condition Onset Date 2009 Current Complaints knee pain perez History of Current Condition progressive worsening bilateral knee pain, back surgery fusion 2 months ago. Sometimes knees give out on him, has fallen. Ability on stairs varies, needs perez UE support to be able to ascend and descend with alternating pattern. Used to walk 2-4 miles, decreased walking, has also gained about 7 pounds since surgery. Compliant to HEP s/p back surgery, doing bird dog and planks on knees Prior Treatments and Tests x-ray March [address] King's office; arthritis, medial compartments bone on bone perez arthroscopic surgeries knees prior PT Treatment Goals Patient/Caregiver Goals decrease pain, avoid surgery, return to walking 2-4 miles per day with minimal to no pain PT-OP-C Subjective Start: 05/23/22 16:21 Freq: Status: Active Protocol: Document 06/13/22 09:45 AW (Rec: 06/13/22 10:30 AW [id number]) OP-PT Subjective Patient Comments Patient Comments Went for a walk at [place] yesterday. [place] good and does not feel overly fatigued today. PT-OP-G Mobility & Gait Start: 05/23/22 16:21 Freq: Status: Active Protocol: Document 05/24/22 08:13 SAK (Rec: 05/24/22 08:59 SAK [id number]) OP Mobility Evaluation Transfers Sit to Stand indep, uses hands OP Gait Assessment Gait Gait Assistance Required: Independent Assistive Devices Assistive Device Straight Cane Gait Deviations General Gait Pattern Antalgic,Decreased Stride Length,Decreased Feet Clearance,Lateral Trunk Lean, Wide Based Gait Factors Limiting Gait Function Factors Limiting Gait Function Decreased Strength,Limited Range of Motion,Pain Stair Climbing Evaluation Devices Stair Climbing Assistive Devices Left Railing,Right Railing Technique/Endurance Stair Climbing Direction Ascend and Descend Stair Climbing Technique Step Over Step Comments Stair Climbing Comments requires perez UE support per patient PT-OP-J Posture/Palpation/Skin Start: 05/23/22 16:21 Freq: Status: Active Protocol: Document 05/24/22 08:13 [facility] (Rec: 05/24/22 08:59 [facility] [id number]) Posture Evaluation Position Standing Patellar Posture (R) Laterally Tilted Ankle/Foot Posture (L) Pronated,(R) Pronated Foot Arch (R) Low Arch,(L) No Arch Palpation Assessment Location bilateral knees Palpation Findings Tenderness Palpation Details bilateral medial joint line left greater than right PT-OP-K Range of Motion Start: 05/23/22 16:21 Freq: Status: Active Protocol: Document 05/24/22 08:13 SAK (Rec: 05/24/22 08:59 [facility] [id number]) Lumbar Spine Range of Motion Lumbar Spine Active Comments WFL, not formally tested due to recent fusion Hip Goniometric Range of Motion Hip perez Flexion w/Knee Flexed 90 Straight Leg Raise 55 Extension 0 Abduction 35 Internal Rotation 0 External Rotation 35 Knee Goniometric Range of Motion Knee Right Flexion Active (degrees) 118 Extension Active (degrees) 7 Left Flexion Active (degrees) 118 Extension Active (degrees) 9 Knee ROM Limitations Knee ROM Limitations Soft Tissue Tightness,Bony Restriction,Pain Ankle and Foot Goniometric Range of Motion Ankle and Foot perez Dorsiflexion with Knee Flexed 5 Dorsiflexion with Knee Extended 0 Ankle and Foot ROM Limitations ROM Limitations Soft Tissue Tightness PT-OP-M Strength Start: 05/23/22 16:21 Freq: Status: Active Protocol: Document 05/24/22 08:13 SAK (Rec: 05/24/22 08:59 [facility] [id number]) Hip Strength Hip Manual Muscle Testing perez Comments no MMT due to recent surgery Knee Strength Knee Manual Muscle Testing Right Flexion (S2) 4+ Good+ Extension (L3) 4+ Good+ Left Flexion (S2) 4 Good Ankle/Foot Strength Ankle and Foot Manual Muscle Testing Right Dorsiflexion (L4) 4 Good Plantarflexion (S1) 4 Good Left Dorsiflexion (L4) 4+ Good+ Plantarflexion (S1) 4+ Good+ PT-OP-Q Treatments Start: 05/23/22 16:21 Freq: Status: Active Protocol: Document 06/13/22 09:45 AW (Rec: 06/13/22 10:30 AW [id number]) Cardio Equipment Recumbent Elliptical (Biodex) Duration (Minutes) 6 Resistance none Seat Position 9 Other cues for neutral LE's Gym Equipment Shuttle Recovery Unilateral Squats Details cues for neutral LE alignment and quad fac end feel extension pause Resistance 75# Shuttle Recovery Platform Stable Reps/Time 2x15 Bilateral Squats Details cues for neutral LE alignment Resistance 100# Shuttle Recovery Platform Stable Reps/Time 2x15 Shuttle Balance chains red Details blue chains Reps/Duration 8 min Comments 1. WBOS w/ HT CGA 2. NBOS w/ HT CGA 3. stride stance EO CGA Therapeutic Exercises Standing Exercises calf stretch Standing Exercise Name calf stretch Equipment Used PEPE squats Standing Exercise Name sit to stand Resistance 20 black table with arms crossed over chest Equipment Used ball between B knees Reps/Minutes 2x10 Comments cued hip hinge quad stretch Standing Exercise Name HEP reviewed (no sit back on foot yet) Side bilateral Equipment Used foot/toe up on chair, rail support Reps/Minutes 20s x2, therapist assist foot onto chair ( at home) Comments cues for upright posture, flex /ext ankle quad stretch for now PT-OP-R Modalities Start: 05/23/22 16:21 Freq: Status: Active Protocol: Document 05/31/22 10:35 SAK (Rec: 05/31/22 12:54 SAK [id number]) Hot Pack/Cold Pack Treatment Hot Pack Location perez knees Patient Position Hooklying Treatment Duration (minutes) 15 Patient Tolerance Good PT-OP-T Assessment and Plan Start: 05/23/22 16:21 Freq: Status: Active Protocol: Document 06/13/22 09:45 AW (Rec: 06/13/22 10:30 AW [id number]) Physical Therapy Assessment Goals ROM and strength impairment bilateral knees Short Term Goal (STG) patient to be instrsucted in progressive HEP for purposes of strengthenenig and flexibility bilateral LE's STG Duration 06/28/22 Meteorology Instructor Goal (LTG) Patient to be independent and compliant with HEP and demonstrate improved flexibility and strength to 5/ 5 perez LE's LTG Duration 08/22/22 activity tolerance Impairment LEFS score 56% Short Term Goal (STG) Improve LEFS score to at least 66% as measure of improved activity tolerance STG Duration 06/28/22 [facility] Goal (LTG) Improve LEFS score to at least 75% as measure of improved activity tolerance LTG Duration 08/22/22 limited walking Impairment Patient limited to household and very short community ambulation due to perez knee pain left greater than right, uses SPC Short Term Goal (STG) Patient able to walk up to 1 mile with min to no increase in knee pain STG Duration 06/28/22 [facility] Goal (LTG) able to walk 2-4 miles safely without knees giving way with min pain, no assistive device required LTG Duration 08/22/22 Assessment Summary Assessment Pt improved performance on balance board set on blue clips but was still a good balance challenge. Good form with sit to stand at 20 height which represents progress. Physical Therapy Plan Frequency and Duration Frequency of Treatment 2x/Week Duration of Treatment 12 weeks Plan of Care Start Date 05/24/22 Plan of Care End Date 08/22/22 Therapeutic Interventions Therapeutic Interventions Aquatic Therapy,Gait Training, Home Exercise Program,Manual Therapy,Patient/Caregiver Education,Self-Care/Home Management,Soft Tissue Mobilization,Taping, Therapeutic Activities, Therapeutic Exercises Modalities Cold Pack/Ice Massage,Electric Stimulation,Hot Packs, Ultrasound Next Visit Focus/Plan Next Note Type Treatment Note Next Visit Plan ASsess response to ther ex progression. Recheck bank walk . NExt : Initited hurdles, uneven surfaces, L quad and BLE HS strength.
--- NOTE | 2022-06-15 08:58 | PT.OTN ---
Current Diagnoses Bilateral primary osteoarthritis of knee (06/15/22) Difficulty in walking, not elsewhere classified (06/15/22) Weakness (06/15/22) Physical Therapy Treatment Note PT-OP-A Visit Information Start: 05/23/22 16:21 Freq: Status: Active Protocol: Document 06/15/22 08:17 AMB (Rec: 06/15/22 08:58 AMB [id number]) Out-Patient Physical Therapy Visit Information Visit Information Visit Type Treatment Note Visit Start Time 08:15 Visit Stop Time 09:00 Total Visit Minutes 40 Visit Number 7 Number of OFFICE MACHINE REPAIR SHOP SUPERVISOR Visits 0 PT-OP-B Current Condition Start: 05/23/22 16:21 Freq: Status: Active Protocol: Document 05/31/22 10:35 SAK (Rec: 05/31/22 11:20 SAK [id number]) Current Condition History of Current Condition Onset Date 2009 Current Complaints knee pain perez History of Current Condition progressive worsening bilateral knee pain, back surgery fusion 2 months ago. Sometimes knees give out on him, has fallen. Ability on stairs varies, needs perez UE support to be able to ascend and descend with alternating pattern. Used to walk 2-4 miles, decreased walking, has also gained about 7 pounds since surgery. Compliant to HEP s/p back surgery, doing bird dog and planks on knees Prior Treatments and Tests x-ray March [address] King's office; arthritis, medial compartments bone on bone perez arthroscopic surgeries knees prior PT Treatment Goals Patient/Caregiver Goals decrease pain, avoid surgery, return to walking 2-4 miles per day with minimal to no pain PT-OP-C Subjective Start: 05/23/22 16:21 Freq: Status: Active Protocol: Document 06/15/22 08:17 AMB (Rec: 06/15/22 08:58 AMB [id number]) OP-PT Subjective Patient Comments Patient Comments Pt thinks tape is helpful, taped his own left knee as well. PT-OP-G Mobility & Gait Start: 05/23/22 16:21 Freq: Status: Active Protocol: Document 05/24/22 08:13 SAK (Rec: 05/24/22 08:59 SAK [id number]) OP Mobility Evaluation Transfers Sit to Stand indep, uses hands OP Gait Assessment Gait Gait Assistance Required: Independent Assistive Devices Assistive Device Straight Cane Gait Deviations General Gait Pattern Antalgic,Decreased Stride Length,Decreased Feet Clearance,Lateral Trunk Lean, Wide Based Gait Factors Limiting Gait Function Factors Limiting Gait Function Decreased Strength,Limited Range of Motion,Pain Stair Climbing Evaluation Devices Stair Climbing Assistive Devices Left Railing,Right Railing Technique/Endurance Stair Climbing Direction Ascend and Descend Stair Climbing Technique Step Over Step Comments Stair Climbing Comments requires perez UE support per patient PT-OP-J Posture/Palpation/Skin Start: 05/23/22 16:21 Freq: Status: Active Protocol: Document 05/24/22 08:13 [facility] (Rec: 05/24/22 08:59 [facility] [id number]) Posture Evaluation Position Standing Patellar Posture (R) Laterally Tilted Ankle/Foot Posture (L) Pronated,(R) Pronated Foot Arch (R) Low Arch,(L) No Arch Palpation Assessment Location bilateral knees Palpation Findings Tenderness Palpation Details bilateral medial joint line left greater than right PT-OP-K Range of Motion Start: 05/23/22 16:21 Freq: Status: Active Protocol: Document 05/24/22 08:13 [facility] (Rec: 05/24/22 08:59 [facility] [id number]) Lumbar Spine Range of Motion Lumbar Spine Active Comments WFL, not formally tested due to recent fusion Hip Goniometric Range of Motion Hip perez Flexion w/Knee Flexed 90 Straight Leg Raise 55 Extension 0 Abduction 35 Internal Rotation 0 External Rotation 35 Knee Goniometric Range of Motion Knee Right Flexion Active (degrees) 118 Extension Active (degrees) 7 Left Flexion Active (degrees) 118 Extension Active (degrees) 9 Knee ROM Limitations Knee ROM Limitations Soft Tissue Tightness,Bony Restriction,Pain Ankle and Foot Goniometric Range of Motion Ankle and Foot perez Dorsiflexion with Knee Flexed 5 Dorsiflexion with Knee Extended 0 Ankle and Foot ROM Limitations ROM Limitations Soft Tissue Tightness PT-OP-M Strength Start: 05/23/22 16:21 Freq: Status: Active Protocol: Document 05/24/22 08:13 [facility] (Rec: 05/24/22 08:59 [facility] [id number]) Hip Strength Hip Manual Muscle Testing perez Comments no MMT due to recent surgery Knee Strength Knee Manual Muscle Testing Right Flexion (S2) 4+ Good+ Extension (L3) 4+ Good+ Left Flexion (S2) 4 Good Ankle/Foot Strength Ankle and Foot Manual Muscle Testing Right Dorsiflexion (L4) 4 Good Plantarflexion (S1) 4 Good Left Dorsiflexion (L4) 4+ Good+ Plantarflexion (S1) 4+ Good+ PT-OP-Q Treatments Start: 05/23/22 16:21 Freq: Status: Active Protocol: Document 06/15/22 08:17 AMB (Rec: 06/15/22 08:58 AMB [id number]) Cardio Equipment Recumbent Stepper (Sci-Fit) Duration (Minutes) 6 Resistance none Seat Position 14 Gym Equipment Shuttle Recovery Unilateral Squats Details cues for neutral LE alignment and quad fac end feel extension pause Resistance 75# Shuttle Recovery Platform Stable Reps/Time 2x15 Bilateral Squats Details cues for neutral LE alignment Resistance 100# Shuttle Recovery Platform Stable Reps/Time 2x15 Therapeutic Exercises Standing Exercises calf stretch Standing Exercise Name calf stretch Equipment Used PEPE Manual Therapy Treatment Taping left knee Body Location perez knees Treatment Focus pain relief Type of Tape Kinesio Tape Comments 2 Y strips: one base at tibial tuberosity, one base superior to patella, 50% stretch lat to med V on R knee PT-OP-R Modalities Start: 05/23/22 16:21 Freq: Status: Active Protocol: Document 05/31/22 10:35 SAK (Rec: 05/31/22 12:54 SAK [id number]) Hot Pack/Cold Pack Treatment Hot Pack Location perez knees Patient Position Hooklying Treatment Duration (minutes) 15 Patient Tolerance Good PT-OP-T Assessment and Plan Start: 05/23/22 16:21 Freq: Status: Active Protocol: Document 06/15/22 08:17 AMB (Rec: 06/15/22 08:58 AMB [id number]) Physical Therapy Assessment Assessment Summary Assessment 62# and above with single leg press increased clicking in the R LE. Pt has purchased kinesiotape and helped apply to left knee. Physical Therapy Plan Next Visit Focus/Plan Next Note Type Treatment Note Next Visit Plan ASsess response to ther ex progression. Recheck bank walk . NExt : Initited hurdles, uneven surfaces, L quad and BLE HS strength.
--- NOTE | 2022-06-21 12:57 | PT.OTN ---
Current Diagnoses Bilateral primary osteoarthritis of knee (06/21/22) Difficulty in walking, not elsewhere classified (06/21/22) Weakness (06/21/22) Physical Therapy Treatment Note PT-OP-A Visit Information Start: 05/23/22 16:21 Freq: Status: Active Protocol: Document 06/21/22 12:03 DCW (Rec: 06/21/22 12:57 DCW [id number]) Out-Patient Physical Therapy Visit Information Visit Information Visit Type Treatment Note Visit Start Time 12:03 Visit Stop Time 12:45 Total Visit Minutes 42 Visit Number 8 Number of INTERIOR PAINTER Visits 0 Evaluation Information Evaluation Date 05/24/22 Precautions Precautions fibromyalgia; don't overfatigue PT-OP-B Current Condition Start: 05/23/22 16:21 Freq: Status: Active Protocol: Document 05/31/22 10:35 SAK (Rec: 05/31/22 11:20 SAK [id number]) Current Condition History of Current Condition Onset Date 2009 Current Complaints knee pain perez History of Current Condition progressive worsening bilateral knee pain, back surgery fusion 2 months ago. Sometimes knees give out on him, has fallen. Ability on stairs varies, needs perez UE support to be able to ascend and descend with alternating pattern. Used to walk 2-4 miles, decreased walking, has also gained about 7 pounds since surgery. Compliant to HEP s/p back surgery, doing bird dog and planks on knees Prior Treatments and Tests x-ray March [address] King's office; arthritis, medial compartments bone on bone perez arthroscopic surgeries knees prior PT Treatment Goals Patient/Caregiver Goals decrease pain, avoid surgery, return to walking 2-4 miles per day with minimal to no pain PT-OP-C Subjective Start: 05/23/22 16:21 Freq: Status: Active Protocol: Document 06/21/22 12:03 DCW (Rec: 06/21/22 12:57 DCW [id number]) OP-PT Subjective Patient Comments Patient Comments I may have done a bit too much yesterday. I got a stepper at home now, and I spent a half hour on that, and then went for a pretty long hike. PT-OP-G Mobility & Gait Start: 05/23/22 16:21 Freq: Status: Active Protocol: Document 05/24/22 08:13 SAK (Rec: 05/24/22 08:59 [facility] [id number]) OP Mobility Evaluation Transfers Sit to Stand indep, uses hands OP Gait Assessment Gait Gait Assistance Required: Independent Assistive Devices Assistive Device Straight Cane Gait Deviations General Gait Pattern Antalgic,Decreased Stride Length,Decreased Feet Clearance,Lateral Trunk Lean, Wide Based Gait Factors Limiting Gait Function Factors Limiting Gait Function Decreased Strength,Limited Range of Motion,Pain Stair Climbing Evaluation Devices Stair Climbing Assistive Devices Left Railing,Right Railing Technique/Endurance Stair Climbing Direction Ascend and Descend Stair Climbing Technique Step Over Step Comments Stair Climbing Comments requires perez UE support per patient PT-OP-J Posture/Palpation/Skin Start: 05/23/22 16:21 Freq: Status: Active Protocol: Document 05/24/22 08:13 [facility] (Rec: 05/24/22 08:59 [facility] [id number]) Posture Evaluation Position Standing Patellar Posture (R) Laterally Tilted Ankle/Foot Posture (L) Pronated,(R) Pronated Foot Arch (R) Low Arch,(L) No Arch Palpation Assessment Location bilateral knees Palpation Findings Tenderness Palpation Details bilateral medial joint line left greater than right PT-OP-K Range of Motion Start: 05/23/22 16:21 Freq: Status: Active Protocol: Document 05/24/22 08:13 [facility] (Rec: 05/24/22 08:59 [facility] [id number]) Lumbar Spine Range of Motion Lumbar Spine Active Comments WFL, not formally tested due to recent fusion Hip Goniometric Range of Motion Hip perez Flexion w/Knee Flexed 90 Straight Leg Raise 55 Extension 0 Abduction 35 Internal Rotation 0 External Rotation 35 Knee Goniometric Range of Motion Knee Right Flexion Active (degrees) 118 Extension Active (degrees) 7 Left Flexion Active (degrees) 118 Extension Active (degrees) 9 Knee ROM Limitations Knee ROM Limitations Soft Tissue Tightness,Bony Restriction,Pain Ankle and Foot Goniometric Range of Motion Ankle and Foot perez Dorsiflexion with Knee Flexed 5 Dorsiflexion with Knee Extended 0 Ankle and Foot ROM Limitations ROM Limitations Soft Tissue Tightness PT-OP-M Strength Start: 05/23/22 16:21 Freq: Status: Active Protocol: Document 05/24/22 08:13 [facility] (Rec: 05/24/22 08:59 [facility] [id number]) Hip Strength Hip Manual Muscle Testing perez Comments no MMT due to recent surgery Knee Strength Knee Manual Muscle Testing Right Flexion (S2) 4+ Good+ Extension (L3) 4+ Good+ Left Flexion (S2) 4 Good Ankle/Foot Strength Ankle and Foot Manual Muscle Testing Right Dorsiflexion (L4) 4 Good Plantarflexion (S1) 4 Good Left Dorsiflexion (L4) 4+ Good+ Plantarflexion (S1) 4+ Good+ PT-OP-Q Treatments Start: 05/23/22 16:21 Freq: Status: Active Protocol: Document 06/21/22 12:03 DCW (Rec: 06/21/22 12:57 DCW [id number]) Cardio Equipment Recumbent Elliptical (Biodex) Duration (Minutes) 6 Resistance 3 Seat Position 10 Gym Equipment Shuttle Recovery Unilateral Squats Details cues for neutral LE alignment and quad fac end feel extension pause Resistance 75# Shuttle Recovery Platform Stable Reps/Time 2x15 Bilateral Squats Details cues for neutral LE alignment Resistance 100# Shuttle Recovery Platform Stable Reps/Time 2x15 Shuttle Balance chains red Comments 1. WBOS 2. Staggered Stance Therapeutic Ball Resisted hip flexion Exercise Details Hip/knee flexion with T-band resist Ball Size/Color Red - 55 cm Lv 4 T-band Body Position Supine LTR Exercise Details LTR Ball Size/Color Red - 55 cm Body Position Supine Therapeutic Exercises Sitting Exercises HS stretch Sitting Exercise Name Hamstring Stretch Side bilateral Standing Exercises calf stretch Standing Exercise Name calf stretch Equipment Used PEPE squats Standing Exercise Name sit to stand Resistance 20->18 black table with arms crossed over chest Equipment Used ball between B knees Reps/Minutes x10 20, x10 18 Comments cued hip hinge Manual Therapy Treatment Taping left knee Body Location perez knees Treatment Focus pain relief Type of Tape Kinesio Tape Comments 2 Y strips: one base at tibial tuberosity, one base superior to patella, 50% stretch lat to med V on R knee PT-OP-R Modalities Start: 05/23/22 16:21 Freq: Status: Active Protocol: Document 05/31/22 10:35 SAK (Rec: 05/31/22 12:54 SAK [id number]) Hot Pack/Cold Pack Treatment Hot Pack Location perez knees Patient Position Hooklying Treatment Duration (minutes) 15 Patient Tolerance Good PT-OP-T Assessment and Plan Start: 05/23/22 16:21 Freq: Status: Active Protocol: Document 06/21/22 12:03 DCW (Rec: 06/21/22 12:57 DC [id number]) Physical Therapy Assessment Goals ROM and strength impairment bilateral knees Short Term Goal (STG) patient to be instrsucted in progressive HEP for purposes of strengthenenig and flexibility bilateral LE's STG Duration 06/28/22 Enamel Machine Operator Goal (LTG) Patient to be independent and compliant with HEP and demonstrate improved flexibility and strength to 5/ 5 perez LE's LTG Duration 08/22/22 activity tolerance Impairment LEFS score 56% Short Term Goal (STG) Improve LEFS score to at least 66% as measure of improved activity tolerance STG Duration 06/28/22 Nursing Home Goal (LTG) Improve LEFS score to at least 75% as measure of improved activity tolerance LTG Duration 08/22/22 limited walking Impairment Patient limited to household and very short community ambulation due to perez knee pain left greater than right, uses SPC Short Term Goal (STG) Patient able to walk up to 1 mile with min to no increase in knee pain STG Duration 06/28/22 Nursing Home Goal (LTG) able to walk 2-4 miles safely without knees giving way with min pain, no assistive device required LTG Duration 08/22/22 Assessment Summary Assessment Pt needed multiple reminders to not push himself so hard, but overall tolerated treatment very well and felt good upon leaving. Physical Therapy Plan Frequency and Duration Frequency of Treatment 2x/Week Duration of Treatment 12 weeks Plan of Care Start Date 05/24/22 Plan of Care End Date 08/22/22 Therapeutic Interventions Therapeutic Interventions Aquatic Therapy,Gait Training, Home Exercise Program,Manual Therapy,Patient/Caregiver Education,Self-Care/Home Management,Soft Tissue Mobilization,Taping, Therapeutic Activities, Therapeutic Exercises Modalities Cold Pack/Ice Massage,Electric Stimulation,Hot Packs, Ultrasound Next Visit Focus/Plan Next Note Type Treatment Note Next Visit Plan Assess response to ther ex progression. Recheck bank walk . Next : Initited hurdles, uneven surfaces, L quad and BLE HS strength.
--- NOTE | 2022-06-25 15:24 | PT.OTN ---
Current Diagnoses Bilateral primary osteoarthritis of knee (06/25/22) Difficulty in walking, not elsewhere classified (06/25/22) Weakness (06/25/22) Physical Therapy Treatment Note PT-OP-A Visit Information Start: 05/23/22 16:21 Freq: Status: Active Protocol: Document 06/25/22 14:59 LJ (Rec: 06/25/22 15:23 LJ [id number]) Out-Patient Physical Therapy Visit Information Visit Information Visit Type Aquatic Treatment Note Visit Start Time 12:30 Visit Stop Time 13:15 Total Visit Minutes 45 Visit Number 9 Number of PSYCHOLOGY PROFESSOR Visits 1 Evaluation Information Evaluation Date 05/24/22 Precautions Precautions fibromyalgia; don't overfatigue PT-OP-B Current Condition Start: 05/23/22 16:21 Freq: Status: Active Protocol: Document 05/31/22 10:35 SAK (Rec: 05/31/22 11:20 SAK [id number]) Current Condition History of Current Condition Onset Date 2009 Current Complaints knee pain perez History of Current Condition progressive worsening bilateral knee pain, back surgery fusion 2 months ago. Sometimes knees give out on him, has fallen. Ability on stairs varies, needs perez UE support to be able to ascend and descend with alternating pattern. Used to walk 2-4 miles, decreased walking, has also gained about 7 pounds since surgery. Compliant to HEP s/p back surgery, doing bird dog and planks on knees Prior Treatments and Tests x-ray March [address] King's office; arthritis, medial compartments bone on bone perez arthroscopic surgeries knees prior PT Treatment Goals Patient/Caregiver Goals decrease pain, avoid surgery, return to walking 2-4 miles per day with minimal to no pain PT-OP-C Subjective Start: 05/23/22 16:21 Freq: Status: Active Protocol: Document 06/25/22 14:59 LJ (Rec: 06/25/22 15:23 LJ [id number]) OP-PT Subjective Patient Comments Patient Comments Pt states it is his back that is bothering him the most. Says his knees have a tendancy to buckle occasionally. PT-OP-G Mobility & Gait Start: 05/23/22 16:21 Freq: Status: Active Protocol: Document 05/24/22 08:13 SAK (Rec: 05/24/22 08:59 SAK [id number]) OP Mobility Evaluation Transfers Sit to Stand indep, uses hands OP Gait Assessment Gait Gait Assistance Required: Independent Assistive Devices Assistive Device Straight Cane Gait Deviations General Gait Pattern Antalgic,Decreased Stride Length,Decreased Feet Clearance,Lateral Trunk Lean, Wide Based Gait Factors Limiting Gait Function Factors Limiting Gait Function Decreased Strength,Limited Range of Motion,Pain Stair Climbing Evaluation Devices Stair Climbing Assistive Devices Left Railing,Right Railing Technique/Endurance Stair Climbing Direction Ascend and Descend Stair Climbing Technique Step Over Step Comments Stair Climbing Comments requires perez UE support per patient PT-OP-J Posture/Palpation/Skin Start: 05/23/22 16:21 Freq: Status: Active Protocol: Document 05/24/22 08:13 SAK (Rec: 05/24/22 08:59 [facility] [id number]) Posture Evaluation Position Standing Patellar Posture (R) Laterally Tilted Ankle/Foot Posture (L) Pronated,(R) Pronated Foot Arch (R) Low Arch,(L) No Arch Palpation Assessment Location bilateral knees Palpation Findings Tenderness Palpation Details bilateral medial joint line left greater than right PT-OP-K Range of Motion Start: 05/23/22 16:21 Freq: Status: Active Protocol: Document 05/24/22 08:13 SAK (Rec: 05/24/22 08:59 [facility] [id number]) Lumbar Spine Range of Motion Lumbar Spine Active Comments WFL, not formally tested due to recent fusion Hip Goniometric Range of Motion Hip perez Flexion w/Knee Flexed 90 Straight Leg Raise 55 Extension 0 Abduction 35 Internal Rotation 0 External Rotation 35 Knee Goniometric Range of Motion Knee Right Flexion Active (degrees) 118 Extension Active (degrees) 7 Left Flexion Active (degrees) 118 Extension Active (degrees) 9 Knee ROM Limitations Knee ROM Limitations Soft Tissue Tightness,Bony Restriction,Pain Ankle and Foot Goniometric Range of Motion Ankle and Foot perez Dorsiflexion with Knee Flexed 5 Dorsiflexion with Knee Extended 0 Ankle and Foot ROM Limitations ROM Limitations Soft Tissue Tightness PT-OP-M Strength Start: 05/23/22 16:21 Freq: Status: Active Protocol: Document 05/24/22 08:13 SAK (Rec: 05/24/22 08:59 [facility] [id number]) Hip Strength Hip Manual Muscle Testing perez Comments no MMT due to recent surgery Knee Strength Knee Manual Muscle Testing Right Flexion (S2) 4+ Good+ Extension (L3) 4+ Good+ Left Flexion (S2) 4 Good Ankle/Foot Strength Ankle and Foot Manual Muscle Testing Right Dorsiflexion (L4) 4 Good Plantarflexion (S1) 4 Good Left Dorsiflexion (L4) 4+ Good+ Plantarflexion (S1) 4+ Good+ PT-OP-Q Treatments Start: 05/23/22 16:21 Freq: Status: Active Protocol: Document 06/21/22 12:03 DCW (Rec: 06/21/22 12:57 DCW [id number]) Cardio Equipment Recumbent Elliptical (Biodex) Duration (Minutes) 6 Resistance 3 Seat Position 10 Gym Equipment Shuttle Recovery Unilateral Squats Details cues for neutral LE alignment and quad fac end feel extension pause Resistance 75# Shuttle Recovery Platform Stable Reps/Time 2x15 Bilateral Squats Details cues for neutral LE alignment Resistance 100# Shuttle Recovery Platform Stable Reps/Time 2x15 Shuttle Balance chains red Comments 1. WBOS 2. Staggered Stance Therapeutic Ball Resisted hip flexion Exercise Details Hip/knee flexion with T-band resist Ball Size/Color Red - 55 cm Lv 4 T-band Body Position Supine LTR Exercise Details LTR Ball Size/Color Red - 55 cm Body Position Supine Therapeutic Exercises Sitting Exercises HS stretch Sitting Exercise Name Hamstring Stretch Side bilateral Standing Exercises calf stretch Standing Exercise Name calf stretch Equipment Used PEPE squats Standing Exercise Name sit to stand Resistance 20->18 black table with arms crossed over chest Equipment Used ball between B knees Reps/Minutes x10 20, x10 18 Comments cued hip hinge Manual Therapy Treatment Taping left knee Body Location perez knees Treatment Focus pain relief Type of Tape Kinesio Tape Comments 2 Y strips: one base at tibial tuberosity, one base superior to patella, 50% stretch lat to med V on R knee PT-OP-R Modalities Start: 05/23/22 16:21 Freq: Status: Active Protocol: Document 05/31/22 10:35 SAK (Rec: 05/31/22 12:54 SAK [id number]) Hot Pack/Cold Pack Treatment Hot Pack Location perez knees Patient Position Hooklying Treatment Duration (minutes) 15 Patient Tolerance Good PT-OP-S Aquatic Treatment Start: 05/23/22 16:21 Freq: Status: Active Protocol: Document 06/25/22 14:59 LJ (Rec: 06/25/22 15:23 LJ [id number]) Aquatics Treatment Pool Entry/Exit Pool Entry/Exit Method Stairs Assistance Independent Water Walking marching w/hip abduction Water Level Chest Level [place] March Water Level Chest Level Comments cues for abdominal involvement when lifting LEs Marching Water Level Chest Level Sideways Water Level Chest Level Comments HABD/HADD UEs Backwards Water Level Chest Level Comments cues for posture; rev bs Forwards Water Level Chest Level Comments cues for posture; bs arms Lower Extremity Exercises 4-way hip Details hh on wall Body Position Standing Water Level Waist Level Reps/Duration 10 each dir B Comments cues for isolating the hip squat Details hh on wall Reps/Duration 15 Lower Extremity Stretches piriformis Details at wall Body Position Sitting Reps/Duration 2 x30 B Comments figure 4 with low tolerance for ER of hip due to knee pain gastroc,soleus Details at wall Body Position Standing Reps/Duration 2 x30 B HS Details stairs Body Position Standing Reps/Duration 2 x30 B Comments hh on railing hip flexor/quads Details facing wall Body Position Standing Water Level Waist Level Reps/Duration 2 x30 B Comments foot resting on therapist knee for quads Upper Extremity Exercises fl/ext/HABD/HADD Body Position Standing Reps/Duration 2 x19 B Comments cueing for abdominal bracing Spinal Exercises seated pelvic tilts Details at wall Reps/Duration 10x LB stretch Details stairs and at wall; SKTC, DKTC Comments difficulty in perceiving stretch w/either position [place] Activities [place] Activities Bicycle,Cross Country,Hip Abduction/Adduction Other Activities pendulum stationary core stabilization w/lowered BBs Equipment belt, 2# wts, BBs Duration 12 min Comments cues to maintain vert position PT-OP-T Assessment and Plan Start: 05/23/22 16:21 Freq: Status: Active Protocol: Document 06/25/22 14:59 [facility] (Rec: 06/25/22 15:23 [facility] [id number]) Physical Therapy Assessment Rehab Potential Rehabilitation Potential Good Evaluation Complexity Number of Personal Factors/Comorbidities 1-2 Number of Body Systems Impaired 3 Clinical Presentation at Evaluation Evolving Impairments Impairments Activity Tolerance,Gait,Pain, ROM,Strength Goals ROM and strength impairment bilateral knees Short Term Goal (STG) patient to be instrsucted in progressive HEP for purposes of strengthenenig and flexibility bilateral LE's STG Duration 06/28/22 Bar Pointer Goal (LTG) Patient to be independent and compliant with HEP and demonstrate improved flexibility and strength to 5/ 5 perez LE's LTG Duration 08/22/22 activity tolerance Impairment LEFS score 56% Short Term Goal (STG) Improve LEFS score to at least 66% as measure of improved activity tolerance STG Duration 06/28/22 Shelter Goal (LTG) Improve LEFS score to at least 75% as measure of improved activity tolerance LTG Duration 08/22/22 limited walking Impairment Patient limited to household and very short community ambulation due to perez knee pain left greater than right, uses SPC Short Term Goal (STG) Patient able to walk up to 1 mile with min to no increase in knee pain STG Duration 06/28/22 Shelter Goal (LTG) able to walk 2-4 miles safely without knees giving way with min pain, no assistive device required LTG Duration 08/22/22 Assessment Summary Assessment Pt was advised of perceived level of exertion in water vs land exercises. Multiple reminders to not push himself so hard but rather focus on form and muscle activation. Tolerated exercises well withoutnc/o pain in back or knees. Pt remained after session to swim laps. Again advised to not overdo it. Pt will benefit from AT to improve strength, balance, coordination, flexibility, and tolerance for activity to return to higher level of function. Physical Therapy Plan Frequency and Duration Frequency of Treatment 2x/Week Duration of Treatment 12 weeks Plan of Care Start Date 05/24/22 Plan of Care End Date 08/22/22 Therapeutic Interventions Therapeutic Interventions Aquatic Therapy,Gait Training, Home Exercise Program,Manual Therapy,Patient/Caregiver Education,Self-Care/Home Management,Soft Tissue Mobilization,Taping, Therapeutic Activities, Therapeutic Exercises Modalities Cold Pack/Ice Massage,Electric Stimulation,Hot Packs, Ultrasound Next Visit Focus/Plan Next Note Type Treatment Note Next Visit Plan Assess response to ther ex progression. Recheck bank walk . Next : Initiated hurdles, uneven surfaces, L quad and BLE HS strength. Aquatic: assess response to previous session and proceed as indicated for all over body strengthening and activity tolerance
--- NOTE | 2022-06-28 13:36 | PT.OTN ---
Current Diagnoses Bilateral primary osteoarthritis of knee (06/28/22) Difficulty in walking, not elsewhere classified (06/28/22) Weakness (06/28/22) Physical Therapy Treatment Note PT-OP-A Visit Information Start: 05/23/22 16:21 Freq: Status: Active Protocol: Document 06/28/22 09:42 [facility] (Rec: 06/28/22 10:31 [facility] [id number]) Out-Patient Physical Therapy Visit Information Visit Information Visit Type Progress Note Visit Start Time 09:45 Visit Stop Time 10:30 Total Visit Minutes 45 Visit Number 10 Number of TREE LOADER MEAT Visits 0 Precautions Precautions fibromyalgia; don't overfatigue PT-OP-B Current Condition Start: 05/23/22 16:21 Freq: Status: Active Protocol: Document 05/31/22 10:35 SAK (Rec: 05/31/22 11:20 [facility] [id number]) Current Condition History of Current Condition Onset Date 2009 Current Complaints knee pain perez History of Current Condition progressive worsening bilateral knee pain, back surgery fusion 2 months ago. Sometimes knees give out on him, has fallen. Ability on stairs varies, needs perez UE support to be able to ascend and descend with alternating pattern. Used to walk 2-4 miles, decreased walking, has also gained about 7 pounds since surgery. Compliant to HEP s/p back surgery, doing bird dog and planks on knees Prior Treatments and Tests x-ray March [address] King's office; arthritis, medial compartments bone on bone perez arthroscopic surgeries knees prior PT Treatment Goals Patient/Caregiver Goals decrease pain, avoid surgery, return to walking 2-4 miles per day with minimal to no pain PT-OP-C Subjective Start: 05/23/22 16:21 Freq: Status: Active Protocol: Document 06/28/22 09:42 [facility] (Rec: 06/28/22 10:31 [facility] [id number]) OP-PT Subjective Patient Comments Patient Comments pain improving in knees. PT-OP-G Mobility & Gait Start: 05/23/22 16:21 Freq: Status: Active Protocol: Document 05/24/22 08:13 SAK (Rec: 05/24/22 08:59 [facility] [id number]) OP Mobility Evaluation Transfers Sit to Stand indep, uses hands OP Gait Assessment Gait Gait Assistance Required: Independent Assistive Devices Assistive Device Straight Cane Gait Deviations General Gait Pattern Antalgic,Decreased Stride Length,Decreased Feet Clearance,Lateral Trunk Lean, Wide Based Gait Factors Limiting Gait Function Factors Limiting Gait Function Decreased Strength,Limited Range of Motion,Pain Stair Climbing Evaluation Devices Stair Climbing Assistive Devices Left Railing,Right Railing Technique/Endurance Stair Climbing Direction Ascend and Descend Stair Climbing Technique Step Over Step Comments Stair Climbing Comments requires perez UE support per patient PT-OP-J Posture/Palpation/Skin Start: 05/23/22 16:21 Freq: Status: Active Protocol: Document 05/24/22 08:13 [facility] (Rec: 05/24/22 08:59 [facility] [id number]) Posture Evaluation Position Standing Patellar Posture (R) Laterally Tilted Ankle/Foot Posture (L) Pronated,(R) Pronated Foot Arch (R) Low Arch,(L) No Arch Palpation Assessment Location bilateral knees Palpation Findings Tenderness Palpation Details bilateral medial joint line left greater than right PT-OP-K Range of Motion Start: 05/23/22 16:21 Freq: Status: Active Protocol: Document 05/24/22 08:13 [facility] (Rec: 05/24/22 08:59 [facility] [id number]) Lumbar Spine Range of Motion Lumbar Spine Active Comments WFL, not formally tested due to recent fusion Hip Goniometric Range of Motion Hip perez Flexion w/Knee Flexed 90 Straight Leg Raise 55 Extension 0 Abduction 35 Internal Rotation 0 External Rotation 35 Knee Goniometric Range of Motion Knee Right Flexion Active (degrees) 118 Extension Active (degrees) 7 Left Flexion Active (degrees) 118 Extension Active (degrees) 9 Knee ROM Limitations Knee ROM Limitations Soft Tissue Tightness,Bony Restriction,Pain Ankle and Foot Goniometric Range of Motion Ankle and Foot perez Dorsiflexion with Knee Flexed 5 Dorsiflexion with Knee Extended 0 Ankle and Foot ROM Limitations ROM Limitations Soft Tissue Tightness PT-OP-M Strength Start: 05/23/22 16:21 Freq: Status: Active Protocol: Document 05/24/22 08:13 [facility] (Rec: 05/24/22 08:59 [facility] [id number]) Hip Strength Hip Manual Muscle Testing perez Comments no MMT due to recent surgery Knee Strength Knee Manual Muscle Testing Right Flexion (S2) 4+ Good+ Extension (L3) 4+ Good+ Left Flexion (S2) 4 Good Ankle/Foot Strength Ankle and Foot Manual Muscle Testing Right Dorsiflexion (L4) 4 Good Plantarflexion (S1) 4 Good Left Dorsiflexion (L4) 4+ Good+ Plantarflexion (S1) 4+ Good+ PT-OP-Q Treatments Start: 05/23/22 16:21 Freq: Status: Active Protocol: Document 06/28/22 09:42 SAK (Rec: 06/28/22 10:31 SAK [id number]) Cardio Equipment Recumbent Stepper (Sci-Fit) Duration (Minutes) 6 Resistance none Seat Position 14 Gym Equipment Shuttle Recovery Unilateral Squats Details cues for neutral LE alignment and quad fac end feel extension pause Resistance 75# Shuttle Recovery Platform Stable Reps/Time 2x15 Bilateral Squats Details cues for neutral LE alignment Resistance 100# Shuttle Recovery Platform Stable Reps/Time 2x15 Shuttle Balance chains red Comments 1. WBOS 2. Staggered Stance Therapeutic Ball Resisted hip flexion Exercise Details Hip/knee flexion with T-band resist Ball Size/Color Red - 55 cm Lv 4 T-band Body Position Supine LTR Exercise Details LTR Ball Size/Color Green: 65 cm Body Position Supine Therapeutic Exercises Supine Exercises HS stretch Reps/Minutes 2x30 Comments strap Sitting Exercises HS stretch Sitting Exercise Name Hamstring Stretch Side bilateral Standing Exercises calf stretch Standing Exercise Name calf stretch Equipment Used PEPE squats Standing Exercise Name sit to stand Resistance 20->18 black table with arms crossed over chest Equipment Used ball between B knees Reps/Minutes x10 20, x10 18 Comments cued hip hinge Manual Therapy Treatment Taping left knee Body Location perez knees Treatment Focus pain relief Type of Tape Kinesio Tape Comments 2 Y strips: one base at tibial tuberosity, one base superior to patella, 50% stretch lat to med V on R knee PT-OP-R Modalities Start: 05/23/22 16:21 Freq: Status: Active Protocol: Document 05/31/22 10:35 SAK (Rec: 05/31/22 12:54 [facility] [id number]) Hot Pack/Cold Pack Treatment Hot Pack Location perez knees Patient Position Hooklying Treatment Duration (minutes) 15 Patient Tolerance Good PT-OP-S Aquatic Treatment Start: 05/23/22 16:21 Freq: Status: Active Protocol: Document 06/25/22 14:59 [facility] (Rec: 06/25/22 15:23 LJ [id number]) Aquatics Treatment Pool Entry/Exit Pool Entry/Exit Method Stairs Assistance Independent Water Walking marching w/hip abduction Water Level Chest Level [place] March Water Level Chest Level Comments cues for abdominal involvement when lifting LEs Marching Water Level Chest Level Sideways Water Level Chest Level Comments HABD/HADD UEs Backwards Water Level Chest Level Comments cues for posture; rev bs Forwards Water Level Chest Level Comments cues for posture; bs arms Lower Extremity Exercises 4-way hip Details hh on wall Body Position Standing Water Level Waist Level Reps/Duration 10 each dir B Comments cues for isolating the hip squat Details hh on wall Reps/Duration 15 Lower Extremity Stretches piriformis Details at wall Body Position Sitting Reps/Duration 2 x30 B Comments figure 4 with low tolerance for ER of hip due to knee pain gastroc,soleus Details at wall Body Position Standing Reps/Duration 2 x30 B HS Details stairs Body Position Standing Reps/Duration 2 x30 B Comments hh on railing hip flexor/quads Details facing wall Body Position Standing Water Level Waist Level Reps/Duration 2 x30 B Comments foot resting on therapist knee for quads Upper Extremity Exercises fl/ext/HABD/HADD Body Position Standing Reps/Duration 2 x19 B Comments cueing for abdominal bracing Spinal Exercises seated pelvic tilts Details at wall Reps/Duration 10x LB stretch Details stairs and at wall; SKTC, DKTC Comments difficulty in perceiving stretch w/either position [place] Activities [place] Activities Bicycle,Cross [place],Hip Abduction/Adduction Other Activities pendulum stationary core stabilization w/lowered BBs Equipment belt, 2# wts, BBs Duration 12 min Comments cues to maintain vert position PT-OP-T Assessment and Plan Start: 05/23/22 16:21 Freq: Status: Active Protocol: Document 06/28/22 09:42 [facility] (Rec: 06/28/22 10:31 [facility] [id number]) Physical Therapy Assessment Impairments Impairments Activity Tolerance,Gait,Pain, ROM,Strength Goals ROM and strength impairment bilateral knees Short Term Goal (STG) patient to be instrsucted in progressive HEP for purposes of strengthenenig and flexibility bilateral LE's 06/28/22: ongoing with good compliance STG Duration 06/28/22 Residential Goal (LTG) Patient to be independent and compliant with HEP and demonstrate improved flexibility and strength to 5/ 5 perez LE's LTG Duration 08/22/22 activity tolerance Impairment LEFS score 56% Short Term Goal (STG) Improve LEFS score to at least 66% as measure of improved activity tolerance 06/28/22: improved to 74% STG Duration goal met Residential Goal (LTG) Improve LEFS score to at least 75% as measure of improved activity tolerance LTG Duration 08/22/22 limited walking Impairment Patient limited to household and very short community ambulation due to perez knee pain left greater than right, uses SPC Short Term Goal (STG) Patient able to walk up to 1 mile with min to no increase in knee pain 06/28/22: good goal progress, able to ambulate at least 1/2 mile STG Duration 06/28/22 Casting Machine Operator Helper Goal (LTG) able to walk 2-4 miles safely without knees giving way with min pain, no assistive device required LTG Duration 08/22/22 Assessment Summary Assessment Pt. reports aquatic exercise felt good. Feels he continues to improve with PT, now able to get out of some chairs he wasn't previously able without much difficulty, and able to stand longer as well. Improved LEFS, LE strength, and decreased pain level. Physical Therapy Plan Frequency and Duration Frequency of Treatment 2x/Week Duration of Treatment 12 weeks Plan of Care Start Date 05/24/22 Plan of Care End Date 08/22/22 Therapeutic Interventions Therapeutic Interventions Aquatic Therapy,Gait Training, Home Exercise Program,Manual Therapy,Patient/Caregiver Education,Self-Care/Home Management,Soft Tissue Mobilization,Taping, Therapeutic Activities, Therapeutic Exercises Modalities Cold Pack/Ice Massage,Electric Stimulation,Hot Packs, Ultrasound Next Visit Focus/Plan Next Note Type Treatment Note Next Visit Plan Clinic: gait on uneven surfaces, continue progression of strengthening and flexibility exercises. Aquatic: assess response to previous session and proceed as indicated for all over body strengthening and activity tolerance
--- NOTE | 2022-06-28 14:00 | PT.OPPN ---
Current Diagnoses Bilateral primary osteoarthritis of knee (06/28/22) Difficulty in walking, not elsewhere classified (06/28/22) Weakness (06/28/22) Physical Therapy Progress Note PT-OP-A Visit Information Start: 05/23/22 16:21 Freq: Status: Active Protocol: Document 06/28/22 09:42 [facility] (Rec: 06/28/22 10:31 [facility] [id number]) Out-Patient Physical Therapy Visit Information Visit Information Visit Type Progress Note Visit Start Time 09:45 Visit Stop Time 10:30 Total Visit Minutes 45 Visit Number 10 Number of ASSOCIATE PROFESSOR OF LIBRARY MEDIA Visits 0 Precautions Precautions fibromyalgia; don't overfatigue PT-OP-B Current Condition Start: 05/23/22 16:21 Freq: Status: Active Protocol: Document 05/31/22 10:35 [facility] (Rec: 05/31/22 11:20 [facility] [id number]) Current Condition History of Current Condition Onset Date 2009 Current Complaints knee pain perez History of Current Condition progressive worsening bilateral knee pain, back surgery fusion 2 months ago. Sometimes knees give out on him, has fallen. Ability on stairs varies, needs perez UE support to be able to ascend and descend with alternating pattern. Used to walk 2-4 miles, decreased walking, has also gained about 7 pounds since surgery. Compliant to HEP s/p back surgery, doing bird dog and planks on knees Prior Treatments and Tests x-ray March [address] King's office; arthritis, medial compartments bone on bone perez arthroscopic surgeries knees prior PT Treatment Goals Patient/Caregiver Goals decrease pain, avoid surgery, return to walking 2-4 miles per day with minimal to no pain PT-OP-C Subjective Start: 05/23/22 16:21 Freq: Status: Active Protocol: Document 06/28/22 09:42 [facility] (Rec: 06/28/22 10:31 [facility] [id number]) OP-PT Subjective Patient Comments Patient Comments pain improving in knees. PT-OP-G Mobility & Gait Start: 05/23/22 16:21 Freq: Status: Active Protocol: Document 05/24/22 08:13 [facility] (Rec: 05/24/22 08:59 [facility] [id number]) OP Mobility Evaluation Transfers Sit to Stand indep, uses hands OP Gait Assessment Gait Gait Assistance Required: Independent Assistive Devices Assistive Device Straight Cane Gait Deviations General Gait Pattern Antalgic,Decreased Stride Length,Decreased Feet Clearance,Lateral Trunk Lean, Wide Based Gait Factors Limiting Gait Function Factors Limiting Gait Function Decreased Strength,Limited Range of Motion,Pain Stair Climbing Evaluation Devices Stair Climbing Assistive Devices Left Railing,Right Railing Technique/Endurance Stair Climbing Direction Ascend and Descend Stair Climbing Technique Step Over Step Comments Stair Climbing Comments requires perez UE support per patient PT-OP-J Posture/Palpation/Skin Start: 05/23/22 16:21 Freq: Status: Active Protocol: Document 05/24/22 08:13 [facility] (Rec: 05/24/22 08:59 [facility] [id number]) Posture Evaluation Position Standing Patellar Posture (R) Laterally Tilted Ankle/Foot Posture (L) Pronated,(R) Pronated Foot Arch (R) Low Arch,(L) No Arch Palpation Assessment Location bilateral knees Palpation Findings Tenderness Palpation Details bilateral medial joint line left greater than right PT-OP-K Range of Motion Start: 05/23/22 16:21 Freq: Status: Active Protocol: Document 05/24/22 08:13 [facility] (Rec: 05/24/22 08:59 [facility] [id number]) Lumbar Spine Range of Motion Lumbar Spine Active Comments WFL, not formally tested due to recent fusion Hip Goniometric Range of Motion Hip Measured in Degrees perez Flexion w/Knee Flexed 90 Straight Leg Raise 55 Extension 0 Abduction 35 Internal Rotation 0 External Rotation 35 Knee Goniometric Range of Motion Knee Measured in Degrees Right Flexion Active (degrees) 118 Extension Active (degrees) 7 Left Flexion Active (degrees) 118 Extension Active (degrees) 9 Knee ROM Limitations Knee ROM Limitations Soft Tissue Tightness,Bony Restriction,Pain Ankle and Foot Goniometric Range of Motion Ankle and Foot Measured in Degrees perez Dorsiflexion with Knee Flexed 5 Dorsiflexion with Knee Extended 0 Ankle and Foot ROM Limitations ROM Limitations Soft Tissue Tightness PT-OP-M Strength Start: 05/23/22 16:21 Freq: Status: Active Protocol: Document 05/24/22 08:13 [facility] (Rec: 05/24/22 08:59 [facility] [id number]) Hip Strength Hip Manual Muscle Testing perez Comments no MMT due to recent surgery Knee Strength Knee Manual Muscle Testing Right Flexion (S2) 4+ Good+ Extension (L3) 4+ Good+ Left Flexion (S2) 4 Good Ankle/Foot Strength Ankle and Foot Manual Muscle Testing Right Dorsiflexion (L4) 4 Good Plantarflexion (S1) 4 Good Left Dorsiflexion (L4) 4+ Good+ Plantarflexion (S1) 4+ Good+ PT-OP-T Assessment and Plan Start: 05/23/22 16:21 Freq: Status: Active Protocol: Document 06/28/22 09:42 [facility] (Rec: 06/28/22 10:31 [facility] [id number]) Physical Therapy Assessment Impairments Impairments Activity Tolerance,Gait,Pain, ROM,Strength Goals ROM and strength impairment bilateral knees Short Term Goal (STG) patient to be instrsucted in progressive HEP for purposes of strengthenenig and flexibility bilateral LE's 06/28/22: ongoing with good compliance STG Duration 06/28/22 News Clerk Goal (LTG) Patient to be independent and compliant with HEP and demonstrate improved flexibility and strength to 5/ 5 perez LE's LTG Duration 08/22/22 activity tolerance Impairment LEFS score 56% Short Term Goal (STG) Improve LEFS score to at least 66% as measure of improved activity tolerance 06/28/22: improved to 74% STG Duration goal met Alf Goal (LTG) Improve LEFS score to at least 75% as measure of improved activity tolerance LTG Duration 08/22/22 limited walking Impairment Patient limited to household and very short community ambulation due to perez knee pain left greater than right, uses SPC Short Term Goal (STG) Patient able to walk up to 1 mile with min to no increase in knee pain 06/28/22: good goal progress, able to ambulate at least 1/2 mile STG Duration 06/28/22 Alf Goal (LTG) able to walk 2-4 miles safely without knees giving way with min pain, no assistive device required LTG Duration 08/22/22 Assessment Summary Assessment Pt. reports aquatic exercise felt good. Feels he continues to improve with PT, now able to get out of some chairs he wasn't previously able without much difficulty, and able to stand longer as well. Improved LEFS, LE strength, and decreased pain level. Physical Therapy Plan Frequency and Duration Frequency of Treatment 2x/Week Duration of Treatment 12 weeks Plan of Care Start Date 05/24/22 Plan of Care End Date 08/22/22 Therapeutic Interventions Therapeutic Interventions Aquatic Therapy,Gait Training, Home Exercise Program,Manual Therapy,Patient/Caregiver Education,Self-Care/Home Management,Soft Tissue Mobilization,Taping, Therapeutic Activities, Therapeutic Exercises Modalities Cold Pack/Ice Massage,Electric Stimulation,Hot Packs, Ultrasound Next Visit Focus/Plan Next Note Type Treatment Note Next Visit Plan Clinic: gait on uneven surfaces, continue progression of strengthening and flexibility exercises. Aquatic: assess response to previous session and proceed as indicated for all over body strengthening and activity tolerance
--- NOTE | 2022-07-02 17:10 | PT.OTN ---
Current Diagnoses Bilateral primary osteoarthritis of knee (07/02/22) Difficulty in walking, not elsewhere classified (07/02/22) Weakness (07/02/22) Physical Therapy Treatment Note PT-OP-A Visit Information Start: 05/23/22 16:21 Freq: Status: Active Protocol: Document 07/02/22 17:06 [facility] (Rec: 07/02/22 17:10 [facility] [id number]) Out-Patient Physical Therapy Visit Information Visit Information Visit Type Aquatic Treatment Note Visit Start Time 12:30 Visit Stop Time 13:15 Total Visit Minutes 45 Visit Number 11 Number of LOCKER ATTENDANT Visits 0 Precautions Precautions fibromyalgia; don't overfatigue PT-OP-B Current Condition Start: 05/23/22 16:21 Freq: Status: Active Protocol: Document 05/31/22 10:35 [facility] (Rec: 05/31/22 11:20 [facility] [id number]) Current Condition History of Current Condition Onset Date 2009 Current Complaints knee pain perez History of Current Condition progressive worsening bilateral knee pain, back surgery fusion 2 months ago. Sometimes knees give out on him, has fallen. Ability on stairs varies, needs perez UE support to be able to ascend and descend with alternating pattern. Used to walk 2-4 miles, decreased walking, has also gained about 7 pounds since surgery. Compliant to HEP s/p back surgery, doing bird dog and planks on knees Prior Treatments and Tests x-ray March [address] King's office; arthritis, medial compartments bone on bone perez arthroscopic surgeries knees prior PT Treatment Goals Patient/Caregiver Goals decrease pain, avoid surgery, return to walking 2-4 miles per day with minimal to no pain PT-OP-C Subjective Start: 05/23/22 16:21 Freq: Status: Active Protocol: Document 07/02/22 17:06 [facility] (Rec: 07/02/22 17:10 [facility] [id number]) OP-PT Subjective Patient Comments Patient Reported Progress Improving PT-OP-G Mobility & Gait Start: 05/23/22 16:21 Freq: Status: Active Protocol: Document 05/24/22 08:13 [facility] (Rec: 05/24/22 08:59 [facility] [id number]) OP Mobility Evaluation Transfers Sit to Stand indep, uses hands OP Gait Assessment Gait Gait Assistance Required: Independent Assistive Devices Assistive Device Straight Cane Gait Deviations General Gait Pattern Antalgic,Decreased Stride Length,Decreased Feet Clearance,Lateral Trunk Lean, Wide Based Gait Factors Limiting Gait Function Factors Limiting Gait Function Decreased Strength,Limited Range of Motion,Pain Stair Climbing Evaluation Devices Stair Climbing Assistive Devices Left Railing,Right Railing Technique/Endurance Stair Climbing Direction Ascend and Descend Stair Climbing Technique Step Over Step Comments Stair Climbing Comments requires perez UE support per patient PT-OP-J Posture/Palpation/Skin Start: 05/23/22 16:21 Freq: Status: Active Protocol: Document 05/24/22 08:13 [facility] (Rec: 05/24/22 08:59 [facility] [id number]) Posture Evaluation Position Standing Patellar Posture (R) Laterally Tilted Ankle/Foot Posture (L) Pronated,(R) Pronated Foot Arch (R) Low Arch,(L) No Arch Palpation Assessment Location bilateral knees Palpation Findings Tenderness Palpation Details bilateral medial joint line left greater than right PT-OP-K Range of Motion Start: 05/23/22 16:21 Freq: Status: Active Protocol: Document 05/24/22 08:13 [facility] (Rec: 05/24/22 08:59 [facility] [id number]) Lumbar Spine Range of Motion Lumbar Spine Active Comments WFL, not formally tested due to recent fusion Hip Goniometric Range of Motion Hip perez Flexion w/Knee Flexed 90 Straight Leg Raise 55 Extension 0 Abduction 35 Internal Rotation 0 External Rotation 35 Knee Goniometric Range of Motion Knee Right Flexion Active (degrees) 118 Extension Active (degrees) 7 Left Flexion Active (degrees) 118 Extension Active (degrees) 9 Knee ROM Limitations Knee ROM Limitations Soft Tissue Tightness,Bony Restriction,Pain Ankle and Foot Goniometric Range of Motion Ankle and Foot perez Dorsiflexion with Knee Flexed 5 Dorsiflexion with Knee Extended 0 Ankle and Foot ROM Limitations ROM Limitations Soft Tissue Tightness PT-OP-M Strength Start: 05/23/22 16:21 Freq: Status: Active Protocol: Document 05/24/22 08:13 [facility] (Rec: 05/24/22 08:59 [facility] [id number]) Hip Strength Hip Manual Muscle Testing perez Comments no MMT due to recent surgery Knee Strength Knee Manual Muscle Testing Right Flexion (S2) 4+ Good+ Extension (L3) 4+ Good+ Left Flexion (S2) 4 Good Ankle/Foot Strength Ankle and Foot Manual Muscle Testing Right Dorsiflexion (L4) 4 Good Plantarflexion (S1) 4 Good Left Dorsiflexion (L4) 4+ Good+ Plantarflexion (S1) 4+ Good+ PT-OP-Q Treatments Start: 05/23/22 16:21 Freq: Status: Active Protocol: Document 06/28/22 09:42 [facility] (Rec: 06/28/22 10:31 [facility] [id number]) Cardio Equipment Recumbent Stepper (Sci-Fit) Duration (Minutes) 6 Resistance none Seat Position 14 Gym Equipment Shuttle Recovery Unilateral Squats Details cues for neutral LE alignment and quad fac end feel extension pause Resistance 75# Shuttle Recovery Platform Stable Reps/Time 2x15 Bilateral Squats Details cues for neutral LE alignment Resistance 100# Shuttle Recovery Platform Stable Reps/Time 2x15 Shuttle Balance chains red Comments 1. WBOS 2. Staggered Stance Therapeutic Ball Resisted hip flexion Exercise Details Hip/knee flexion with T-band resist Ball Size/Color Red - 55 cm Lv 4 T-band Body Position Supine LTR Exercise Details LTR Ball Size/Color Green: 65 cm Body Position Supine Therapeutic Exercises Supine Exercises HS stretch Reps/Minutes 2x30 Comments strap Sitting Exercises HS stretch Sitting Exercise Name Hamstring Stretch Side bilateral Standing Exercises calf stretch Standing Exercise Name calf stretch Equipment Used PEPE squats Standing Exercise Name sit to stand Resistance 20->18 black table with arms crossed over chest Equipment Used ball between B knees Reps/Minutes x10 20, x10 18 Comments cued hip hinge Manual Therapy Treatment Taping left knee Body Location perez knees Treatment Focus pain relief Type of Tape Kinesio Tape Comments 2 Y strips: one base at tibial tuberosity, one base superior to patella, 50% stretch lat to med V on R knee PT-OP-R Modalities Start: 05/23/22 16:21 Freq: Status: Active Protocol: Document 05/31/22 10:35 [facility] (Rec: 05/31/22 12:54 [facility] [id number]) Hot Pack/Cold Pack Treatment Hot Pack Location perez knees Patient Position Hooklying Treatment Duration (minutes) 15 Patient Tolerance Good PT-OP-S Aquatic Treatment Start: 05/23/22 16:21 Freq: Status: Active Protocol: Document 07/02/22 17:06 [facility] (Rec: 07/02/22 17:10 [facility] [id number]) Aquatics Treatment Pool Entry/Exit Pool Entry/Exit Method Stairs Assistance Independent Water Walking Cooper December Water Level Chest Level Comments cues for abdominal involvement when lifting LEs Marching Water Level Chest Level Sideways Water Level Chest Level Comments HABD/HADD UEs Backwards Water Level Chest Level Comments cues for posture; rev bs Forwards Water Level Chest Level Comments cues for posture; bs arms Lower Extremity Exercises knee flex/ext Reps/Duration 15x 4-way hip Details hh on wall Body Position Standing Water Level Waist Level Reps/Duration 10 each dir B Comments cues for isolating the hip squat Details hh on wall Reps/Duration 15 Lower Extremity Stretches piriformis Details at wall Body Position Sitting Reps/Duration 2 x30 B Comments figure 4 with low tolerance for ER of hip due to knee pain HS Body Position Standing Water Level Chest Level Equipment Large Noodle Reps/Duration 2 x30 B hip flexor/quads Details facing wall Body Position Standing Water Level Chest Level Equipment Small Noodle Reps/Duration 2 x30 B Comments cues for neutral pelvis [place] Activities [place] Activities Bicycle,Bicycle Backwards, Cross Country,Hip Abduction/ Adduction Other Activities pendulum stationary core stabilization w/lowered BBs Equipment belt, 2# wts, med BBs Duration 12 min Comments cues to maintain vert position PT-OP-T Assessment and Plan Start: 05/23/22 16:21 Freq: Status: Active Protocol: Document 07/02/22 17:06 [facility] (Rec: 07/02/22 17:10 [facility] [id number]) Physical Therapy Assessment Impairments Impairments Activity Tolerance,Gait,Pain, ROM,Strength Goals ROM and strength impairment bilateral knees Short Term Goal (STG) patient to be instrsucted in progressive HEP for purposes of strengthenenig and flexibility bilateral LE's 06/28/22: ongoing with good compliance STG Duration 06/28/22 Mcfp Goal (LTG) Patient to be independent and compliant with HEP and demonstrate improved flexibility and strength to 5/ 5 perez LE's LTG Duration 08/22/22 activity tolerance Impairment LEFS score 56% Short Term Goal (STG) Improve LEFS score to at least 66% as measure of improved activity tolerance 06/28/22: improved to 74% STG Duration goal met Mechanical Reliability Engineer Goal (LTG) Improve LEFS score to at least 75% as measure of improved activity tolerance LTG Duration 08/22/22 limited walking Impairment Patient limited to household and very short community ambulation due to perez knee pain left greater than right, uses SPC Short Term Goal (STG) Patient able to walk up to 1 mile with min to no increase in knee pain 06/28/22: good goal progress, able to ambulate at least 1/2 mile STG Duration 06/28/22 Mcfp Goal (LTG) able to walk 2-4 miles safely without knees giving way with min pain, no assistive device required LTG Duration 08/22/22 Physical Therapy Plan Frequency and Duration Frequency of Treatment 2x/Week Duration of Treatment 12 weeks Plan of Care Start Date 05/24/22 Plan of Care End Date 08/22/22 Therapeutic Interventions Therapeutic Interventions Aquatic Therapy,Gait Training, Home Exercise Program,Manual Therapy,Patient/Caregiver Education,Self-Care/Home Management,Soft Tissue Mobilization,Taping, Therapeutic Activities, Therapeutic Exercises Modalities Cold Pack/Ice Massage,Electric Stimulation,Hot Packs, Ultrasound Next Visit Focus/Plan Next Note Type Treatment Note Next Visit Plan Clinic: gait on uneven surfaces, continue progression of strengthening and flexibility exercises. Aquatic: Continue strengthening and flexibility
--- NOTE | 2022-07-16 14:53 | PT.OTN ---
Current Diagnoses Bilateral primary osteoarthritis of knee (07/16/22) Difficulty in walking, not elsewhere classified (07/16/22) Weakness (07/16/22) Physical Therapy Treatment Note PT-OP-A Visit Information Start: 05/23/22 16:21 Freq: Status: Active Protocol: Document 07/16/22 14:40 LJ (Rec: 07/16/22 14:53 LJ [id number]) Out-Patient Physical Therapy Visit Information Visit Information Visit Type Aquatic Treatment Note Visit Start Time 11:45 Visit Stop Time 12:30 Total Visit Minutes 45 Visit Number 12 Number of FELT FINISHING SUPERVISOR Visits 1 Precautions Precautions fibromyalgia; don't overfatigue PT-OP-B Current Condition Start: 05/23/22 16:21 Freq: Status: Active Protocol: Document 05/31/22 10:35 SAK (Rec: 05/31/22 11:20 SAK [id number]) Current Condition History of Current Condition Onset Date 2009 Current Complaints knee pain perez History of Current Condition progressive worsening bilateral knee pain, back surgery fusion 2 months ago. Sometimes knees give out on him, has fallen. Ability on stairs varies, needs perez UE support to be able to ascend and descend with alternating pattern. Used to walk 2-4 miles, decreased walking, has also gained about 7 pounds since surgery. Compliant to HEP s/p back surgery, doing bird dog and planks on knees Prior Treatments and Tests x-ray March [address] King's office; arthritis, medial compartments bone on bone perez arthroscopic surgeries knees prior PT Treatment Goals Patient/Caregiver Goals decrease pain, avoid surgery, return to walking 2-4 miles per day with minimal to no pain PT-OP-C Subjective Start: 05/23/22 16:21 Freq: Status: Active Protocol: Document 07/16/22 14:40 [facility] (Rec: 07/16/22 14:53 LJ [id number]) OP-PT Subjective Patient Comments Patient Comments Pt stateshis knees are less painful but still stiff. Patient Reported Progress Improving PT-OP-G Mobility & Gait Start: 05/23/22 16:21 Freq: Status: Active Protocol: Document 05/24/22 08:13 SAK (Rec: 05/24/22 08:59 SAK [id number]) OP Mobility Evaluation Transfers Sit to Stand indep, uses hands OP Gait Assessment Gait Gait Assistance Required: Independent Assistive Devices Assistive Device Straight Cane Gait Deviations General Gait Pattern Antalgic,Decreased Stride Length,Decreased Feet Clearance,Lateral Trunk Lean, Wide Based Gait Factors Limiting Gait Function Factors Limiting Gait Function Decreased Strength,Limited Range of Motion,Pain Stair Climbing Evaluation Devices Stair Climbing Assistive Devices Left Railing,Right Railing Technique/Endurance Stair Climbing Direction Ascend and Descend Stair Climbing Technique Step Over Step Comments Stair Climbing Comments requires perez UE support per patient PT-OP-J Posture/Palpation/Skin Start: 05/23/22 16:21 Freq: Status: Active Protocol: Document 05/24/22 08:13 [facility] (Rec: 05/24/22 08:59 [facility] [id number]) Posture Evaluation Position Standing Patellar Posture (R) Laterally Tilted Ankle/Foot Posture (L) Pronated,(R) Pronated Foot Arch (R) Low Arch,(L) No Arch Palpation Assessment Location bilateral knees Palpation Findings Tenderness Palpation Details bilateral medial joint line left greater than right PT-OP-K Range of Motion Start: 05/23/22 16:21 Freq: Status: Active Protocol: Document 05/24/22 08:13 [facility] (Rec: 05/24/22 08:59 [facility] [id number]) Lumbar Spine Range of Motion Lumbar Spine Active Comments WFL, not formally tested due to recent fusion Hip Goniometric Range of Motion Hip perez Flexion w/Knee Flexed 90 Straight Leg Raise 55 Extension 0 Abduction 35 Internal Rotation 0 External Rotation 35 Knee Goniometric Range of Motion Knee Right Flexion Active (degrees) 118 Extension Active (degrees) 7 Left Flexion Active (degrees) 118 Extension Active (degrees) 9 Knee ROM Limitations Knee ROM Limitations Soft Tissue Tightness,Bony Restriction,Pain Ankle and Foot Goniometric Range of Motion Ankle and Foot perez Dorsiflexion with Knee Flexed 5 Dorsiflexion with Knee Extended 0 Ankle and Foot ROM Limitations ROM Limitations Soft Tissue Tightness PT-OP-M Strength Start: 05/23/22 16:21 Freq: Status: Active Protocol: Document 05/24/22 08:13 [facility] (Rec: 05/24/22 08:59 [facility] [id number]) Hip Strength Hip Manual Muscle Testing perez Comments no MMT due to recent surgery Knee Strength Knee Manual Muscle Testing Right Flexion (S2) 4+ Good+ Extension (L3) 4+ Good+ Left Flexion (S2) 4 Good Ankle/Foot Strength Ankle and Foot Manual Muscle Testing Right Dorsiflexion (L4) 4 Good Plantarflexion (S1) 4 Good Left Dorsiflexion (L4) 4+ Good+ Plantarflexion (S1) 4+ Good+ PT-OP-Q Treatments Start: 05/23/22 16:21 Freq: Status: Active Protocol: Document 06/28/22 09:42 SAK (Rec: 06/28/22 10:31 SAK [id number]) Cardio Equipment Recumbent Stepper (Sci-Fit) Duration (Minutes) 6 Resistance none Seat Position 14 Gym Equipment Shuttle Recovery Unilateral Squats Details cues for neutral LE alignment and quad fac end feel extension pause Resistance 75# Shuttle Recovery Platform Stable Reps/Time 2x15 Bilateral Squats Details cues for neutral LE alignment Resistance 100# Shuttle Recovery Platform Stable Reps/Time 2x15 Shuttle Balance chains red Comments 1. WBOS 2. Staggered Stance Therapeutic Ball Resisted hip flexion Exercise Details Hip/knee flexion with T-band resist Ball Size/Color Red - 55 cm Lv 4 T-band Body Position Supine LTR Exercise Details LTR Ball Size/Color Green: 65 cm Body Position Supine Therapeutic Exercises Supine Exercises HS stretch Reps/Minutes 2x30 Comments strap Sitting Exercises HS stretch Sitting Exercise Name Hamstring Stretch Side bilateral Standing Exercises calf stretch Standing Exercise Name calf stretch Equipment Used PEPE squats Standing Exercise Name sit to stand Resistance 20->18 black table with arms crossed over chest Equipment Used ball between B knees Reps/Minutes x10 20, x10 18 Comments cued hip hinge Manual Therapy Treatment Taping left knee Body Location perez knees Treatment Focus pain relief Type of Tape Kinesio Tape Comments 2 Y strips: one base at tibial tuberosity, one base superior to patella, 50% stretch lat to med V on R knee PT-OP-R Modalities Start: 05/23/22 16:21 Freq: Status: Active Protocol: Document 05/31/22 10:35 SAK (Rec: 05/31/22 12:54 SAK [id number]) Hot Pack/Cold Pack Treatment Hot Pack Location perez knees Patient Position Hooklying Treatment Duration (minutes) 15 Patient Tolerance Good PT-OP-S Aquatic Treatment Start: 05/23/22 16:21 Freq: Status: Active Protocol: Document 07/16/22 14:40 [facility] (Rec: 07/16/22 14:53 LJ [id number]) Aquatics Treatment Pool Entry/Exit Pool Entry/Exit Method Stairs Assistance Independent Water Walking marching w/hip abduction Water Level Chest Level Tye March Water Level Chest Level Comments cues for abdominal involvement when lifting LEs Marching Water Level Chest Level Comments cross body reaching Sideways Water Level Chest Level Comments HABD/HADD UEs Backwards Water Level Chest Level Comments cues for posture; fl/ex UEs Forwards Water Level Chest Level Comments cues for posture; fl/ex UEs Lower Extremity Exercises step ups on box Details bilateral Equipment 8 box Reps/Duration 15 Comments no hh on wall knee flex/ext Details hh on wall Reps/Duration 15x 4-way hip Details hh on wall Body Position Standing Water Level Waist Level Reps/Duration 12 each dir B Comments cues for isolating the hip squat Details hh on wall Reps/Duration 15 Comments on box Lower Extremity Stretches gastroc,soleus Details on bottom step Body Position Standing Reps/Duration 2 x30 B HS Body Position Standing Water Level Chest Level Equipment Large Noodle Reps/Duration 2 x30 B hip flexor/quads Details facing wall Body Position Standing Water Level Chest Level Equipment Small Noodle Reps/Duration 2 x30 B Comments cues for neutral pelvis Upper Extremity Exercises fl/ext/HABD/HADD Body Position Standing Reps/Duration 2 x19 B Comments cueing for abdominal bracing [place] Activities [place] Activities Bicycle,Bicycle Backwards, Cross Country,Sit Kicks Other Activities T hang pull downs stationary core stabilization w/lowered BBs Equipment belt, 2# wts, med BBs Duration 15 min Comments cues to maintain vert position PT-OP-T Assessment and Plan Start: 05/23/22 16:21 Freq: Status: Active Protocol: Document 07/16/22 14:40 [facility] (Rec: 07/16/22 14:53 [facility] [id number]) Physical Therapy Assessment Rehab Potential Rehabilitation Potential Good Evaluation Complexity Number of Personal Factors/Comorbidities 1-2 Number of Body Systems Impaired 3 Clinical Presentation at Evaluation Evolving Impairments Impairments Activity Tolerance,Gait,Pain, ROM,Strength Goals ROM and strength impairment bilateral knees Short Term Goal (STG) patient to be instrsucted in progressive HEP for purposes of strengthenenig and flexibility bilateral LE's 06/28/22: ongoing with good compliance STG Duration 06/28/22 Mcfp Goal (LTG) Patient to be independent and compliant with HEP and demonstrate improved flexibility and strength to 5/ 5 perez LE's LTG Duration 08/22/22 activity tolerance Impairment LEFS score 56% Short Term Goal (STG) Improve LEFS score to at least 66% as measure of improved activity tolerance 06/28/22: improved to 74% STG Duration goal met Mcfp Goal (LTG) Improve LEFS score to at least 75% as measure of improved activity tolerance LTG Duration 08/22/22 limited walking Impairment Patient limited to household and very short community ambulation due to perez knee pain left greater than right, uses SPC Short Term Goal (STG) Patient able to walk up to 1 mile with min to no increase in knee pain 06/28/22: good goal progress, able to ambulate at least 1/2 mile STG Duration 06/28/22 Mcfp Goal (LTG) able to walk 2-4 miles safely without knees giving way with min pain, no assistive device required LTG Duration 08/22/22 Assessment Summary Assessment Improved LE strength, and decreased pain level along with improved balance and core stability in deep water. Continue to progress with more challenging exercises to further improve balance, strength, stamina.
--- NOTE | 2022-07-23 14:06 | PT.OTN ---
Current Diagnoses Bilateral primary osteoarthritis of knee (07/23/22) Difficulty in walking, not elsewhere classified (07/23/22) Weakness (07/23/22) Physical Therapy Treatment Note PT-OP-A Visit Information Start: 05/23/22 16:21 Freq: Status: Active Protocol: Document 07/23/22 13:56 LJ (Rec: 07/23/22 14:06 LJ [id number]) Out-Patient Physical Therapy Visit Information Visit Information Visit Type Aquatic Treatment Note Visit Start Time 11:45 Visit Stop Time 12:30 Total Visit Minutes 45 Visit Number 13 Number of MANAGER TRAINING AND DEVELOPMENT Visits 2 Precautions Precautions fibromyalgia; don't overfatigue PT-OP-B Current Condition Start: 05/23/22 16:21 Freq: Status: Active Protocol: Document 05/31/22 10:35 SAK (Rec: 05/31/22 11:20 SAK [id number]) Current Condition History of Current Condition Onset Date 2009 Current Complaints knee pain perez History of Current Condition progressive worsening bilateral knee pain, back surgery fusion 2 months ago. Sometimes knees give out on him, has fallen. Ability on stairs varies, needs perez UE support to be able to ascend and descend with alternating pattern. Used to walk 2-4 miles, decreased walking, has also gained about 7 pounds since surgery. Compliant to HEP s/p back surgery, doing bird dog and planks on knees Prior Treatments and Tests x-ray March [address] King's office; arthritis, medial compartments bone on bone perez arthroscopic surgeries knees prior PT Treatment Goals Patient/Caregiver Goals decrease pain, avoid surgery, return to walking 2-4 miles per day with minimal to no pain PT-OP-C Subjective Start: 05/23/22 16:21 Freq: Status: Active Protocol: Document 07/23/22 13:56 [facility] (Rec: 07/23/22 14:06 LJ [id number]) OP-PT Subjective Patient Comments Patient Comments Pt states he is feeling well and sees improvement. Still having stiffness in knees. Patient Reported Progress Improving PT-OP-G Mobility & Gait Start: 05/23/22 16:21 Freq: Status: Active Protocol: Document 05/24/22 08:13 SAK (Rec: 05/24/22 08:59 SAK [id number]) OP Mobility Evaluation Transfers Sit to Stand indep, uses hands OP Gait Assessment Gait Gait Assistance Required: Independent Assistive Devices Assistive Device Straight Cane Gait Deviations General Gait Pattern Antalgic,Decreased Stride Length,Decreased Feet Clearance,Lateral Trunk Lean, Wide Based Gait Factors Limiting Gait Function Factors Limiting Gait Function Decreased Strength,Limited Range of Motion,Pain Stair Climbing Evaluation Devices Stair Climbing Assistive Devices Left Railing,Right Railing Technique/Endurance Stair Climbing Direction Ascend and Descend Stair Climbing Technique Step Over Step Comments Stair Climbing Comments requires perez UE support per patient PT-OP-J Posture/Palpation/Skin Start: 05/23/22 16:21 Freq: Status: Active Protocol: Document 05/24/22 08:13 [facility] (Rec: 05/24/22 08:59 [facility] [id number]) Posture Evaluation Position Standing Patellar Posture (R) Laterally Tilted Ankle/Foot Posture (L) Pronated,(R) Pronated Foot Arch (R) Low Arch,(L) No Arch Palpation Assessment Location bilateral knees Palpation Findings Tenderness Palpation Details bilateral medial joint line left greater than right PT-OP-K Range of Motion Start: 05/23/22 16:21 Freq: Status: Active Protocol: Document 05/24/22 08:13 [facility] (Rec: 05/24/22 08:59 [facility] [id number]) Lumbar Spine Range of Motion Lumbar Spine Active Comments WFL, not formally tested due to recent fusion Hip Goniometric Range of Motion Hip perez Flexion w/Knee Flexed 90 Straight Leg Raise 55 Extension 0 Abduction 35 Internal Rotation 0 External Rotation 35 Knee Goniometric Range of Motion Knee Right Flexion Active (degrees) 118 Extension Active (degrees) 7 Left Flexion Active (degrees) 118 Extension Active (degrees) 9 Knee ROM Limitations Knee ROM Limitations Soft Tissue Tightness,Bony Restriction,Pain Ankle and Foot Goniometric Range of Motion Ankle and Foot perez Dorsiflexion with Knee Flexed 5 Dorsiflexion with Knee Extended 0 Ankle and Foot ROM Limitations ROM Limitations Soft Tissue Tightness PT-OP-M Strength Start: 05/23/22 16:21 Freq: Status: Active Protocol: Document 05/24/22 08:13 [facility] (Rec: 05/24/22 08:59 [facility] [id number]) Hip Strength Hip Manual Muscle Testing perez Comments no MMT due to recent surgery Knee Strength Knee Manual Muscle Testing Right Flexion (S2) 4+ Good+ Extension (L3) 4+ Good+ Left Flexion (S2) 4 Good Ankle/Foot Strength Ankle and Foot Manual Muscle Testing Right Dorsiflexion (L4) 4 Good Plantarflexion (S1) 4 Good Left Dorsiflexion (L4) 4+ Good+ Plantarflexion (S1) 4+ Good+ PT-OP-Q Treatments Start: 05/23/22 16:21 Freq: Status: Active Protocol: Document 06/28/22 09:42 SAK (Rec: 06/28/22 10:31 SAK [id number]) Cardio Equipment Recumbent Stepper (Sci-Fit) Duration (Minutes) 6 Resistance none Seat Position 14 Gym Equipment Shuttle Recovery Unilateral Squats Details cues for neutral LE alignment and quad fac end feel extension pause Resistance 75# Shuttle Recovery Platform Stable Reps/Time 2x15 Bilateral Squats Details cues for neutral LE alignment Resistance 100# Shuttle Recovery Platform Stable Reps/Time 2x15 Shuttle Balance chains red Comments 1. WBOS 2. Staggered Stance Therapeutic Ball Resisted hip flexion Exercise Details Hip/knee flexion with T-band resist Ball Size/Color Red - 55 cm Lv 4 T-band Body Position Supine LTR Exercise Details LTR Ball Size/Color Green: 65 cm Body Position Supine Therapeutic Exercises Supine Exercises HS stretch Reps/Minutes 2x30 Comments strap Sitting Exercises HS stretch Sitting Exercise Name Hamstring Stretch Side bilateral Standing Exercises calf stretch Standing Exercise Name calf stretch Equipment Used PEPE squats Standing Exercise Name sit to stand Resistance 20->18 black table with arms crossed over chest Equipment Used ball between B knees Reps/Minutes x10 20, x10 18 Comments cued hip hinge Manual Therapy Treatment Taping left knee Body Location perez knees Treatment Focus pain relief Type of Tape Kinesio Tape Comments 2 Y strips: one base at tibial tuberosity, one base superior to patella, 50% stretch lat to med V on R knee PT-OP-R Modalities Start: 05/23/22 16:21 Freq: Status: Active Protocol: Document 05/31/22 10:35 SAK (Rec: 05/31/22 12:54 SAK [id number]) Hot Pack/Cold Pack Treatment Hot Pack Location perez knees Patient Position Hooklying Treatment Duration (minutes) 15 Patient Tolerance Good PT-OP-S Aquatic Treatment Start: 05/23/22 16:21 Freq: Status: Active Protocol: Document 07/23/22 13:56 [facility] (Rec: 07/23/22 14:06 [facility] [id number]) Aquatics Treatment Pool Entry/Exit Pool Entry/Exit Method Stairs Assistance Independent Water Walking [place] Water Level Chest Level Comments cues for abdominal involvement when lifting LEs Sideways Water Level Chest Level Comments HABD/HADD UEs Backwards Water Level Chest Level Comments cues for posture Forwards Water Level Chest Level Comments cues for posture; fl/ex UEs Lower Extremity Exercises lunges Comments on boxes end to end; cues for form step ups on box Details bilateral Equipment 8 box Reps/Duration 15 Comments no hh on wall 4-way hip Details hh on wall Body Position Standing Water Level Waist Level Reps/Duration 15 each dir B Comments cues for isolating the hip squat Details hh on wall Reps/Duration 15 Comments on box Lower Extremity Stretches piriformis Details at wall Body Position Sitting Reps/Duration 2 x30 B Comments figure 4 with low tolerance for ER of hip due to knee pain gastroc,soleus Details on bottom step Body Position Standing Reps/Duration 2 x30 B HS Body Position Standing Water Level Chest Level Equipment Large Noodle Reps/Duration 2 x30 B hip flexor/quads Details facing wall Body Position Standing Water Level Chest Level Equipment Small Noodle Reps/Duration 2 x30 B Comments cues for neutral pelvis Upper Extremity Exercises fl/ext/HABD/HADD Body Position Standing Reps/Duration 2 x19 B Comments cueing for abdominal bracing Spinal Exercises BB pull down Details seated at wall Equipment lg BBs Reps/Duration 10 each direction Comments cues to slow down and hold at endrange 3 sec seated pelvic tilts Details at wall Reps/Duration 10x [place] Activities [place] Activities Bicycle,Bicycle Backwards, Cross Country,Sit Kicks Other Activities T hang pull downs stationary core stabilization w/lowered BBs Equipment belt, 2# wts, med BBs Duration 15 min PT-OP-T Assessment and Plan Start: 05/23/22 16:21 Freq: Status: Active Protocol: Document 07/23/22 13:56 [facility] (Rec: 07/23/22 14:06 [facility] [id number]) Physical Therapy Assessment Rehab Potential Rehabilitation Potential Good Evaluation Complexity Number of Personal Factors/Comorbidities 1-2 Number of Body Systems Impaired 3 Clinical Presentation at Evaluation Evolving Impairments Impairments Activity Tolerance,Gait,Pain, ROM,Strength Goals ROM and strength impairment bilateral knees Short Term Goal (STG) patient to be instrsucted in progressive HEP for purposes of strengthenenig and flexibility bilateral LE's 06/28/22: ongoing with good compliance STG Duration 06/28/22 Veneer Taping Machine Operator Goal (LTG) Patient to be independent and compliant with HEP and demonstrate improved flexibility and strength to 5/ 5 perez LE's LTG Duration 08/22/22 activity tolerance Impairment LEFS score 56% Short Term Goal (STG) Improve LEFS score to at least 66% as measure of improved activity tolerance 06/28/22: improved to 74% STG Duration goal met Veneer Taping Machine Operator Goal (LTG) Improve LEFS score to at least 75% as measure of improved activity tolerance LTG Duration 08/22/22 limited walking Impairment Patient limited to household and very short community ambulation due to perez knee pain left greater than right, uses SPC Short Term Goal (STG) Patient able to walk up to 1 mile with min to no increase in knee pain 06/28/22: good goal progress, able to ambulate at least 1/2 mile STG Duration 06/28/22 Custodial Goal (LTG) able to walk 2-4 miles safely without knees giving way with min pain, no assistive device required LTG Duration 08/22/22 Assessment Summary Assessment Good progress with positioning in deep water. Continue to progress with more challenging exercises to further improve balance, strength, stamina.
--- NOTE | 2022-07-30 14:48 | PT.OTN ---
Current Diagnoses Bilateral primary osteoarthritis of knee (07/23/22) Difficulty in walking, not elsewhere classified (07/23/22) Weakness (07/23/22) Physical Therapy Treatment Note PT-OP-A Visit Information Start: 05/23/22 16:21 Freq: Status: Active Protocol: Document 07/30/22 14:27 LJ (Rec: 07/30/22 14:48 LJ [id number]) Out-Patient Physical Therapy Visit Information Visit Information Visit Type Aquatic Treatment Note Visit Start Time 10:15 Visit Stop Time 11:00 Total Visit Minutes 45 Visit Number 14 Number of DECK CADET Visits 3 Precautions Precautions fibromyalgia; don't overfatigue PT-OP-B Current Condition Start: 05/23/22 16:21 Freq: Status: Active Protocol: Document 05/31/22 10:35 SAK (Rec: 05/31/22 11:20 SAK [id number]) Current Condition History of Current Condition Onset Date 2009 Current Complaints knee pain perez History of Current Condition progressive worsening bilateral knee pain, back surgery fusion 2 months ago. Sometimes knees give out on him, has fallen. Ability on stairs varies, needs perez UE support to be able to ascend and descend with alternating pattern. Used to walk 2-4 miles, decreased walking, has also gained about 7 pounds since surgery. Compliant to HEP s/p back surgery, doing bird dog and planks on knees Prior Treatments and Tests x-ray March [address] King's office; arthritis, medial compartments bone on bone perez arthroscopic surgeries knees prior PT Treatment Goals Patient/Caregiver Goals decrease pain, avoid surgery, return to walking 2-4 miles per day with minimal to no pain PT-OP-C Subjective Start: 05/23/22 16:21 Freq: Status: Active Protocol: Document 07/30/22 14:27 LJ (Rec: 07/30/22 14:48 LJ [id number]) OP-PT Subjective Patient Comments Patient Comments Pt reports he is going to see the surgeon for possible L3 fusion surgery. Also reports he ios scheduled to see ortho for possible knee surgery. Patient Reported Progress Improving PT-OP-G Mobility & Gait Start: 05/23/22 16:21 Freq: Status: Active Protocol: Document 05/24/22 08:13 SAK (Rec: 05/24/22 08:59 SAK [id number]) OP Mobility Evaluation Transfers Sit to Stand indep, uses hands OP Gait Assessment Gait Gait Assistance Required: Independent Assistive Devices Assistive Device Straight Cane Gait Deviations General Gait Pattern Antalgic,Decreased Stride Length,Decreased Feet Clearance,Lateral Trunk Lean, Wide Based Gait Factors Limiting Gait Function Factors Limiting Gait Function Decreased Strength,Limited Range of Motion,Pain Stair Climbing Evaluation Devices Stair Climbing Assistive Devices Left Railing,Right Railing Technique/Endurance Stair Climbing Direction Ascend and Descend Stair Climbing Technique Step Over Step Comments Stair Climbing Comments requires perez UE support per patient PT-OP-J Posture/Palpation/Skin Start: 05/23/22 16:21 Freq: Status: Active Protocol: Document 05/24/22 08:13 [facility] (Rec: 05/24/22 08:59 [facility] [id number]) Posture Evaluation Position Standing Patellar Posture (R) Laterally Tilted Ankle/Foot Posture (L) Pronated,(R) Pronated Foot Arch (R) Low Arch,(L) No Arch Palpation Assessment Location bilateral knees Palpation Findings Tenderness Palpation Details bilateral medial joint line left greater than right PT-OP-K Range of Motion Start: 05/23/22 16:21 Freq: Status: Active Protocol: Document 05/24/22 08:13 SAK (Rec: 05/24/22 08:59 [facility] [id number]) Lumbar Spine Range of Motion Lumbar Spine Active Comments WFL, not formally tested due to recent fusion Hip Goniometric Range of Motion Hip perez Flexion w/Knee Flexed 90 Straight Leg Raise 55 Extension 0 Abduction 35 Internal Rotation 0 External Rotation 35 Knee Goniometric Range of Motion Knee Right Flexion Active (degrees) 118 Extension Active (degrees) 7 Left Flexion Active (degrees) 118 Extension Active (degrees) 9 Knee ROM Limitations Knee ROM Limitations Soft Tissue Tightness,Bony Restriction,Pain Ankle and Foot Goniometric Range of Motion Ankle and Foot perez Dorsiflexion with Knee Flexed 5 Dorsiflexion with Knee Extended 0 Ankle and Foot ROM Limitations ROM Limitations Soft Tissue Tightness PT-OP-M Strength Start: 05/23/22 16:21 Freq: Status: Active Protocol: Document 05/24/22 08:13 SAK (Rec: 05/24/22 08:59 [facility] [id number]) Hip Strength Hip Manual Muscle Testing perez Comments no MMT due to recent surgery Knee Strength Knee Manual Muscle Testing Right Flexion (S2) 4+ Good+ Extension (L3) 4+ Good+ Left Flexion (S2) 4 Good Ankle/Foot Strength Ankle and Foot Manual Muscle Testing Right Dorsiflexion (L4) 4 Good Plantarflexion (S1) 4 Good Left Dorsiflexion (L4) 4+ Good+ Plantarflexion (S1) 4+ Good+ PT-OP-Q Treatments Start: 05/23/22 16:21 Freq: Status: Active Protocol: Document 06/28/22 09:42 SAK (Rec: 06/28/22 10:31 SAK [id number]) Cardio Equipment Recumbent Stepper (Sci-Fit) Duration (Minutes) 6 Resistance none Seat Position 14 Gym Equipment Shuttle Recovery Unilateral Squats Details cues for neutral LE alignment and quad fac end feel extension pause Resistance 75# Shuttle Recovery Platform Stable Reps/Time 2x15 Bilateral Squats Details cues for neutral LE alignment Resistance 100# Shuttle Recovery Platform Stable Reps/Time 2x15 Shuttle Balance chains red Comments 1. WBOS 2. Staggered Stance Therapeutic Ball Resisted hip flexion Exercise Details Hip/knee flexion with T-band resist Ball Size/Color Red - 55 cm Lv 4 T-band Body Position Supine LTR Exercise Details LTR Ball Size/Color Green: 65 cm Body Position Supine Therapeutic Exercises Supine Exercises HS stretch Reps/Minutes 2x30 Comments strap Sitting Exercises HS stretch Sitting Exercise Name Hamstring Stretch Side bilateral Standing Exercises calf stretch Standing Exercise Name calf stretch Equipment Used PEPE squats Standing Exercise Name sit to stand Resistance 20->18 black table with arms crossed over chest Equipment Used ball between B knees Reps/Minutes x10 20, x10 18 Comments cued hip hinge Manual Therapy Treatment Taping left knee Body Location perez knees Treatment Focus pain relief Type of Tape Kinesio Tape Comments 2 Y strips: one base at tibial tuberosity, one base superior to patella, 50% stretch lat to med V on R knee PT-OP-R Modalities Start: 05/23/22 16:21 Freq: Status: Active Protocol: Document 05/31/22 10:35 SAK (Rec: 05/31/22 12:54 SAK [id number]) Hot Pack/Cold Pack Treatment Hot Pack Location perez knees Patient Position Hooklying Treatment Duration (minutes) 15 Patient Tolerance Good PT-OP-S Aquatic Treatment Start: 05/23/22 16:21 Freq: Status: Active Protocol: Document 07/30/22 14:27 [facility] (Rec: 07/30/22 14:48 LJ [id number]) Aquatics Treatment Pool Entry/Exit Pool Entry/Exit Method Stairs Assistance Independent Water Walking Tandem Gait Water Level Chest Level Walking Equipment Ankle Floats Comments circumduct legs forward w/long BB Water Level Waist Level Walking Equipment long BB, ankle floats Comments BB held at sides and front for core involvement [place] March Water Level Chest Level Walking Equipment Ankle Floats Marching Water Level Chest Level Walking Equipment Ankle Floats Backwards Water Level Chest Level Walking Equipment Ankle Floats, paddles Comments cues for posture Forwards Water Level Chest Level Walking Equipment Ankle Floats, paddles Comments vc to stand upright and lower shoulders Lower Extremity Exercises lunges Water Level Waist Level Equipment Ankle Floats 4-way hip Details hh on wall Body Position Standing Water Level Waist Level Reps/Duration 15 each dir B Comments cues for isolating the hip squat Details hh on wall Reps/Duration 15 Comments on box Lower Extremity Stretches piriformis Details at wall Body Position Sitting Reps/Duration 2 x30 B gastroc,soleus Details on bottom step Body Position Standing Reps/Duration 2 x30 B HS Body Position Standing Water Level Chest Level Equipment Large Noodle Reps/Duration 2 x30 B hip flexor/quads Details facing wall Body Position Standing Water Level Chest Level Equipment Small Noodle Reps/Duration 2 x30 B Comments cues for neutral pelvis Upper Extremity Exercises lat pull down Body Position Standing Water Level Waist Level Equipment stretch cords Reps/Duration 2x10 Comments vc, tactile cues for proper scapular involvement Spinal Exercises plank on wall Body Position Standing Reps/Duration 4 min Comments legs together UE LE alternate lift for rotational stability stretch cords Body Position Standing Water Level Waist Level Reps/Duration 2x10 B Comments paloff press BB pull down Details seated at wall Equipment lg BBs Reps/Duration 10 each direction-f,s,s seated pelvic tilts Details at wall Reps/Duration 10x [place] Activities [place] Activities Cross Country,Running,Hip Abduction/Adduction Other Activities 30/30 intervals of above exercises at moderate exertion x 8 reps L sit pulling forward bilateral UEs and unilateral for core involvement Equipment belt, 2# wts, med BBs Duration 10 min Comments cues for vertical alignment PT-OP-T Assessment and Plan Start: 05/23/22 16:21 Freq: Status: Active Protocol: Document 07/30/22 14:27 [facility] (Rec: 07/30/22 14:48 LJ [id number]) Physical Therapy Assessment Rehab Potential Rehabilitation Potential Good Evaluation Complexity Number of Personal Factors/Comorbidities 1-2 Number of Body Systems Impaired 3 Clinical Presentation at Evaluation Evolving Impairments Impairments Activity Tolerance,Gait,Pain, ROM,Strength Goals ROM and strength impairment bilateral knees Short Term Goal (STG) patient to be instrsucted in progressive HEP for purposes of strengthenenig and flexibility bilateral LE's 06/28/22: ongoing with good compliance STG Duration 06/28/22 Typewriter Aligner Goal (LTG) Patient to be independent and compliant with HEP and demonstrate improved flexibility and strength to 5/ 5 perez LE's LTG Duration 08/22/22 activity tolerance Impairment LEFS score 56% Short Term Goal (STG) Improve LEFS score to at least 66% as measure of improved activity tolerance 06/28/22: improved to 74% STG Duration goal met [facility] Goal (LTG) Improve LEFS score to at least 75% as measure of improved activity tolerance LTG Duration 08/22/22 limited walking Impairment Patient limited to household and very short community ambulation due to perez knee pain left greater than right, uses SPC Short Term Goal (STG) Patient able to walk up to 1 mile with min to no increase in knee pain 06/28/22: good goal progress, able to ambulate at least 1/2 mile STG Duration 06/28/22 Typewriter Aligner Goal (LTG) able to walk 2-4 miles safely without knees giving way with min pain, no assistive device required LTG Duration 08/22/22 Assessment Summary Assessment Pt required repeated cueing for posture in walking exercises as well as vertical positioning in deep water. He was offered HEP sheets to continue aquatic exercise on his own but declined stating he knew what to do. Last scheduled AT session. Physical Therapy Plan Frequency and Duration Frequency of Treatment 2x/Week Plan of Care Start Date 05/24/22 Plan of Care End Date 08/22/22 Therapeutic Interventions Therapeutic Interventions Aquatic Therapy,Gait Training, Home Exercise Program,Manual Therapy,Patient/Caregiver Education,Self-Care/Home Management,Soft Tissue Mobilization,Taping, Therapeutic Activities, Therapeutic Exercises Modalities Cold Pack/Ice Massage,Electric Stimulation,Hot Packs, Ultrasound Next Visit Focus/Plan Next Note Type Treatment Note Next Visit Plan Clinic: gait on uneven surfaces, continue progression of strengthening and flexibility exercises. Aquatic: Continue strengthening and flexibility
--- NOTE | 2022-09-12 09:45 | PT.OPDS ---
Current Diagnoses Bilateral primary osteoarthritis of knee (07/30/22) Difficulty in walking, not elsewhere classified (07/30/22) Weakness (07/30/22) Visit Care Team Role Provider Type Chon Albrecht MD Family Provider Physician Primary Care Provider Specialty: Family Practice Address: [address] [place], [address] Email: [email or web address] Alyson King MD Attending Provider Physician Referring Provider Specialty: Orthopedics Orthopedic Surgery Address: [address] [place] [address], [address] Email: @[email or web address] Visit Number Visit Number 14 Discharge Summary PT-OP-B Current Condition Start: 05/23/22 16:21 Freq: Status: Active Protocol: Document 05/31/22 10:35 SAK (Rec: 05/31/22 11:20 SAK [id number]) Current Condition History of Current Condition Onset Date 2009 Current Complaints knee pain perez History of Current Condition progressive worsening bilateral knee pain, back surgery fusion 2 months ago. Sometimes knees give out on him, has fallen. Ability on stairs varies, needs perez UE support to be able to ascend and descend with alternating pattern. Used to walk 2-4 miles, decreased walking, has also gained about 7 pounds since surgery. Compliant to HEP s/p back surgery, doing bird dog and planks on knees Prior Treatments and Tests x-ray March [address] King's office; arthritis, medial compartments bone on bone perez arthroscopic surgeries knees prior PT Treatment Goals Patient/Caregiver Goals decrease pain, avoid surgery, return to walking 2-4 miles per day with minimal to no pain PT-OP-C Subjective Start: 05/23/22 16:21 Freq: Status: Active Protocol: Document 07/30/22 14:27 LJ (Rec: 07/30/22 14:48 LJ [id number]) OP-PT Subjective Patient Comments Patient Comments Pt reports he is going to see the surgeon for possible L3 fusion surgery. Also reports he ios scheduled to see ortho for possible knee surgery. Patient Reported Progress Improving PT-OP-G Mobility & Gait Start: 05/23/22 16:21 Freq: Status: Active Protocol: Document 05/24/22 08:13 [facility] (Rec: 05/24/22 08:59 [facility] [id number]) OP Mobility Evaluation Transfers Sit to Stand indep, uses hands OP Gait Assessment Gait Gait Assistance Required: Independent Assistive Devices Assistive Device Straight Cane Gait Deviations General Gait Pattern Antalgic,Decreased Stride Length,Decreased Feet Clearance,Lateral Trunk Lean, Wide Based Gait Factors Limiting Gait Function Factors Limiting Gait Function Decreased Strength,Limited Range of Motion,Pain Stair Climbing Evaluation Devices Stair Climbing Assistive Devices Left Railing,Right Railing Technique/Endurance Stair Climbing Direction Ascend and Descend Stair Climbing Technique Step Over Step Comments Stair Climbing Comments requires perez UE support per patient PT-OP-J Posture/Palpation/Skin Start: 05/23/22 16:21 Freq: Status: Active Protocol: Document 05/24/22 08:13 SAK (Rec: 05/24/22 08:59 [facility] [id number]) Posture Evaluation Position Standing Patellar Posture (R) Laterally Tilted Ankle/Foot Posture (L) Pronated,(R) Pronated Foot Arch (R) Low Arch,(L) No Arch Palpation Assessment Location bilateral knees Palpation Findings Tenderness Palpation Details bilateral medial joint line left greater than right PT-OP-K Range of Motion Start: 05/23/22 16:21 Freq: Status: Active Protocol: Document 05/24/22 08:13 SAK (Rec: 05/24/22 08:59 [facility] [id number]) Lumbar Spine Range of Motion Lumbar Spine Active Comments WFL, not formally tested due to recent fusion Hip Goniometric Range of Motion Hip perez Flexion w/Knee Flexed 90 Straight Leg Raise 55 Extension 0 Abduction 35 Internal Rotation 0 External Rotation 35 Knee Goniometric Range of Motion Knee Right Flexion Active (degrees) 118 Extension Active (degrees) 7 Left Flexion Active (degrees) 118 Extension Active (degrees) 9 Knee ROM Limitations Knee ROM Limitations Soft Tissue Tightness,Bony Restriction,Pain Ankle and Foot Goniometric Range of Motion Ankle and Foot perez Dorsiflexion with Knee Flexed 5 Dorsiflexion with Knee Extended 0 Ankle and Foot ROM Limitations ROM Limitations Soft Tissue Tightness PT-OP-M Strength Start: 05/23/22 16:21 Freq: Status: Active Protocol: Document 05/24/22 08:13 SAK (Rec: 05/24/22 08:59 [facility] [id number]) Hip Strength Hip Manual Muscle Testing perez Comments no MMT due to recent surgery Knee Strength Knee Manual Muscle Testing Right Flexion (S2) 4+ Good+ Extension (L3) 4+ Good+ Left Flexion (S2) 4 Good Ankle/Foot Strength Ankle and Foot Manual Muscle Testing Right Dorsiflexion (L4) 4 Good Plantarflexion (S1) 4 Good Left Dorsiflexion (L4) 4+ Good+ Plantarflexion (S1) 4+ Good+ PT-OP-T Assessment and Plan Start: 05/23/22 16:21 Freq: Status: Active Protocol: Document 09/12/22 09:44 [facility] (Rec: 09/12/22 09:45 [facility] [id number]) Physical Therapy Plan Discharge Physical Therapy Discharge Reasons Patient Request Discharge Comments Patient request; feels comfortable with HEP and aquatic ex program
== END 2022-09-13 09:20 | disposition home or self-care (01) ==
LOC: PHYS 10:15
PROVIDERS: Family Provider Family Medicine; PCP Family Medicine; Referring Provider Orthopaedic Surgery; Visit Provider Orthopaedic Surgery
DX: M17.0 Bilateral primary osteoarthritis of knee (principal); R53.1 Weakness; R26.2 Difficulty in walking, not elsewhere classified
CPT/HCPCS: 97110; 97112; 97113; 97140; 97161; 97535

== ENCOUNTER 2023-03-26 06:09 | Inpatient (IN) | payer MEDICARE, OTHER, SELFPAY ==
[2022-03-21 11:48] VITALS: BMI 33.7
--- NOTE | 2023-03-26 06:25 | DI.CT.S_ITS ---
PROCEDURE: CT ABDOMEN PELVIS W CON INDICATIONS: RLQ ABD pain TECHNIQUE: After the administration of intravenous contrast, axial sections acquired from the lung bases to the pubic symphysis. Coronal and sagittal reformats were performed. For radiation dose reduction, the following was used: automated exposure control, adjustment of mA and/or kV according to patient size. COMPARISON: None. FINDINGS: Image quality: Excellent. Lung bases: Unremarkable. Heart: No significant findings. ABDOMEN: Liver: A simple appearing cyst is seen in the central liver superiorly additional subcentimeter hypoattenuating lesions are also most likely cysts. Gallbladder: Unremarkable. Biliary ducts: Unremarkable. Pancreas: Unremarkable. Spleen: Unremarkable. Adrenal Glands: Unremarkable. Kidneys and Ureters: Multiple 2-3 mm nonobstructing calculi in the left kidney. A 6 mm calculus (approximately 900 Hounsfield units) is seen at the distal left ureter just proximal to the ureterovesicular junction with minimal left hydroureter and no significant hydronephrosis. No right renal calculus or hydronephrosis. Stomach and Bowel: Multiple diverticula are seen in the colon without signs of acute diverticulitis. The appendix is dilated, measuring up to 13 mm in diameter with wall thickening and periappendiceal fat stranding. No fluid collection or pneumoperitoneum. Small bowel is unremarkable. Peritoneum: No abnormal intraperitoneal fluid. No free air. Ventral Wall: Tiny fat containing periumbilical hernia. Abdominal Nodes: No retroperitoneal or mesenteric adenopathy by size criteria. Vessels: Aorta and inferior vena cava are normal in size. PELVIS: Pelvic Organs: Status post prostatectomy. Bladder: Unremarkable. Pelvic Nodes: No enlarged lymph nodes. Miscellaneous: No hernias are seen. Bones: Postsurgical changes are seen in the lower lumbar spine. No suspicious osteolytic or osteoblastic lesion identified. IMPRESSION: 1. Acute appendicitis. No signs of acute complication or perforation. 2. Left distal ureteral 6 mm calculus just proximal to the ureterovesicular junction with minimal left hydroureter. No significant hydronephrosis. 3. Additional small nonobstructing left renal calculi. 4. Colonic diverticulosis without signs of acute diverticulitis. There is no significant discrepancy when compared to the overnight preliminary report. Approved by: Aston Carrasco M.D. on 03/26/2023 at 8:03
--- NOTE | 2023-03-26 06:25 | ED_ITS ---
HPI - General Adult <Alex Carranza DO - Last Filed: 03/26/23 18:00> General Chief complaint: Abdominal Pain Stated complaint: abd pain Time Seen by Provider: 03/26/23 06:20 Source: patient Mode of arrival: Ambulatory Limitations: no limitations History of Present Illness HPI narrative: Patient is a 77-year-old male here for evaluation of right lower quadrant abdominal pain. He states the symptoms started yesterday morning. It has worsened since then. No fevers. No nausea or vomiting. He did have a couple episodes of loose stools yesterday in 1 this morning which did not change his pain at all. He is also urinated multiple times and that did not change any of his discomfort either. He has had his prostate removed otherwise no other abdominal surgeries. Has not tried anything for the symptoms prior to arrival. Related Data Home Medications Medication Instructions Recorded Confirmed aspirin 81 mg tablet,delayed 81 mg PO BEDTIME ##0 09/03/11 03/26/23 release (Sadia Low Dose Aspirin) hydrochlorothiazide 25 mg tablet 25 mg PO DAILY ##0 09/03/11 03/26/23 lisinopril 10 mg tablet (Zestril) 10 mg PO BEDTIME ##0 09/03/11 03/26/23 simvastatin 20 mg tablet 20 mg PO BEDTIME ##0 09/03/11 03/26/23 cholecalciferol (vitamin D3) 25 25 mcg PO DAILY 10/06/20 03/26/23 mcg (1,000 unit) capsule [id number] acid-vit 1 tab PO DAILY 10/06/20 03/26/23 K-lycop 400 mcg-20 mcg-370 mcg tablet (One-A-Day Men's 50 Plus (with vitamin K)) omega-3 fatty acids 1,000 mg 2,000 mg PO DAILY 10/06/20 03/26/23 capsule (Fish Oil Concentrate) ibuprofen 200 mg capsule 400 mg PO DAILY 03/26/23 03/26/23 ibuprofen 200 mg capsule See Rx Instructions .Route 03/26/23 03/26/23 .COMPLEX PRN pain Previous Rx's Medication Instructions Recorded acetaminophen 500 mg capsule 500 mg PO Q4H PRN Pain, Mild (1-3) 03/22/22 #90 caps oxycodone 5 mg tablet See Rx Instructions .Route 06/09/22 .COMPLEX PRN Pain, Severe (7-10) #10 tabs Allergies Allergy/AdvReac Type Severity Reaction Status Date / Time Sulfa (Sulfonamide Allergy Severe ANAPHYLAXIS Verified 03/21/22 07:17 Antibiotics) [SULFA (SULFONAMIDE ANTIBIOTICS)] latex Allergy Mild Rash Verified 03/21/22 07:17 Review of Systems <Alex Carranza DO - Last Filed: 03/26/23 18:00> Gastrointestinal Gastrointestinal: Reports system reviewed and no additional complaints, except as documented Genitourinary Genitourinary: Reports system reviewed and no additional complaints, except as documented Integumentary/Breasts Skin/Breast: Reports system reviewed and no additional complaints, except as documented Hematologic/Lymphatic On Anticoagulants: No Patient History <Alex Carranza DO - Last Filed: 03/26/23 18:00> Medical History Arthritis BCC (basal cell carcinoma) Diverticular disease Dyslipidemia Eczema Hearing impaired History of migraine headaches Hypercholesterolemia Hypertension Kidney stones FRANCISCO on CPAP Pre-diabetes Prostate cancer (2009) Pyelonephritis SCC (squamous cell carcinoma) Skin cancer Spinal stenosis of lumbar region ELIANA (stress urinary incontinence), male TGA (transient global amnesia) (1999) TIA (transient ischemic attack) (1990) TMJ (temporomandibular joint disorder) Surgical History History of surgical removal of pilonidal cyst Hx of arthroscopy of left knee Hx of arthroscopy of right knee Hx of bilateral cataract extraction Hx of prostatectomy (~2009) Hx of repair of left rotator cuff Hx of tonsillectomy Family History Father Cancer Hyperlipidemia Kidney stones Hearing impaired Brother Cancer Migraines Mother Aneurysm Hypertension Social History marital status: number of children: 6 household members: spouse occupational status: previously employed Smoking Status: Former smoker alcohol intake: current caffeine: No additional social history: 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 Smoking Status: Former smoker alcohol intake frequency: a few times a month Substance Use Type: does not use Exam <DO Jennifer Arce Last Filed: 03/26/23 18:00> Initial Vital Signs Initial Vital Signs: Vital Signs Temperature 98.5 F 03/26/23 06:32 Pulse Rate 73 03/26/23 06:32 Respiratory Rate 18 03/26/23 06:32 Blood Pressure 141/65 H 03/26/23 06:32 Pulse Oximetry 95 03/26/23 06:32 Oxygen Delivery Method Room Air 03/26/23 06:32 Const General: cooperative, comfortable and No ill appearing HENMT Head: normal to inspection and normocephalic Resp Effort & Inspection: normal respiratory effort Auscultation: clear to auscultation bilaterally Cardio Rate: regular rate Rhythm: regular rhythm GI Inspection: normal to inspection Palpation: soft, No firm, No guarding and tender (Right lower quadrant) Back/Spine/Pelvis Back: No CVA tenderness Skin General: no rashes or lesions noted Neuro General: patient alert, patient awake and moves all extremities <January Hollingsworth DO - Last Filed: 03/26/23 19:07> Initial Vital Signs Initial Vital Signs: Vital Signs Temperature 98.5 F 03/26/23 06:32 Pulse Rate 73 03/26/23 06:32 Respiratory Rate 18 03/26/23 06:32 Blood Pressure 141/65 H 03/26/23 06:32 Pulse Oximetry 95 03/26/23 06:32 Oxygen Delivery Method Room Air 03/26/23 06:32 Course <Alex Carranza, DO - Last Filed: 03/26/23 18:00> Orders Ordered: Acetaminophen (Acetaminophen 325 Mg Tablet) 650 mg PO Q6H [facility] Last Admin: 03/26/23 18:15 Dose: 650 mg Documented By: AUGUSTA Heparin Sodium (Porcine) (Heparin 5,000 Unit/Ml Vial) 5,000 unit SUBCUT BID [facility] Last Admin: 03/26/23 10:27 Dose: 5,000 unit Documented By: AUGUSTA Dextrose/Sodium Chloride (Dextrose 5%-0.45% Ns) 1,000 mls @ 80 mls/hr IV CONT [facility] Last Admin: 03/26/23 12:43 Dose: 80 mls/hr Documented By: Infusion: 03/26/23 12:43 Dose: 80 mls/hr Documented By: Admin: 03/26/23 10:28 Dose: 80 mls/hr Documented By: AUGUSTA Piperacillin Sod/Tazobactam (Sod 3.375 gm/ Sodium Chloride) 100 mls @ 25 mls/hr IV Q8H [facility] Last Infusion: 03/26/23 16:44 Dose: 25 mls/hr Documented By: Admin: 03/26/23 12:44 Dose: 25 mls/hr Documented By: CAROLYN Ibuprofen (Ibuprofen 600 Mg Tablet) 600 mg PO Q6H [facility] Last Admin: 03/26/23 18:15 Dose: 600 mg Documented By: AUGUSTA Naloxone HCl (Naloxone 0.4 Mg/Ml Vial) 0.2 mg IV Q2MIN PRN PRN Reason: Opiate Reversal Ondansetron HCl (Ondansetron 4 Mg/2 Ml Inj) 4 mg IV Q8HR PRN PRN Reason: Nausea And Vomiting Oxycodone HCl (Oxycodone Ir 5 Mg Tablet) 5 mg PO Q3H PRN PRN Reason: Pain, Moderate (4-6) Discontinued Medications Acetaminophen (Acetaminophen 325 Mg Tablet) 650 mg PO Q6H [facility] Last Admin: 03/26/23 09:00 Dose: 650 mg Documented By: MIAN Sodium Chloride (Normal Saline 0.9%) 1,000 mls @ 1,000 mls/hr IV BOLUS ONE Stop: 03/26/23 07:24 Last Infusion: 03/26/23 08:34 Dose: 0 mls/hr Documented By: Admin: 03/26/23 06:43 Dose: 1,000 mls/hr Documented By: JAYANT Piperacillin Sod/Tazobactam (Sod 4.5 gm/ Sodium Chloride) 100 mls @ 200 mls/hr IV NOW ONE Stop: 03/26/23 07:55 Last Infusion: 03/26/23 09:24 Dose: 0 mls/hr Documented By: Admin: 03/26/23 08:34 Dose: 200 mls/hr Documented By: MIAN Ibuprofen (Ibuprofen 600 Mg Tablet) 600 mg PO Q6H [facility] Last Admin: 03/26/23 13:21 Dose: 600 mg Documented By: AUGUSTA Vital Signs Vital signs: Vital Signs - 8 hr 03/26/23 06:32 Temperature 98.5 F Pulse Rate 73 Respiratory Rate 18 Blood Pressure 141/65 H Pulse Oximetry 95 Oxygen Delivery Method Room Air <January Hollingsworth DO - Last Filed: 03/26/23 19:07> Orders Ordered: Acetaminophen (Acetaminophen 325 Mg Tablet) 650 mg PO Q6H [facility] Last Admin: 03/26/23 18:15 Dose: 650 mg Documented By: AUGUSTA Heparin Sodium (Porcine) (Heparin 5,000 Unit/Ml Vial) 5,000 unit SUBCUT BID [facility] Last Admin: 03/26/23 10:27 Dose: 5,000 unit Documented By: AUGUSTA Dextrose/Sodium Chloride (Dextrose 5%-0.45% Ns) 1,000 mls @ 80 mls/hr IV CONT [facility] Last Admin: 03/26/23 12:43 Dose: 80 mls/hr Documented By: Infusion: 03/26/23 12:43 Dose: 80 mls/hr Documented By: Admin: 03/26/23 10:28 Dose: 80 mls/hr Documented By: AUGUSTA Piperacillin Sod/Tazobactam (Sod 3.375 gm/ Sodium Chloride) 100 mls @ 25 mls/hr IV Q8H [facility] Last Infusion: 03/26/23 16:44 Dose: 25 mls/hr Documented By: Admin: 03/26/23 12:44 Dose: 25 mls/hr Documented By: CAROLYN Ibuprofen (Ibuprofen 600 Mg Tablet) 600 mg PO Q6H [facility] Last Admin: 03/26/23 18:15 Dose: 600 mg Documented By: AUGUSTA Naloxone HCl (Naloxone 0.4 Mg/Ml Vial) 0.2 mg IV Q2MIN PRN PRN Reason: Opiate Reversal Ondansetron HCl (Ondansetron 4 Mg/2 Ml Inj) 4 mg IV Q8HR PRN PRN Reason: Nausea And Vomiting Oxycodone HCl (Oxycodone Ir 5 Mg Tablet) 5 mg PO Q3H PRN PRN Reason: Pain, Moderate (4-6) Discontinued Medications Acetaminophen (Acetaminophen 325 Mg Tablet) 650 mg PO Q6H [facility] Last Admin: 03/26/23 09:00 Dose: 650 mg Documented By: MIAN Sodium Chloride (Normal Saline 0.9%) 1,000 mls @ 1,000 mls/hr IV BOLUS ONE Stop: 03/26/23 07:24 Last Infusion: 03/26/23 08:34 Dose: 0 mls/hr Documented By: Admin: 03/26/23 06:43 Dose: 1,000 mls/hr Documented By: JAYANT Piperacillin Sod/Tazobactam (Sod 4.5 gm/ Sodium Chloride) 100 mls @ 200 mls/hr IV NOW ONE Stop: 03/26/23 07:55 Last Infusion: 03/26/23 09:24 Dose: 0 mls/hr Documented By: Admin: 03/26/23 08:34 Dose: 200 mls/hr Documented By: MIAN Ibuprofen (Ibuprofen 600 Mg Tablet) 600 mg PO Q6H [facility] Last Admin: 03/26/23 13:21 Dose: 600 mg Documented By: TACHOW Vital Signs Vital signs: Vital Signs - 8 hr 03/26/23 06:32 Temperature 98.5 F Pulse Rate 73 Respiratory Rate 18 Blood Pressure 141/65 H Pulse Oximetry 95 Oxygen Delivery Method Room Air Medical Decision Making <Alex Carranza DO - Last Filed: 03/26/23 18:00> Lab Data 03/26/23 06:20 03/26/23 06:20 Labs: Lab Results 03/26/23 03/26/23 Range/Units 06:20 06:20 WBC 12.4 H (4.5-11.0) X10^3/uL RBC 4.52 (4.5-5.9) X10^6/uL Hgb 14.2 (13.5-17.5) g/dL Hct 41.2 (41-53) % MCV 91.1 (80-100) fL MCH 31.3 (26-34) PG MCHC 34.4 (30-36) % RDW 13.9 (11.6-14.8) % Plt Count 139 L (150-400) X10^3/uL Neut % (Auto) 82.5 H (50-75) % Lymph % (Auto) 7.6 L (25-40) % [place] % (Auto) 9.2 (3-14) % Eos % (Auto) 0.4 L (2-4) % Baso % (Auto) 0.3 (0-2) % Neut # (Auto) 49744 H (3291-9863) /uL Lymph # (Auto) 900 L (1952-8433) /uL [place] # (Auto) 1100 H (0-900) /uL Eos # (Auto) 0 (0-450) /uL Baso # (Auto) 0 (0-100) /uL Sodium 135 L (137-145) mmol/L Potassium 3.9 (3.4-5.1) mmol/L Chloride 103 (98-107) mmol/L Carbon Dioxide 25 (22-32) mmol/L BUN 16 (9-20) mg/dL Creatinine 0.88 (0.66-1.25) mg/dL Estimated GFR > 60 (>60) mL/min BUN/Creatinine Ratio 18.2 (6-22) Glucose 129 H (80-110) mg/dL Calcium 9.1 (8.4-10.2) mg/dL Total Bilirubin 0.9 (0.2-1.3) mg/dL AST 29 (17-59) IU/L ALT 31 (<50) IU/L Alkaline Phosphatase 61 (38-126) U/L Total Protein 7.3 (6.3-8.2) g/dL Albumin 4.1 (3.5-5.0) g/dL Globulin 3.2 (1.7-4.1) g/dL Albumin/Globulin Ratio 1.3 (1.0-2.8) Lipase 79 (23-300) U/L [facility] Narrative Medical decision making narrative: Patient has had 24 hours of right lower quadrant abdominal pain. Also had some loose stools that did not change any of his discomfort and urinated multiple times without any change in his comfort. Labs and urine and CT scan ordered. Care turned over to day provider to follow-up on this testing and disposition. <January Hollingsworth, DO - Last Filed: 03/26/23 19:07> Lab Data Labs: Lab Results 03/26/23 03/26/23 Range/Units 06:20 06:20 WBC 12.4 H (4.5-11.0) X10^3/uL RBC 4.52 (4.5-5.9) X10^6/uL Hgb 14.2 (13.5-17.5) g/dL Hct 41.2 (41-53) % MCV 91.1 (80-100) fL MCH 31.3 (26-34) PG MCHC 34.4 (30-36) % RDW 13.9 (11.6-14.8) % Plt Count 139 L (150-400) X10^3/uL Neut % (Auto) 82.5 H (50-75) % Lymph % (Auto) 7.6 L (25-40) % [place] % (Auto) 9.2 (3-14) % Eos % (Auto) 0.4 L (2-4) % Baso % (Auto) 0.3 (0-2) % Neut # (Auto) 69567 H (8501-4923) /uL Lymph # (Auto) 900 L (5926-4440) /uL [place] # (Auto) 1100 H (0-900) /uL Eos # (Auto) 0 (0-450) /uL Baso # (Auto) 0 (0-100) /uL Sodium 135 L (137-145) mmol/L Potassium 3.9 (3.4-5.1) mmol/L Chloride 103 (98-107) mmol/L Carbon Dioxide 25 (22-32) mmol/L BUN 16 (9-20) mg/dL Creatinine 0.88 (0.66-1.25) mg/dL Estimated GFR > 60 (>60) mL/min BUN/Creatinine Ratio 18.2 (6-22) Glucose 129 H (80-110) mg/dL Calcium 9.1 (8.4-10.2) mg/dL Total Bilirubin 0.9 (0.2-1.3) mg/dL AST 29 (17-59) IU/L ALT 31 (<50) IU/L Alkaline Phosphatase 61 (38-126) U/L Total Protein 7.3 (6.3-8.2) g/dL Albumin 4.1 (3.5-5.0) g/dL Globulin 3.2 (1.7-4.1) g/dL Albumin/Globulin Ratio 1.3 (1.0-2.8) Lipase 79 (23-300) U/L Imaging Data CT scan - abdomen/pelvis: Radiologist's Impression: PROCEDURE:? CT ABDOMEN PELVIS W CON ? INDICATIONS:? RLQ ABD pain ? TECHNIQUE:? After the administration of intravenous contrast, axial sections acquired from the lung bases to the pubic symphysis.? Coronal and sagittal reformats were performed.? For radiation dose reduction, the following was used:? automated exposure control, adjustment of mA and/or kV according to patient size.? ? COMPARISON:? None. ? FINDINGS:? Image quality:? Excellent.? ? Lung bases:? Unremarkable. Heart:? No significant findings. ? ABDOMEN: Liver:? A simple appearing cyst is seen in the central liver superiorly additional subcentimeter hypoattenuating lesions are also most likely cysts.? Gallbladder:? Unremarkable. Biliary ducts:? Unremarkable.? ? Pancreas:? Unremarkable.? ? Spleen:? Unremarkable.? ? Adrenal Glands:? Unremarkable.? ? Kidneys and Ureters:? Multiple 2-3 mm nonobstructing calculi in the left kidney.? A 6 mm calculus (approximately 900 Hounsfield units) is seen at the distal left ureter just proximal to the ureterovesicular junction with minimal left hydroureter and no significant hydronephrosis.? No right renal calculus or hydronephrosis. ? Stomach and Bowel:? Multiple diverticula are seen in the colon without signs of acute diverticulitis.? The appendix is dilated, measuring up to 13 mm in diameter with wall thickening and periappendiceal fat stranding.? No fluid collection or pneumoperitoneum.? Small bowel is unremarkable. Peritoneum:? No abnormal intraperitoneal fluid.? No free air.? ? Ventral Wall: ? Tiny fat containing periumbilical hernia.? Abdominal Nodes:? No retroperitoneal or mesenteric adenopathy by size criteria.? Vessels:? Aorta and inferior vena cava are normal in size.? ? PELVIS: Pelvic Organs:? Status post prostatectomy. Bladder:? Unremarkable.? ? Pelvic Nodes: No enlarged lymph nodes.? Miscellaneous: No hernias are seen. ? ? ? Bones:? Postsurgical changes are seen in the lower lumbar spine.? No suspicious osteolytic or osteoblastic lesion identified. ? ? IMPRESSION:? 1. Acute appendicitis.? No signs of acute complication or perforation. 2. Left distal ureteral 6 mm calculus just proximal to the ureterovesicular junction with minimal left hydroureter.? No significant hydronephrosis. 3. Additional small nonobstructing left renal calculi. 4. Colonic diverticulosis without signs of acute diverticulitis. ? There is no significant discrepancy when compared to the overnight preliminary report. ? ? ? Approved by: Aston Carrasco M.D. on 03/26/2023 at 8:03? MDM Narrative Medical decision making narrative: Patient has had 24 hours of right lower quadrant abdominal pain. Also had some loose stools that did not change any of his discomfort and urinated multiple times without any change in his comfort. Labs and urine and CT scan ordered. Care turned over to day provider to follow-up on this testing and disposition. Patient signed out to me by Dr. Carranza I have seen and evaluated patient myself. Mildly tender in right lower quadrant overall appears well. CT is positive for acute appendicitis without perforation or abscess. Also of note 6 mm left ureteral calculus. Not really having left flank pain, he really is having right lower quadrant pain. Dr. Patton updated on patient's symptoms test results recommends antibiotics only and will admit and watch. Discharge Plan Departure Patient Disposition: Admitted As Inpatient Clinical Impression: Acute appendicitis Admit Date/Time: 03/26/23 08:03 Admit Provider: Yvette Patton
[2023-03-26 06:32] VITALS: BP 141/65; PULSE 73; RESP 18; TEMP 36.9; O2SAT 95; BMI 33.7
[2023-03-26 06:38] LABS: Add Manual Diff / Slide Review NO; Basophils Absolute Auto 0 /uL (0-100); Basophils Percent Auto 0.3 % (0-2); Eosinophils Absolute Auto 0 /uL (0-450); Eosinophils Percent Auto 0.4 % (2-4); Hematocrit 41.2 % (41-53); Hemoglobin 14.2 g/dL (13.5-17.5); Lymphocytes Absolute Auto 900 /uL (1100-4500); Lymphocytes Percent Auto 7.6 % (25-40); Mean Corpuscular HGB Conc 34.4 % (30-36); Mean Corpuscular Hemoglobin 31.3 PG (26-34); Mean Corpuscular Volume 91.1 fL (80-100); Monocytes Absolute Auto 1100 /uL (0-900); Monocytes Percent Auto 9.2 % (3-14); Neutrophils Absolute Auto 10200 /uL (1500-7000); Neutrophils Percent Auto 82.5 % (50-75); Platelet Count 139 X10^3/uL (150-400); Red Blood Cell Count 4.52 X10^6/uL (4.5-5.9); Red Cell Distribution Width 13.9 % (11.6-14.8); White Blood Cell Count 12.4 X10^3/uL (4.5-11.0)
[2023-03-26 06:41] LABS: Alanine Aminotransferase 31 IU/L (<50); Albumin 4.1 g/dL (3.5-5.0); Albumin Globulin Ratio 1.3 (1.0-2.8); Alkaline Phosphatase 61 U/L (38-126); Aspartate Aminotransferase 29 IU/L (17-59); BUN Creatinine Ratio 18.2 (6-22); Bilirubin Total 0.9 mg/dL (0.2-1.3); Blood Urea Nitrogen 16 mg/dL (9-20); Calcium 9.1 mg/dL (8.4-10.2); Carbon Dioxide 25 mmol/L (22-32); Chloride 103 mmol/L (98-107); Estimated Glomerular Filt Rate > 60 mL/min (>60); Globulin 3.2 g/dL (1.7-4.1); Glucose 129 mg/dL (80-110); HEMOLYSIS < 15 (0-50); Lipase 79 U/L (23-300); Potassium 3.9 mmol/L (3.4-5.1); Sodium 135 mmol/L (137-145); Total Protein 7.3 g/dL (6.3-8.2)
[2023-03-26] MEDS: SODIUM CHLORIDE 0.9% 1,000 ML 1000 ML IV (06:43)
[2023-03-26] MEDS: PIPERACILLIN/TAZO 4.5 GM in SODIUM CHLORIDE 0.9% 100 ML IV (08:34)
[2023-03-26] MEDS: ACETAMINOPHEN 325 MG TABLET 650 MG PO ×2 (09:00→18:15)
[2023-03-26 09:02] VITALS: BP 127/62; PULSE 69; O2SAT 95
[2023-03-26 09:46] VITALS: BP 115/60; PULSE 72; RESP 16; TEMP 36.4; O2SAT 98
[2023-03-26] MEDS: HEPARIN 5,000 UNIT/ML VIAL 5000 UNIT SUBCUT ×2 (10:27→20:50)
[2023-03-26] MEDS: DEXTROSE 5%-0.45% NS 1,000 ML 80 ML IV ×2 (10:28→12:43)
[2023-03-26 10:31] VITALS: O2SAT 95
[2023-03-26 10:33] VITALS: BMI 33.7
[2023-03-26] MEDS: PIPERACILLIN/TAZO 3.375 GM in SODIUM CHLORIDE 0.9% 100 ML IV ×2 (12:44→20:49)
[2023-03-26 13:08] LABS: Appearance Urine UA CLEAR; Bilirubin Urine UA NEGATIVE (NEGATIVE); Color Urine UA YELLOW; Glucose Urine UA NEGATIVE (Negative); Ketones Urine UA NEGATIVE (NEGATIVE); Leukocyte Esterase Urine UA NEGATIVE (NEGATIVE); Nitrite Urine UA POSITIVE (Negative); Occult Blood Urine UA 1+ (Negative); Protein Urine UA NEGATIVE (Negative); Urobilinogen Urine UA 0.2 E.U./dL (0.2)
[2023-03-26 13:15] LABS: Bacteria Urine None Seen; Culture Indicated Urine Specimen Cultured; RBC Urine 1-5/HPF (0-5/HPF); Squamous Epithelial Cell Urine None Seen (0-5/HPF); WBC Urine 0-1/HPF (0-5/HPF)
[2023-03-26] MEDS: IBUPROFEN 600 MG TABLET PO ×2 (13:21→18:15)
--- NOTE | 2023-03-26 13:28 | PM.HP.1 ---
History of Present Illness History of Present Illness Date Patient Seen: 03/26/23 Time Patient Seen: 13:28 Date of Onset of Symptoms: 03/25/23 Chief complaint: abd pain Narrative: acute appendicitis w/o perforation or fecal lith per CT scan I reviewed personally. pain began yesterday afternoon, localized in RLQ. No significant anorexia, possible fever last night. no previous episodes. pain is sharp and worse with movement. [facility] Medical History Arthritis BCC (basal cell carcinoma) Diverticular disease Dyslipidemia Eczema Hearing impaired History of migraine headaches Hypercholesterolemia Hypertension Kidney stones FRANCISCO on CPAP Pre-diabetes Prostate cancer (2009) Pyelonephritis SCC (squamous cell carcinoma) Skin cancer Spinal stenosis of lumbar region ELIANA (stress urinary incontinence), male TGA (transient global amnesia) (1999) TIA (transient ischemic attack) (1990) TMJ (temporomandibular joint disorder) Surgical History History of surgical removal of pilonidal cyst Hx of arthroscopy of left knee Hx of arthroscopy of right knee Hx of bilateral cataract extraction Hx of prostatectomy (~2009) Hx of repair of left rotator cuff Hx of tonsillectomy Family History Father Cancer Hyperlipidemia Kidney stones Hearing impaired Brother Cancer Migraines Mother Aneurysm Hypertension Social History marital status: number of children: 6 household members: spouse occupational status: previously employed Smoking Status: Former smoker alcohol intake: current caffeine: No additional social history: 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 Meds Home Medications and Allergies Home Medications Medication Instructions Recorded Confirmed Type aspirin 81 mg tablet,delayed 81 mg PO BEDTIME ##0 09/03/11 03/26/23 History release (Sadia Low Dose Aspirin) hydrochlorothiazide 25 mg tablet 25 mg PO DAILY ##0 09/03/11 03/26/23 History lisinopril 10 mg tablet (Zestril) 10 mg PO BEDTIME ##0 09/03/11 03/26/23 History simvastatin 20 mg tablet 20 mg PO BEDTIME ##0 09/03/11 03/26/23 History cholecalciferol (vitamin D3) 25 25 mcg PO DAILY 10/06/20 03/26/23 History mcg (1,000 unit) capsule [id number]-ruz-jlcof acid-vit 1 tab PO DAILY 10/06/20 03/26/23 History K-lycop 400 mcg-20 mcg-370 mcg tablet (One-A-Day Men's 50 Plus (with vitamin K)) omega-3 fatty acids 1,000 mg 2,000 mg PO DAILY 10/06/20 03/26/23 History capsule (Fish Oil Concentrate) acetaminophen 500 mg capsule 500 mg PO Q4H PRN Pain, Mild (1-3) 03/22/22 03/26/23 Rx #90 caps oxycodone 5 mg tablet See Rx Instructions .Route 03/22/22 03/26/23 Rx .COMPLEX PRN Pain, Severe (7-10) #10 tabs ibuprofen 200 mg capsule 400 mg PO DAILY 03/26/23 03/26/23 History ibuprofen 200 mg capsule See Rx Instructions .Route 03/26/23 03/26/23 History .COMPLEX PRN pain Allergies Allergy/AdvReac Type Severity Reaction Status Date / Time Sulfa (Sulfonamide Allergy Severe ANAPHYLAXIS Verified 03/21/22 07:17 Antibiotics) [SULFA (SULFONAMIDE ANTIBIOTICS)] latex Allergy Mild Rash Verified 03/21/22 07:17 Review of Systems Review of Systems ROS: Yes All systems reviewed with the patient and are negative except as otherwise documented Exam Vital Signs (past 8 hours): - 03/26/23 06:32 03/26/23 09:02 03/26/23 09:46 Temperature 98.5 F 97.6 F Pulse Rate 73 69 72 Respiratory Rate 18 16 Blood Pressure 141/65 H 127/62 115/60 Pulse Oximetry 95 95 98 Oxygen Delivery Method Room Air 03/26/23 10:31 03/26/23 10:33 Temperature Pulse Rate Respiratory Rate Blood Pressure Pulse Oximetry 95 Oxygen Delivery Method Room Air Room Air Oxygen Delivery Method Room Air Const General: cooperative and well groomed Nutritional Appearance: overweight Orientation: alert, awake and oriented x3 HENMT Head: normocephalic and atraumatic Ears: hearing grossly normal bilaterally Nose: external nose normal Mouth: oral mucosae normal Eyes General: appearance normal, both eyes and all related structures Sclera: sclerae normal Neck Neck: trachea midline Resp Effort & Inspection: normal respiratory effort and able to speak in complete sentences Cardio Rate: regular rate Rhythm: regular rhythm GI Palpation: soft Other: RLQ tenderness w/o guarding Skin General: atrophy Neuro General: patient alert, patient awake and patient oriented x3 Cognition: normal cognition Psych Appearance: grossly normal Mental Status: mental status grossly normal Judgment: judgment good Objective Labs 03/26/23 06:20 03/26/23 06:20 Labs: Laboratory Results - last 24 hr 03/26/23 03/26/23 03/26/23 06:20 06:20 12:30 WBC 12.4 H RBC 4.52 Hgb 14.2 Hct 41.2 MCV 91.1 MCH 31.3 MCHC 34.4 RDW 13.9 Plt Count 139 L Neut % (Auto) 82.5 H Lymph % (Auto) 7.6 L [place] % (Auto) 9.2 Eos % (Auto) 0.4 L Baso % (Auto) 0.3 Neut # (Auto) 52831 H Lymph # (Auto) 900 L [place] # (Auto) 1100 H Eos # (Auto) 0 Baso # (Auto) 0 Sodium 135 L Potassium 3.9 Chloride 103 Carbon Dioxide 25 BUN 16 Creatinine 0.88 Estimated GFR > 60 BUN/Creatinine Ratio 18.2 Glucose 129 H Calcium 9.1 Total Bilirubin 0.9 AST 29 ALT 31 Alkaline Phosphatase 61 Total Protein 7.3 Albumin 4.1 Globulin 3.2 Albumin/Globulin Ratio 1.3 Lipase 79 Urine Color Yellow Urine Appearance Clear Urine pH 6.0 Ur Specific [place] 1.010 Urine Protein Negative Urine Glucose (UA) Negative Urine Ketones Negative Urine Occult Blood 1+ H Urine Nitrate Positive H Urine Bilirubin Negative Urine Urobilinogen 0.2 Ur Leukocyte Esterase Negative Urine RBC 1-5/hpf Urine WBC 0-1/hpf Ur Squamous Epith Cells None seen Urine Bacteria None seen Ur Culture Indicated? Specimen cultured Assessment & Plan Assessment & Plan narrative: acute appendicitis Plan: medical management with surgery only if antibiotics fail Quality VTE Deep Vein Thrombosis/Pulmonary Embolism Present on Admission: No
[2023-03-26 16:50] VITALS: BP 102/50
[2023-03-26 16:59] VITALS: BP 104/48; PULSE 54; RESP 18; TEMP 37; O2SAT 95
[2023-03-27] VITALS: BP 105/64; PULSE 64; RESP 14; TEMP 36.9; O2SAT 97
[2023-03-27] MEDS: ACETAMINOPHEN 325 MG TABLET 650 MG PO ×2 (00:32→05:00)
[2023-03-27] MEDS: IBUPROFEN 600 MG TABLET PO ×2 (00:32→05:00)
[2023-03-27] MEDS: DEXTROSE 5%-0.45% NS 1,000 ML 80 ML IV (00:36)
[2023-03-27] MEDS: PIPERACILLIN/TAZO 3.375 GM in SODIUM CHLORIDE 0.9% 100 ML IV (04:59)
[2023-03-27 06:12] LABS: Add Manual Diff / Slide Review NO; Basophils Absolute Auto 0 /uL (0-100); Basophils Percent Auto 0.6 % (0-2); Eosinophils Absolute Auto 200 /uL (0-450); Eosinophils Percent Auto 2.1 % (2-4); Hematocrit 38.8 % (41-53); Hemoglobin 13.3 g/dL (13.5-17.5); Lymphocytes Absolute Auto 1100 /uL (1100-4500); Lymphocytes Percent Auto 14.3 % (25-40); Mean Corpuscular HGB Conc 34.2 % (30-36); Mean Corpuscular Hemoglobin 31.3 PG (26-34); Mean Corpuscular Volume 91.5 fL (80-100); Monocytes Absolute Auto 700 /uL (0-900); Monocytes Percent Auto 8.9 % (3-14); Neutrophils Absolute Auto 5600 /uL (1500-7000); Neutrophils Percent Auto 74.1 % (50-75); Platelet Count 112 X10^3/uL (150-400); Red Blood Cell Count 4.24 X10^6/uL (4.5-5.9); Red Cell Distribution Width 14.5 % (11.6-14.8); White Blood Cell Count 7.5 X10^3/uL (4.5-11.0)
[2023-03-27 08:00] VITALS: BP 110/46; PULSE 50; RESP 16; TEMP 35.9; O2SAT 97
[2023-03-27] MEDS: AMOXICILLIN/CLAV 875/125 MG 1 TAB PO (10:47)
--- NOTE | 2023-03-27 11:32 | P.PN_ITS ---
Subjective Subjective Date Patient Seen: 03/27/23 Time Patient Seen: 11:32 Interval history: pain free today. Minimal to no pain with deep palpation. Exam Vital Signs (past 8 hours): - 03/27/23 08:00 Temperature 96.6 F L Pulse Rate 50 L Respiratory Rate 16 Blood Pressure 110/46 L Pulse Oximetry 97 Oxygen Flow Rate 0 Oxygen Delivery Method Room Air Oxygen Flow Rate 0 Narrative Exam Narrative: abdomen is soft and non tender Objective Labs 03/27/23 05:40 03/26/23 06:20 Labs: Laboratory Results - last 24 hr 03/26/23 03/27/23 12:30 05:40 WBC 7.5 RBC 4.24 L Hgb 13.3 L Hct 38.8 L MCV 91.5 MCH 31.3 MCHC 34.2 RDW 14.5 Plt Count 112 L Neut % (Auto) 74.1 Lymph % (Auto) 14.3 L Will % (Auto) 8.9 Eos % (Auto) 2.1 Baso % (Auto) 0.6 Neut # (Auto) 5600 Lymph # (Auto) 1100 Will # (Auto) 700 Eos # (Auto) 200 Baso # (Auto) 0 Urine Color Yellow Urine Appearance Clear Urine pH 6.0 Ur Specific [place] 1.010 Urine Protein Negative Urine Glucose (UA) Negative Urine Ketones Negative Urine Occult Blood 1+ H Urine Nitrate Positive H Urine Bilirubin Negative Urine Urobilinogen 0.2 Ur Leukocyte Esterase Negative Urine RBC 1-5/hpf Urine WBC 0-1/hpf Ur Squamous Epith Cells None seen Urine Bacteria None seen Ur Culture Indicated? Specimen cultured [facility] Medical History Arthritis BCC (basal cell carcinoma) Diverticular disease Dyslipidemia Eczema Hearing impaired History of migraine headaches Hypercholesterolemia Hypertension Kidney stones [place]ANCISCO on CPAP Pre-diabetes Prostate cancer (2009) Pyelonephritis SCC (squamous cell carcinoma) Skin cancer Spinal stenosis of lumbar region ELIANA (stress urinary incontinence), male TGA (transient global amnesia) (1999) TIA (transient ischemic attack) (1990) TMJ (temporomandibular joint disorder) Surgical History History of surgical removal of pilonidal cyst Hx of arthroscopy of left knee Hx of arthroscopy of right knee Hx of bilateral cataract extraction Hx of prostatectomy (~2009) Hx of repair of left rotator cuff Hx of tonsillectomy Family History Father Cancer Hyperlipidemia Kidney stones Hearing impaired Brother Cancer Migraines Mother Aneurysm Hypertension Social History marital status: number of children: 6 household members: spouse occupational status: previously employed Smoking Status: Former smoker alcohol intake: current caffeine: No additional social history: 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 Assessment & Plan Assessment & Plan narrative: Responded well to antibiotics for appendicitis Plan: discharge home on 5 days po Augmentin Quality VTE Deep Vein Thrombosis/Pulmonary Embolism Present on Admission: No
--- NOTE | 2023-03-27 11:34 | PM.DS.1 ---
History of Present Illness History of Present Illness Date Patient Seen: 03/27/23 Time Patient Seen: 11:34 Chief complaint: abd pain Narrative: acute appendicitis w/o perforation or fecal lith per CT scan I reviewed personally. pain began yesterday afternoon, localized in RLQ. No significant anorexia, possible fever last night. no previous episodes. pain is sharp and worse with movement. Discharge Providers Provider Date of admission: 03/26/23 08:03 Discharge Date: 03/27/23 Primary care physician: Chon Albrecht MD Consults: 03/26/23 11:02 Consult to Pastoral Services Routine Comment: Is suppose to work tomorrow. Discharge provider: Yvette Patton MD Summary Hospital Course Discharge Diagnosis: acute appendicitis Hospital Course: IV antibiotics switching to po antibiotics. Status at Discharge Cognitive/behavioral status at discharge: oriented Functional status at discharge: independent ambulation Overall status at discharge: patient is back to baseline Time Spent with Patient Time spent: Less than 30 minutes Exam Vital Signs (past 8 hours): - 03/27/23 08:00 Temperature 96.6 F L Pulse Rate 50 L Respiratory Rate 16 Blood Pressure 110/46 L Pulse Oximetry 97 Oxygen Flow Rate 0 Oxygen Delivery Method Room Air Oxygen Flow Rate 0 Narrative Exam Narrative: benign abdomen Objective Labs 03/27/23 05:40 03/26/23 06:20 Labs: Laboratory Results - last 24 hr 03/26/23 03/27/23 12:30 05:40 WBC 7.5 RBC 4.24 L Hgb 13.3 L Hct 38.8 L MCV 91.5 MCH 31.3 MCHC 34.2 RDW 14.5 Plt Count 112 L Neut % (Auto) 74.1 Lymph % (Auto) 14.3 L [place] % (Auto) 8.9 Eos % (Auto) 2.1 Baso % (Auto) 0.6 Neut # (Auto) 5600 Lymph # (Auto) 1100 [place] # (Auto) 700 Eos # (Auto) 200 Baso # (Auto) 0 Urine Color Yellow Urine Appearance Clear Urine pH 6.0 Ur Specific [place] 1.010 Urine Protein Negative Urine Glucose (UA) Negative Urine Ketones Negative Urine Occult Blood 1+ H Urine Nitrate Positive H Urine Bilirubin Negative Urine Urobilinogen 0.2 Ur Leukocyte Esterase Negative Urine RBC 1-5/hpf Urine WBC 0-1/hpf Ur Squamous Epith Cells None seen Urine Bacteria None seen Ur Culture Indicated? Specimen cultured COUNTS INCLUDE 234 BEDS AT THE [facility] Medical History Arthritis BCC (basal cell carcinoma) Diverticular disease Dyslipidemia Eczema Hearing impaired History of migraine headaches Hypercholesterolemia Hypertension Kidney stones [place]ANCIS[place] on CPAP Pre-diabetes Prostate cancer (2009) Pyelonephritis SCC (squamous cell carcinoma) Skin cancer Spinal stenosis of lumbar region ELIANA (stress urinary incontinence), male TGA (transient global amnesia) (1999) TIA (transient ischemic attack) (1990) TMJ (temporomandibular joint disorder) Surgical History History of surgical removal of pilonidal cyst Hx of arthroscopy of left knee Hx of arthroscopy of right knee Hx of bilateral cataract extraction Hx of prostatectomy (~2009) Hx of repair of left rotator cuff Hx of tonsillectomy Family History Father Cancer Hyperlipidemia Kidney stones Hearing impaired Brother Cancer Migraines Mother Aneurysm Hypertension Social History marital status: number of children: 6 household members: spouse occupational status: previously employed Smoking Status: Former smoker alcohol intake: current caffeine: No additional social history: 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 Discharge Assessment & Plan Assessment and Plan Assessment: acute appendicitis Plan of Treatment: complete a 5 day course of BID Augmentin. Return if symptoms recur. Discharge Plan Discharge Plan Patient Disposition: Home Discharge orders & Medications Prescriptions: New amoxicillin-pot clavulanate 875-125 mg Tablet 1 tab PO BID Qty: 10 0RF Continued simvastatin 20 MG tablet 20 mg PO BEDTIME Qty: 0 hydrochlorothiazide 25 mg Tablet 25 mg PO DAILY Qty: 0 aspirin [Sadia Low Dose Aspirin] 81 mg Tablet,Delayed Release (Dr/Ec) 81 mg PO BEDTIME Qty: 0 lisinopril [Zestril] 10 MG tablet 10 mg PO BEDTIME Qty: 0 One-A-Day Men's 50 Plus(vit K) 400-20-370 mcg tablet 1 tab PO DAILY Rx Instructions: give with meal/snack cholecalciferol (vitamin D3) 25 mcg (1,000 unit) capsule 25 mcg PO DAILY omega-3 fatty acids [Fish Oil Concentrate] 1,000 mg capsule 2,000 mg PO DAILY acetaminophen 500 mg capsule 500 mg PO Q4H MDD Max 3000 mg per day PRN (Reason: Pain, Mild (1-3)) Qty: 90 0RF oxycodone 5 mg Tablet See Rx Instructions .ROUTE .COMPLEX PRN (Reason: Pain, Severe (7-10)) Qty: 10 0RF Rx Instructions: Take 1-2 tablets by mouth every 4 hours as needed for moderate to severe postop pain ibuprofen 200 mg Capsule 400 mg PO DAILY ibuprofen 200 mg Capsule See Rx Instructions .ROUTE .COMPLEX PRN (Reason: pain) Rx Instructions: 400 mg orally as needed once per day PRN Medication counseling provided by Pharmacist: Yes Follow up/Referrals: Yvette Patton MD [Physician] - (if pain persist or worsens schedule an appointment) Chon Albrecht MD [Primary Care Provider] - 04/03/23 10:45 am (Appt:04/03 @ 10:[address] Albrecht please arrive 15 minutes prior to scheduled appointment time ) Diet/Activity/Treatments Diet: Diet as Tolerated Skin/Wound/Dressing Care Report to your healthcare provider any signs of infection, such as:: chills, fever and increased pain Visit Report/Discharge Packet Instructions: Antibiotics May Be Better Than Appendectomies in Some Cases, Appendicitis, DI for Urinary Tract Infection (UTI), How to Monitor Your Blood Pressure at Home Stand Alone Forms: Patient Portal/API Discharge Data Primary Care Provider: Chon Albrecht Quality VTE Deep Vein Thrombosis/Pulmonary Embolism Present on Admission: No
--- NOTE | 2023-03-27 11:59 | PC.NURSE ---
Discharge note: Discharge instructions given to patient, discussed importance of F/U with Dr. Albrecht on 04/03, antibiotic adherence, and sign/symptoms of worsening infection. Spouse and patient verbalized understanding of instructions. Medication sent to [facility], patient to machine [facility]. Home via private vehicle accompanied by spouse.
--- NOTE | 2023-03-27 16:16 | PC.NURSE ---
Discharge: Pt feels ready to go home. No further abd pain. Tolerates diet w/out problems. 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 Pt is aware he may have a UTI. Current antibiotics will cover until sensitivities are back. Pt has also had a low BP. Systolic in the low 100's most of the time. Has not been on his antihypertensive. He is to follow up with Dr. Albrecht (PCP) about both and an appt has been made. Pt does follow his bp at home. Dc instructions were reviewed with patient by Rona VILLEGAS.
== END 2023-03-27 12:15 | disposition home or self-care (01) | DRG 395 ==
LOC: ED 08:04 → AC 08:04
PROVIDERS: Emergency Medicine; Admitting Provider Surgery; Emergency Provider Emergency Medicine; Family Provider Family Medicine; PCP Family Medicine; Referring Provider Emergency Medicine; Visit Provider Surgery
DX: K35.80 Unspecified acute appendicitis (principal); E78.00 Pure hypercholesterolemia, unspecified; I10 Essential (primary) hypertension; Z87.891 Personal history of nicotine dependence; Z20.822 Contact with and (suspected) exposure to COVID-19
CPT/HCPCS: 36415; 74177; 80053; 81001; 83690; 85025; 87086; 96365; 99221; 99238; 99284; J1644; J2543; Q9967

== ENCOUNTER 2023-06-20 11:57 | Observation (INO) | payer MEDICARE, OTHER, SELFPAY ==
[2023-06-20] VITALS (20 sets, daily range): BP systolic 106–146; BP diastolic 58–94; PULSE 76–85; RESP 17–24; TEMP 37.1–38.2; O2SAT 94–98; BMI 35.9
--- NOTE | 2023-06-20 12:46 | PC.NURSE ---
Patient reports pain with urination, feels like he is getting very little out. Hard to tell if he is retaining i don't have a prostate Patient reports a fever over the last day.
[2023-06-20 12:57] LABS: Add Manual Diff / Slide Review NO; Basophils Absolute Auto 0 /uL (0-100); Basophils Percent Auto 0.4 % (0-2); Eosinophils Absolute Auto 0 /uL (0-450); Eosinophils Percent Auto 0.1 % (2-4); Hematocrit 42.9 % (41-53); Hemoglobin 14.9 g/dL (13.5-17.5); Lymphocytes Absolute Auto 600 /uL (1100-4500); Lymphocytes Percent Auto 5.9 % (25-40); Mean Corpuscular HGB Conc 34.8 % (30-36); Mean Corpuscular Hemoglobin 32.3 PG (26-34); Mean Corpuscular Volume 92.9 fL (80-100); Monocytes Absolute Auto 1000 /uL (0-900); Monocytes Percent Auto 9.3 % (3-14); Neutrophils Absolute Auto 8900 /uL (1500-7000); Neutrophils Percent Auto 84.3 % (50-75); Platelet Count 133 X10^3/uL (150-400); Red Blood Cell Count 4.62 X10^6/uL (4.5-5.9); White Blood Cell Count 10.6 X10^3/uL (4.5-11.0)
[2023-06-20 13:18] LABS: Alanine Aminotransferase 29 IU/L (<50); Albumin 4.3 g/dL (3.5-5.0); Albumin Globulin Ratio 1.3 (1.0-2.8); Alkaline Phosphatase 58 U/L (38-126); Aspartate Aminotransferase 29 IU/L (17-59); Bilirubin Total 0.8 mg/dL (0.2-1.3); Blood Urea Nitrogen 22 mg/dL (9-20); Carbon Dioxide 28 mmol/L (22-32); Chloride 97 mmol/L (98-107); Estimated Glomerular Filt Rate > 60 mL/min (>60); Globulin 3.2 g/dL (1.7-4.1); Glucose 118 mg/dL (80-110); HEMOLYSIS < 15 (0-50); Lipase 82 U/L (23-300); Potassium 3.9 mmol/L (3.4-5.1); Sodium 132 mmol/L (137-145); Total Protein 7.5 g/dL (6.3-8.2)
[2023-06-20 14:11] LABS: Bacteria Urine None Seen; RBC Urine 0-1/HPF (0-5/HPF); Squamous Epithelial Cell Urine None Seen (0-5/HPF); WBC Urine 0-1/HPF (0-5/HPF)
[2023-06-20 14:12] LABS: Mucus Urine 1+ (Negative)
--- NOTE | 2023-06-20 14:18 | DI.CT.S_ITS ---
PROCEDURE: CT KIDNEY URETER BLADDER (KUB) INDICATIONS: ? kidney stone, uti symptoms, fever TECHNIQUE: Axial sections were acquired from the lung bases to the pubic symphysis. Coronal and sagittal reformats were performed. For radiation dose reduction, the following was used: automated exposure control, adjustment of mA and/or kV according to patient size. COMPARISON: [facility], CT, CT ABDOMEN PELVIS W CON, 03/26/2023, 7:19. FINDINGS: Image quality: Good Lower chest: Bibasilar scarring/atelectasis. There may be superimposed reticulation. No pleural effusions. Possible tiny hiatal hernia. Coronary disease. Solid organs: There are liver cysts. Gallbladder is unremarkable. No pathologic dilation of the biliary tree or pancreatic duct. No splenomegaly. No adrenal nodules. No right hydronephrosis. No calcified stone on the right kidney or ureter. 1-2 mm left intrarenal stones are present. There is left urothelial thickening. Mild renal edema is also present. No radiopaque calculus is identified. Previous distal ureter stone on the left is not seen. Mild left pelviectasis and ureter ectasia. Vessels and lymph nodes: Atherosclerotic calcifications. No abdominal aortic aneurysm. No pathologic lymph nodes by size criteria. Bowel and peritoneum: No evidence of small bowel obstruction or drainable abscess. Fat stranding is seen in the left pelvis. Colonic diverticular disease, correlate with age-appropriate colonoscopy results. Body wall: Tiny fat containing umbilical hernia. Pelvis: Bladder is unremarkable. No radiopaque stone is identified. Postsurgical changes at the prostate bed. Bones: Degenerative changes. Left greater right hamstrings origin enthesopathy. Lumbosacral fusion hardware. Rib fractures are seen, nonacute appearing IMPRESSION: Punctate nonobstructing intrarenal calculi in the left kidney. No obstructing calculus is identified, however there is left ureter mild mucosal thickening as well as surrounding fat stranding, mild ureteral ectasia, and mild pelviectasis. Please correlate with urinalysis. This could also represent a passed stone. The distal ureter stone seen on CT in March is not seen on today's study. Other findings as above. Dictated by: Indra Spivey M.D. on 06/20/2023 at 15:03 Approved by: Indra Spivey M.D. on 06/20/2023 at 15:10
--- NOTE | 2023-06-20 15:33 | ED_ITS ---
HPI - Male Genitourinary General Chief complaint: Urogenital-Male Stated complaint: Poss kidney stones Time Seen by Provider: 06/20/23 14:18 Source: patient Mode of arrival: Wheelchair Limitations: no limitations History of Present Illness HPI Narrative: This is a 77-year-old male history of hypertension dyslipidemia, prior prostate cancer who presents with concern for UTI patient states he had dysuria, incontinence urgency and frequency overnight. He states he normally has a little bit of trouble with urine secondary to having his prostate removed from prostate cancer 3-5 years ago but states worse than normal. He is had fevers on and off up to 100 F for the last several days. Was 100.8 F here. Denies chest pain or pressure, no shortness of breath, patient denies any nausea or vomiting. He is had some chills but no rigors. Denies any issues with bowel movements warm stool, no black or bloody stools. States he did have a little bit of left lower abdominal pain that radiated to his left back yesterday has resolved. Patient states that has gone away. He is no longer having abdominal pain. Hi story of prostatectomy for prostate cancer. Allergic to sulfa. No tobacco, alcohol or illicit. Related Data Home Medications Medication Instructions Recorded Confirmed aspirin 81 mg tablet,delayed 81 mg PO BEDTIME ##0 09/03/11 03/26/23 release (Sadia Low Dose Aspirin) hydrochlorothiazide 25 mg tablet 25 mg PO DAILY ##0 09/03/11 03/26/23 lisinopril 10 mg tablet (Zestril) 10 mg PO BEDTIME ##0 09/03/11 03/26/23 simvastatin 20 mg tablet 20 mg PO BEDTIME ##0 09/03/11 03/26/23 cholecalciferol (vitamin D3) 25 25 mcg PO DAILY 10/06/20 03/26/23 mcg (1,000 unit) capsule [id number] acid-vit 1 tab PO DAILY 10/06/20 03/26/23 K-lycop 400 mcg-20 mcg-370 mcg tablet (One-A-Day Men's 50 Plus (with vitamin K)) omega-3 fatty acids 1,000 mg 2,000 mg PO DAILY 10/06/20 03/26/23 capsule (Fish Oil Concentrate) ibuprofen 200 mg capsule 400 mg PO DAILY 03/26/23 03/26/23 ibuprofen 200 mg capsule See Rx Instructions .Route 03/26/23 03/26/23 .COMPLEX PRN pain Previous Rx's Medication Instructions Recorded acetaminophen 500 mg capsule 500 mg PO Q4H PRN Pain, Mild (1-3) 03/22/22 #90 caps oxycodone 5 mg tablet See Rx Instructions .Route 03/22/22 .COMPLEX PRN Pain, Severe (7-10) #10 tabs amoxicillin 875 mg-potassium 1 tab PO BID #10 tabs 03/27/23 clavulanate 125 mg tablet Allergies Allergy/AdvReac Type Severity Reaction Status Date / Time Sulfa (Sulfonamide Allergy Severe ANAPHYLAXIS Verified 03/21/22 07:17 Antibiotics) [SULFA (SULFONAMIDE ANTIBIOTICS)] latex Allergy Mild Rash Verified 03/21/22 07:17 Review of Systems Review of Systems ROS Unobtainable: All systems reviewed & are unremarkable except as noted in HPI and below Patient History Medical History Acute appendicitis Arthritis BCC (basal cell carcinoma) 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) Diverticular disease Dyslipidemia Eczema Hearing impaired History of migraine headaches Hypercholesterolemia Hypertension Kidney stones FRANCISCO on CPAP Pre-diabetes Prostate cancer (2009) Pyelonephritis SCC (squamous cell carcinoma) Skin cancer Spinal stenosis of lumbar region ELIANA (stress urinary incontinence), male TGA (transient global amnesia) (1999) TIA (transient ischemic attack) (1990) TMJ (temporomandibular joint disorder) Surgical History History of surgical removal of pilonidal cyst Hx of arthroscopy of left knee Hx of arthroscopy of right knee Hx of bilateral cataract extraction Hx of prostatectomy (~2009) Hx of repair of left rotator cuff Hx of tonsillectomy Family History Father Cancer Hyperlipidemia Kidney stones Hearing impaired Brother Cancer Migraines Mother Aneurysm Hypertension Social History marital status: number of children: 6 household members: spouse occupational status: previously employed Smoking Status: Former smoker alcohol intake: current caffeine: No additional social history: 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 Smoking Status: Former smoker alcohol intake frequency: a few times a month Substance Use Type: does not use Exam Narrative Exam Narrative: GENERAL: Alert and oriented x three, elderly male in mild distress. HEENT: Head normocephalic, atraumatic, EOMI, pupils reactive, face symmetric, moist mucous membranes NECK: Supple, full range of motion CARDIOVASCULAR: Regular rate and rhythm without murmurs, rubs or gallops. No JVD. No swelling bilateral lower extremities. RESPIRATORY: Breath sounds equal bilaterally, no wheezes rales or rhonchi. No tachypnea or accessory muscle use. ABDOMEN: Soft, nontender. Nondistended. Normoactive bowel sounds all 4 quadrants. No guarding or rebound, rigidity, no mass : No CVA tenderness EXTREMITIES: Normal range of motion, no clubbing or edema. Neurovascularly intact NEUROLOGICAL: Cranial nerves II through XII grossly intact. Moving all extremities SKIN: Warm, dry, no petechiae, no rashes or lesions. Initial Vital Signs Initial Vital Signs: Vital Signs Temperature 100.8 F H 06/20/23 12:15 Pulse Rate 85 06/20/23 12:15 Respiratory Rate 18 06/20/23 12:15 Blood Pressure 138/68 06/20/23 12:15 Pulse Oximetry 97 06/20/23 12:15 Oxygen Delivery Method Room Air 06/20/23 12:15 Course Orders Ordered: ED Orders 06/20/23 12:43 Complete Blood Count AUTO DIFF Stat Comprehensive Metabolic Panel Stat Lipase Stat 06/20/23 13:15 Urine Microscopic Stat 06/20/23 14:07 EKG-12 Lead Stat 06/20/23 14:18 CT kidney ureter bladder (KUB) Stat 06/20/23 16:04 Urine Culture Stat 06/20/23 16:50 Blood Culture Stat Lactate (Lactic Acid) Stat Procalcitonin Stat 06/20/23 18:02 Consult to Physical Therapy Evaluate & Treat 06/21/23 05:00 Complete Blood Count AUTO DIFF Routine Comprehensive Metabolic Panel Routine Acetaminophen (Acetaminophen 325 Mg Tablet) 650 mg PO Q6H PRN PRN Reason: Fever/Mild Pain (1-3) Aspirin (Aspirin Ec 81 Mg Tablet) 81 mg PO BEDTIME JORGE Atorvastatin Calcium (Atorvastatin 20 Mg Tablet) 10 mg PO BEDTIME JORGE Enoxaparin Sodium (Enoxaparin 40 Mg/0.4 Ml Syringe) 40 mg SUBCUT DAILY JORGE Hydromorphone HCl (Hydromorphone 0.5 Mg Inj) 0.5 mg IV Q2H PRN PRN Reason: Pain, Severe (7-10) Sodium Chloride (Normal Saline 0.9%) 1,000 mls @ 100 mls/hr IV CONT JORGE Naloxone HCl (Naloxone 0.4 Mg/Ml Vial) 0.2 mg IV Q2MIN PRN PRN Reason: Opiate Reversal Ondansetron HCl (Ondansetron 4 Mg/2 Ml Inj) 4 mg IV Q6HR PRN PRN Reason: Nausea And Vomiting Oxycodone HCl (Oxycodone Ir 5 Mg Tablet) 5 mg PO Q3H PRN PRN Reason: Pain, Moderate (4-6) Discontinued Medications Ceftriaxone Sodium 2,000 mg/ (Sodium Chloride) 100 mls @ 200 mls/hr IV NOW ONE Stop: 06/20/23 16:05 Last Infusion: 06/20/23 17:01 Dose: 0 mls/hr Documented By: Admin: 06/20/23 16:26 Dose: 200 mls/hr Documented By: ABRIL Sodium Chloride (Normal Saline 0.9%) 1,000 mls @ 150 mls/hr IV CONT JORGE Last Infusion: 06/20/23 17:59 Dose: 150 mls/hr Documented By: Admin: 06/20/23 16:43 Dose: 150 mls/hr Documented By: ABRIL Ondansetron HCl (Ondansetron 4 Mg Odt) 4 mg PO NOW PRN PRN Reason: Nausea And Vomiting Ondansetron HCl (Ondansetron 4 Mg/2 Ml Inj) 4 mg IV NOW PRN PRN Reason: Nausea And Vomiting Vital Signs Vital signs: Vital Signs - 8 hr 06/20/23 12:15 06/20/23 12:37 06/20/23 12:37 Temperature 100.8 F H Pulse Rate 85 82 Respiratory Rate 18 Blood Pressure 138/68 133/60 Pulse Oximetry 97 94 Oxygen Delivery Method Room Air 06/20/23 13:00 06/20/23 13:00 06/20/23 13:30 Temperature Pulse Rate 85 Respiratory Rate 24 Blood Pressure 125/94 H 127/58 L Pulse Oximetry Oxygen Delivery Method 06/20/23 13:30 06/20/23 14:00 06/20/23 14:00 Temperature Pulse Rate 78 79 Respiratory Rate 24 24 Blood Pressure 132/58 L Pulse Oximetry Oxygen Delivery Method 06/20/23 14:36 06/20/23 14:41 06/20/23 14:40 Temperature 98.9 F Pulse Rate 80 79 Respiratory Rate 24 Blood Pressure Pulse Oximetry 95 95 Oxygen Delivery Method 06/20/23 14:40 06/20/23 15:00 06/20/23 15:00 Temperature Pulse Rate 80 Respiratory Rate 24 Blood Pressure 132/66 140/62 Pulse Oximetry 98 Oxygen Delivery Method 06/20/23 15:30 06/20/23 15:30 06/20/23 16:04 Temperature 99.6 F Pulse Rate 80 Respiratory Rate 24 Blood Pressure 132/61 Pulse Oximetry 96 Oxygen Delivery Method 06/20/23 16:00 06/20/23 16:00 06/20/23 16:23 Temperature Pulse Rate 81 85 Respiratory Rate 24 Blood Pressure 135/70 Pulse Oximetry 95 95 Oxygen Delivery Method 06/20/23 16:23 06/20/23 16:30 06/20/23 16:30 Temperature Pulse Rate 82 Respiratory Rate Blood Pressure 122/73 117/75 Pulse Oximetry 94 Oxygen Delivery Method 06/20/23 16:44 06/20/23 17:00 Temperature Pulse Rate 81 Respiratory Rate Blood Pressure 127/69 Pulse Oximetry 95 Oxygen Delivery Method MDM - Male Genitourinary Lab Data 06/20/23 12:43 06/20/23 12:43 Labs: Lab Results 06/20/23 06/20/23 06/20/23 Range/Units 12:43 12:43 13:15 WBC 10.6 (4.5-11.0) X10^3/uL RBC 4.62 (4.5-5.9) X10^6/uL Hgb 14.9 (13.5-17.5) g/dL Hct 42.9 (41-53) % MCV 92.9 (80-100) fL MCH 32.3 (26-34) PG MCHC 34.8 (30-36) % RDW 14.0 (11.6-14.8) % Plt Count 133 L (150-400) X10^3/uL Neut % (Auto) 84.3 H (50-75) % Lymph % (Auto) 5.9 L (25-40) % [place] % (Auto) 9.3 (3-14) % Eos % (Auto) 0.1 L (2-4) % Baso % (Auto) 0.4 (0-2) % Neut # (Auto) 8900 H (5706-3868) /uL Lymph # (Auto) 600 L (5392-5412) /uL [place] # (Auto) 1000 H (0-900) /uL Eos # (Auto) 0 (0-450) /uL Baso # (Auto) 0 (0-100) /uL Sodium 132 L (137-145) mmol/L Potassium 3.9 (3.4-5.1) mmol/L Chloride 97 L (98-107) mmol/L Carbon Dioxide 28 (22-32) mmol/L BUN 22 H (9-20) mg/dL Creatinine 1.16 (0.66-1.25) mg/dL Estimated GFR > 60 (>60) mL/min BUN/Creatinine Ratio 19.0 (6-22) Glucose 118 H (80-110) mg/dL Lactate (0.7-2.1) mmol/L Calcium 9.0 (8.4-10.2) mg/dL Total Bilirubin 0.8 (0.2-1.3) mg/dL AST 29 (17-59) IU/L ALT 29 (<50) IU/L Alkaline Phosphatase 58 (38-126) U/L Total Protein 7.5 (6.3-8.2) g/dL Albumin 4.3 (3.5-5.0) g/dL Globulin 3.2 (1.7-4.1) g/dL Albumin/Globulin Ratio 1.3 (1.0-2.8) Lipase 82 (23-300) U/L Procalcitonin (<0.5) ng/mL Urine RBC 0-1/hpf (0-5/HPF) Urine WBC 0-1/hpf (0-5/HPF) Ur Squamous Epith Cells None seen (0-5/HPF) Urine Bacteria None seen (None) Urine Mucus 1+ H (Negative) 06/20/23 06/20/23 Range/Units 16:50 16:50 WBC (4.5-11.0) X10^3/uL RBC (4.5-5.9) X10^6/uL Hgb (13.5-17.5) g/dL Hct (41-53) % MCV (80-100) fL MCH (26-34) PG MCHC (30-36) % RDW (11.6-14.8) % Plt Count (150-400) X10^3/uL Neut % (Auto) (50-75) % Lymph % (Auto) (25-40) % [place] % (Auto) (3-14) % Eos % (Auto) (2-4) % Baso % (Auto) (0-2) % Neut # (Auto) (3531-2502) /uL Lymph # (Auto) (6953-1583) /uL [place] # (Auto) (0-900) /uL Eos # (Auto) (0-450) /uL Baso # (Auto) (0-100) /uL Sodium (137-145) mmol/L Potassium (3.4-5.1) mmol/L Chloride (98-107) mmol/L Carbon Dioxide (22-32) mmol/L BUN (9-20) mg/dL Creatinine (0.66-1.25) mg/dL Estimated GFR (>60) mL/min BUN/Creatinine Ratio (6-22) Glucose (80-110) mg/dL Lactate 2.0 (0.7-2.1) mmol/L Calcium (8.4-10.2) mg/dL Total Bilirubin (0.2-1.3) mg/dL AST (17-59) IU/L ALT (<50) IU/L Alkaline Phosphatase (38-126) U/L Total Protein (6.3-8.2) g/dL Albumin (3.5-5.0) g/dL Globulin (1.7-4.1) g/dL Albumin/Globulin Ratio (1.0-2.8) Lipase (23-300) U/L Procalcitonin 0.28 (<0.5) ng/mL Urine RBC (0-5/HPF) Urine WBC (0-5/HPF) Ur Squamous Epith Cells (0-5/HPF) Urine Bacteria (None) Urine Mucus (Negative) Urine Dip Bedside Urine Glucose Negative Bedside Urine Bilirubin - Negative Bedside Urine Ketone - Negative Urine Specific [place] 1.015 Bedside Urine Occult Blood ++ Bedside Urine pH 5.5 Bedside Urine Protein - Negative Bedside Urine Urobilinogen - Negative Bedside Urine Nitrite - Negative Bedside Urine Leukocytes - Negative Esterase Imaging Data CT scan - abdomen/pelvis: Radiologist's Impression: [address] [address] [address] Scan Report Signed Patient: Leslie Bello V MR#: [id number] : 1945 Acct:[id number] Age/Sex: 77 / M Date of Service: 06/20/23 Loc: ED Accession Number: [id number] ?? Procedure: CT kidney ureter bladder (KUB) Ordering Provider: Amy Pardo D.O. PROCEDURE:? CT KIDNEY URETER BLADDER (KUB) ? INDICATIONS:? ? kidney stone, uti symptoms, fever ? TECHNIQUE:? Axial sections were acquired from the lung bases to the pubic symphysis.? Coronal and sagittal reformats were performed.? For radiation dose reduction, the following was used: ?automated exposure control, adjustment of mA and/or kV according to patient size.? ? COMPARISON:? Located [facility], CT, CT ABDOMEN PELVIS W CON, 03/26/2023, 7:19. ? FINDINGS:? Image quality:? Good ? Lower chest:? Bibasilar scarring/atelectasis.? There may be superimposed reticulation.? No pleural effusions.? Possible tiny hiatal hernia.? Coronary disease. ? Solid organs:? There are liver cysts.? Gallbladder is unremarkable.? No pa thologic dilation of the biliary tree or pancreatic duct.? No splenomegaly.? No adrenal nodules. ? No right hydronephrosis.? No calcified stone on the right kidney or ureter.? ? 1-2 mm left intrarenal stones are present.? There is left urothelial thickening.? Mild renal edema is also present.? No radiopaque calculus is identified.? Previous distal ureter stone on the left is not seen.? Mild left pelviectasis and ureter ectasia. ? Vessels and lymph nodes:? Atherosclerotic calcifications.? No abdominal aortic aneurysm.? No pathologic lymph nodes by size criteria. ? Bowel and peritoneum:? No evidence of small bowel obstruction or drainable abscess.? Fat stranding is seen in the left pelvis.? Colonic diverticular disease, correlate with age-appropriate colonoscopy results. ? Body wall:? Tiny fat containing umbilical hernia. ? Pelvis:? Bladder is unremarkable.? No radiopaque stone is identified.? Postsurgical changes at the prostate bed. ? Bones:? Degenerative changes.? Left greater right hamstrings origin enthesopathy.? Lumbosacral fusion hardware.? Rib fractures are seen, nonacute appearing ? IMPRESSION:? Punctate nonobstructing intrarenal calculi in the left kidney.? No obstructing c alculus is identified, however there is left ureter mild mucosal thickening as well as surrounding fat stranding, mild ureteral ectasia, and mild pelviectasis.? Please correlate with urinalysis.? This could also represent a passed stone.? The distal ureter stone seen on CT in March is not seen on today's study. ? Other findings as above.? ? ? Dictated by: Indra Spivey M.D. on 06/20/2023 at 15:03 ? ? Approved by: Indra Spivey M.D. on 06/20/2023 at 15:10?? ECG Data Attestation: I personally reviewed and interpreted this ECG as follows: Interpretation: Sinus rhythm rate of 79 [place] 186 QRS 98 QTC 412. No acute ST elevation or depression. MDM Narrative Medical decision making narrative: 77-year-old male who comes in with complaint left flank pain that has since improved. Patient felt very weak this morning had quite a bit of difficulty getting out of bed. Describes dysuria, some new incontinence urgency and frequency, he would a temperature of a 100.8? here initially. No other symptoms or complaints but did have some left flank pain yesterday that resolved. Patient's white count 10, hemoglobin of 14 platelets 1 3 3, creatinine is 1.16 appears consistent with priors, BUN 22, glucose and electrolytes are normal, urine shows no nitrates or leuks, positive for blood, no bacteria. But does have clinical symptoms. CT KUB shows calculi in the kidney but nothing in the ureter, there is some mild stranding changes could be secondary to a passed stone versus UTI. Prior distal stone on March CT has gotten. Patient is no longer febrile here in the department. He had Zofran but no other interventions. Was given a dose of Rocephin. On ambulation trial patient failed. Had significant difficulty even getting out of bed. Patient covered with a dose of Rocephin, no 30 cc/kilos bolus as he does not appear to meet septic criteria is no longer afebrile. Discussed with Dr. Cabrera who is covering for Dr. Albrecht, accepts for observation. Did add on lactate, blood cultures and procalcitonin but so patient is very clinically stable. Patient seen by Dr. Cabrera in the department. Discharge Plan Departure Patient Disposition: Admitted as Observation Clinical Impression: Acute UTI, Weakness Admit Date/Time: 06/20/23 17:16 Admit Provider: Eran Cabrera
[2023-06-20] MEDS: cefTRIAXone 2,000 MG in SODIUM CHLORIDE 0.9% 100 ML 200 MG IV (16:26)
--- NOTE | 2023-06-20 16:26 | PC.NURSE ---
SENIOR FINANCIAL CONSULTANT Note - Patient was too weak to sit up on his own starting laying down. Patient also too weak to sit straight up on his own.
[2023-06-20] MEDS: SODIUM CHLORIDE 0.9% 1,000 ML 150 ML IV (16:43)
--- NOTE | 2023-06-20 17:36 | P.HP_ITS ---
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 However also having some urinary frequency which is also not uncommon with his kidney stones. Had some pain and burning and also had fever. He also describes profound weakness over the last 48 hours or so to the point where really could not get up out of bed on his own in his been unable to do so here in the ER Denies any cough shortness of breath no change in appetite no nausea no vomiting no change in bowels ER evaluation unremarkable for the most part. CBC shows normal white blood cell count, chemistries pretty much unremarkable. 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) Diverticular disease Dyslipidemia Eczema Hearing impaired History of migraine headaches Hypercholesterolemia Hypertension Kidney stones FRANCISCO on CPAP Pre-diabetes Prostate cancer (2009) Pyelonephritis SCC (squamous cell carcinoma) Skin cancer Spinal stenosis of lumbar region ELIANA (stress urinary incontinence), male TGA (transient global amnesia) (1999) TIA (transient ischemic attack) (1990) TMJ (temporomandibular joint disorder) Surgical History History of surgical removal of pilonidal cyst Hx of arthroscopy of left knee Hx of arthroscopy of right knee Hx of bilateral cataract extraction Hx of prostatectomy (~2009) Hx of repair of left rotator cuff Hx of tonsillectomy Family History Father Cancer Hyperlipidemia Kidney stones Hearing impaired Brother Cancer Migraines Mother Aneurysm Hypertension Social History marital status: number of children: 6 household members: spouse occupational status: previously employed Smoking Status: Former smoker alcohol intake: current caffeine: No additional social history: 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 Meds Home Medications and Allergies Home Medications Medication Instructions Recorded Confirmed Type aspirin 81 mg tablet,delayed 81 mg PO BEDTIME ##0 09/03/11 03/26/23 History release (Sadia Low Dose Aspirin) hydrochlorothiazide 25 mg tablet 25 mg PO DAILY ##0 09/03/11 03/26/23 History lisinopril 10 mg tablet (Zestril) 10 mg PO BEDTIME ##0 09/03/11 03/26/23 History simvastatin 20 mg tablet 20 mg PO BEDTIME ##0 09/03/11 03/26/23 History cholecalciferol (vitamin D3) 25 25 mcg PO DAILY 10/06/20 03/26/23 History mcg (1,000 unit) capsule aljdpcifynxa-mio-dfeka acid-vit 1 tab PO DAILY 10/06/20 03/26/23 History K-lycop 400 mcg-20 mcg-370 mcg tablet (One-A-Day Men's 50 Plus (with vitamin K)) omega-3 fatty acids 1,000 mg 2,000 mg PO DAILY 10/06/20 03/26/23 History capsule (Fish Oil Concentrate) acetaminophen 500 mg capsule 500 mg PO Q4H PRN Pain, Mild (1-3) 03/22/22 03/26/23 Rx #90 caps oxycodone 5 mg tablet See Rx Instructions .Route 03/22/22 03/26/23 Rx .COMPLEX PRN Pain, Severe (7-10) #10 tabs ibuprofen 200 mg capsule 400 mg PO DAILY 03/26/23 03/26/23 History ibuprofen 200 mg capsule See Rx Instructions .Route 03/26/23 03/26/23 History .COMPLEX PRN pain amoxicillin 875 mg-potassium 1 tab PO BID #10 tabs 03/27/23 Rx clavulanate 125 mg tablet Allergies Allergy/AdvReac Type Severity Reaction Status Date / Time Sulfa (Sulfonamide Allergy Severe ANAPHYLAXIS Verified 03/21/22 07:17 Antibiotics) [SULFA (SULFONAMIDE ANTIBIOTICS)] latex Allergy Mild Rash Verified 03/21/22 07:17 Review of Systems Review of Systems ROS: Yes All systems reviewed with the patient and are negative except as otherwise documented Exam Vital Signs (past 8 hours): - 06/20/23 12:15 06/20/23 12:37 06/20/23 12:37 Temperature 100.8 F H Pulse Rate 85 82 Respiratory Rate 18 Blood Pressure 138/68 133/60 Pulse Oximetry 97 94 Oxygen Delivery Method Room Air 06/20/23 13:00 06/20/23 13:00 06/20/23 13:30 Temperature Pulse Rate 85 Respiratory Rate 24 Blood Pressure 125/94 H 127/58 L Pulse Oximetry Oxygen Delivery Method 06/20/23 13:30 06/20/23 14:00 06/20/23 14:00 Temperature Pulse Rate 78 79 Respiratory Rate 24 24 Blood Pressure 132/58 L Pulse Oximetry Oxygen Delivery Method 06/20/23 14:36 06/20/23 14:41 06/20/23 14:40 Temperature 98.9 F Pulse Rate 80 79 Respiratory Rate 24 Blood Pressure Pulse Oximetry 95 95 Oxygen Delivery Method 06/20/23 14:40 06/20/23 15:00 06/20/23 15:00 Temperature Pulse Rate 80 Respiratory Rate 24 Blood Pressure 132/66 140/62 Pulse Oximetry 98 Oxygen Delivery Method 06/20/23 15:30 06/20/23 15:30 06/20/23 16:04 Temperature 99.6 F Pulse Rate 80 Respiratory Rate 24 Blood Pressure 132/61 Pulse Oximetry 96 Oxygen Delivery Method Oxygen Delivery Method Room Air Narrative Exam Narrative: Non acutely ill-appearing male lying on a [facility] emergency department. He actually recognizes me before I recognize him. HEENT unremarkable Neck-no lymphadenopathy no bruits Lungs-clear anteriorly and posteriorly no wheezes or crackles Heart-regular rate and rhythm no murmur rub or gallop Abdomen-benign positive bowel tones soft nontender nondistended no organomegaly Back-no tenderness no flank pain Extremities-no cyanosis clubbing or edema Neuro-no focal findings, gait not tested. Objective Labs 06/20/23 12:43 06/20/23 12:43 Labs: Laboratory Results - last 24 hr 06/20/23 06/20/23 06/20/23 12:43 12:43 13:15 WBC 10.6 RBC 4.62 Hgb 14.9 Hct 42.9 MCV 92.9 MCH 32.3 MCHC 34.8 RDW 14.0 Plt Count 133 L Neut % (Auto) 84.3 H Lymph % (Auto) 5.9 L [place] % (Auto) 9.3 Eos % (Auto) 0.1 L Baso % (Auto) 0.4 Neut # (Auto) 8900 H Lymph # (Auto) 600 L [place] # (Auto) 1000 H Eos # (Auto) 0 Baso # (Auto) 0 Sodium 132 L Potassium 3.9 Chloride 97 L Carbon Dioxide 28 BUN 22 H Creatinine 1.16 Estimated GFR > 60 BUN/Creatinine Ratio 19.0 Glucose 118 H Lactate Calcium 9.0 Total Bilirubin 0.8 AST 29 ALT 29 Alkaline Phosphatase 58 Total Protein 7.5 Albumin 4.3 Globulin 3.2 Albumin/Globulin Ratio 1.3 Lipase 82 Urine RBC 0-1/hpf Urine WBC 0-1/hpf Ur Squamous Epith Cells None seen Urine Bacteria None seen Urine Mucus 1+ H 06/20/23 16:50 WBC RBC Hgb Hct MCV MCH MCHC RDW Plt Count Neut % (Auto) Lymph % (Auto) [place] % (Auto) Eos % (Auto) Baso % (Auto) Neut # (Auto) Lymph # (Auto) [place] # (Auto) Eos # (Auto) Baso # (Auto) Sodium Potassium Chloride Carbon Dioxide BUN Creatinine Estimated GFR BUN/Creatinine Ratio Glucose Lactate 2.0 Calcium Total Bilirubin AST ALT Alkaline Phosphatase Total Protein Albumin Globulin Albumin/Globulin Ratio Lipase Urine RBC Urine WBC Ur Squamous Epith Cells Urine Bacteria Urine Mucus Assessment & Plan Assessment & Plan narrative: 1. Possible UTI-patient with febrile illness of some sore with symptoms consistent with probable urinary tract source of infection. Also probably recently passed a stone and perhaps he is ?flushing his infection out ?which is why his urinalysis is normal. In any event he did receive a dose of IV ceftriaxone in the ER and will continue monitor clinically to see if there is need for continued antibiotic therapy. No other source of infection identified at this time based on clinical history as well as exam 2. Kidney stone-patient most likely passed a kidney stone which is a source of his left flank and groin discomfort. That may have caused some sort giyy-ex-yquifpel obstruction with some element of infection which is now resolved/resolving. 3. Weakness-a bit mysterious why patient is so globally weak, but not entirely uncommon in more elderly patients with urinary tract source of infection. Hopefully with the antibiotics time and some gentle IV fluids his strength will return. I will have Physical therapy see him as well 4. Hypertension-going to hold patient's lisinopril and hydrochlorothiazide for now but re-evaluate blood pressures overnight and may need to resume that tomorrow 5. Hyperlipidemia-continue simvastatin 6. Code status-patient requests full code in the event of a sudden cardiac or respiratory arrest which is entirely appropriate. Arrest is not anticipate any way shape or form at this time, and that is discussed with patient. 7. VTE prophylaxis-Lovenox entirely appropriate and ordered. SCDs also appropriate and ordered.
[2023-06-20 17:51] LABS: Procalcitonin 0.28 ng/mL (<0.5)
[2023-06-20] MEDS: SODIUM CHLORIDE 0.9% 1,000 ML 100 ML IV (18:15)
[2023-06-20] MEDS: ATORVASTATIN 20 MG TABLET 10 MG PO (21:02)
[2023-06-20] MEDS: ASPIRIN EC 81 MG TABLET PO (21:03)
[2023-06-20] MEDS: ACETAMINOPHEN 325 MG TABLET 650 MG PO (21:04)
[2023-06-21] VITALS (9 sets, daily range): BP systolic 109–151; BP diastolic 55–80; PULSE 69–79; RESP 17–24; TEMP 36.8–37.9; O2SAT 93–97
[2023-06-21] MEDS: SODIUM CHLORIDE 0.9% 1,000 ML 100 ML IV ×2 (01:49→12:35)
[2023-06-21 06:01] LABS: Add Manual Diff / Slide Review NO; Basophils Absolute Auto 0 /uL (0-100); Basophils Percent Auto 0.5 % (0-2); Eosinophils Absolute Auto 0 /uL (0-450); Eosinophils Percent Auto 0.5 % (2-4); Hematocrit 40.7 % (41-53); Hemoglobin 13.9 g/dL (13.5-17.5); Lymphocytes Absolute Auto 900 /uL (1100-4500); Lymphocytes Percent Auto 12.6 % (25-40); Mean Corpuscular HGB Conc 34.2 % (30-36); Mean Corpuscular Hemoglobin 31.5 PG (26-34); Mean Corpuscular Volume 92.1 fL (80-100); Monocytes Absolute Auto 900 /uL (0-900); Neutrophils Absolute Auto 5300 /uL (1500-7000); Neutrophils Percent Auto 73.4 % (50-75); Platelet Count 114 X10^3/uL (150-400); Red Blood Cell Count 4.43 X10^6/uL (4.5-5.9); White Blood Cell Count 7.2 X10^3/uL (4.5-11.0)
[2023-06-21 06:11] LABS: Alanine Aminotransferase 27 IU/L (<50); Albumin 3.6 g/dL (3.5-5.0); Albumin Globulin Ratio 1.2 (1.0-2.8); Alkaline Phosphatase 51 U/L (38-126); Aspartate Aminotransferase 30 IU/L (17-59); BUN Creatinine Ratio 18.2 (6-22); Bilirubin Total 0.5 mg/dL (0.2-1.3); Blood Urea Nitrogen 20 mg/dL (9-20); Calcium 8.1 mg/dL (8.4-10.2); Carbon Dioxide 27 mmol/L (22-32); Chloride 100 mmol/L (98-107); Estimated Glomerular Filt Rate > 60 mL/min (>60); Globulin 3.1 g/dL (1.7-4.1); Glucose 108 mg/dL (80-110); HEMOLYSIS < 15 (0-50); Potassium 3.5 mmol/L (3.4-5.1); Sodium 134 mmol/L (137-145); Total Protein 6.7 g/dL (6.3-8.2)
[2023-06-21] MEDS: ENOXAPARIN 40 MG/0.4 ML SYRINGE SUBCUT (08:32)
--- NOTE | 2023-06-21 09:03 | PM.PN.1 ---
Subjective Subjective Date Patient Seen: 06/21/23 Time Patient Seen: 09:04 Interval history: Met with patient. Reviewed ER note and workup. Reviewed Dr. Cabrera's note. Review clinic note. Patient feeling much better today. Three day history of dysuria and then on Saturday morning when was unable to get out of bed but did not come in to the clinic until morning. No nausea or vomiting. Temperature was as high as 100?. No abdominal pain. Patient recently admitted with acute appendicitis and treated with IV antibiotics Past surgical history Prostatectomy for prostate cancer 12 years ago Lumbar fusion 1 year ago Bilateral knee arthroscopies Exam Vital Signs (past 8 hours): - 06/21/23 08:00 06/21/23 08:18 Temperature 99.2 F Pulse Rate 71 Respiratory Rate 17 Blood Pressure 125/60 Pulse Oximetry 97 96 Oxygen Delivery Method Room Air Oxygen Flow Rate 0 0 Oxygen Delivery Method Room Air Oxygen Flow Rate 0 Narrative Exam Narrative: Afebrile vital signs are stable HEENT is unremarkable Neck supple Chest: Clear to auscultation without wheezes rhonchi or crackles Cor regular rate and rhythm with distant S1-S2 Abdomen: Positive bowel sounds, soft, nontender, nondistended Extremities no edema, pulses intact Neurologic exam nonfocal Objective Labs 06/21/23 05:17 06/21/23 05:17 Labs: Laboratory Results - last 24 hr 06/20/23 06/20/23 06/20/23 12:43 12:43 13:15 WBC 10.6 RBC 4.62 Hgb 14.9 Hct 42.9 MCV 92.9 MCH 32.3 MCHC 34.8 RDW 14.0 Plt Count 133 L Neut % (Auto) 84.3 H Lymph % (Auto) 5.9 L [place] % (Auto) 9.3 Eos % (Auto) 0.1 L Baso % (Auto) 0.4 Neut # (Auto) 8900 H Lymph # (Auto) 600 L [place] # (Auto) 1000 H Eos # (Auto) 0 Baso # (Auto) 0 Sodium 132 L Potassium 3.9 Chloride 97 L Carbon Dioxide 28 BUN 22 H Creatinine 1.16 Estimated GFR > 60 BUN/Creatinine Ratio 19.0 Glucose 118 H Lactate Calcium 9.0 Total Bilirubin 0.8 AST 29 ALT 29 Alkaline Phosphatase 58 Total Protein 7.5 Albumin 4.3 Globulin 3.2 Albumin/Globulin Ratio 1.3 Lipase 82 Procalcitonin Urine RBC 0-1/hpf Urine WBC 0-1/hpf Ur Squamous Epith Cells None seen Urine Bacteria None seen Urine Mucus 1+ H 06/20/23 06/20/23 06/21/23 16:50 16:50 05:17 WBC 7.2 RBC 4.43 L Hgb 13.9 Hct 40.7 L MCV 92.1 MCH 31.5 MCHC 34.2 RDW 14.0 Plt Count 114 L Neut % (Auto) 73.4 Lymph % (Auto) 12.6 L [place] % (Auto) 13.0 Eos % (Auto) 0.5 L Baso % (Auto) 0.5 Neut # (Auto) 5300 Lymph # (Auto) 900 L [place] # (Auto) 900 Eos # (Auto) 0 Baso # (Auto) 0 Sodium Potassium Chloride Carbon Dioxide BUN Creatinine Estimated GFR BUN/Creatinine Ratio Glucose Lactate 2.0 Calcium Total Bilirubin AST ALT Alkaline Phosphatase Total Protein Albumin Globulin Albumin/Globulin Ratio Lipase Procalcitonin 0.28 Urine RBC Urine WBC Ur Squamous Epith Cells Urine Bacteria Urine Mucus 06/21/23 05:17 WBC RBC Hgb Hct MCV MCH MCHC RDW Plt Count Neut % (Auto) Lymph % (Auto) [place] % (Auto) Eos % (Auto) Baso % (Auto) Neut # (Auto) Lymph # (Auto) [place] # (Auto) Eos # (Auto) Baso # (Auto) Sodium 134 L Potassium 3.5 Chloride 100 Carbon Dioxide 27 BUN 20 Creatinine 1.10 Estimated GFR > 60 BUN/Creatinine Ratio 18.2 Glucose 108 Lactate Calcium 8.1 L Total Bilirubin 0.5 AST 30 ALT 27 Alkaline Phosphatase 51 Total Protein 6.7 Albumin 3.6 Globulin 3.1 Albumin/Globulin Ratio 1.2 Lipase Procalcitonin Urine RBC Urine WBC Ur Squamous Epith Cells Urine Bacteria Urine Mucus [facility] Medical History Acute appendicitis Arthritis BCC (basal cell carcinoma) 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) Diverticular disease Dyslipidemia Eczema Hearing impaired History of migraine headaches Hypercholesterolemia Hypertension Kidney stones FRANCISCO on CPAP Pre-diabetes Prostate cancer (2009) Pyelonephritis SCC (squamous cell carcinoma) Skin cancer Spinal stenosis of lumbar region ELIANA (stress urinary incontinence), male TGA (transient global amnesia) (1999) TIA (transient ischemic attack) (1990) TMJ (temporomandibular joint disorder) Surgical History History of surgical removal of pilonidal cyst Hx of arthroscopy of left knee Hx of arthroscopy of right knee Hx of bilateral cataract extraction Hx of prostatectomy (~2009) Hx of repair of left rotator cuff Hx of tonsillectomy Family History Father Cancer Hyperlipidemia Kidney stones Hearing impaired Brother Cancer Migraines Mother Aneurysm Hypertension Social History marital status: number of children: 6 household members: spouse occupational status: previously employed Smoking Status: Former smoker alcohol intake: current caffeine: No additional social history: 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 Assessment & Plan Assessment & Plan narrative: 77-year-old male admitted with suspicion for urinary tract infection with global weakness, dehydration and fever. Urine culture and blood cultures are pending. Plan: Will continue IV antibiotics and IV fluids but decrease the rate. Will discuss findings on CT scan with Urology. Radiology thinks that he could have passed a stone or this could be infection related. This is on the left side. I do not think related to his previous appendicitis. He is not having any abdominal pain or stool changes. Will have Physical therapy see him today. Assessment 2. Hypertension Plan: Will start lisinopril. Blood pressure was elevated last night. Will hold hydrochlorothiazide for now Assessment 3. Hyperlipidemia Plan: Continue outpatient statin Assessment 4. History of prostate cancer without obvious symptoms Assessment 5. Nephrolithiasis. Unclear if this is contributing. Will discuss with Urology Assessment 6. DVT prophylaxis Plan: Continue Lovenox Code status is full code Disposition: Anticipate discharge to home pending on how he does tomorrow or the following day 55 minutes was spent with patient and reviewing chart and discussing with physician and formulating a plan and documentation
[2023-06-21] MEDS: lisinopriL 10 MG TABLET PO (09:13)
[2023-06-21] MEDS: ACETAMINOPHEN 325 MG TABLET 650 MG PO ×2 (10:11→17:59)
--- NOTE | 2023-06-21 10:38 | CM.DANOTE ---
DCP: Case received, EMR reviewed and met with patient. Introduced self and role. Was able to obtain information regarding patient's baseline activity prior to hospital admission. DCP assessment completed with information currently available. Patient is a 77 year old male who admitted yesterday afternoon to the care of the hospitalist team. PCP: Dr. Albrecht. Payer: confirmed: Medicare/ for Life. Patient came to the hospital via private vehicle secondary to having dysuria, incontinence urgency. Patient has history of prior prostate cancer, and a prostatectomy. Patient was noted to have a fever of 100. Patient has also complained of flank back pain. Patient was noted to have UTI, likely a recently passed kidney stone. Patient was initiated on IV ABO. Patient was also noting weakness, and P.T. was ordered. 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 Met with patient in his room. He is pleasant, alert. Stated, he was already feeling better. Confirmed that he resides here in [place] with spouse, Araceli. He is independent at his baseline. P: DCP to continue to follow. Patient will be working with P.T. Urine and blood cultures are pending. Patient should be able to go home when deemed medically stable, provider mentioned could be tomorrow. Heather Maurer RN/Ware Cleaner Discharge Planning/Care Management CM Discharge Assessment Start: 06/21/23 10:37 Freq: Status: Active Protocol: Document 06/21/23 10:37 (Rec: 06/21/23 10:38 [id number]) Discharge Planning Assessment Assigned Dandy Operator Heather Maurer RN/Ware Cleaner Advance Directives? No: Currently working on History Provided By Patient,Medical Record Prior Living Arrangements House Household Members spouse Type of transporation used prior to Drives own vehicle admit Independent with ADL's Yes Is patient alert and oriented? Yes Caregiver for Another No Barriers to Discharge No Discharge Plan Elopement Whiteboard Updated in Patient Room with Yes name and ext. # of Dandy Operator Review Status In Process Next Review Type Continued Stay Review
--- NOTE | 2023-06-21 11:45 | PT.IIE ---
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) Diverticular disease Dyslipidemia Eczema Hearing impaired History of migraine headaches Hypercholesterolemia Hypertension Kidney stones FRANCISCO on CPAP Pre-diabetes Prostate cancer (2009) Pyelonephritis SCC (squamous cell carcinoma) Skin cancer Spinal stenosis of lumbar region ELIANA (stress urinary incontinence), male TGA (transient global amnesia) (1999) TIA (transient ischemic attack) (1990) TMJ (temporomandibular joint disorder) Physical Therapy Inpatient Evaluation/Re-Eval M1 PT/OT-IP Prior Functional Status Start: 06/21/23 12:59 Freq: NEEDED Status: Active Protocol: Document 06/21/23 11:45 AB (Rec: 06/21/23 13:09 AB [id number]) Medical Review Prior Functional Status Medical History Reviewed Yes Communication able to make needs known Mobility and Gait pt stated that he is modified independent with all mobilities and ambulation without AD indoors but uses a SPC for outdoor mobility Social History Household Members spouse Living Arrangements House Number of Floors (Floors) Two Floors Number of Stairs To Enter/Railing? pt stays on mail level of the house no steps to enter Home Environment High Toilet,Walk in Shower Home Equipment Front Wheel Walker,Four Wheel Walker,Straight Cane,Shower Seat without Backrest,Hand Held Shower,Grab Bars Near Toilet M2 PT-IP Current Condition Start: 06/21/23 12:59 Freq: NEEDED Status: Active Protocol: Document 06/21/23 11:45 AB (Rec: 06/21/23 13:09 AB [id number]) Physical Therapy Current Condition Current Condition Evaluation Date 06/21/23 Treatment Diagnosis kidney stones; UTI; weakness Onset Date 06/20/23 M3 PT-IP Subjective Start: 06/21/23 12:59 Freq: NEEDED Status: Active Protocol: Document 06/21/23 11:45 AB (Rec: 06/21/23 13:09 AB [email or web address]) Subjective Physical Therapy Visit Type Type Initial Evaluation Visit Start Time 11:45 Visit Stop Time 12:10 Total Visit Minutes 25 Number of SHIP STEWARD Visits 0 Physical Therapy Visit Comments Patient Comments agreeable to do PT Therapy Pain Assessment Pain Present Pain Present Denied Pain M4 PT-IP Mobility and Gait Start: 06/21/23 12:59 Freq: NEEDED Status: Active Protocol: Document 06/21/23 11:45 AB (Rec: 06/21/23 13:09 AB [id number]) PT-Bed Mobility Assessment Supine to Sit Supine to Sit Standby Assistance PT-Transfer Assessment Sit to and From Stand Sit to and from Stand Minimal Assistance,1 Person Assistance,Use of Upper Extremities Equipment Transfer Assistive Device Gait Belt,Front Wheeled Walker Orthotic/Prosthetic Devices or Brace: No Transfers Transfer Destination Chair Transfer Technique ambulated Transfer Ability Level of Assist Minimal Assistance Comments Mobility Comments pt supine in bed. spouse in room. BP in supine: 95/56. Rechecked: 105/54. pt completed supine to sit SBA . presents with difficulty completing the task and required increase time to complete. able to sit on EOB SBA. No c/o dizziness/ lightheadedness. BP: 118/45. completed sit to stand min A. able to stand using FWW for support min A and ambulated in room using FWW min A ~ 45 ft. pt agreed to sit up on the chair. positioned on the chair. BP checked: 113/57. set up lunch tray. call light without reach. Gait Assessment Gait Gait Assistance Required: Minimum Assistance Distance (Feet) 45 Able to Maintain Weight Bearing Status Yes During Gait Assistive Devices Assistive Device Gait Belt,Front Wheeled Walker Orthotic/Prosthetic Devices or Brace: No Gait Deviations General Gait Pattern Decreased Stride Length, Decreased Feet Clearance,Step- to Gait Factors Limiting Gait Function Factors Limiting Gait Function Decreased Activity Tolerance, Decreased Strength,Poor Balance,Poor Safety Awareness PT-Balance Assessment Sitting Balance and Reactions Static Sitting Balance Ability Good Dynamic Sitting Balance Ability Good Standing Balance and Reactions Static Standing Balance Ability Fair Dynamic Standing Balance Ability Fair Device Used FWW M5 PT-IP Objective Assessments Start: 06/21/23 12:59 Freq: NEEDED Status: Active Protocol: Document 06/21/23 11:45 AB (Rec: 06/21/23 13:09 AB [id number]) Orientation Orientation/Cognition Level of Alertness Alert Orientation Name,Place,Situation Language Function Ability No Deficits Noted Safety Awareness Decreased Safety Awareness Memory Description No Deficits Noted Gross Range of Motion Lower Extremity ROM Assessment Within Functional Limits Strength Lower Extremity Strength Assessment Within Functional Limits Coordination Assessment Gross Coordination Gross Coordination WNL Sensation Assessment Sensation Gross Sensation WNL Muscle Tone Muscle Tone WNL Yes M6 PT-IP Treatment Start: 06/21/23 12:59 Freq: NEEDED Status: Active Protocol: Document 06/21/23 11:45 AB (Rec: 06/21/23 13:09 AB [email or web address]) Physical Therapy Treatment Education Education Provided Safety M7 PT-IP Assessment and Plan Start: 06/21/23 12:59 Freq: NEEDED Status: Active Protocol: Document 06/21/23 11:45 AB (Rec: 06/21/23 13:09 AB [email or web address]) PT Summary Assessment and Plan Potential Rehabilitation Potential Good Status of Condition at Evaluation Evolving Summary Impairments Pain,ROM,Strength,Balance,Bed Mobility,Transfers,Gait, Activity Tolerance Assessment Summary pt is a 77 y/o male and admitted for kidney stones and possible UTI presenting with weakness. pt's PLOF was modified independent without AD indoors but uses a SPC for outdoor mobility. Currently, pt requiring min A with mobility using FWW. pt's spouse will be able to assist pt at home. Caregiver training will be conducted when appropriate. will continue to assess progress. Goals Bed Mobility Goal Independent Transfer Goal Independent,Front Wheeled Walker Gait Goal Independent,Front Wheel Walker Gait Distance 200 Other Goals improve transfers, ambulation using SPC/without AD 250 ft SBA Days to Meet Goals 10 Frequency of Treatment Frequency Of Treatment Once a Day Treatment Plan Physical Therapy Treatment Plan Bed Mobility Training,Transfer Training,Gait Training, Therapeutic Exercise,Balance Retraining,Discharge Planning, Hot or Cold Pack,Neuromuscular Re-ed,Coordination Retraining Recommendations To Nursing Amount of Assist Needed 1 Person Assist Discharge Recommendations PT Discharge Recommendations Home with Assistance,Home Health Transportation Needs at Discharge Private Vehicle
[2023-06-21] MEDS: cefTRIAXone 1,000 MG in SODIUM CHLORIDE 0.9% 100 ML 200 MG IV (15:02)
[2023-06-21] MEDS: FUROSEMIDE 20 MG/2 ML VIAL IV (17:40)
[2023-06-21] MEDS: ATORVASTATIN 20 MG TABLET 10 MG PO (20:44)
[2023-06-21] MEDS: ASPIRIN EC 81 MG TABLET PO (20:47)
[2023-06-22 05:16] VITALS: TEMP 38.4
[2023-06-22] MEDS: ACETAMINOPHEN 325 MG TABLET 650 MG PO (05:16)
[2023-06-22 05:53] LABS: Add Manual Diff / Slide Review NO; Basophils Absolute Auto 100 /uL (0-100); Basophils Percent Auto 0.7 % (0-2); Eosinophils Absolute Auto 100 /uL (0-450); Eosinophils Percent Auto 1.3 % (2-4); Hematocrit 42.3 % (41-53); Hemoglobin 14.7 g/dL (13.5-17.5); Lymphocytes Absolute Auto 800 /uL (1100-4500); Lymphocytes Percent Auto 11.6 % (25-40); Mean Corpuscular HGB Conc 34.8 % (30-36); Mean Corpuscular Hemoglobin 31.9 PG (26-34); Mean Corpuscular Volume 91.6 fL (80-100); Monocytes Absolute Auto 1000 /uL (0-900); Monocytes Percent Auto 14.4 % (3-14); Neutrophils Absolute Auto 5200 /uL (1500-7000); Platelet Count 129 X10^3/uL (150-400); Red Blood Cell Count 4.61 X10^6/uL (4.5-5.9); Red Cell Distribution Width 13.8 % (11.6-14.8); White Blood Cell Count 7.2 X10^3/uL (4.5-11.0)
--- NOTE | 2023-06-22 06:01 | PM.PN.1 ---
Subjective Subjective Date Patient Seen: 06/22/23 Interval history: The pt reports overall feeling improved, but still not back to baseline. He continues to feel weak when ambulating, but was able to transfer independently from the bed to chair this morning. He states that after Tylenol, he usually starts feeling feverish around 4hrs later. He denies any abdominal/flank pain, chest pain, SOB, LE edema. Exam Vital Signs (past 8 hours): - 06/22/23 05:16 06/22/23 05:16 Temperature 101.1 F H 101.1 F H Oxygen Delivery Method Room Air Oxygen Flow Rate 0 Narrative Exam Narrative: Gen: NAD, sitting comfortably in chair, pleasantly conversant, appears well CV: RRR, no murmurs Resp: clear to auscultation bilaterally Abd: soft, nontender, nondistended Back: no CVA tenderness Ext: no edema Objective Labs 06/22/23 05:22 06/22/23 05:22 Labs: Laboratory Results - last 24 hr 06/21/23 06/21/23 06/22/23 05:17 05:17 05:22 WBC 7.2 7.2 RBC 4.43 L 4.61 Hgb 13.9 14.7 Hct 40.7 L 42.3 MCV 92.1 91.6 MCH 31.5 31.9 MCHC 34.2 34.8 RDW 14.0 13.8 Plt Count 114 L 129 L Neut % (Auto) 73.4 72.0 Lymph % (Auto) 12.6 L 11.6 L Lea % (Auto) 13.0 14.4 H Eos % (Auto) 0.5 L 1.3 L Baso % (Auto) 0.5 0.7 Neut # (Auto) 5300 5200 Lymph # (Auto) 900 L 800 L Lea # (Auto) 900 1000 H Eos # (Auto) 0 100 Baso # (Auto) 0 100 Sodium 134 L Potassium 3.5 Chloride 100 Carbon Dioxide 27 BUN 20 Creatinine 1.10 Estimated GFR > 60 BUN/Creatinine Ratio 18.2 Glucose 108 Calcium 8.1 L Total Bilirubin 0.5 AST 30 ALT 27 Alkaline Phosphatase 51 Total Protein 6.7 Albumin 3.6 Globulin 3.1 Albumin/Globulin Ratio 1.2 [facility] Medical History Acute appendicitis Arthritis BCC (basal cell carcinoma) 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) Diverticular disease Dyslipidemia Eczema Hearing impaired History of migraine headaches Hypercholesterolemia Hypertension Kidney stones FRANCISCO on CPAP Pre-diabetes Prostate cancer (2009) Pyelonephritis SCC (squamous cell carcinoma) Skin cancer Spinal stenosis of lumbar region ELIANA (stress urinary incontinence), male TGA (transient global amnesia) (1999) TIA (transient ischemic attack) (1990) TMJ (temporomandibular joint disorder) Surgical History History of surgical removal of pilonidal cyst Hx of arthroscopy of left knee Hx of arthroscopy of right knee Hx of bilateral cataract extraction Hx of prostatectomy (~2009) Hx of repair of left rotator cuff Hx of tonsillectomy Family History Father Cancer Hyperlipidemia Kidney stones Hearing impaired Brother Cancer Migraines Mother Aneurysm Hypertension Social History marital status: number of children: 6 household members: spouse occupational status: previously employed Smoking Status: Former smoker alcohol intake: current caffeine: No additional social history: 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 Assessment & Plan Assessment & Plan narrative: Pt is a 77yo man with HTN, hyperlipidemia, hx of prostate cancer who presented with left sided flank and groin pain, and weakness, thought to be due to UTI and likely recent passage of kidney stone. 1) UTI: Pt did have a fever early this morning, Tmax 101.1F. WBC count interestingly remains normal. Urine culture unfortunately not collected at admission. - Will collect urine culture now, even though pt has receive antibiotics, due to fever this morning - Continue IV Ceftriaxone for now - Tylenol and Ibuprofen PRN for fever 2) Nephrolithiasis: Punctate nonobstruction stone in left kidney, inflammatory changes in left ureter most consistent with recently passed stone. Currently asymptomatic. - No intervention needed at this time - If continues having fevers overnight, will plan to repeat CT scan 3) HTN: BP labile but overall in good range. Received single dose of IV Lasix yesterday due to concerns for fluid overload, no such concern today. - Continue home Lisinopril - Continue to hold home HCTZ 4) Hyperlipidemia: - Continue home statin FEN: General diet Code: Full DVT ppx: Lovenox Dispo: Pending continued improvement in symptoms, afebrile. Hopeful for d/c tomorrow.
[2023-06-22 06:11] LABS: BUN Creatinine Ratio 21.8 (6-22); Blood Urea Nitrogen 22 mg/dL (9-20); Calcium 8.5 mg/dL (8.4-10.2); Carbon Dioxide 27 mmol/L (22-32); Chloride 101 mmol/L (98-107); Estimated Glomerular Filt Rate > 60 mL/min (>60); Glucose 103 mg/dL (80-110); HEMOLYSIS < 15 (0-50); Potassium 4.1 mmol/L (3.4-5.1); Sodium 136 mmol/L (137-145)
[2023-06-22 06:31] VITALS: TEMP 37.1
[2023-06-22 08:20] VITALS: BP 122/66; PULSE 62; O2SAT 94
[2023-06-22] MEDS: lisinopriL 10 MG TABLET PO (08:20)
[2023-06-22] MEDS: ENOXAPARIN 40 MG/0.4 ML SYRINGE SUBCUT (08:20)
--- NOTE | 2023-06-22 09:20 | PT.IPTN ---
Physical Therapy Treatment Note M2 PT-IP Current Condition Start: 06/21/23 12:59 Freq: NEEDED Status: Active Protocol: Document 06/21/23 11:45 AB (Rec: 06/21/23 13:09 AB [email or web address]) Physical Therapy Current Condition Current Condition Evaluation Date 06/21/23 Treatment Diagnosis kidney stones; UTI; weakness Onset Date 06/20/23 M3 PT-IP Subjective Start: 06/21/23 12:59 Freq: NEEDED Status: Active Protocol: Document 06/22/23 09:20 AB (Rec: 06/22/23 10:11 AB [email or web address]) Subjective Physical Therapy Visit Type Type Treatment Note Visit Start Time 09:20 Visit Stop Time 09:40 Total Visit Minutes 20 Number of SLITTER SERVICE AND SETTER Visits 0 Physical Therapy Visit Comments Patient Comments requesting to use the toilet M4 PT-IP Mobility and Gait Start: 06/21/23 12:59 Freq: NEEDED Status: Active Protocol: Document 06/22/23 09:20 AB (Rec: 06/22/23 10:11 AB [email or web address]) PT-Transfer Assessment Sit to and From Stand Sit to and from Stand Contact Guard Assistance,1 Person Assistance,Use of Upper Extremities Equipment Transfer Assistive Device Gait Belt,Front Wheeled Walker Orthotic/Prosthetic Devices or Brace: No Transfers Transfer Destination Toilet Transfer Technique ambulated Transfer Ability Level of Assist Contact Guard Assistance,1 Person Assistance,Use of Upper Extremities Comments Mobility Comments pt sitting on the chair. requested to use the toilet. completed sit to stand from the chair CGA and ambulated tot he toilet using FWW ~ 10 ft CGA. assisted with brief management. NAC assisted pt with hygiene care and toileting needs. pt ambulated from the toilet towards the sink using FWW CGA . able to maintain standing CGA while completing handwashing. pt agreeable to do further ambulation. completed ambulation in the hallway ~ 225 ft using FWW CGA . pt can be impulsive. presents with antalgic gait but without LOB. pt ambulated back to the room and sat on the chair. Assessed ambulation without AD . completed ambulation in room ~ 20 ft without AD CGA initially but requiring min A midway with ambulation with increase unsteadiness and increase lateral leaning to the L. pt sat back on chair. informed regarding ambulation assessment using SPC next tx session and agreed. positioned pt on the chair. call light and table placed within reach. Gait Assessment Gait Gait Assistance Required: Contact Guard Assist Distance (Feet) 225 Able to Maintain Weight Bearing Status Yes During Gait Assistive Devices Assistive Device None,Gait Belt,Front Wheeled Walker Orthotic/Prosthetic Devices or Brace: No Gait Deviations General Gait Pattern Antalgic,Wide Based Gait Factors Limiting Gait Function Factors Limiting Gait Function Decreased Activity Tolerance, Decreased Strength,Poor Balance,Poor Safety Awareness M5 PT-IP Objective Assessments Start: 06/21/23 12:59 Freq: NEEDED Status: Active Protocol: Document 06/21/23 11:45 AB (Rec: 06/21/23 13:09 AB [email or web address]) Orientation Orientation/Cognition Level of Alertness Alert Orientation Name,Place,Situation Language Function Ability No Deficits Noted Safety Awareness Decreased Safety Awareness Memory Description No Deficits Noted Gross Range of Motion Lower Extremity ROM Assessment Within Functional Limits Strength Lower Extremity Strength Assessment Within Functional Limits Coordination Assessment Gross Coordination Gross Coordination WNL Sensation Assessment Sensation Gross Sensation WNL Muscle Tone Muscle Tone WNL Yes M6 PT-IP Treatment Start: 06/21/23 12:59 Freq: NEEDED Status: Active Protocol: Document 06/22/23 09:20 AB (Rec: 06/22/23 10:11 AB [id number]) Physical Therapy Treatment Education Education Provided Safety M7 PT-IP Assessment and Plan Start: 06/21/23 12:59 Freq: NEEDED Status: Active Protocol: Document 06/22/23 09:20 AB (Rec: 06/22/23 10:11 AB [email or web address]) PT Summary Assessment and Plan Potential Rehabilitation Potential Good Summary Impairments Pain,ROM,Strength,Balance, Coordination,Sensation,Tone, Cognition,Bed Mobility, Transfers,Gait,Activity Tolerance Progress Towards Goals Progressing Toward Goals Assessment Summary pt improving with mobility and able to ambulate using FWW CGA ~ 225ft. Assessed ambulation without AD requiring CGA to min A. will continue progressing mobility and ambulation using SPC next tx session. pt plans to go home and spouse will be able to assist. Goals Bed Mobility Goal Independent Transfer Goal Independent,Front Wheeled Walker Gait Goal Independent,Front Wheel Walker Gait Distance 200 Other Goals improve transfers, ambulation using SPC/without AD 250 ft SBA Days to Meet Goals 10 Frequency of Treatment Frequency Of Treatment Once a Day Treatment Plan Physical Therapy Treatment Plan Bed Mobility Training,Transfer Training,Gait Training, Therapeutic Exercise,Balance Retraining,Discharge Planning, Hot or Cold Pack,Neuromuscular Re-ed,Coordination Retraining Other Recommendations and Next Treatment ambulation using SPC Focus Recommendations To Nursing Amount of Assist Needed 1 Person Assist Discharge Recommendations PT Discharge Recommendations Home with Assistance,Home Health Transportation Needs at Discharge Private Vehicle
--- NOTE | 2023-06-22 10:51 | CM.DPC ---
Addendum entered by SAIGE Nolan 06/22/23 12:11: Per provider, patient will not dc today due to fever. Provider hopeful for d/c tomorrow. Plan remains home with spouse. SL Original Note: DCP Continued: GRAPPLE SKIDDER OPERATOR reviewed EMR. From RN, patient had a fever overnight. GRAPPLE SKIDDER OPERATOR entered room and introduced self and role. patient was accompanied by at bedside. Reports don't want to go home until they figure out why he's getting his fevers. Reports overall feeling better today. Plan remains home with spouse when medically stable. Owns a walker to use if needed. Plan: home with spouse when stable. Transport in POV. CM team will continue to follow as needed. SAIGE Nolan
[2023-06-22 11:11] VITALS: BP 122/66; PULSE 60; RESP 18; TEMP 37.2; O2SAT 94
[2023-06-22] MEDS: cefTRIAXone 1,000 MG in SODIUM CHLORIDE 0.9% 100 ML 200 MG IV (16:51)
[2023-06-22 19:00] VITALS: O2SAT 98
[2023-06-22 19:14] VITALS: BP 118/67; PULSE 65; RESP 20; TEMP 36.7; O2SAT 98
[2023-06-22] MEDS: ATORVASTATIN 20 MG TABLET 10 MG PO (20:10)
[2023-06-22] MEDS: ASPIRIN EC 81 MG TABLET PO (20:10)
[2023-06-22] MEDS: IBUPROFEN 600 MG TABLET PO (22:18)
[2023-06-23 07:00] VITALS: BP 115/64; PULSE 55; RESP 17; TEMP 36.1; O2SAT 94
[2023-06-23] MEDS: ENOXAPARIN 40 MG/0.4 ML SYRINGE SUBCUT (09:36)
[2023-06-23 09:37] VITALS: BP 130/68; PULSE 60
[2023-06-23] MEDS: lisinopriL 10 MG TABLET PO (09:37)
--- NOTE | 2023-06-23 11:22 | DI.CT.S_ITS ---
PROCEDURE: CT ABDOMEN PELVIS W CON INDICATIONS: fever, f/u appendicitis TECHNIQUE: After the administration of intravenous contrast, axial sections acquired from the lung bases to the pubic symphysis. Coronal and sagittal reformats were performed. For radiation dose reduction, the following was used: automated exposure control, adjustment of mA and/or kV according to patient size. COMPARISON: [facility], CT, CT ABDOMEN PELVIS W CON, 03/26/2023, 7:19. FINDINGS: Lower thorax: The lung bases are clear. Heart size normal. No hiatal hernia. Liver: Normal in size and attenuation. No contour deformity present. Left hepatic cyst measures 2 cm Biliary system: No calcified cholelithiasis or pericholecystic inflammation. No intra or extrahepatic bile duct dilatation. Pancreas: Unremarkable without mass or inflammation evident. Spleen: Normal in size and density. Adrenals: Normal morphology and density. Reproductive system: Prostatectomy Urinary system: Normal renal size and attenuation. No renal calculi, hydronephrosis, or solid mass present. Urinary bladder unremarkable. Gastrointestinal system: The bowel is unremarkable without evidence of bowel obstruction or inflammation. The stomach appears unremarkable. Multiple diverticula arise from the sigmoid colon without evidence of diverticulitis. Appendix: Normal appendix identified. No evidence of appendicitis. Peritoneal spaces: No mesenteric or retroperitoneal adenopathy. No free air. No free fluid. Vasculature: The IVC, aorta and iliac vasculature are unremarkable. Abdominal wall: Abdominal wall intact without evidence of ventral or inguinal hernias. Musculoskeletal: Normal bone mineralization. Degenerative disc disease and arthropathy noted in lower lumbar spine. L4-5 interbody fusion, left laminectomy and posterior sarika and screw instrumentation No acute fractures. No lytic or blastic osseous lesion IMPRESSION: 1. Appendix now has a normal CT appearance. No evidence of appendicitis. 2. Advanced sigmoid diverticulosis without diverticulitis. 3. Prostatectomy and instrumented L4-5 interbody fusion. Approved by: Dick Patterson M.D. on 06/23/2023 at 13:29
--- NOTE | 2023-06-23 11:43 | PM.DS.1 ---
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 However also having some urinary frequency which is also not uncommon with his kidney stones.? Had some pain and burning and also had fever.? He also describes profound weakness over the last 48 hours or so to the point where really could not get up out of bed on his own in his been unable to do so here in the ER Denies any cough shortness of breath no change in appetite no nausea no vomiting no change in bowels ER evaluation unremarkable for the most part.? CBC shows normal white blood cell count, chemistries pretty much unremarkable.? CT KUB shows changes in the left ureter consistent with probable past, recently passed, stone Urinalysis essentially unremarkable Discharge Providers Provider Date of admission: 06/20/23 17:16 Discharge Date: 06/23/23 Primary care physician: Chon Albrecht MD Consults: 06/20/23 18:02 Consult to Physical Therapy Evaluate & Treat Comment: weakness Physician Instructions: Evaluate and Treat 06/20/23 18:41 Consult to Pastoral Services Routine Comment: per pt request Discharge provider: Kelly Rosenberg MD Summary Hospital Course Discharge Diagnosis: UTI Nephrolithiasis HTN Hyperlipidemia Hospital Course: The pt was admitted with left sided back/flank pain and weakness. CT revealed likely recent passage of a kidney stone, with an inflammed ureter. He was given Ceftriaxone in the ED. This was continued during his admission for presumed UTI, as the pt did endorse dysuria as well. Urine culture was unfortunately not obtained until after antibiotics had been started. At the time of discharge, both urine and blood cultures were negative. The pt had one fever during his hospitalization, more than 24hrs prior to discharge. His weakness continued to improve. PT worked with him, and cleared him for discharge home. The pt and his family remained very concerned about the pts prior appendicitis potentially contributing to his fever and weakness. Repeat CT scan was obtained that showed no other potential etiologies for fever, and normal appendix. The pt was discharged home stable, with antibiotics to complete a 14 day course. Status at Discharge Cognitive/behavioral status at discharge: oriented Overall status at discharge: patient is back to baseline Exam Vital Signs (past 8 hours): - 06/23/23 07:00 06/23/23 09:37 Temperature 97.0 F L Pulse Rate 55 L 60 Respiratory Rate 17 Blood Pressure 115/64 130/68 Pulse Oximetry 94 Oxygen Flow Rate 0 Oxygen Delivery Method Room Air Oxygen Flow Rate 0 Narrative Exam Narrative: Gen: NAD, sitting comfortably in chair, appears well CV: RRR, no murmurs Resp: clear to auscultation bilaterally Abd: soft, nontender, nondistended Ext: no edema Objective Labs 06/22/23 05:22 06/22/23 05:22 [facility] Medical History Acute appendicitis Arthritis BCC (basal cell carcinoma) 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) Diverticular disease Dyslipidemia Eczema Hearing impaired History of migraine headaches Hypercholesterolemia Hypertension Kidney stones FRANCISCO on CPAP Pre-diabetes Prostate cancer (2009) Pyelonephritis SCC (squamous cell carcinoma) Skin cancer Spinal stenosis of lumbar region ELIANA (stress urinary incontinence), male TGA (transient global amnesia) (1999) TIA (transient ischemic attack) (1990) TMJ (temporomandibular joint disorder) Surgical History History of surgical removal of pilonidal cyst Hx of arthroscopy of left knee Hx of arthroscopy of right knee Hx of bilateral cataract extraction Hx of prostatectomy (~2009) Hx of repair of left rotator cuff Hx of tonsillectomy Family History Father Cancer Hyperlipidemia Kidney stones Hearing impaired Brother Cancer Migraines Mother Aneurysm Hypertension Social History marital status: number of children: 6 household members: spouse occupational status: previously employed Smoking Status: Former smoker alcohol intake: current caffeine: No additional social history: 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 Discharge Plan Discharge Plan Patient Disposition: Home Discharge orders & Medications Prescriptions: New cephalexin 500 mg capsule 500 mg PO BID Qty: 22 0RF Continued hydrochlorothiazide 25 mg Tablet 25 mg PO DAILY Qty: 0 aspirin [Sadia Low Dose Aspirin] 81 mg Tablet,Delayed Release (Dr/Ec) 81 mg PO BEDTIME Qty: 0 lisinopril [Zestril] 10 MG tablet 10 mg PO BEDTIME Qty: 0 One-A-Day Men's 50 Plus(vit K) 400-20-370 mcg tablet 1 tab PO DAILY Rx Instructions: give with meal/snack cholecalciferol (vitamin D3) 25 mcg (1,000 unit) capsule 25 mcg PO DAILY omega-3 fatty acids [Fish Oil Concentrate] 1,000 mg capsule 2,000 mg PO DAILY acetaminophen 500 mg capsule 500 mg PO Q4H MDD Max 3000 mg per day PRN (Reason: Pain, Mild (1-3)) Qty: 90 0RF ibuprofen [Advil Liqui-Gel] 200 mg Capsule 400 mg PO Q4-6H PRN (Reason: pain) Rx Instructions: 400 mg orally as needed once per day PRN rosuvastatin 20 mg tablet 20 mg PO ONCE PM Follow up/Referrals: Chon Albrecht MD [Primary Care Provider] - 2 Weeks Diet/Activity/Treatments Diet: Diet as Tolerated and Regular Visit Report/Discharge Packet Stand Alone Forms: Patient Portal/API, Stroke Signs & Symptoms Discharge Data Primary Care Provider: Chon Albrecht Attending Provider: Dena Henson Admit Date/Time: 06/20/23 17:16 Discharges patient from system. Discharge Date/Time: 06/23/23 18:02
--- NOTE | 2023-06-23 11:52 | CM.DPC ---
DCP Continued: FINANCIAL REPRESENTATIVE reviewed EMR. Per provider, provider wants patient to work with PT prior to leaving. Provider wants patient to have 4pm antibiotics and then can d/c home with spouse. No needs. Plan: patient to d/c home with spouse this afternoon. No needs at this time. CM team will continue to follow as needed. SAIGE Nolan
--- NOTE | 2023-06-23 13:19 | PT.IPTN ---
Physical Therapy Treatment Note M2 PT-IP Current Condition Start: 06/21/23 12:59 Freq: NEEDED Status: Active Protocol: Document 06/21/23 11:45 AB (Rec: 06/21/23 13:09 AB [id number]) Physical Therapy Current Condition Current Condition Evaluation Date 06/21/23 Treatment Diagnosis kidney stones; UTI; weakness Onset Date 06/20/23 M3 PT-IP Subjective Start: 06/21/23 12:59 Freq: NEEDED Status: Active Protocol: Document 06/23/23 14:27 AB(2) (Rec: 06/23/23 14:38 AB(2) [id number]) Subjective Physical Therapy Visit Type Type Treatment Note Visit Start Time 13:19 Visit Stop Time 13:46 Total Visit Minutes 27 Notes The pt presents seated in chair with at bedside. Number of SPREADER BOX OPERATOR Visits 0 Physical Therapy Visit Comments Patient Comments The pt reports he is feeling well and denies any symptoms currently. He is agreeable to therapy this afternoon. Therapy Pain Assessment Pain When Pain Assessed At Rest Pain Present Pain Present Denied Pain M4 PT-IP Mobility and Gait Start: 06/21/23 12:59 Freq: NEEDED Status: Active Protocol: Document 06/23/23 14:27 AB(2) (Rec: 06/23/23 14:38 AB(2) [id number]) PT-Bed Mobility Assessment Rolling Type of Rolling Bilateral Level of Assist Independent Supine to Sit Supine to Sit Independent Sit to Supine Sit to Supine Independent Scooting Scooting to Edge of Bed Independent PT-Transfer Assessment Sit to and From Stand Sit to and from Stand Independent,Use of Upper Extremities Equipment Transfer Assistive Device Gait Belt Transfers Transfer Destination Bed,Chair Transfer Technique Stand Step Pivot Transfer Ability Level of Assist Independent,Use of Upper Extremities Gait Assessment Gait Gait Assistance Required: Independent Distance (Feet) 400 Assistive Devices Assistive Device Gait Belt,Straight Cane Gait Deviations General Gait Pattern Within Normal Limits Comments Gait Comments No significant gait deviations noted when ambulating with SPC. Stair Climbing Assessment Evaluation Level of Assist On Stairs Independent Devices Stair Climbing Assistive Devices Straight Cane,Right Railing Technique/Endurance Stair Climbing Direction Ascend and Descend Stair Climbing Technique Step to Step Number of Steps Climbed 9 Stair Climbing Set # Repetitions (reps) 2 Comments Stair Climbing Comments Pt uses SPC and hand rail, and step to step technique due to weakness in RLE, but demonstrates good safety awareness. PT-Balance Assessment Sitting Balance and Reactions Static Sitting Balance Ability Normal Dynamic Sitting Balance Ability Normal Standing Balance and Reactions Static Standing Balance Ability Normal Dynamic Standing Balance Ability Normal M5 PT-IP Objective Assessments Start: 06/21/23 12:59 Freq: NEEDED Status: Active Protocol: Document 06/21/23 11:45 AB (Rec: 06/21/23 13:09 AB [id number]) Orientation Orientation/Cognition Level of Alertness Alert Orientation Name,Place,Situation Language Function Ability No Deficits Noted Safety Awareness Decreased Safety Awareness Memory Description No Deficits Noted Gross Range of Motion Lower Extremity ROM Assessment Within Functional Limits Strength Lower Extremity Strength Assessment Within Functional Limits Coordination Assessment Gross Coordination Gross Coordination WNL Sensation Assessment Sensation Gross Sensation WNL Muscle Tone Muscle Tone WNL Yes M6 PT-IP Treatment Start: 06/21/23 12:59 Freq: NEEDED Status: Active Protocol: Document 06/23/23 14:27 AB(2) (Rec: 06/23/23 14:38 AB(2) [id number]) Physical Therapy Treatment Exercises Exercises Ankle Pumps,Seated Knee Flexion/Extension Education Education Provided Safety Brace Education Patient,Caregiver Other Treatments Other Treatment Performed Seated marching, seated hip ADD pillow squeeze, STS x 5 At end of session, the pt returned to chair with all needs met, call light within reach, and present in room. RN was notified of findings. M7 PT-IP Assessment and Plan Start: 06/21/23 12:59 Freq: NEEDED Status: Active Protocol: Document 06/23/23 14:27 AB(2) (Rec: 06/23/23 14:38 AB(2) [id number]) PT Summary Assessment and Plan Potential Rehabilitation Potential Excellent Status of Condition at Evaluation Stable Summary Impairments Activity Tolerance Progress Towards Goals Safe For Discharge,Goals Met Assessment Summary The patient shows significant improvement in his ability to perform functional mobility, as he completes all tasks with IND and safely. He is able to ambulate over 400 ft with SPC and able to ascend/descend 18 steps total with SPC and 1 hand rail with independence. The pt shows good safety awareness, though he shows decreased activity tolerance compared to his prior level of function. He was provided with HEP to improve strength, including a handout and education, with the pt verbalizing understanding. Based on his improvements, discharge from skilled PT is recommended at this time, and he does not require home health PT services give his level of function. However, he and his were educated on seeking outpatient PT services if weakness and decreased endurance continues, with both verbalizing understanding. Goals Bed Mobility Goal Independent Transfer Goal Independent Gait Goal Independent Gait Distance 250 Days to Meet Goals 10 Frequency of Treatment Frequency Of Treatment Discharge Treatment Plan Physical Therapy Treatment Plan Therapeutic Exercise,Balance Retraining,Neuromuscular Re-ed Other Recommendations and Next Treatment Discharge from PT Focus Recommendations To Nursing Amount of Assist Needed Independent Discharge Recommendations PT Discharge Recommendations Home Transportation Needs at Discharge Private Vehicle
[2023-06-23] MEDS: cefTRIAXone 1,000 MG in SODIUM CHLORIDE 0.9% 100 ML 200 MG IV (16:10)
--- NOTE | 2023-06-23 18:00 | PC.NURSE ---
Pt discharged home at 1545, escorted off floor in wheelchair, accompanied by and hospital staff. IV removed, discharge teaching provided including follow up appointments, new medications and worsening symptoms. Patient left the floor with all belongings.
== END 2023-06-23 18:02 | disposition home or self-care (01) ==
LOC: ED 17:15 → AC 17:17
PROVIDERS: Admitting Provider Internal Medicine; Emergency Provider Emergency Medicine; Family Provider Family Medicine; PCP Family Medicine; Referring Provider Emergency Medicine; Visit Provider Family Medicine
DX: N39.0 Urinary tract infection, site not specified (principal); N20.0 Calculus of kidney; N39.41 Urge incontinence; R35.0 Frequency of micturition; R30.9 Painful micturition, unspecified; I10 Essential (primary) hypertension; E78.5 Hyperlipidemia, unspecified; Z85.89 Personal history of malignant neoplasm of other organs and systems
CPT/HCPCS: 36415; 74176; 74177; 80048; 80053; 81001; 81003; 81015; 83605; 83690; 84145; 85025; 87040; 87086; 93005; 93010; 96365; 96366; 96372; 96375; 97110; 97116; 97162; 97530; 99222; 99232; 99238; 99284; G0378; J0696; J1650; J1940; Q9967

== ENCOUNTER → 2023-06-20 13:20 | Outpatient (ROUT) | payer MEDICARE, OTHER, SELFPAY ==
[2023-06-20 13:35] LABS: Appearance Urine UA CLEAR; Bilirubin Urine UA NEGATIVE (NEGATIVE); Color Urine UA YELLOW; Glucose Urine UA NEGATIVE (Negative); Ketones Urine UA NEGATIVE (NEGATIVE); Leukocyte Esterase Urine UA 1+ (NEGATIVE); Nitrite Urine UA NEGATIVE (Negative); Occult Blood Urine UA 2+ (Negative); Protein Urine UA NEGATIVE (Negative); Specific Gravity Urine UA 1.025 (1.000-1.035); Urobilinogen Urine UA 0.2 E.U./dL (0.2); pH Urine UA 5.5 (4.5-8.0)
[2023-06-20 14:07] LABS: Bacteria Urine None Seen; Culture Indicated Urine Cult Not Indicated; Mucus Urine 1+ (Negative); RBC Urine 0-1/HPF (0-5/HPF); Squamous Epithelial Cell Urine None Seen (0-5/HPF); WBC Urine 0-1/HPF (0-5/HPF)
== END ==
PROVIDERS: Family Provider Family Medicine; PCP Family Medicine; Visit Provider Registered Nurse
DX: R30.9 Painful micturition, unspecified (principal)
CPT/HCPCS: 81001

== ENCOUNTER → 2023-07-25 14:12 | Outpatient (CLI) | payer MEDICARE, OTHER, SELFPAY ==
[2023-06-20 18:32] VITALS: BMI 35.9
== END ==
PROVIDERS: Family Provider Family Medicine; PCP Family Medicine; Referring Provider Family Medicine; Visit Provider Family Medicine
DX: Z23 Encounter for immunization (principal)
CPT/HCPCS: 90471; 90686

== ENCOUNTER → 2024-02-28 09:40 | Outpatient (CLI) | payer MEDICARE, OTHER, SELFPAY ==
[2023-06-20 18:32] VITALS: BMI 35.9
--- NOTE | 2024-02-28 09:41 | DI.CT.S_ITS ---
PROCEDURE: CT LUMBAR SPINE WO CON INDICATIONS: SPINAL STENOSIS TECHNIQUE: Noncontrast 3 mm thick sections acquired from the T12 level to the sacrum. Sagittal and coronal reformats were constructed. For radiation dose reduction, the following was used: automated exposure control. COMPARISON: [facility], MR, MR LUMBAR SPINE WO CON, 04/30/2020, 8:27. FINDINGS: Image quality: Excellent. Bones: There is posterior fusion at L4-5 with intervertebral spacer. Hardware is intact without hardware fracture or periprosthetic lucency to suggest loosening. Alignment is stable. There is trace retrolisthesis of L1 on L2, L2 on L3. No visualized fracture or dislocation. Mild disc bulges are present at L1-2, L2-3, L3-4 and L5-S1. L4-5 is obscured secondary to artifact from postsurgical hardware. There is [id number] spinal stenosis at L2-3, progressive, moderate to severe spinal stenosis with canal compression at L3-4, progressive, moderate spinal stenosis L5-S1, progressive. Multilevel facet and ligamentum flavum hypertrophy are present. There is moderate to severe right and cljf-kn-njyjhwhs left foraminal narrowing at L3-4 relatively stable, moderate to severe bilateral foraminal narrowing L4-5 progressive moderate to severe bilateral foraminal narrowing L5-S1. Mildly progressive. Soft tissues: No retroperitoneal masses or hematomas. Visualized aorta is normal in caliber. Partially visualized simple hepatic cyst. IMPRESSION: Multilevel disc bulges, spinal stenosis and foraminal narrowing, progressive compared to 2020 as detailed above. Most prominent level of spinal stenosis is L3-4 secondary to disc bulge with contributing effect of facet/ligamentum flavum arthropathy. Dictated by: Alva Kern M.D. on 02/28/2024 at 16:57 Approved by: Alva Kern M.D. on 02/28/2024 at 17:03
== END ==
LOC: CT 09:41
PROVIDERS: Family Provider Family Medicine; PCP Family Medicine; Referring Provider Orthopaedic Surgery Orthopaedic Surgery of the Spine; Visit Provider Orthopaedic Surgery Orthopaedic Surgery of the Spine
DX: M48.062 Spinal stenosis, lumbar region with neurogenic claudication (principal); M48.07 Spinal stenosis, lumbosacral region; M47.816 Spondylosis without myelopathy or radiculopathy, lumbar region; M51.37 Other intervertebral disc degeneration, lumbosacral region; M51.36 Other intervertebral disc degeneration, lumbar region; Z98.1 Arthrodesis status
CPT/HCPCS: 72131

== ENCOUNTER 2024-09-29 08:33 | Day surgery (SDC) | payer MEDICARE, OTHER, SELFPAY ==
[2023-06-20 18:32] VITALS: BMI 35.9
[2024-09-29 09:24] VITALS: BP 140/81; PULSE 61; RESP 18; TEMP 36.3; O2SAT 96
--- NOTE | 2024-09-29 09:50 | P.HP_ITS ---
History of Present Illness History of Present Illness Date Patient Seen: 09/29/24 Time Patient Seen: 09:50 Chief complaint: Screening Colonoscopy Narrative: 78-year-old man here for screening colonoscopy. Last colonoscopy 5 years ago normal. He has a family history of colon cancer in his brother. No abdominal concerns today. 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) Diverticular disease Dyslipidemia Eczema Hearing impaired History of migraine headaches Hypercholesterolemia Hypertension Kidney stones FRANCISCO on CPAP Pre-diabetes Prostate cancer (2009) Pyelonephritis SCC (squamous cell carcinoma) Skin cancer Spinal stenosis of lumbar region ELIANA (stress urinary incontinence), male TGA (transient global amnesia) (1999) TIA (transient ischemic attack) (1990) TMJ (temporomandibular joint disorder) Surgical History History of surgical removal of pilonidal cyst Hx of arthroscopy of left knee Hx of arthroscopy of right knee Hx of bilateral cataract extraction Hx of prostatectomy (~2009) Hx of repair of left rotator cuff Hx of tonsillectomy Family History Father Cancer Hyperlipidemia Kidney stones Hearing impaired Brother Cancer Migraines Mother Aneurysm Hypertension Social History marital status: number of children: 6 household members: spouse occupational status: previously employed Smoking Status: Former smoker alcohol intake: current caffeine: No additional social history: 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 Meds Home Medications and Allergies Home Medications Medication Instructions Recorded Confirmed Type aspirin 81 mg tablet,delayed 81 mg PO BEDTIME ##0 09/03/11 09/29/24 History release (Sadia Low Dose Aspirin) hydrochlorothiazide 25 mg tablet 25 mg PO DAILY ##0 09/03/11 09/29/24 History lisinopril 10 mg tablet (Zestril) 10 mg PO BEDTIME ##0 09/03/11 09/29/24 History cholecalciferol (vitamin D3) 25 25 mcg PO DAILY 10/06/20 06/20/23 History mcg (1,000 unit) capsule utncjoxdhqpp-rpz-zjdku acid-vit 1 tab PO DAILY 10/06/20 06/20/23 History K-lycop 400 mcg-20 mcg-370 mcg tablet (One-A-Day Men's 50 Plus (with vitamin K)) omega-3 fatty acids 1,000 mg 2,000 mg PO DAILY 10/06/20 06/20/23 History capsule (Fish Oil Concentrate) acetaminophen 500 mg capsule 500 mg PO Q4H PRN Pain, Mild (1-3) 03/22/22 06/20/23 Rx #90 caps ibuprofen 200 mg capsule (Advil 400 mg PO Q4-6H PRN pain 03/26/23 06/20/23 History Liqui-Gel) rosuvastatin 20 mg tablet 20 mg PO ONCE PM 06/20/23 09/29/24 History cephalexin 500 mg capsule 500 mg PO BID #22 caps 06/23/23 Rx Allergies Allergy/AdvReac Type Severity Reaction Status Date / Time Sulfa (Sulfonamide Allergy Severe ANAPHYLAXIS Verified 09/29/24 09:15 Antibiotics) [SULFA (SULFONAMIDE ANTIBIOTICS)] latex Allergy Mild Rash Verified 09/29/24 09:15 Exam Vital Signs (past 8 hours): - 09/29/24 09:24 Temperature 97.4 F L Pulse Rate 61 Respiratory Rate 18 Blood Pressure 140/81 Pulse Oximetry 96 Oxygen Delivery Method Room Air Oxygen Delivery Method Room Air Narrative Exam Narrative: General adult man alert oriented no acute distress Chest nonlabored respiration Extremities warm well perfused Assessment & Plan Assessment and plan (1) Family history of colon cancer: Status: Acute Assessment & Plan narrative: The patient requires colorectal screening and colonoscopy is recommended. Technical details were discussed. Risks, benefits, alternatives explained. Risks including but not limited to myocardial infarction, aspiration, bleeding, pain, missed lesion, incomplete examination, need for further radiographic studies, intestinal injury, and need for major abdominal surgery were discussed. All questions were answered to their satisfaction, and they are in agreement with this plan. Time-Based Coding :: [TOTAL MINUTES] spent with patient and on the chart (including review of chart, obtaining history, exam, reviewing outside data, placing orders, documenting exam and treatment plan, and counseling patient) on [DATE].
[2024-09-29 10:17] VITALS: BP 103/65; PULSE 54; RESP 14; TEMP 36.5; O2SAT 93
--- NOTE | 2024-09-29 10:20 | P.OP.COLON_ITS ---
Operative Date/Time/Diagnoses Date of procedure: 09/29/24 Time of procedure: 10:20 Pre-op diagnosis: Family history of colon cancer Procedure & Clinicians Study performed: Screening colonoscopy Same procedure as scheduled: Yes Indications: Family history of colon cancer Surgeon: Anjel Vargas Procedure Notes Procedure in detail: The history and physical was performed/updated and the patient is ASA class is 2. The procedure was discussed in detail with the patient. Potential risks complications including infection, bleeding, missed diagnosis, perforation, need for surgery, and were explained. Their questions were answered and informed consent was obtained. Patient was brought to the procedure room and placed standard monitoring equipment. The patient's vital signs were monitored continuously throughout the entire procedure. Prior to starting time-out was performed. The patient was placed in the left lateral recumbent position. Procedural sedation was administered by anesthesia. Examination began with a thorough inspection of the perianal area there was no evidence of fissures, fistulae, external hemorrhoids or cutaneous malignancy. The colonoscopy scope was then placed into the anal canal and was advanced to the cecum, which was identified by the ileocecal valve, the appendiceal orifice and the confluence of the taenia. The scope was then slowly withdrawn examining colon thoroughly in all directions, irrigating it of any residual stool. The scope was retroflexed within the rectum The patient tolerated the procedure well. They will be discharged once criteria are met. The prep was of good/excellent quality. The withdrawl time was 7 minutes. FINDINGS * Moderate diverticulosis of distal colon otherwise unremarkable colonoscopy. Impression: Diverticulosis Post-procedure Recommendations: High fiber diet Plan for aftercare: No need for further colonoscopy unless symptomatic Disposition: same day surgery
[2024-09-29 10:22] VITALS: BP 95/66; PULSE 45; RESP 16; O2SAT 96
[2024-09-29 10:27] VITALS: BP 96/55; PULSE 42; RESP 18; O2SAT 94
[2024-09-29 10:33] VITALS: BP 109/64; PULSE 58; RESP 16; O2SAT 95
== END 2024-09-29 10:48 | disposition home or self-care (01) ==
PROVIDERS: Family Provider Family Medicine; PCP Family Medicine; Referring Provider Surgery; Visit Provider Surgery
PROC: 0DJD8ZZ Inspection of Lower Intestinal Tract, Via Natural or Artificial Opening Endoscopic (ICD-10-PCS; CPT 45378; principal; 2024-09-29 09:45)
DX: Z12.11 Encounter for screening for malignant neoplasm of colon (principal); Z80.0 Family history of malignant neoplasm of digestive organs; K57.30 Diverticulosis of large intestine without perforation or abscess without bleeding
CPT/HCPCS: G0105; J2704

== ENCOUNTER → 2024-11-19 09:40 | Outpatient (CLI) | payer MEDICARE, OTHER, SELFPAY ==
[2023-06-20 18:32] VITALS: BMI 35.9
--- NOTE | 2024-11-19 09:42 | DI.RAD.S_ITS ---
PROCEDURE: XR HIP W PEL IF DONE RT 2V INDICATIONS: Pain in right hip TECHNIQUE: Two views of the right hip were acquired. COMPARISON: None. FINDINGS: Bones: There are no osseous abnormalities. SI and hip joints: Severe bilateral hip degeneration appreciated. Both SI joints are normal. Soft tissues: A 3 cm focus of heterotopic ossification is adjacent to the inferior left obturator Ring . multiple surgical pelvic clips appreciated IMPRESSION: Severe bilateral hip degeneration Dictated by: Eran Day M.D. on 11/20/2024 at 11:19 Approved by: Eran Day M.D. on 11/20/2024 at 11:21
== END ==
PROVIDERS: Family Provider Family Medicine; PCP Family Medicine; Referring Provider Family Medicine; Visit Provider Family Medicine
DX: M16.0 Bilateral primary osteoarthritis of hip (principal); M25.551 Pain in right hip
CPT/HCPCS: 73502

== ENCOUNTER → 2024-12-30 15:18 | Outpatient (CLI) | payer MEDICARE, OTHER, SELFPAY ==
[2023-06-20 18:32] VITALS: BMI 35.9
--- NOTE | 2024-12-30 15:20 | DI.MRI.S_ITS ---
PROCEDURE: MR LUMBAR SPINE WO CON INDICATIONS: SPINAL STENOSIS,LUMBAR REGION TECHNIQUE: Noncontrast sagittal T1 spin echo and T2 fast echo, sagittal STIR, and T2 fast spin echo through the lumbar spine. In cases with scoliosis, additional coronal T2 fast spin echo may be performed. COMPARISON: [facility], MR, MR LUMBAR SPINE WO CON, 04/30/2020, 8:27. FINDINGS: Image quality: Excellent. Alignment and Curvature: There is normal bony alignment. Bone Marrow: L4-5 posterior spinal fixation and discectomy. Mild height loss of the L3 vertebral body with likely fracture line and diffuse edema throughout the vertebral body. Spinal Cord: Conus medullaris terminates at the L1 level. Visualized cord demonstrates normal signal and size. Paraspinous Soft Tissues: No paravertebral masses. T12-L1: Normal appearance. L1-L2: Disc desiccation and mild height loss. Facet arthropathy. No significant central canal or neural foraminal stenosis. L2-L3: Disc desiccation diffuse disc bulge. Facet arthropathy and thickening of ligamentum flavum. Mild central canal stenosis is progressed. Moderate right and mild left neural foraminal stenosis is progressed. L3-L4: Disc desiccation and mild disc bulge. Facet arthropathy and thickening of ligamentum flavum. Epidural lipomatosis. Severe central canal stenosis is progressed. Severe right and moderate left neural foraminal stenosis is progressed. L4-L5: Postoperative changes. No central canal stenosis. Moderate left and mild right neural foraminal stenosis. L5-S1: Disc desiccation. Facet arthropathy. No significant central canal or neural foraminal stenosis. IMPRESSION: 1. Multilevel degenerative changes of the lumbar spine status post L4-5 posterior spinal fixation. Degenerative changes are progressed compared to prior. 2. Severe central canal stenosis at L3-L4. 3. Severe right neural foraminal stenosis at L3-L4. Moderate neural foraminal stenosis on the right at L2-L3, left at L3-L4 and left at L4-5. Dictated by: Nakul Varma M.D. on 12/30/2024 at 17:41 Approved by: Nakul Varma M.D. on 12/30/2024 at 17:48
== END ==
PROVIDERS: Family Provider Family Medicine; PCP Family Medicine; Referring Provider Orthopaedic Surgery; Visit Provider Orthopaedic Surgery
DX: M48.062 Spinal stenosis, lumbar region with neurogenic claudication (principal); M51.369 Other intervertebral disc degeneration, lumbar region without mention of lumbar back pain or lower extremity pain; Z98.890 Other specified postprocedural states
CPT/HCPCS: 72148

== ENCOUNTER → 2025-07-28 09:32 | Outpatient (CLI) | payer MEDICARE, OTHER, SELFPAY ==
[2023-06-20 18:32] VITALS: BMI 35.9
--- NOTE | 2025-07-28 09:34 | DI.RAD.S_ITS ---
PROCEDURE: XR DEXA AXIAL SKELETON INDICATIONS: osteoporosis screening COMPARISON: None. FINDINGS: Left Femoral Neck: Bone mineral density 1.032 g/cm2, T score 1.6. Left Hip: Bone mineral density 0.915 g/cm2, T score -0.2. Left Forearm: Bone mineral density 0.747 g/cm2, T score 0.9. Fracture Risk Calculation (when applicable): 10-year fracture risk of a major osteoporotic fracture 4.5 percent and of a hip fracture 0.8 percent. (T score greater or equal to -1.0 to: NORMAL) (T score from -1.1 to -2.4: OSTEOPENIA) (T score less than or equal to -2.5: OSTEOPOROSIS) IMPRESSION: Normal Follow-up guidelines as follows: Osteoporosis: Consider a repeat DEXA and Vertebral Fracture Assessment (VFA) exam in 2 years or sooner if medically necessary, to reassess this patient's status. Osteopenia: Consider a repeat DEXA in 2-3 years to reassess this patient's status, or if there is a new clinical indication. Normal: Consider a repeat DEXA in 5 years or sooner, or if there is a new clinical indication. All treatment decisions require clinical judgment and consideration of individual patient factors, including patient preferences, comorbidities, previous drug use, risk factors not captured in the FRAX model (e.g., frailty, falls, vitamin D deficiency, increased bone turnover, interval significant decline in bone density ) and possible under- or over-estimation of fracture risk by FRAX. In addition, the NOF Guide recommends that FDA-approved medical therapies be considered in postmenopausal women and men age >= 50 years with a: * Hip or vertebral (clinical or morphometric) fracture * T-score of <=-2.5 at the spine or hip * Ten-year fracture probability by FRAX of >= 3% for hip fracture or >=20% for major osteoporotic fracture. Approved by: Rita Lehman M.D.,Ph.D. on 07/28/2025 at 17:33
== END ==
PROVIDERS: Family Provider Family Medicine; PCP Family Medicine; Referring Provider Family Medicine; Visit Provider Nurse Practitioner
DX: M81.0 Age-related osteoporosis without current pathological fracture (principal)
CPT/HCPCS: 77080; 77081